=== PATIENT | male | born 1935 | race Caucasian/White ===

== ENCOUNTER → 2019-03-02 14:07 | Outpatient (BNVA) | payer MEDICARE, SELFPAY | PROVIDERS: Family Provider Nurse Practitioner Family; PCP Nurse Practitioner Family; Visit Provider Nurse Practitioner Family | DX: I12.9 Hypertensive chronic kidney disease with stage 1 through stage 4 chronic kidney disease, or unspecified chronic kidney disease (principal); N18.9 Chronic kidney disease, unspecified; E78.5 Hyperlipidemia, unspecified; R09.89 Other specified symptoms and signs involving the circulatory and respiratory systems; Z91.19 Patient's noncompliance with other medical treatment and regimen | CPT/HCPCS: 80053; 80061; 85025 ==

== ENCOUNTER 2020-04-12 13:07 | Emergency (ER) | payer MEDICARE, SELFPAY ==
--- NOTE | 2020-04-12 13:09 | ECG_ITS ---
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 [id number]
--- NOTE | 2020-04-12 13:09 | CT_ITS ---
WS: [id number] Exam: CT head wo con* [id number] Date/Time of Exam: 04/12/2020 1:09 PM Reason For Exam: Symptoms of Acute Stroke DLP: All CT scans at [facility] use at least one of these dose optimization techniques: automat ed exposure control; mA and/or kV adjustment per patient size (includes targeted exams where dose is matched to clinical indication); or iterative reconstruction. Comparison 03/29/2017. There is an area of decreased attenuation in the region of the left internal capsule suspicious for a subacute infarct. Additional old lacunar infarcts are noted in the periventricular white matter subs tance along the posterior horn left lateral ventricle. No evidence of acute bleed or space-occupying mass. Diffuse atrophy and microvascular ischemic changes noted. The ventricles are normal in size. No extra-axial fluid collections. The skull is intact. The facial sinuses and mastoids are clear. Minim al mucosal thickening in the right maxillary sinus. CT/CT head wo con* [id number] IMPRESSION: 1. Area of decreased attenuation in the left internal capsule suspicious for ventura bacute infarct. No bleed is noted. 2. Old lacunar infarcts noted in the periventricular white matter substance em ng the posterior horn of the left lateral ventricle. Also an old lacunar infarc t in left cerebellum. 3. Diffuse atrophy and microvascular ischemic changes.
--- NOTE | 2020-04-12 13:09 | XR_ITS ---
WS: [id number] Exam: XR chest 1V portable [id number] Date/Time of Exam: 04/12/2020 1:15 PM Reason For Exam: reduced breath sounds Comparison 11/15/2014. The lungs are fully expanded. No infiltrates or pleural effusions. Cardiomediastinal structures are u nremarkable for technique. Scattered calcified granulomas noted bilaterally. XR/XR chest 1V portable [id number] IMPRESSION: 1. No acute cardiopulmonary finding.
[2020-04-12 13:19] VITALS: BP 170/78; RESP 18; BMI 22.3
[2020-04-12 13:59] VITALS: BP 151/67; PULSE 55; RESP 16; O2SAT 97
[2020-04-12 14:31] VITALS: BP 151/67; PULSE 56; RESP 13; O2SAT 98
[2020-04-12 14:40] LABS: Glucose Point of Care 102 mg/dL (70-110)
[2020-04-12 14:44] LABS: Basophils # 0.1 10^3/uL (0.0-0.1); Basophils % 0.6 %; Eosinophils # 0.2 10^3/uL (0.0-0.8); Eosinophils % 1.7 %; Hematocrit 37.9 % (42.0-52.0); Hemoglobin 12.4 g/dL (11.7-16.6); Lymphocytes # 1.9 10^3/uL (0.8-4.8); Lymphocytes % 20.3 %; Mean Corpuscular HGB Conc 32.7 g/dL (30.0-36.0); Mean Corpuscular Volume 97.7 fL (80-94); Mean Platelet Volume 11.4 fL (7.4-10.4); Monocytes % 10.1 %; Neutrophils # 6.33 10^3/uL (1.8-7.7); Neutrophils % 67.1 %; Nucleated Red Blood Cells % 0 %; Platelet Count 309 10^3/cmm (130-400); Red Blood Count 3.88 10^6/uL (4.1-5.3); Red Cell Distribution Width 15.2 % (12.1-15.1); White Blood Count 9.4 10^3/uL (4.0-10.0)
[2020-04-12 15:01] LABS: INR 1.18 (0.8-1.2)
[2020-04-12 15:02] LABS: Partial Thromboplastin Time 27.8 SECONDS (23.9-36.7)
[2020-04-12 15:08] LABS: Alanine Aminotransferase 15 U/L (0-41); Albumin Level 3.8 g/dL (3.5-5.2); Alkaline Phosphatase 112 IU/L (40-130); Anion Gap 12.3 (5-19); Aspartate Amino Transferase 14 U/L (0-40); Blood Urea Nitrogen 22 mg/dL (8-23); Calcium 9.1 mg/dL (8.5-10.5); Carbon Dioxide 27 mmol/L (22-29); Chloride 103 mmol/L (98-107); Glucose 98 mg/dL (65-115); Osmolality Calculated 289 mOsm/kg (285-295); Potassium 4.3 mmol/L (3.5-5.1); Sodium 138 mmol/L (136-145); Total Bilirubin 1.2 mg/dL (0.15-1.2); Total Protein 6.8 g/dL (6.6-8.7)
--- NOTE | 2020-04-12 16:45 | W.ED.WEAKNES ---
HPI - Weakness General: Chief complaint: Weakness Stated complaint: GENERAL WEAKNESS Time Seen by Provider: 04/12/20 13:09 History of Present Illness: HPI Narrative: The patient is an 85-year-old male with past medical history of a stroke approximately a month ago. He was flown to [facility] admitted for 2 weeks and sent to a [place] health care facility and later back to his house. He lives alone. That stroke he had right-sided weakness and continues to have some difficulty getting around. This morning he complained of right-sided numbness and right facial droop. By the time he got to the ER he said his symptoms have mostly improved but he still does not feel right and was very anxious about his symptoms. Discussed with Dr. Farah who recommended no acute intervention. Discussed with Dr. Motley who would consult on the patient if admitted. MD Complaint: focal weakness, numbness, tingling and difficulty walking Duration: improved Location: RUE, RLE, face and other Migration: none Severity: moderate Quality: tingling and numbness Relieving factors: none Associated symptoms: Reports no associated symptoms; Denies chest pain, confusion or headache(s) Review of Systems General: Reports: 10 or more systems reviewed and unremarkable except in HPI and below Const: Denies: fatigue Eyes: Denies: change in vision, blurry vision or eye redness ENMT: Denies: throat pain, swelling of lips/tongue, ear or mastoid pain or nasal congestion Card: Denies: chest pain, palpitations, irregular heart rhythm, edema, dyspnea on exertion or orthopnea Resp: Denies: dyspnea, productive cough or non-productive cough GI: Denies: abdominal pain, diarrhea or GI cramping : Denies: flank pain, urinary frequency or urinary urgency Musc: Denies: neck pain, back pain, extremity pain, joint pain, joint redness, limited range of motion or muscle weakness Skin/Breast: Denies: rash, pruritus, erythema, skin pain or skin tenderness Neuro: Reports: numbness in extremities and weakness in extremities; Denies: headache(s), sensory changes, difficulty walking, dizziness, confusion or Slurred speech present Psych: Denies: anxiety or depression Endo: Denies: polyuria All/Imm: Denies: urticaria, throat swelling or tongue swelling PFSH ED PFSH: Medical History Anxiety Bilateral carotid bruits CHF (congestive heart failure), NYHA class III CKD (chronic kidney disease) Dyslipidemia GERD (gastroesophageal reflux disease) History of pancreatic cancer Hx of transient ischemic attack (TIA) Noncompliance Osteoarthritis Pulmonary emphysema Uncontrolled hypertension Surgical History Hx of spinal surgery Family History Brother Heart disease Mother Heart disease Social History Smoking and tobacco status: never smoked Second hand smoke exposure: No Smoking risk assessment/counseling performed?: No Alcohol intake: never Lives independently: Yes Marital status: Single History of recent travel: No Physical Exam Const: COMMON NORMALS: no acute distress, average body habitus, patient oriented x3, no limitations, healthy appearing, alert and well nourished GENERAL APPEARANCE: cooperative, comfortable, well kempt and well developed ORIENTATION/CONSCIOUSNESS: Yes awake, Yes oriented to person, Yes oriented to place and Yes oriented to time HENMT: COMMON NORMALS: normocephalic, external ears normal and Normal external nose present HEAD & SCALP: normal to inspection and normocephalic NOSE: Normal external nose present EXTERNAL EAR: Yes external ears normal MOUTH: Normal oral and palatal mucosa present THROAT: posterior oropharynx normal Eye: COMMON NORMALS: Equal, round and reactive pupils present and EOMs intact bilaterally GENERAL EYE: appearance normal, both eyes and all related structures PUPIL: Yes Equal, round and reactive pupils present Neck/C-Spine: COMMON NORMALS: full ROM, no lymphadenopathy, no meningeal signs and no JVD GENERAL: Yes normal visual inspection Lymph: LYMPHATIC: no lymphadenopathy noted Chest: COMMONS NORMALS: normal inspection of the chest and normal palpation of entire chest wall Resp: COMMON NORMALS: normal respiratory effort, No retractions, No use of accessory muscles, clear to auscultation bilaterally and percussion normal EFFORT & INSPECTION: Yes able to speak in complete sentences AUSCULTATION: clear to auscultation bilaterally PERCUSSION: percussion normal Cardio: COMMON NORMALS: no JVD, regular rate, regular rhythm, S1 normal heart sound present, S2 normal heart sound present and Peripheral pulses 2+ throughout RATE: regular rate RHYTHM: regular rhythm HEART SOUNDS: S1 normal heart sound present and S2 normal heart sound present PERIPHERAL PULSES: Peripheral pulses 2+ throughout GI: COMMON NORMALS: Normal to inspection, nondistended, normoactive bowel sounds present, Soft to palpation, non-tender and no masses INSPECTION: Yes normal to inspection PALPATION: Yes Soft to palpation : COMMON NORMALS: Yes no CVA tenderness BLADDER/KIDNEY EXAM: Yes no CVA tenderness Back/Pelvis: COMMON NORMALS: no CVA tenderness, thoracic and lumbar spine normal to inspection, no thoracic nor lumbar tenderness and thoraco-lumbar ROM normal Extremity: COMMON NORMALS: normal to inspection, full ROM, capillary refill normal, no joint enlargement and no pedal edema GENERAL: Yes normal exam except as noted Neuro: COMMON NORMALS: patient oriented x3, CN's II-XII intact bilaterally, moves all extremities, no focal motor deficits, no sensory deficits noted and gait normal SENSORIUM/ORIENTATION: Yes alert, Yes oriented to person, Yes oriented to place and Yes oriented to time MENINGEAL SIGNS: Yes no meningeal signs OTHER: He has full power in all extremities and sensation is intact throughout his body. He complains of tingling in the right face right upper extremity and right lower extremity. Sensation is intact in those regions. He does have a right-sided facial droop. Checked the charting to see if he had this as an outpatient after his stroke and it is unclear if it is new or chronic. Psych: COMMON NORMALS: mental status grossly normal, Normal thought process present, cooperative, normal affect and speech normal APPEARANCE: Yes well kempt ATTITUDE: Yes calm SPEECH: Yes normal speech THOUGHT PROCESS: Normal thought process present Skin: COMMON NORMALS: no rashes or lesions noted GENERAL SKIN EXAM: no rashes or lesions noted Course Vital Signs: Vital signs: Vital Signs Pulse Rate 64 04/12/20 21:20 Respiratory Rate 19 H 04/12/20 21:20 Blood Pressure 154/95 04/12/20 21:20 Pulse Oximetry 95 04/12/20 21:20 MDM - Weakness MDM Narrative: Medical decision making narrative: The patient is having TIA and strokelike symptoms with tingling on the right and right facial droop. NIH 1. He told EMS the symptoms started last night and he told me this morning at [address] he is out of the window for TPA. He says his symptoms have improved so it is more likely becoming a TIA. He preferred discharge AMA home however his family member arrived and discussed with him and they recommend transferring to another facility. Discussed with the [facility] transfer center and Dr. De La Rosa accepts to [facility]. Lab Data: Labs: Lab Results 04/12/20 04/12/20 04/12/20 Range/Units 14:26 14:26 14:26 WBC 9.4 (4.0-10.0) 10^3/ uL RBC 3.88 L (4.1-5.3) 10^6/u L Hgb 12.4 (11.7-16.6) g/dL Hct 37.9 L (42.0-52.0) % MCV 97.7 H (80-94) fL MCH 32.0 (28.0-34.0) pg MCHC 32.7 (30.0-36.0) g/dL RDW 15.2 H (12.1-15.1) % Plt Count 309 (130-400) 10^3/c mm MPV 11.4 H (7.4-10.4) fL Neut % (Auto) 67.1 % Lymph % (Auto) 20.3 % [place] % (Auto) 10.1 % Eos % (Auto) 1.7 % Baso % (Auto) 0.6 % Neut # (Auto) 6.33 (1.8-7.7) 10^3/u L Lymph # (Auto) 1.9 (0.8-4.8) 10^3/u L [place] # (Auto) 1.0 H (0.2-0.9) 10^3/u L Eos # (Auto) 0.2 (0.0-0.8) 10^3/u L Baso # (Auto) 0.1 (0.0-0.1) 10^3/u L Nucleated RBC % (a uto) 0 % Nucleated RBCs # 0.0 /100WBC PT 15.40 H (12.1-14.9) SECO NDS INR 1.18 (0.8-1.2) APTT 27.8 (23.9-36.7) SECO NDS Sodium 138 (136-145) mmol/L Potassium 4.3 (3.5-5.1) mmol/L Chloride 103 (98-107) mmol/L Carbon Dioxide 27 (22-29) mmol/L Anion Gap 12.3 (5-19) BUN 22 (8-23) mg/dL Creatinine 1.4 H (0.7-1.2) mg/dL GFR Calculation Not Reportable Glucose 98 (65-115) mg/dL POC Glucose (70-110) mg/dL Calculated Osmolal ity 289 (285-295) mOsm/k g Calcium 9.1 (8.5-10.5) mg/dL Total Bilirubin 1.2 (0.15-1.2) mg/dL AST 14 (0-40) U/L ALT 15 (0-41) U/L Alkaline Phosphata se 112 (40-130) IU/L Total Protein 6.8 (6.6-8.7) g/dL Albumin 3.8 (3.5-5.2) g/dL Globulin 3.0 (1.3-4.6) g/dL 04/12/20 Range/Units 14:36 WBC (4.0-10.0) 10^3/ uL RBC (4.1-5.3) 10^6/u L Hgb (11.7-16.6) g/dL Hct (42.0-52.0) % MCV (80-94) fL MCH (28.0-34.0) pg MCHC (30.0-36.0) g/dL RDW (12.1-15.1) % Plt Count (130-400) 10^3/c mm MPV (7.4-10.4) fL Neut % (Auto) % Lymph % (Auto) % [place] % (Auto) % Eos % (Auto) % Baso % (Auto) % Neut # (Auto) (1.8-7.7) 10^3/u L Lymph # (Auto) (0.8-4.8) 10^3/u L [place] # (Auto) (0.2-0.9) 10^3/u L Eos # (Auto) (0.0-0.8) 10^3/u L Baso # (Auto) (0.0-0.1) 10^3/u L Nucleated RBC % (a uto) % Nucleated RBCs # /100WBC PT (12.1-14.9) SECO NDS INR (0.8-1.2) APTT (23.9-36.7) SECO NDS Sodium (136-145) mmol/L Potassium (3.5-5.1) mmol/L Chloride (98-107) mmol/L Carbon Dioxide (22-29) mmol/L Anion Gap (5-19) BUN (8-23) mg/dL Creatinine (0.7-1.2) mg/dL GFR Calculation Glucose (65-115) mg/dL POC Glucose 102 (70-110) mg/dL Calculated Osmolal ity (285-295) mOsm/k g Calcium (8.5-10.5) mg/dL Total Bilirubin (0.15-1.2) mg/dL AST (0-40) U/L ALT (0-41) U/L Alkaline Phosphata se (40-130) IU/L Total Protein (6.6-8.7) g/dL Albumin (3.5-5.2) g/dL Globulin (1.3-4.6) g/dL Discharge Plan Discharge Patient Disposition: Xfer Other Clinical Impression: Stroke Condition: Stable Referrals: Davida Palomares FNP-C [Primary Care Provider] - Discharge Diet: Advance as tolerated Discharge Activity: Resume usual activity Patient Instructions: Ischemic Stroke (GEN) Coding Level of Care Code ED Cotton Program Technician for Rosetta Fwd Exam Comprehensive
[2020-04-12 17:45] VITALS: BP 189/80; PULSE 60; RESP 21; O2SAT 96
[2020-04-12 21:20] VITALS: BP 154/95; PULSE 64; RESP 19; O2SAT 95
[2020-04-12 22:04] VITALS: BP 166/87; PULSE 84; RESP 21; O2SAT 96
== END 2020-04-12 22:06 | disposition other institution (70) ==
PROVIDERS: Emergency Provider Family Medicine; PCP Nurse Practitioner Family
DX: I63.9 Cerebral infarction, unspecified (principal); I50.9 Heart failure, unspecified; E78.5 Hyperlipidemia, unspecified; Z85.07 Personal history of malignant neoplasm of pancreas; Z86.73 Personal history of transient ischemic attack (TIA), and cerebral infarction without residual deficits
CPT/HCPCS: 36416; 70450; 71045; 80053; 82962; 85025; 85610; 85730; 93005; 99285

== ENCOUNTER 2020-05-08 17:48 | Emergency (ER) | payer MEDICARE, SELFPAY ==
--- NOTE | 2020-05-08 17:59 | ECG_ITS ---
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 Measurements Intervals [place] Rate: 54 P: 61 [place]: 206 QRS: 54 QRSD: 94 T: 104 QT: 435 QTc: 413 Interpretive Statements SINUS BRADYCARDIA NONSPECIFIC ST & T-WAVE ABNORMALITY Compared to ECG 04/12/2020 13:33:54 T-wave abnormality now present Left ventricular hypertrophy no longer present ST (T wave) deviation no longer present Electronically Signed On 05-08-2020 20:06:20 CDT by Funmilayo Motley M.D. [id number]
--- NOTE | 2020-05-08 17:59 | XRR_ITS ---
PROCEDURE INFORMATION: Exam: XR Chest Exam date and time: 05/08/2020 6:02 PM Age: 85 years old Clinical indication: Other: Weakness TECHNIQUE: Imaging protocol: XR of the chest Views: 1 view. Total images: 1 COMPARISON: CR XR chest 1V portable [id number] 04/12/2020 1:32 PM FINDINGS: Lungs: No visible active interstitial or alveolar airspace disease. Evidence of antecedent granulomatous disease. Pleural spaces: No pleural effusion. No pneumothorax. Heart/Mediastinum: Cardiac structures and configuration with arteriosclerosis. Bones/joints: Mild scoliotic curvature of the spine. XR/XR chest 1V portable [id number] IMPRESSION: Nonacute.
--- NOTE | 2020-05-08 17:59 | CTR_ITS ---
PROCEDURE INFORMATION: Exam: CT Head Without Contrast Exam date and time: 05/08/2020 7:20 PM Age: 85 years old Clinical indication: Patient HX: C/O dizziness, weakness and RAMIREZ TECHNIQUE: Imaging protocol: Computed tomography of the head without contrast. Total images: 207 Radiation optimization: All CT scans at this facility use at least one of these dose optimization techniques: automated exposure control; mA and/or kV adjustment per patient size (includes targeted exams where dose is matched to clinical indication); or iterative reconstruction. COMPARISON: CT head wo con* [id number] 04/12/2020 1:28 PM RADIATION DOSE METRICS: Total DLP (mGy-cm): 915.21 FINDINGS: Brain: No evidence of active or acute intracranial pathologic process, hemorrhage, or trauma. Old bilateral basal ganglia lacunar infarctions. Old lacunar infarction periventricular white matter of the centrum semi ovale posterior left parietal lobe. Old lacunar infarction left insular cortex. No hyper dense MCA or insular ribbon sign. No mass effect. No midline shift. Cerebral and cerebellar atrophy with ventricular dilatation not inconsistent with the patient's advanced chronological age. Cerebral ventricles: No ventriculomegaly. Bones/joints: Unremarkable. No acute fracture. Paranasal sinuses: Chronic sphenoid sinusitis. No visible evidence of active paranasal sinus disease. Mastoid air cells: Visualized mastoid air cells are well aerated. Soft tissues: Unremarkable. CT/CT head wo con* [id number] IMPRESSION: No evidence of active or acute intracranial pathologic process, hemorrhage, or trauma. Radiation Dose CTDIVOL = (mGy): DLP = 915.21 (mGy-cm)
--- NOTE | 2020-05-08 18:03 | W.ED.WEAKNES ---
HPI - Weakness General: Chief complaint: Weakness Stated complaint: GEN WEAKNESS Time Seen by Provider: 05/08/20 17:52 Source: patient Mode of arrival: ambulatory Limitations: no limitations History of Present Illness: HPI Narrative: 85-year-old male states been having generalized weakness over the last 2 to 3 days. Patient states that he just feels dizzy at times and feels very weak. He denies any focal deficits. He had a TIA and was transferred to [facility] 2 weeks ago. Patient states he has been doing fine since then. He denies any vomiting or diarrhea. Denies any chest pain. MD Complaint: generalized weakness Associated symptoms: Denies chest pain, chills, dysuria, easy bruising, fever(s), headache(s), nausea or vomiting Review of Systems Const: Denies: fever(s), chills, body aches or change in appetite Eyes: Denies: blurry vision or eye discomfort ENMT: Denies: throat pain or dental pain Card: Denies: chest pain Resp: Denies: dyspnea GI: Denies: abdominal pain, nausea, vomiting or diarrhea : Denies: dysuria Musc: Denies: neck pain or back pain Skin/Breast: Denies: rash Neuro: Reports: weakness in extremities; Denies: headache(s) Psych: Denies: depression Rocky/Lymph: Denies: easy bruising All/Imm: Denies: urticaria PFSH ED PFSH: Medical History Anxiety Bilateral carotid bruits CHF (congestive heart failure), NYHA class III CKD (chronic kidney disease) Dyslipidemia GERD (gastroesophageal reflux disease) History of pancreatic cancer Hx of transient ischemic attack (TIA) Noncompliance Osteoarthritis Pulmonary emphysema Uncontrolled hypertension Surgical History Hx of spinal surgery Family History Brother Heart disease Mother Heart disease Social History Smoking and tobacco status: never smoked Second hand smoke exposure: No Smoking risk assessment/counseling performed?: No Alcohol intake: never Lives independently: Yes Marital status: Single History of recent travel: No Physical Exam Const: COMMON NORMALS: no acute distress, patient oriented x3 and healthy appearing HENMT: COMMON NORMALS: normocephalic and atraumatic HEAD & SCALP: normocephalic and atraumatic Eye: COMMON NORMALS: Equal, round and reactive pupils present and EOMs intact bilaterally PUPIL: Yes Equal, round and reactive pupils present Neck/C-Spine: COMMON NORMALS: full ROM and supple Chest: COMMONS NORMALS: normal inspection of the chest and normal palpation of entire chest wall Resp: COMMON NORMALS: normal respiratory effort, No retractions, No use of accessory muscles and clear to auscultation bilaterally AUSCULTATION: clear to auscultation bilaterally Cardio: COMMON NORMALS: regular rate, regular rhythm and No murmurs present (Cardio) RATE: regular rate RHYTHM: regular rhythm GI: COMMON NORMALS: Normal to inspection, nondistended, normoactive bowel sounds present, Soft to palpation, non-tender and no masses PALPATION: Yes Soft to palpation Extremity: COMMON NORMALS: normal to inspection and full ROM Neuro: COMMON NORMALS: patient oriented x3, moves all extremities and no focal motor deficits Psych: COMMON NORMALS: mental status grossly normal, Normal thought process present and cooperative THOUGHT PROCESS: Normal thought process present Skin: COMMON NORMALS: no rashes or lesions noted and no wounds GENERAL SKIN EXAM: no rashes or lesions noted Course Vital Signs: Vital signs: Vital Signs Temperature 98.4 F 05/08/20 18:21 Pulse Rate 62 05/08/20 20:20 Respiratory Rate 16 05/08/20 20:20 Blood Pressure 166/92 05/08/20 20:20 Pulse Oximetry 95 05/08/20 20:20 MDM - Weakness MDM Narrative: Medical decision making narrative: Patient presents here with generalized weakness likely from his previous stroke weeks ago. He states he feels improved here. I did recommend admission but he states that he has home health and has appointment this neurologist and does not want to stay. He was able ambulate with a walker without any problems. Will discharge him home with a walker. He has any worsening he is to return. He understands agrees to plan. Lab Data: Labs: Lab Results 05/08/20 05/08/20 05/08/20 Range/Units 18:44 18:44 19:00 WBC 9.9 (4.0-10.0) 10^3/ uL RBC 3.60 L (4.1-5.3) 10^6/u L Hgb 11.6 L (11.7-16.6) g/dL Hct 34.7 L (42.0-52.0) % MCV 96.4 H (80-94) fL MCH 32.2 (28.0-34.0) pg MCHC 33.4 (30.0-36.0) g/dL RDW 15.6 H (12.1-15.1) % Plt Count 411 H (130-400) 10^3/c mm MPV 10.8 H (7.4-10.4) fL Neut % (Auto) 65.6 % Lymph % (Auto) 21.4 % [place] % (Auto) 10.3 % Eos % (Auto) 1.7 % Baso % (Auto) 0.8 % Neut # (Auto) 6.51 (1.8-7.7) 10^3/u L Lymph # (Auto) 2.1 (0.8-4.8) 10^3/u L [place] # (Auto) 1.0 H (0.2-0.9) 10^3/u L Eos # (Auto) 0.2 (0.0-0.8) 10^3/u L Baso # (Auto) 0.1 (0.0-0.1) 10^3/u L Nucleated RBC % (a uto) 0 % Nucleated RBCs # 0.0 /100WBC Sodium 138 (136-145) mmol/L Potassium 4.3 (3.5-5.1) mmol/L Chloride 101 (98-107) mmol/L Carbon Dioxide 26 (22-29) mmol/L Anion Gap 15.3 (5-19) BUN 33 H (8-23) mg/dL Creatinine 1.3 H (0.7-1.2) mg/dL GFR Calculation Not Reportable Glucose 98 (65-115) mg/dL Calculated Osmolal ity 293 (285-295) mOsm/k g Calcium 9.4 (8.5-10.5) mg/dL Total Bilirubin 0.9 (0.15-1.2) mg/dL AST 10 (0-40) U/L ALT 9 (0-41) U/L Alkaline Phosphata se 107 (40-130) IU/L Total Protein 6.7 (6.6-8.7) g/dL Albumin 3.8 (3.5-5.2) g/dL Globulin 2.9 (1.3-4.6) g/dL Urine Color Colorless (Yellow) Urine Appearance Clear (CLEAR) Urine pH 8 H (5-7) Ur Specific Gravit y 1.010 (1.005-1.030) Urine Protein Neg (Negative) Urine Glucose (UA) Norm (Normal) Urine Ketones Negative (Negative) Urine Blood Neg (Negative) Urine Nitrate Negative (Negative) Urine Bilirubin Neg (Negative) Prot Sulfosalicyli c Acd Negative (Negative) Urine Urobilinogen Norm (Negative) mg/dL Ur Leukocyte Soha ase Negative (Negative) Imaging Data^: CXR: Attestation: I personally reviewed and interpreted this imaging study as follows: Radiologist's impression: [address] [address] XRay Report Signed Patient: Anita Sauer Unit #: [id number] : 1935 Age/Sex: 85 / M ADM Date: 05/08/20 Loc: ER Room/Bed: Attending Dr: Ordering Provider/Ordering MD: Gregorio Gallagher MD Date of Service: 05/08/20 Procedure(s): XR chest 1V portable [id number] Accession Number(s): [id number] Report Number: [id number] PROCEDURE INFORMATION: Exam: XR Chest Exam date and time: 05/08/2020 6:02 PM Age: 85 years old Clinical indication: Other: Weakness TECHNIQUE: Imaging protocol: XR of the chest Views: 1 view. Total images: 1 COMPARISON: CR XR chest 1V portable [id number] 04/12/2020 1:32 PM FINDINGS: Lungs: No visible active interstitial or alveolar airspace disease. Evidence of antecedent granulomatous disease. Pleural spaces: No pleural effusion. No pneumothorax. Heart/Mediastinum: Cardiac structures and configuration with arteriosclerosis. Bones/joints: Mild scoliotic curvature of the spine. XR/XR chest 1V portable [id number] IMPRESSION: Nonacute. Dictated By: Eliot Arenas Signed By: Eliot Arenas Signed Date/Time: 05/08/201833 DD/ 32 CT Head: Attestation: I personally reviewed and interpreted this imaging study as follows: Radiologist's impression: [email or web address] [place] [address] CT Scan Report Signed Patient: Anita Sauer Unit #: [id number] : 1935 Age/Sex: 85 / M ADM Date: 05/08/20 Loc: ER Room/Bed: Attending Dr: Ordering Provider/Ordering MD: Gregorio Gallagher MD Date of Service: 05/08/20 Procedure(s): CT head wo con* [id number] Accession Number(s): [id number] Report Number: [id number] PROCEDURE INFORMATION: Exam: CT Head Without Contrast Exam date and time: 05/08/2020 7:20 PM Age: 85 years old Clinical indication: Patient HX: C/O dizziness, weakness and RAMIREZ TECHNIQUE: Imaging protocol: Computed tomography of the head without contrast. Total images: 207 Radiation optimization: All CT scans at this facility use at least one of these dose optimization techniques: automated exposure control; mA and/or kV adjustment per patient size (includes targeted exams where dose is matched to clinical indication); or iterative reconstruction. COMPARISON: CT head wo con* [id number] 04/12/2020 1:28 PM RADIATION DOSE METRICS: Total DLP (mGy-cm): 915.21 FINDINGS: Brain: No evidence of active or acute intracranial pathologic process, hemorrhage, or trauma. Old bilateral basal ganglia lacunar infarctions. Old lacunar infarction periventricular white matter of the centrum semi ovale posterior left parietal lobe. Old lacunar infarction left insular cortex. No hyper dense MCA or insular ribbon sign. No mass effect. No midline shift. Cerebral and cerebellar atrophy with ventricular dilatation not inconsistent with the patient's advanced chronological age. Cerebral ventricles: No ventriculomegaly. Bones/joints: Unremarkable. No acute fracture. Paranasal sinuses: Chronic sphenoid sinusitis. No visible evidence of active paranasal sinus disease. Mastoid air cells: Visualized mastoid air cells are well aerated. Soft tissues: Unremarkable. CT/CT head wo con* [id number] IMPRESSION: No evidence of active or acute intracranial pathologic process, hemorrhage, or trauma. EKG Data^: EKG 1: Attestation: I personally reviewed and interpreted this EKG as follows: EKG interpretation date: 05/08/20 EKG interpretation time: 18:16 Interpretation: sinus tara hr [address] or t wave abnormalities qrs 94 qtc 420 Discharge Plan Discharge Patient Disposition: Home Clinical Impression: Weakness Condition: Stable Prescriptions: No Action atorvastatin 40 mg tablet 40 mg PO DAILY@0800 RF: 0 carvedilol 6.25 mg tablet 6.25 mg PO BID@0800,1999 RF: 0 cholecalciferol (vitamin D3) 25 mcg (1,000 unit) capsule 50 mcg PO DAILY@0800 RF: 0 clopidogrel 75 mg tablet 75 mg PO DAILY@0800 RF: 0 famotidine 20 mg tablet 20 mg PO DAILY@1999 RF: 0 hydralazine 100 mg tablet 100 mg PO TID@08,, RF: 0 isosorbide dinitrate 20 mg tablet See Rx Instructions .ROUTE .COMPLEX RF: 0 Adult Low Dose Aspirin 81 mg tablet,delayed release (DR/EC) 81 mg PO DAILY@0800 RF: 0 Discharge Orders: Discharge ED (Routine); Ordered 05/08/20 Ordered By: Gregorio Gallagher Other Ambulatory Orders: DME: Mauricio (Order) Location: None Selected Ordered By: Gregorio Gallagher Referrals: Davida Palomares FNP-C [Primary Care Provider] - 1-3 days Discharge Diet: Advance as tolerated Discharge Activity: Resume usual activity Patient Instructions: Weakness (ED) Coding Level of Care Code ED Pastoral Worker for Chg Fwd Exam Comprehensive
[2020-05-08 18:21] VITALS: BP 187/82; PULSE 55; RESP 14; TEMP 36.9; O2SAT 98; BMI 19.9
[2020-05-08 18:47] LABS: Basophils # 0.1 10^3/uL (0.0-0.1); Basophils % 0.8 %; Eosinophils # 0.2 10^3/uL (0.0-0.8); Eosinophils % 1.7 %; Hematocrit 34.7 % (42.0-52.0); Hemoglobin 11.6 g/dL (11.7-16.6); Lymphocytes # 2.1 10^3/uL (0.8-4.8); Lymphocytes % 21.4 %; Mean Corpuscular HGB Conc 33.4 g/dL (30.0-36.0); Mean Corpuscular Hemoglobin 32.2 pg (28.0-34.0); Mean Corpuscular Volume 96.4 fL (80-94); Mean Platelet Volume 10.8 fL (7.4-10.4); Monocytes % 10.3 %; Neutrophils # 6.51 10^3/uL (1.8-7.7); Neutrophils % 65.6 %; Nucleated Red Blood Cells % 0 %; Platelet Count 411 10^3/cmm (130-400); Red Cell Distribution Width 15.6 % (12.1-15.1); White Blood Count 9.9 10^3/uL (4.0-10.0)
[2020-05-08 19:11] LABS: Alanine Aminotransferase 9 U/L (0-41); Albumin Level 3.8 g/dL (3.5-5.2); Alkaline Phosphatase 107 IU/L (40-130); Anion Gap 15.3 (5-19); Aspartate Amino Transferase 10 U/L (0-40); Blood Urea Nitrogen 33 mg/dL (8-23); Calcium 9.4 mg/dL (8.5-10.5); Carbon Dioxide 26 mmol/L (22-29); Chloride 101 mmol/L (98-107); Globulin 2.9 g/dL (1.3-4.6); Glucose 98 mg/dL (65-115); Osmolality Calculated 293 mOsm/kg (285-295); Potassium 4.3 mmol/L (3.5-5.1); Sodium 138 mmol/L (136-145); Total Bilirubin 0.9 mg/dL (0.15-1.2); Total Protein 6.7 g/dL (6.6-8.7)
[2020-05-08 19:13] LABS: Add Urine Microscopic? NO
[2020-05-08 19:14] VITALS: BP 179/86; BP 181/77; PULSE 55; PULSE 57; RESP 16; O2SAT 98; O2SAT 99
[2020-05-08 20:08] LABS: Urine Appearance Clear (CLEAR); Urine Color Colorless (Yellow)
[2020-05-08 20:09] LABS: Bilirubin Urine Neg (Negative); Blood Urine Neg (Negative); Glucose Urine UA Norm (Normal); Ketones Urine Negative (Negative); Leukocyte Esterase Urine Negative (Negative); Nitrate Urine Negative (Negative); Protein Urine Neg (Negative); Sulfosalicylic Acid Urine Negative (Negative); Urobilinogen Urine Norm (Negative); pH Urine 8 (5-7)
[2020-05-08 20:20] VITALS: BP 166/92; PULSE 62; RESP 16; O2SAT 95
== END 2020-05-08 22:05 | disposition home or self-care (01) ==
PROVIDERS: Emergency Provider Emergency Medicine; PCP Nurse Practitioner Family
DX: R53.1 Weakness (principal); Z79.82 Long term (current) use of aspirin; Z79.02 Long term (current) use of antithrombotics/antiplatelets; I11.0 Hypertensive heart disease with heart failure; I50.9 Heart failure, unspecified; E78.5 Hyperlipidemia, unspecified; Z85.07 Personal history of malignant neoplasm of pancreas; Z86.73 Personal history of transient ischemic attack (TIA), and cerebral infarction without residual deficits; J43.9 Emphysema, unspecified
CPT/HCPCS: 70450; 71045; 80053; 81003; 85025; 93005; 99283

== ENCOUNTER 2020-05-10 11:00 | Inpatient (IN) | payer MEDICARE, SELFPAY ==
[2020-05-10] VITALS (7 sets, daily range): BP systolic 137–188; BP diastolic 59–84; PULSE 56–62; RESP 14–18; TEMP 36.6–36.9; O2SAT 95–99; BMI 24.4
--- NOTE | 2020-05-10 11:20 | XRR_ITS ---
PROCEDURE INFORMATION: Exam: XR Chest Exam date and time: 05/10/2020 11:25 AM Age: 85 years old Clinical indication: Injury or trauma; Fall; Blunt trauma (contusions or hematomas); Patient HX: PT unable to give history TECHNIQUE: Imaging protocol: XR of the chest Views: 1 view. COMPARISON: CR (CHEST, ) 05/08/2020 6:18 PM FINDINGS: Lungs: Unremarkable. No consolidation. Pleural spaces: Unremarkable. No pleural effusion. No pneumothorax. Heart/Mediastinum: Unremarkable. No cardiomegaly. Bones/joints: Unremarkable. XR/XR chest 1V portable [id number] IMPRESSION: No acute findings.
--- NOTE | 2020-05-10 11:20 | CT_ITS ---
WS: [id number] CT HEAD NONCONTRAST HISTORY: confusion TECHNIQUE: Contiguous axial imaging performed through the brain in 2.5 mm imaging. Bone and soft tiss ue windows. Sagittal and coronal reformats reviewed. All CT scans at [facility] use at ast one of these dose optimization techniques: automated exposure control; mA and/or kV adjustment pe r patient size (includes targeted exams where dose is matched to clinical indication); or iterative r econstruction. DLP: 930.58 mGy.cm COMPARISON: 05/08/2020 No acute intracranial hemorrhage, midline shift or mass effect. Prior lacunar infarcts bilateral basal ganglia. Largest involving the external capsule on the LEFT. N o acute area of sulcal effacement. There is an additional lacunar infarct in the christiansen radiata on th e LEFT. Ventricles: Normal size with no hydrocephalus. Paranasal sinuses: Small amount of debris in the RIGHT sphenoid sinus. No air-fluid levels. Mastoid air cells: Well pneumatized. Calvarium and scalp: Skull is intact with no soft tissue edema or swelling. CT/CT head wo con* [id number] IMPRESSION: 1. No acute intracranial hemorrhage. 2. Multiple bilateral lacunar infarcts as described above, greater on the LEFT . 3. No skull fracture.
--- NOTE | 2020-05-10 11:24 | ECG_ITS ---
[facility] Test Date: 2020-05-10 Pat Name: Anita Sauer Department: Room: 254 Gender: Male Vamp Presser: : 1935 Requested By: Alfred Arias Order Number: [id number] MD: Aakash Rubin M.D. Measurements Intervals [place] Rate: 56 P: 66 [place]: 200 QRS: 37 QRSD: 90 T: 111 QT: 430 QTc: 417 Interpretive Statements SINUS BRADYCARDIA NONSPECIFIC ST & T-WAVE ABNORMALITY Compared to ECG 05/08/2020 18:16:23 No significant changes Electronically Signed On 05-10-2020 20:16:53 CDT by Aakash Rubin M.D. [id number]
--- NOTE | 2020-05-10 11:25 | XRR_ITS ---
PROCEDURE INFORMATION: Exam: XR Left Wrist Exam date and time: 05/10/2020 1:12 PM Age: 85 years old Clinical indication: Injury or trauma; Fall; Blunt trauma (contusions or hematomas); Wrist; Left; Patient HX: PT unable to provide history TECHNIQUE: Imaging protocol: XR Left wrist. Views: 1 or 2 views. COMPARISON: No relevant prior studies available. FINDINGS: Bones/joints: There is no evidence for acute fracture or malalignment. Soft tissues: Normal. XR/XR wrist LT 2V [id number] IMPRESSION: No acute findings.
--- NOTE | 2020-05-10 11:25 | XRR_ITS ---
PROCEDURE INFORMATION: Exam: XR Left Elbow Exam date and time: 05/10/2020 11:26 AM Age: 85 years old Clinical indication: Injury or trauma; Fall; Blunt trauma (contusions or hematomas); Elbow; Left; Patient HX: PT unable to provide history TECHNIQUE: Imaging protocol: XR Left elbow. Views: 1 or 2 views. COMPARISON: No relevant prior studies available. FINDINGS: Bones/joints: There is no evidence for acute fracture or malalignment. Soft tissues: There is soft tissue swelling along the dorsal left elbow. XR/XR elbow LT 2V [id number] IMPRESSION: No acute findings.
--- NOTE | 2020-05-10 11:26 | W.ED.FALL ---
HPI - Fall General: Chief Complaint: Fall Stated Complaint: FALLS/SKIN TEAR Time Seen by Provider: 05/10/20 11:01 History of Present Illness: HPI Narrative: Is an 85-year-old male who comes to the ER after a fall this morning. He says he does not remember falling but remembers waking up on the floor and bleeding from his left arm. He has a small skin tear to his left elbow and a small 1 to his left wrist. He says he was able to get to his bed again where he had some blood on it. He says he thinks he fell a second time because he got up to unlock the door for EMS but is unsure of the second fall. The patient recently had a stroke March 03 this year in the left basal ganglia with right-sided weakness and aphasia. He also has CHF, CKD, hypertension, hyperlipidemia, runs of SVT, and former smoker history. On May 09 he was transferred to [facility] after an apparent TIA and had a carotid endarterectomy on the left side. He has a healing surgical scar on the left neck appropriately. He is a poor historian all history was gathered from the chart. He lives at home alone. Loss of consciousness unknown though it is possible because he does not remember the fall. He denies pain anywhere except over his left neck where the surgical scar is. MD complaint: fall Fall from: standing Fall witnessed: no Place fall occurred: home Prolonged down time: unclear Severity: moderate Associated symptoms-after fall: Denies abdominal pain, chest pain, confusion, difficulty walking, headache(s) or neck pain Review of Systems General: Reports: 10 or more systems reviewed and unremarkable except in HPI and below Const: Denies: fatigue Eyes: Denies: change in vision, blurry vision or eye redness ENMT: Denies: throat pain, swelling of lips/tongue, ear or mastoid pain or nasal congestion Card: Denies: chest pain, palpitations, irregular heart rhythm, edema, dyspnea on exertion or orthopnea Resp: Denies: dyspnea, productive cough or non-productive cough GI: Denies: abdominal pain, diarrhea or GI cramping : Denies: flank pain, urinary frequency or urinary urgency Musc: Denies: neck pain, back pain, extremity pain, joint pain, joint redness, limited range of motion or muscle weakness Skin/Breast: Denies: rash, pruritus, erythema, skin pain or skin tenderness Neuro: Denies: headache(s), numbness in extremities, weakness in extremities, sensory changes, difficulty walking, dizziness, confusion or Slurred speech present Psych: Denies: anxiety or depression Endo: Denies: polyuria All/Imm: Denies: urticaria, throat swelling or tongue swelling PFSH ED PFSH: Medical History (Updated 05/10/20 @ 14:39 by Alfred Arias MD) Anxiety Bilateral carotid bruits Carotid stenosis CHF (congestive heart failure), NYHA class III CKD (chronic kidney disease) Dyslipidemia GERD (gastroesophageal reflux disease) History of pancreatic cancer Hx of transient ischemic attack (TIA) Noncompliance Osteoarthritis Pulmonary emphysema Uncontrolled hypertension Surgical History (Updated 05/09/20 @ 19:51 by Funmilayo Motley MD) H/O carotid endarterectomy Hx of spinal surgery Family History Brother Heart disease Mother Heart disease Social History Smoking and tobacco status: never smoked Second hand smoke exposure: No Smoking risk assessment/counseling performed?: No Alcohol intake: never Lives independently: Yes Marital status: Single History of recent travel: No Physical Exam Const: COMMON NORMALS: no acute distress, average body habitus, patient oriented x3, no limitations, healthy appearing, alert and well nourished GENERAL APPEARANCE: cooperative, comfortable, well kempt and well developed ORIENTATION/CONSCIOUSNESS: Yes awake, Yes oriented to person, Yes oriented to place and Yes oriented to time OTHER: Chronic dementia. Poor historian. HENMT: COMMON NORMALS: normocephalic, external ears normal and Normal external nose present HEAD & SCALP: normal to inspection and normocephalic NOSE: Normal external nose present EXTERNAL EAR: Yes external ears normal MOUTH: Normal oral and palatal mucosa present THROAT: posterior oropharynx normal OTHER: Left neck surgical scar healing appropriately. Mild associated tenderness associated with the recent surgery. Does not appear infected Eye: COMMON NORMALS: Equal, round and reactive pupils present and EOMs intact bilaterally GENERAL EYE: appearance normal, both eyes and all related structures PUPIL: Yes Equal, round and reactive pupils present Neck/C-Spine: COMMON NORMALS: full ROM, no lymphadenopathy, no meningeal signs and no JVD GENERAL: Yes normal visual inspection Lymph: LYMPHATIC: no lymphadenopathy noted Chest: COMMONS NORMALS: normal inspection of the chest and normal palpation of entire chest wall Resp: COMMON NORMALS: normal respiratory effort, No retractions, No use of accessory muscles, clear to auscultation bilaterally and percussion normal EFFORT & INSPECTION: Yes able to speak in complete sentences AUSCULTATION: clear to auscultation bilaterally PERCUSSION: percussion normal Cardio: COMMON NORMALS: no JVD, regular rate, regular rhythm, S1 normal heart sound present, S2 normal heart sound present and Peripheral pulses 2+ throughout RATE: regular rate RHYTHM: regular rhythm HEART SOUNDS: S1 normal heart sound present and S2 normal heart sound present PERIPHERAL PULSES: Peripheral pulses 2+ throughout GI: COMMON NORMALS: Normal to inspection, nondistended, normoactive bowel sounds present, Soft to palpation, non-tender and no masses INSPECTION: Yes normal to inspection PALPATION: Yes Soft to palpation : COMMON NORMALS: Yes no CVA tenderness BLADDER/KIDNEY EXAM: Yes no CVA tenderness Back/Pelvis: COMMON NORMALS: no CVA tenderness, thoracic and lumbar spine normal to inspection, no thoracic nor lumbar tenderness and thoraco-lumbar ROM normal Extremity: COMMON NORMALS: normal to inspection, full ROM, capillary refill normal, no joint enlargement and no pedal edema GENERAL: Yes normal exam except as noted Neuro: COMMON NORMALS: patient oriented x3, CN's II-XII intact bilaterally, moves all extremities, no focal motor deficits, no sensory deficits noted and gait normal SENSORIUM/ORIENTATION: Yes alert, Yes oriented to person, Yes oriented to place and Yes oriented to time MENINGEAL SIGNS: Yes no meningeal signs OTHER: Chronic confusion from his history of dementia and recent stroke. Normal speech Psych: COMMON NORMALS: mental status grossly normal, Normal thought process present, cooperative, normal affect and speech normal APPEARANCE: Yes well kempt ATTITUDE: Yes calm SPEECH: Yes normal speech THOUGHT PROCESS: Normal thought process present Skin: COMMON NORMALS: no rashes or lesions noted NARRATIVE SKIN EXAM: Small skin tears 1 to 2 cm in length on left elbow and left wrist. No active bleeding. They are well approximated. GENERAL SKIN EXAM: no rashes or lesions noted Course Vital Signs: Vital signs: Vital Signs Temperature 97.8 F 05/10/20 16:44 Pulse Rate 61 05/10/20 16:44 Respiratory Rate 18 05/10/20 16:44 Blood Pressure 188/84 05/10/20 16:44 Pulse Oximetry 98 05/10/20 16:44 MDM - Fall MDM Narrative: Medical decision making narrative: Care of this patient is complex as he had multiple falls at home today sustaining minor injuries. He has multiple recent CVAs and an endarterectomy on the left side a month ago. He also has CHF and had scheduled an outpatient catheterization with Dr. Motley. It seems he lives alone and is now unable to care for himself and having multiple falls. He cannot recall any of the events and the CT shows a possible new stroke since his last visit although the acuity of this stroke is unknown likely it happened sometime ago. Even if this were an acute stroke time of onset would be unknown as he cannot recall the events and he would not be a TPA candidate. Unable to do a CT angiogram because of his creatinine. Discussed with the patient's family member in the room who cannot take care of him at home. Discussed with Dr. Palumbo who accepts for admission. Lab Data: Labs: Lab Results 05/10/20 05/10/20 05/10/20 Range/Units 11:55 11:55 11:55 WBC 9.6 (4.0-10.0) 10^3/ uL RBC 3.89 L (4.1-5.3) 10^6/u L Hgb 12.4 (11.7-16.6) g/dL Hct 37.3 L (42.0-52.0) % MCV 95.9 H (80-94) fL MCH 31.9 (28.0-34.0) pg MCHC 33.2 (30.0-36.0) g/dL RDW 15.8 H (12.1-15.1) % Plt Count 430 H (130-400) 10^3/c mm MPV 11.0 H (7.4-10.4) fL Neut % (Auto) 75.9 % Lymph % (Auto) 13.8 % Power % (Auto) 7.9 % Eos % (Auto) 1.5 % Baso % (Auto) 0.7 % Neut # (Auto) 7.32 (1.8-7.7) 10^3/u L Lymph # (Auto) 1.3 (0.8-4.8) 10^3/u L Power # (Auto) 0.8 (0.2-0.9) 10^3/u L Eos # (Auto) 0.1 (0.0-0.8) 10^3/u L Baso # (Auto) 0.1 (0.0-0.1) 10^3/u L Nucleated RBC % (a uto) 0 % Nucleated RBCs # 0.0 /100WBC Sodium 139 (136-145) mmol/L Potassium 4.6 (3.5-5.1) mmol/L Chloride 104 (98-107) mmol/L Carbon Dioxide 26 (22-29) mmol/L Anion Gap 13.6 (5-19) BUN 35 H (8-23) mg/dL Creatinine 1.5 H (0.7-1.2) mg/dL GFR Calculation Not Reportable Glucose 114 (65-115) mg/dL Calculated Osmolal ity 297 H (285-295) mOsm/k g Calcium 9.5 (8.5-10.5) mg/dL Total Bilirubin 1.3 H (0.15-1.2) mg/dL AST 11 (0-40) U/L ALT 11 (0-41) U/L Alkaline Phosphata se 120 (40-130) IU/L Creatine Kinase 37 L (39-308) U/L Troponin T Baselin e 46 H (0-15) ng/L Troponin T 120 Min [place] (0-15) ng/L Delta Troponin T (0-10) ABS# NT-Pro-B Natriuret Pep 1903 H (0-450) pg/mL Total Protein 6.8 (6.6-8.7) g/dL Albumin 4.0 (3.5-5.2) g/dL Globulin 2.8 (1.3-4.6) g/dL 05/10/ Range/Units 14:13 WBC (4.0-10.0) 10^3/ uL RBC (4.1-5.3) 10^6/u L Hgb (11.7-16.6) g/dL Hct (42.0-52.0) % MCV (80-94) fL MCH (28.0-34.0) pg MCHC (30.0-36.0) g/dL RDW (12.1-15.1) % Plt Count (130-400) 10^3/c mm MPV (7.4-10.4) fL Neut % (Auto) % Lymph % (Auto) % Power % (Auto) % Eos % (Auto) % Baso % (Auto) % Neut # (Auto) (1.8-7.7) 10^3/u L Lymph # (Auto) (0.8-4.8) 10^3/u L Power # (Auto) (0.2-0.9) 10^3/u L Eos # (Auto) (0.0-0.8) 10^3/u L Baso # (Auto) (0.0-0.1) 10^3/u L Nucleated RBC % (a uto) % Nucleated RBCs # /100WBC Sodium (136-145) mmol/L Potassium (3.5-5.1) mmol/L Chloride (98-107) mmol/L Carbon Dioxide (22-29) mmol/L Anion Gap (5-19) BUN (8-23) mg/dL Creatinine (0.7-1.2) mg/dL GFR Calculation Glucose (65-115) mg/dL Calculated Osmolal ity (285-295) mOsm/k g Calcium (8.5-10.5) mg/dL Total Bilirubin (0.15-1.2) mg/dL AST (0-40) U/L ALT (0-41) U/L Alkaline Phosphata se (40-130) IU/L Creatine Kinase (39-308) U/L Troponin T Baselin e (0-15) ng/L Troponin T 120 Min [place] 41.75 H (0-15) ng/L Delta Troponin T -4.25 L (0-10) ABS# NT-Pro-B Natriuret Pep (0-450) pg/mL Total Protein (6.6-8.7) g/dL Albumin (3.5-5.2) g/dL Globulin (1.3-4.6) g/dL Discharge Plan Discharge Patient Disposition: Admitted As Inpatient Admit Provider: Linda Palumbo Clinical Impression: Weakness, Multiple falls, History of stroke Condition: Stable Coding Level of Care Code ED Freezer Assistant for Chg Fwd Exam Comprehensive
--- NOTE | 2020-05-10 11:31 | CT_ITS ---
WS: [id number] CT CERVICAL SPINE HISTORY: fall TECHNIQUE: Contiguous 2.5 mm axial imaging performed through the entire cervical spine. Sagittal and coronal reformats also performed. All CT scans at [facility] use at least one of these do se optimization techniques: automated exposure control; mA and/or kV adjustment per patient size (inc ludes targeted exams where dose is matched to clinical indication); or iterative reconstruction. DLP: 658.59 mGy.cm COMPARISON: 03/29/2017 Increase in the cervical lordosis. C3 retrolisthesis by 3.5 mm. Severe disc space narrowing from C3-4 through C6-7. No acute fractures are identified. Moderate narrowing of the facet joints bilaterally. Moderate bilateral foraminal stenosis throughout the cervical spine. No fractures are identified. No acute-appearing disc herniations. Lateral masses of C1 and C2 are aligned and the odontoid is intact . Lung apices are clear. Postsurgical changes in the LEFT neck may be from a prior endarterectomy. CT/CT cervical spin wo con* [id number] IMPRESSION: 1. No acute cervical spine fracture. 2. Advanced degenerative changes with foraminal narrowing and spondylosis jim lar to the prior study from 2018.
[2020-05-10 12:06] LABS: Basophils # 0.1 10^3/uL (0.0-0.1); Basophils % 0.7 %; Eosinophils # 0.1 10^3/uL (0.0-0.8); Eosinophils % 1.5 %; Hematocrit 37.3 % (42.0-52.0); Hemoglobin 12.4 g/dL (11.7-16.6); Lymphocytes # 1.3 10^3/uL (0.8-4.8); Lymphocytes % 13.8 %; Mean Corpuscular HGB Conc 33.2 g/dL (30.0-36.0); Mean Corpuscular Hemoglobin 31.9 pg (28.0-34.0); Mean Corpuscular Volume 95.9 fL (80-94); Monocytes # 0.8 10^3/uL (0.2-0.9); Monocytes % 7.9 %; Neutrophils # 7.32 10^3/uL (1.8-7.7); Neutrophils % 75.9 %; Nucleated Red Blood Cells % 0 %; Platelet Count 430 10^3/cmm (130-400); Red Blood Count 3.89 10^6/uL (4.1-5.3); Red Cell Distribution Width 15.8 % (12.1-15.1); White Blood Count 9.6 10^3/uL (4.0-10.0)
[2020-05-10 12:31] LABS: Troponin(5th) Baseline 46 ng/L (0-15)
[2020-05-10] MEDS: tetanus-dipt-pertussis 0.5 mL SDV IM (12:35)
[2020-05-10] MEDS: sodium chloride 0.9% 500 ML IV (12:49)
[2020-05-10 12:51] LABS: Alanine Aminotransferase 11 U/L (0-41); Alkaline Phosphatase 120 IU/L (40-130); Anion Gap 13.6 (5-19); Aspartate Amino Transferase 11 U/L (0-40); Blood Urea Nitrogen 35 mg/dL (8-23); Calcium 9.5 mg/dL (8.5-10.5); Carbon Dioxide 26 mmol/L (22-29); Chloride 104 mmol/L (98-107); Creatine Phosphokinase 37 U/L (39-308); Globulin 2.8 g/dL (1.3-4.6); Glucose 114 mg/dL (65-115); NT Pro B Type Natriuretic Pept 1903 pg/mL (0-450); Osmolality Calculated 297 mOsm/kg (285-295); Potassium 4.6 mmol/L (3.5-5.1); Sodium 139 mmol/L (136-145); Total Bilirubin 1.3 mg/dL (0.15-1.2); Total Protein 6.8 g/dL (6.6-8.7)
--- NOTE | 2020-05-10 13:24 | ECG_ITS ---
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 Measurements Intervals [place] Rate: 53 P: 59 KS: 200 QRS: 40 QRSD: 90 T: 110 QT: 457 QTc: 430 Interpretive Statements SINUS BRADYCARDIA WITH OCCASIONAL SUPRAVENTRICULAR PREMATURE COMPLEXES NONSPECIFIC ST & T-WAVE ABNORMALITY Compared to ECG 05/08/2020 18:16:23 No significant changes Electronically Signed On 05-10-2020 20:23:57 CDT by Aakash Rubin M.D. [id number]
[2020-05-10 14:39] LABS: Troponin 5 2HR 41.75 ng/L (0-15)
--- NOTE | 2020-05-10 14:42 | CTR_ITS ---
PROCEDURE INFORMATION: Exam: CT Angiography Head With Contrast, Arteries Exam date and time: 05/10/2020 3:32 PM Age: 85 years old Clinical indication: Injury or trauma; Fall; Blunt trauma; Head; Additional info: H/o stroke TECHNIQUE: Imaging protocol: Computed tomography angiography of the head with intravenous contrast. 3D rendering (Not supervised by radiologist): MIP and/or 3D reconstructed images were created by the technologist. Contrast material: VISI; Contrast volume: 95 ml; Contrast route: INTRAVENOUS (IV); COMPARISON: No relevant prior studies available. RADIATION DOSE METRICS: Total DLP (mGy-cm): 2256.17 FINDINGS: ANTERIOR CIRCULATION: Right internal carotid artery: Unremarkable. Intracranial segment is patent with no significant stenosis. No aneurysm. Right middle cerebral artery: Unremarkable. No occlusion or significant stenosis. No aneurysm. Right anterior cerebral artery: Unremarkable. No occlusion or significant stenosis. No aneurysm. Left internal carotid artery: Unremarkable. Intracranial segment is patent with no significant stenosis. No aneurysm. Left middle cerebral artery: Unremarkable. No occlusion or significant stenosis. No aneurysm. Left anterior cerebral artery: Unremarkable. No occlusion or significant stenosis. No aneurysm. POSTERIOR CIRCULATION: Right vertebral artery: Unremarkable. No occlusion or significant stenosis. No aneurysm. Left vertebral artery: Unremarkable. No occlusion or significant stenosis. No aneurysm. Basilar artery: Unremarkable. No occlusion or significant stenosis. No aneurysm. Right posterior cerebral artery: Unremarkable. No occlusion or significant stenosis. No aneurysm. Left posterior cerebral artery: Unremarkable. No occlusion or significant stenosis. No aneurysm. Brain: No definite mass, mass effect, or midline shift. Cerebral ventricles: No ventriculomegaly. Bones/joints: Unremarkable. No acute fracture. Soft tissues: Unremarkable. IMPRESSION: Unremarkable CT angiogram head. No large vessel occlusion. PROCEDURE INFORMATION: Exam: CT Angiography Neck With Contrast Exam date and time: 05/10/2020 3:32 PM Age: 85 years old Clinical indication: Injury or trauma; Fall; Blunt trauma; Head; Additional info: H/o stroke TECHNIQUE: Imaging protocol: Computed tomography angiography of the neck with intravenous contrast. 3D rendering (Not supervised by radiologist): MIP and/or 3D reconstructed images were created by the technologist. Contrast material: VISI; Contrast volume: 95 ml; Contrast route: INTRAVENOUS (IV); COMPARISON: No relevant prior studies available. RADIATION DOSE METRICS: Total DLP (mGy-cm): 2256.17 FINDINGS: Right common carotid artery: No stenosis. No dissection or occlusion. Right internal carotid artery: Large calcified atherosclerotic plaque volume of the proximal right internal carotid artery. Mild stenosis less than 50%. Right external carotid artery: No occlusion or stenosis of the origin. Right vertebral artery: No stenosis. No dissection or occlusion. Left common carotid artery: No stenosis. No dissection or occlusion. Left internal carotid artery: Scattered surgical clips in the left neck. Left external carotid artery: Partially occlusive filling defect in the proximal left external carotid artery. This causes mild stenosis approaching 50%. Left vertebral artery: No stenosis. No dissection or occlusion. Other vasculature: No traumatic arterial pseudoaneurysm. Submandibular/Parotid glands: Regional area of soft tissue fat stranding in the posterior left submandibular area. Bones/joints: The cervical spine demonstrates marked degenerative changes at multiple levels. No traumatic malalignment. No acute fracture apparent. However, this is a suboptimal exam to evaluate the bones. Recommend correlation with CT cervical spine. Soft tissues: No contrast extravasation in the soft tissues of the neck. Lungs: Moderate emphysema. CT/CT angio headneck* [id number] IMPRESSION: 1. Small flap-type defect in the proximal left external carotid artery. This may represent small volume of nonocclusive thrombus or a small dissection flap. 2. No common carotid artery injury. No internal carotid artery injury. 3. Less than 50% stenosis bilateral common carotid arteries and internal carotid arteries. 4. Nonspecific soft tissue fat stranding and edema in the posterior left submandibular region superficial to the left sternocleidomastoid muscle. 5. No active bleeding in the neck. REFERENCES: NASCET CRITERIA. The degree of internal carotid artery stenosis is based on NASCET criteria. Normal is no stenosis. Mild is less than 50% stenosis. Moderate is 50-69% stenosis. Severe is 70% to 99% stenosis. Total occlusion is no detectable patent lumen. Radiation Dose CTDIVOL = (mGy): DLP = 2256.17~2256.17 (mGy-cm)
[2020-05-10 14:53] LABS: Troponin 5 2HR Delta -4.25 ABS# (0-10)
--- NOTE | 2020-05-10 15:00 | PC.PHAR ---
pt and pts family unsure what medications the pt takes-medications entered are meds from the pts medication list from the [facility]-lisinopril was not on pts med list from [facility]-last filled on 04/19/20 40mg daily
[2020-05-10] MEDS: iodixanol 320 mg/mL 100mL Btl IV (15:47)
--- NOTE | 2020-05-10 17:24 | ECG_ITS ---
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 Measurements Intervals [place] Rate: 58 P: 69 [place]: 210 QRS: 53 QRSD: 89 T: 84 QT: 430 QTc: 422 Interpretive Statements SINUS BRADYCARDIA WITH FIRST DEGREE AV BLOCK NONSPECIFIC ST & T-WAVE ABNORMALITY Compared to ECG 05/10/2020 13:33:06 First degree AV block now present T-wave abnormality still present Electronically Signed On 05-13-2020 18:22:45 CDT by Funmilayo Motley M.D. [id number]
[2020-05-10 21:20] LABS: Troponin 5 6HR 39.88 ng/L (0-15); Troponin 5 6HR Delta -6.12 ng/L (0-12)
--- NOTE | 2020-05-10 21:53 | P.HP_ITS ---
Providers/Chief Complaint Admitting Physician: Linda Palumbo MD Primary Care Provider: YELITZA Mon Chief Complaint: FALLS/SKIN TEAR History of Present Illness Anita Sauer is a 85 year old male with past medical history of hypertension, dyslipidemia, cardiomyopathy last known EF 30-35%, chronic kidney disease stage 3, recent history notable for CVAs, March 03-2020 requiring admission at [facility] for left basal ganglia infarct. He also had elevated troponin elevation at that was thought to be demand ischemia. He did not get MRI due to metal implants. Patient declined coronary angiogram at the time and opted for medical management. Discharged to [facility] rehab and then [facility]. Since then he has residual expressive aphasia and word finding difficulty. His strength and endurance improved with therapy at SNF. More recently was at the ER again on 04/12 for TIA with symptoms of right side facial numbness, transferred to [facility] where he underwent left carotid endarterectomy by Dr. Bill Nesbitt on 04/18/20. Recently followed up at [facility] ~1 week ago, had complaints of left neck swelling, was reassured that this would eventually subside. He rteurned to the ER on 05/08 c/o dizziness and generalized weakness, walker was ordered for stability. He returned to ER again today having sustained multiple falls at home. States he does not recall any details, except that he probably passed out while ambulating in the house and when he woke up he found himself in bed with bleeding on his sheets. He does have scrapes and bruising over his left elbow that is evident currently. He estimates he has fallen at least twice today and suspects may have been falling ove rth past few days at home. He lives alone,therefore corroborative history is N/A. He is able to correctly describe the events of strokes in February and TIA more recently. Also able to tell me Dr. Nesbitt's name, that he had follow up one week ago, issues with swelling and bandage post surgery which are also documented by PCP. He has some residual left facial weakness, slurred speech and aphasia which by his own history have been present since February. CT head perfromed in ER today without evidence of any bleeding or trauma. CTA head and neck show small flap-type defect in the proximal left external carotid artery. This may represent small volume of nonocclusive thrombus or a small dissection flap.Nonspecific soft tissue fat stranding and edema in the posterior left submandibular region superficial to the left sternocleidomastoid muscle. Findings were discussed with ad radiologist, possible that may be related to recent surgery especially in light of patient's described complaints of left neck swelling for which he is following with Dr. Nesbitt. No acute occlusive thrombus was noted. He denies any chest pain, dyspnea or palpitations. Denies any fever. Denies abdominal pain, nausea or vomiting. Labs with baseline kidney and liver functions, no leukocytosis, negative UA. Review of Systems General: Reports: 10 or more systems reviewed and unremarkable except in HPI and below Const: Denies: fever(s), chills or body aches Eyes: Denies: change in vision, blurry vision or photophobia ENMT: Reports: hoarseness; Denies: throat pain, enlarged tonsils, odynophagia or nasal congestion Card: Denies: chest pain, palpitations, irregular heart rhythm, edema, swelling of feet/ankles, lightheadedness, pre-syncope, dyspnea on exertion or orthopnea Resp: Denies: dyspnea, productive cough, non-productive cough, wheezing, stridor, pain on inspiration, change in phlegm color, hemoptysis or chest congestion GI: Denies: abdominal pain, nausea, vomiting, hematemesis, coffee ground emesis, dysphagia, heartburn, diarrhea, constipation, GI cramping, change in stool character, hematochezia or melena : Denies: flank pain, dysuria, urinary frequency, urinary urgency, urinary hesitancy or hematuria Musc: Denies: neck pain, back pain, extremity pain, joint swelling, joint warmth or deformity Neuro: Reports: weakness in extremities, difficulty walking, frequent falls, dizziness, vertigo and Slurred speech present; Denies: headache(s), numbness in extremities, sensory changes, behavioral changes or seizure-like activity Psych: Denies: anxiety, depression, suicidal ideation or homicidal ideation Endo: Denies: polyuria, polydipsia, tired all the time, cold intolerance or hot flashes Rocky/Lymph: Reports: easy bleeding; Denies: easy bruising Medications/Allergies Home Medications Medication Instructions Recorded Confirmed Last Taken Type atorvastatin 40 mg tablet 40 mg PO DAILY 03/29/20 05/10/20 Unknown History carvedilol 6.25 mg tablet 6.25 mg PO BID 03/29/20 05/10/20 Unknown History cholecalciferol (vitamin D3) 25 50 mcg PO DAILY 03/29/20 05/10/20 Unknown History mcg (1,000 unit) capsule clopidogrel 75 mg tablet 75 mg PO DAILY 03/29/20 05/10/20 Unknown History famotidine 20 mg tablet 20 mg PO DAILY 03/29/20 05/10/20 Unknown History hydralazine 100 mg tablet 100 mg PO TID tab 03/29/20 05/10/20 Unknown History isosorbide dinitrate 20 mg tablet See Rx Instructions .ROUTE .COMPLEX 03/29/20 05/10/20 Unknown History aspirin [Adult Low Dose Aspirin] 81 mg PO DAILY 04/12/20 05/10/20 Unknown History lisinopril 40 mg tablet See Rx Instructions .ROUTE .COMPLEX 05/09/20 05/10/20 Unknown History tamsulosin 0.4 mg capsule 0.4 mg PO DAILY 05/09/20 05/10/20 Unknown History Allergies Allergy/AdvReac Type Severity Reaction Status Date / Time Penicillins Allergy Unknown unknown Verified 05/10/20 15:00 PFSH Acute PFSH: Medical History Anxiety Bilateral carotid bruits Carotid stenosis CHF (congestive heart failure), NYHA class III CKD (chronic kidney disease) Dyslipidemia GERD (gastroesophageal reflux disease) History of pancreatic cancer Hx of transient ischemic attack (TIA) Noncompliance Osteoarthritis Pulmonary emphysema Uncontrolled hypertension Surgical History H/O carotid endarterectomy Hx of spinal surgery Family History Brother Heart disease Mother Heart disease Social History Smoking and tobacco status: never smoked Second hand smoke exposure: No Smoking risk assessment/counseling performed?: No Alcohol intake: never Lives independently: Yes Marital status: Single History of recent travel: No Vitals/I&O/Wt Last Vital Signs Temp 98.4 F 05/10/20 19:46 Pulse 60 05/10/20 19:46 Resp 18 05/10/20 19:46 BP 186/79 05/10/20 19:46 Pulse Ox 98 05/10/20 19:46 05/10/20 05/10/20 05/10/20 06:59 14:59 22:59 Intake Total 500 / 500 0 / 500 Balance 500 / 500 0 / 500 Weight last 48 hrs Weight 79.379 kg Physical Exam Narrative: EXAM NARRATIVE: General: No acute distress, AO x3, word finding difficulty HEENT: PERRLA, pupils bilaterally equal and reactive, pallors not present Chest: Normal vesicular breath sounds, no added sounds, equal good air entry bilaterally CVS: S1-S2 regular, no murmurs, no tachycardia, no gallops, no rubs Abdomen: Soft, nontender, no organomegaly, bowel sounds present Neuro: subtle left facial weakness +, speech slurred, power 5/5 in all limbs Extremities: Approx 1 cm superficial laceration over left elbow, currently with dressing in place. Full ROM + over elbow Data : 05/10/20 11:55 05/10/20 11:55 A&P Assessment and plan (1) Multiple falls: Presents today with c/o multiple falls at home, which are appearing to be syncopal events per history. Reports being dizzy and then having syncope Monitor on telemetry for any arrhythmias that may be contributing, he does have a h/o SVT Lives alone, alternate possibility may be seizures, will monitor closely for any seziure like activity while admitted Polypharmacy from multiple high doses of antihypertensives may be contributing- check orthostatic vital signs BID. Continue home doses of Carvedilol, Hydralazine, reduce Imdur to 40mg BID, hold Lisinopril given cr at 1.5 today from baseline 1.2. Will titrate medications as needed. Recent extensive stroke w/up and carotid endarterectomy on 04/18, no new changes seen on CT and CTA. Dissection flap possible in ECA may be related to post surgical changes, will discuss with his surgeon in am, unlikely to be contributing to current events. No current signs of sepsis PT/OT assessment, likely he may be experiencing gait instability from recent CVAs vs deconditioning from multiple hospital visits. Lives alone, discharge home likely not a safe option given high fall risk, will evalute for SNF placement Status: Acute (2) History of stroke: Status: Acute (3) H/O carotid endarterectomy: Status: Acute (4) CHF (congestive heart failure), NYHA class III: Last known EF 30-35% Currently compensated, euvolemic, not on diuretics Status: Acute Qualifiers: Congestive heart failure type: combined Congestive heart failure chronicity: chronic Qualified Code(s): I50.42 - Chronic combined systolic (congestive) and diastolic (congestive) heart failure (5) CKD (chronic kidney disease): cr at recent baseline Status: Chronic Qualifiers: Chronic kidney disease stage: unspecified stage Qualified Code(s): N18.9 - Chronic kidney disease, unspecified Attestations Medical Necessity Statement*: Anticipate >2 midnight admission to evaluate recurrent falls in elderly, disposition planning/safe placement Coding Level of Care Code 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
[2020-05-11] VITALS (11 sets, daily range): BP systolic 120–189; BP diastolic 60–84; PULSE 53–72; RESP 17–18; TEMP 36.4–37; O2SAT 96–97
[2020-05-11 06:22] LABS: Basophils # 0.1 10^3/uL (0.0-0.1); Eosinophils # 0.2 10^3/uL (0.0-0.8); Eosinophils % 2.4 %; Hematocrit 36.3 % (42.0-52.0); Hemoglobin 11.8 g/dL (11.7-16.6); Lymphocytes # 1.7 10^3/uL (0.8-4.8); Lymphocytes % 19.6 %; Mean Corpuscular HGB Conc 32.5 g/dL (30.0-36.0); Mean Corpuscular Volume 98.4 fL (80-94); Mean Platelet Volume 11.1 fL (7.4-10.4); Monocytes # 1.1 10^3/uL (0.2-0.9); Monocytes % 12.6 %; Neutrophils # 5.56 10^3/uL (1.8-7.7); Neutrophils % 64.2 %; Nucleated Red Blood Cells % 0 %; Platelet Count 390 10^3/cmm (130-400); Red Blood Count 3.69 10^6/uL (4.1-5.3); Red Cell Distribution Width 15.9 % (12.1-15.1); White Blood Count 8.7 10^3/uL (4.0-10.0)
[2020-05-11 07:16] LABS: Alanine Aminotransferase 9 U/L (0-41); Albumin Level 3.4 g/dL (3.5-5.2); Alkaline Phosphatase 104 IU/L (40-130); Aspartate Amino Transferase 11 U/L (0-40); Blood Urea Nitrogen 32 mg/dL (8-23); Calcium 9.3 mg/dL (8.5-10.5); Carbon Dioxide 21 mmol/L (22-29); Chloride 106 mmol/L (98-107); Glucose 94 mg/dL (65-115); Osmolality Calculated 293 mOsm/kg (285-295); Sodium 138 mmol/L (136-145); Thyroid Stimulating Hormone 0.89 uIU/mL (0.27-4.20); Total Bilirubin 1.3 mg/dL (0.15-1.2); Total Protein 6.4 g/dL (6.6-8.7)
[2020-05-11 09:17] LABS: Estmated Average Glucose 123; Hemoglobin A1C 5.9 % (4.0-6.0)
[2020-05-11] MEDS: aspirin 81 mg EC Tablet PO (10:33)
[2020-05-11] MEDS: tamsulosin 0.4 mg Capsule PO (10:34)
[2020-05-11] MEDS: famotidine 20 mg Tablet PO (10:34)
[2020-05-11] MEDS: atorvastatin 40 mg Tablet PO (10:34)
[2020-05-11] MEDS: clopidogrel 75 mg Tablet PO (10:34)
[2020-05-11] MEDS: carvedilol 6.25 mg Tablet PO (10:34)
[2020-05-11] MEDS: hyDRALAzine 50 mg Tablet 100 MG PO ×3 (10:35→21:11)
[2020-05-11] MEDS: isosorbide dinitrate 20 mg Tablet 40 MG PO ×2 (10:35→17:41)
--- NOTE | 2020-05-11 10:38 | PC.NURSE ---
other delay other pt care
--- NOTE | 2020-05-11 13:54 | PM.PN ---
Subjective Subjective: Interval history: No interim events on telemetry. No acute events overnight. Blood pressure is currently well controlled, systolic ranging around 130. Working with physical therapy today did not complain of dizziness while working with PT. Recommendation for skilled PT noted Medications: Reviewed: Yes Vitals/I&O/Wt Last Vital Signs Temp 98.5 F 05/11/20 11:03 Pulse 70 05/11/20 11:03 Resp 17 05/11/20 11:03 BP 131/65 05/11/20 11:03 Pulse Ox 96 05/11/20 11:03 05/10/20 05/11/20 05/11/20 22:59 06:59 14:59 Intake Total 0 / 500 480 / 480 Output Total 450 / 450 Balance 0 / 500 -450 / 50 480 / 480 Weight last 48 hrs Weight 79.379 kg Physical Exam Narrative: EXAM NARRATIVE: GEN: Awake, alert and oriented, no acute distress CVS: S1S2 N RS: CTA B/L Abd: Soft, nt/nd , bs+ CONCRETE RUBBER: subtle left facial weakness +, speech slurred Data : 05/11/20 04:55 05/11/20 04:55 A&P Assessment and plan (1) Multiple falls: c/o multiple falls at home, which are appearing to be syncopal events per history. No acute events noted on telemetry thus far, he does have a h/o SVT Lives alone, alternate possibility may be seizures, however none noted thus far Polypharmacy from multiple high doses of antihypertensives may be contributing, orthotatics WNL- Continue home doses of Carvedilol, Hydralazine, reduce Imdur to 40mg BID, hold Lisinopril BP currently well cotnrolled on this regimen, will assess for further titration. Recent extensive stroke w/up and carotid endarterectomy on 04/18, no new changes seen on CT and CTA. Dissection flap possible in ECA may be related to post surgical changes,call placed to Dr. Bill Nesbitt to discuss if this is likely to be an expected post op finding. Awaiting callback. No current signs of sepsis PT/OT assessment, likely he may be experiencing gait instability from recent CVAs vs deconditioning from multiple hospital visits. Lives alone, discharge home likely not a safe option given high fall risk, will likely need SNF Status: Acute (2) History of stroke: Status: Acute (3) H/O carotid endarterectomy: Status: Acute (4) CHF (congestive heart failure), NYHA class III: Last known EF 30-35% Currently compensated, euvolemic, not on diuretics Status: Acute Qualifiers: Congestive heart failure type: combined Congestive heart failure chronicity: chronic Qualified Code(s): I50.42 - Chronic combined systolic (congestive) and diastolic (congestive) heart failure (5) CKD (chronic kidney disease): cr at recent baseline Status: Chronic Qualifiers: Chronic kidney disease stage: unspecified stage Qualified Code(s): N18.9 - Chronic kidney disease, unspecified Attestations Medical Necessity Statement*: recurrent falls, cause under evalution, discharge/disposition planning Coding Level of Care Code 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
--- NOTE | 2020-05-11 16:38 | PC.NURSE ---
other delay other pt care
[2020-05-11] MEDS: carvedilol 3.125 mg Tablet PO (17:41)
[2020-05-12] VITALS (11 sets, daily range): BP systolic 118–164; BP diastolic 52–76; PULSE 54–88; RESP 16–18; TEMP 36.5–37.2; O2SAT 94–98
[2020-05-12] MEDS: tamsulosin 0.4 mg Capsule PO (09:03)
[2020-05-12] MEDS: aspirin 81 mg EC Tablet PO (09:03)
[2020-05-12] MEDS: famotidine 20 mg Tablet PO (09:03)
[2020-05-12] MEDS: isosorbide dinitrate 20 mg Tablet 40 MG PO ×2 (09:03→17:59)
[2020-05-12] MEDS: hyDRALAzine 50 mg Tablet 100 MG PO ×3 (09:03→22:11)
[2020-05-12] MEDS: carvedilol 3.125 mg Tablet PO ×2 (09:03→18:00)
[2020-05-12] MEDS: atorvastatin 40 mg Tablet PO (09:03)
[2020-05-12] MEDS: clopidogrel 75 mg Tablet PO (09:03)
--- NOTE | 2020-05-12 17:15 | P.PN_ITS ---
Subjective Subjective: Interval history: Patient was noted to have bradycardia down to 40s overnight for which carvedilol dose was reduced to 3.15 mg twice daily heart rate is improved today in the 60s. Patient's blood pressure is ranging in the 140s range, no noted dizziness. Medications: Reviewed: Yes Vitals/I&O/Wt Last Vital Signs Temp 98.4 F 05/12/20 14:57 Pulse 67 05/12/20 14:57 Resp 16 05/12/20 14:57 BP 147/70 05/12/20 14:57 Pulse Ox 97 05/12/20 14:57 05/12/20 05/12/20 05/12/20 06:59 14:59 22:59 Intake Total 600 / 600 Balance 600 / 600 Physical Exam Narrative: EXAM NARRATIVE: GEN: Awake, alert and oriented, no acute distress CVS: S1S2 N RS: CTA B/L Abd: Soft, nt/nd , bs+ TILE CLASSIFIER: no focal neuro deficits Data : 05/11/20 04:55 05/11/20 04:55 A&P Assessment and plan (1) Multiple falls: c/o multiple falls at home, which are appearing to be syncopal events per history. Telemetry did note bradycardia down to heart rate in the 40s after which carvedilol dose has been readjusted Lives alone, alternate possibility may be seizures, however none noted thus far on this current admission Polypharmacy from multiple high doses of antihypertensives may be contributing, orthotatics WNL-his medications have been readjusted during the course of admission Carvedilol dose reduced, Hydralazine continued, reduce Imdur to 40mg BID, stopped lisinopril BP currently well cotnrolled on this regimen, will assess for further titration. Recent extensive stroke w/up and carotid endarterectomy on 04/18, no new changes seen on CT and CTA. Dissection flap possible in ECA likely related to postsurgical changes. This was discussed with patient's vascular surgeon Dr. Bill Nesbitt. No specific intervention indicated currently for the flap. External carotid supply limited to the face, would not explain recurrent episodes of syncope or stroke. No current signs of sepsis likely he may be experiencing gait instability from recent CVAs vs deconditioning from multiple hospital visits. Appreciate PT recommendations, continued skilled therapy at home and walker are recommended. Patient has been using golf balls as a modification to his walker to improve mobility and avoid getting caught on things,this does not seem safe, wheeled walker with brakes has been ordered instead. Lives alone, currently already has home health with visiting nurse who sets up his pills and home PT and home health aide. However patient is having decline in his functional status in spite of maximizing services at home. Would have preferred discharge to SNF to continue skilled therapy in a monitored setting as requested by patient, however it appears patient has no medicare days left to cover his stay at SNF and he is unable to self pay. Status: Acute (2) History of stroke: Status: Acute (3) H/O carotid endarterectomy: Status: Acute (4) CHF (congestive heart failure), NYHA class III: Last known EF 30-35% Currently compensated, euvolemic, not on diuretics Status: Acute Qualifiers: Congestive heart failure type: combined Congestive heart failure chronicity: chronic Qualified Code(s): I50.42 - Chronic combined systolic (congestive) and diastolic (congestive) heart failure (5) CKD (chronic kidney disease): cr at recent baseline Status: Chronic Qualifiers: Chronic kidney disease stage: unspecified stage Qualified Code(s): N18.9 - Chronic kidney disease, unspecified Attestations Medical Necessity Statement*: titrating BP medications,disposition planningm likely discharge in the upcoming 24 hrs Coding Level of Care Code 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
[2020-05-13 03:56] VITALS: BP 149/69; PULSE 61; RESP 18; TEMP 37; O2SAT 96
[2020-05-13 07:47] VITALS: BP 167/72; PULSE 59; RESP 18; TEMP 36.4; O2SAT 95
[2020-05-13] MEDS: aspirin 81 mg EC Tablet PO (08:51)
[2020-05-13] MEDS: atorvastatin 40 mg Tablet PO (08:51)
[2020-05-13] MEDS: clopidogrel 75 mg Tablet PO (08:51)
[2020-05-13] MEDS: tamsulosin 0.4 mg Capsule PO (08:51)
[2020-05-13] MEDS: isosorbide dinitrate 20 mg Tablet 40 MG PO (08:51)
[2020-05-13] MEDS: hyDRALAzine 50 mg Tablet 100 MG PO (08:51)
[2020-05-13] MEDS: famotidine 20 mg Tablet PO (08:51)
[2020-05-13] MEDS: carvedilol 3.125 mg Tablet PO (08:51)
--- NOTE | 2020-05-13 11:58 | DCPLANNER ---
Did the best we could; explaining the IM to this pt. Will explain it to his Niece Renée when she arrives. She is bringing pt some clothes.
--- NOTE | 2020-05-13 15:54 | P.DS_ITS ---
Discharge Providers Date of Admission: 05/10/20 14:37 Date of Discharge: May 13, 2020 Attending Provider at Admission: Linda Palumbo MD Attending Provider at Discharge: Linda Palumbo MD Primary Care Provider: YELITZA Mon Diagnoses at Discharge Discharge Diagnosis (1) Multiple falls: Status: Acute (2) History of stroke: Status: Acute (3) H/O carotid endarterectomy: Status: Acute (4) CHF (congestive heart failure), NYHA class III: Status: Acute Qualifiers: Congestive heart failure type: combined Congestive heart failure chronicity: chronic Qualified Code(s): I50.42 - Chronic combined systolic (congestive) and diastolic (congestive) heart failure (5) CKD (chronic kidney disease): Status: Chronic Qualifiers: Chronic kidney disease stage: unspecified stage Qualified Code(s): N18.9 - Chronic kidney disease, unspecified Reason for Visit Reason for Visit: FALLS/SKIN TEAR Hospital Course Hospital Course Anita Sauer is a 85 year old male with past medical history of hypertension, dyslipidemia, cardiomyopathy last known EF 30-35%, chronic kidney disease stage 3, recent history notable for CVAs, March 03-2020 requiring admission at [facility] for left basal ganglia infarct. More recently was at the ER again on 04/12 for TIA with symptoms of right side facial numbness, transferred to [facility] where he underwent left carotid endarterectomy by Dr. Bill Nesbitt on 04/18/20. He returned to ER again today having sustained multiple falls at home. States he does not recall any details, except that he probably passed out while ambulating in the house and when he woke up he found himself in bed with bleeding on his sheets. Fallls are appearing to be syncopal events per history. Telemetry did note bradycardia down to heart rate in the 40s after which carvedilol dose has been readjusted to 3.125mg BID. Lives alone, alternate possibility may be seizures, however none noted on this current admission. Polypharmacy from multiple high doses of antihypertensives may be contributing, orthotatics WNL-his medications have been readjusted during the course of admission Carvedilol dose reduced, Hydralazine continued, reduced Imdur to 40mg BID, stopped lisinopril BP currently well cotnrolled on this regimen. Recent extensive stroke w/up and carotid endarterectomy on 04/18, no new changes seen on CT and CTA. Dissection flap possible in left ECA likely related to postsurgical changes. This was discussed with patient's vascular surgeon Dr. Bill Nesbitt. No specific intervention indicated currently for the flap. External carotid supply limited to the face, would not explain recurrent episodes of syncope or stroke. No current signs of sepsis likely he may be experiencing gait instability from recent CVAs vs deconditioning from multiple hospital visits. Appreciate PT recommendations, continued skilled therapy at home and walker are recommended. Patient has been using golf balls as a modification to his walker to improve mobility and avoid getting caught on things,this does not seem safe, wheeled walker with brakes has been ordered instead. Lives alone, currently already has home health with visiting nurse who sets up his pills and home PT and home health aide. However patient is having decline in his functional status in spite of maximizing services at home. Would have preferred discharge to SNF to continue skilled therapy in a monitored setting as requested by patient, however it appears patient has no medicare days left to cover his stay at SNF and he is unable to self pay. He is being discharged today with Home health. Currently asymptomatic, no further episodes of dizziness and syncope Physical Exam Narrative: EXAM NARRATIVE: GEN: Awake, alert and oriented, no acute distress CVS: S1S2 N RS: CTA B/L Abd: Soft, nt/nd , bs+ Discharge Data Data Completed and Pending: Completed Studies During Hospitalization Category Date Time Status CT angio headneck * [id number]/[id number] Stat Cat Scan 05/10/20 14:[address] cervical spin wo con* 10911 Stat Cat Scan 05/10/20 11:[address] head wo con* 7 0450 Urgent Cat Scan 05/10/20 11:20 Completed XR chest 1V chalo ble [id number] Urgent Exams 05/10/20 11:20 Completed XR elbow LT 2V 73 070 Stat Exams 05/10/20 11:25 Completed XR wrist LT 2V 73 100 Stat Exams 05/10/20 11:25 Completed Pending at discharge Category Date Time Status Urinalysis Stat Lab 05/10/20 11:20 Uncollected Vitals: Last Vital Signs Temp 97.6 F 05/13/20 07:47 Pulse 59 L 05/13/20 07:47 Resp 18 05/13/20 07:47 BP 167/72 05/13/20 07:47 Pulse Ox 95 05/13/20 07:47 Discharge Plan Discharge Patient Disposition: Home Health Service Condition: Stable Prescriptions: New carvedilol 3.125 mg Tablet 3.125 mg PO BID 30 Days Qty: 60 RF: 0 Continued cholecalciferol (vitamin D3) 25 mcg (1,000 unit) capsule 50 mcg PO DAILY RF: 0 atorvastatin 40 mg tablet 40 mg PO DAILY 7 Days Qty: 7 RF: 0 clopidogrel 75 mg tablet 75 mg PO DAILY 7 Days Qty: 7 RF: 0 Adult Low Dose Aspirin 81 mg tablet,delayed release (DR/EC) 81 mg PO DAILY 7 Days Qty: 7 RF: 0 famotidine 20 mg tablet 20 mg PO DAILY 7 Days Qty: 7 RF: 0 tamsulosin 0.4 mg capsule 0.4 mg PO DAILY 7 Days Qty: 7 RF: 0 hydralazine 100 mg tablet 100 mg PO TID 7 Days Qty: 21 RF: 0 Changed isosorbide dinitrate 20 mg tablet 40 mg PO BID 7 Days Qty: 14 RF: 0 Discontinued carvedilol 6.25 mg tablet 6.25 mg PO BID RF: 0 lisinopril 40 mg tablet See Rx Instructions .ROUTE .COMPLEX RF: 0 Discharge Orders: Discharge Order (Routine); Ordered 05/13/20 Ordered By: Linda Palumbo Other Ambulatory Orders: DME: Mauricio (Order) Location: None Selected Ordered By: Linda Palumbo Referrals: [facility] [Outside] [facility] [Outside] Davida Palomares FNP-C [Primary Care Provider] - 05/20/20 2:00 pm Discharge Diet: Usual diet Discharge Activity: As per PT/OT instructions Discharge Attestations Time Spent in Discharge Care*: greater than 30 min Quality Metrics Clinical Quality Measures During this hospital stay, did patient experience: None Coding Level of Care Code Acute [facility] note Diagnoses Multiple falls R29.6 History of stroke Z86.73 H/O carotid endarterectomy Z98.890 CHF (congestive heart failure), NYHA class III I50.42 Congestive heart failure type: combined Congestive heart failure chronicity: chronic CKD (chronic kidney disease) N18.9 Chronic kidney disease stage: unspecified stage
[2020-05-13 15:58] VITALS: BP 189/85; PULSE 61; RESP 16; TEMP 36.3; O2SAT 99
[2020-05-13 16:40] VITALS: BP 189/85; PULSE 61; RESP 16; TEMP 36.3; O2SAT 99
== END 2020-05-13 16:40 | disposition home health service (06) | DRG 312 ==
LOC: ER 14:39 → MEDSURG 15:08
PROVIDERS: Admitting Provider Student in an Organized Health Care Education/Training Program; Emergency Provider Family Medicine; PCP Nurse Practitioner Family; Visit Provider Student in an Organized Health Care Education/Training Program
DX: R55 Syncope and collapse (principal); I13.0 Hypertensive heart and chronic kidney disease with heart failure and stage 1 through stage 4 chronic kidney disease, or unspecified chronic kidney disease; I50.42 Chronic combined systolic (congestive) and diastolic (congestive) heart failure; I42.9 Cardiomyopathy, unspecified; N18.30 Chronic kidney disease, stage 3 unspecified; E78.5 Hyperlipidemia, unspecified; I69.920 Aphasia following unspecified cerebrovascular disease; I69.992 Facial weakness following unspecified cerebrovascular disease; I69.998 Other sequelae following unspecified cerebrovascular disease; R26.89 Other abnormalities of gait and mobility; R29.6 Repeated falls; F41.9 Anxiety disorder, unspecified; K21.9 Gastro-esophageal reflux disease without esophagitis; Z85.07 Personal history of malignant neoplasm of pancreas; M19.90 Unspecified osteoarthritis, unspecified site; J43.9 Emphysema, unspecified
CPT/HCPCS: 36415; 70450; 70496; 70498; 71045; 72125; 73070; 73100; 80053; 81003; 82550; 83036; 83880; 84443; 84484; 85025; 90471; 90715; 93005; 96360; 97116; 97161; 97165; 99283; 99285; J7040; Q9967

== ENCOUNTER 2020-05-28 19:00 | Inpatient (IN) | payer MEDICARE, SELFPAY ==
[2020-05-28 19:04] VITALS: BP 183/82; PULSE 79; RESP 16; TEMP 36.7; O2SAT 99; BMI 19.5
[2020-05-28 19:08] VITALS: BP 183/82; PULSE 64; RESP 22; O2SAT 99
--- NOTE | 2020-05-28 19:32 | ED_ITS ---
HPI - Arrhythmia/Palpitations General: Chief Complaint: Shortness of Breath/Dyspnea Stated Complaint: SOB Time Seen by Provider: 05/28/20 19:06 History of Present Illness: HPI narrative: 85-year-old gentleman with a history of heart failure. He presents with palpitations that started at home today. He had felt well until the point he had gotten up to walk across his kitchen to fix a sandwich. At that point he felt like my heart was running away with me . He denies any specific chest pain but was short of breath with it. It seems resolved now. It of course worried him, so he called an ambulance. complaint: heart racing and palpitations Onset (ago): minute(s) Duration: constant Severity: severe Context: occurred during rest Associated symptoms: Reports anxiety, sense of impending doom and short of breath; Deny cough, nausea, paresthesias, syncope or vomiting Treatments prior to arrival: other (None, self resolved) Review of Systems Const: Denies: fever(s) or chills Eyes: Denies: change in vision ENMT: Denies: odynophagia, epistaxis or sinus pain Card: Denies: syncope Resp: Reports: dyspnea; Denies: productive cough, non-productive cough or wheezing GI: Denies: nausea or vomiting : Denies: difficulty urinating, dysuria or urinary frequency Musc: Denies: neck pain Skin/Breast: Denies: rash or erythema Neuro: Denies: headache(s), dizziness or vertigo Psych: Reports: anxiety PFSH ED PFSH: Medical History (Updated 05/29/20 @ 01:22 by Lucas Marina DO) Anxiety Bilateral carotid bruits Carotid stenosis CHF (congestive heart failure), NYHA class III CKD (chronic kidney disease) Dyslipidemia Dyslipidemia GERD (gastroesophageal reflux disease) History of pancreatic cancer Hx of transient ischemic attack (TIA) Noncompliance Osteoarthritis Pulmonary emphysema Uncontrolled hypertension Surgical History H/O carotid endarterectomy Hx of spinal surgery Family History Brother Heart disease Mother Heart disease Social History Smoking and tobacco status: never smoked Second hand smoke exposure: No Smoking risk assessment/counseling performed?: No Alcohol intake: never Lives independently: Yes Marital status: Single History of recent travel: No Physical Exam Const: GENERAL APPEARANCE: well developed ORIENTATION/CONSCIOUSNESS: Yes oriented to person, Yes oriented to place and Yes oriented to time HENMT: COMMON NORMALS: normocephalic, external ears normal and Normal external nose present HEAD & SCALP: normocephalic FACE & SINUS: normal facial exam NOSE: Normal external nose present and No nasal discharge present EXTERNAL EAR: Yes external ears normal Eye: COMMON NORMALS: Equal, round and reactive pupils present, EOMs intact bilaterally and conjunctivae normal EYELID: eyelids normal CONJUNCTIVA: Yes conjunctivae normal PUPIL: Yes Equal, round and reactive pupils present Neck/C-Spine: GENERAL: No tracheal deviation Chest: COMMONS NORMALS: normal inspection of the chest CHEST: No tenderness Resp: COMMON NORMALS: clear to auscultation bilaterally EFFORT & INSPECTION: No tachypneic, No respiratory distress, No retractions, No uses accessory muscles and No tracheal deviation AUSCULTATION: clear to auscultation bilaterally, no rhonchi, no wheezes and lung sounds not diminished Cardio: COMMON NORMALS: regular rate and regular rhythm RATE: regular rate RHYTHM: regular rhythm HEART SOUNDS: no murmurs PERIPHERAL PULSES: radial pulses present GI: INSPECTION: No abdominal distension AUSCULTATION: No Hyperactive bowel sounds present and No Hypoactive bowel sounds present PALPATION: No Guarding due to palpation present (GI) and No Rigid due to palpation PERCUSSION: no dullness to percussion and no tympanic to percussion Neuro: SENSORIUM/ORIENTATION: Yes oriented to person, Yes oriented to place and Yes oriented to time Psych: COMMON NORMALS: mental status grossly normal Skin: COMMON NORMALS: no rashes or lesions noted GENERAL SKIN EXAM: no rashes or lesions noted Course Consultations: Consultation #1: [email or web address] Vital Signs: Vital signs: Vital Signs Temperature 98.1 F 05/28/20 19:04 Pulse Rate 80 05/29/20 02:15 Respiratory Rate 17 05/29/20 02:15 Blood Pressure 161/84 05/29/20 02:15 Pulse Oximetry 98 05/29/20 02:15 MDM - Arrhythmia/Palpitations MDM Narrative: Medical decision making narrative: 85-year-old male with chest discomfort and palpitations with some shortness of breath at home. Essentially resolved now. White blood cell count 10.5. 11 hemoglobin. Creatinine is 1.3. First troponin is mildly elevated but he has a delta of 20 on 2-hour troponin. No acute ST changes by EKG. His chest x-ray is clear. The patient lives alone, is a fall risk, especially in a presyncopal versus syncopal situation. He will be observed on the monitor overnight to trend troponin. Lab Data: Labs: Lab Results 05/28/20 05/28/20 05/28/20 Range/Units 19:34 19:34 19:34 WBC 10.5 H (4.0-10.0) 10^3/ uL RBC 3.43 L (4.1-5.3) 10^6/u L Hgb 10.9 L (11.7-16.6) g/dL Hct 33.4 L (42.0-52.0) % MCV 97.4 H (80-94) fL MCH 31.8 (28.0-34.0) pg MCHC 32.6 (30.0-36.0) g/dL RDW 15.9 H (12.1-15.1) % Plt Count 349 (130-400) 10^3/c mm MPV 11.2 H (7.4-10.4) fL Neut % (Auto) 65.5 % Lymph % (Auto) 21.2 % Benton % (Auto) 9.8 % Eos % (Auto) 2.6 % Baso % (Auto) 0.7 % Neut # (Auto) 6.85 (1.8-7.7) 10^3/u L Lymph # (Auto) 2.2 (0.8-4.8) 10^3/u L Benton # (Auto) 1.0 H (0.2-0.9) 10^3/u L Eos # (Auto) 0.3 (0.0-0.8) 10^3/u L Baso # (Auto) 0.1 (0.0-0.1) 10^3/u L Nucleated RBC % (a uto) 0 % Nucleated RBCs # 0.0 /100WBC Sodium 136 (136-145) mmol/L Potassium 3.8 (3.5-5.1) mmol/L Chloride 103 (98-107) mmol/L Carbon Dioxide 24 (22-29) mmol/L Anion Gap 12.8 (5-19) BUN 24 H (8-23) mg/dL Creatinine 1.3 H (0.7-1.2) mg/dL GFR Calculation Not Reportable Glucose 86 (65-115) mg/dL Calculated Osmolal ity 285 (285-295) mOsm/k g Calcium 8.4 L (8.5-10.5) mg/dL Total Bilirubin 0.7 (0.15-1.2) mg/dL AST 11 (0-40) U/L ALT 10 (0-41) U/L Alkaline Phosphata se 104 (40-130) IU/L Creatine Kinase 70 (39-308) U/L Troponin T Baselin e 34 H (0-15) ng/L Troponin T 120 Min [place] (0-15) ng/L Delta Troponin T (0-10) ABS# NT-Pro-B Natriuret Pep 2730 H (0-450) pg/mL Total Protein 6.4 L (6.6-8.7) g/dL Albumin 3.8 (3.5-5.2) g/dL Globulin 2.6 (1.3-4.6) g/dL Urine Color (Yellow) Urine Appearance (CLEAR) Urine pH (5-7) Ur Specific Gravit y (1.005-1.030) Urine Protein (Negative) Urine Glucose (UA) (Normal) Urine Ketones (Negative) Urine Blood (Negative) Urine Nitrate (Negative) Urine Bilirubin (Negative) Urine Urobilinogen (Negative) mg/dL Ur Leukocyte Soha ase (Negative) 05/28/20 05/28/20 Range/Units 21:30 21:42 WBC (4.0-10.0) 10^3/ uL RBC (4.1-5.3) 10^6/u L Hgb (11.7-16.6) g/dL Hct (42.0-52.0) % MCV (80-94) fL MCH (28.0-34.0) pg MCHC (30.0-36.0) g/dL RDW (12.1-15.1) % Plt Count (130-400) 10^3/c mm MPV (7.4-10.4) fL Neut % (Auto) % Lymph % (Auto) % [place] % (Auto) % Eos % (Auto) % Baso % (Auto) % Neut # (Auto) (1.8-7.7) 10^3/u L Lymph # (Auto) (0.8-4.8) 10^3/u L Benton # (Auto) (0.2-0.9) 10^3/u L Eos # (Auto) (0.0-0.8) 10^3/u L Baso # (Auto) (0.0-0.1) 10^3/u L Nucleated RBC % (a uto) % Nucleated RBCs # /100WBC Sodium (136-145) mmol/L Potassium (3.5-5.1) mmol/L Chloride (98-107) mmol/L Carbon Dioxide (22-29) mmol/L Anion Gap (5-19) BUN (8-23) mg/dL Creatinine (0.7-1.2) mg/dL GFR Calculation Glucose (65-115) mg/dL Calculated Osmolal ity (285-295) mOsm/k g Calcium (8.5-10.5) mg/dL Total Bilirubin (0.15-1.2) mg/dL AST (0-40) U/L ALT (0-41) U/L Alkaline Phosphata se (40-130) IU/L Creatine Kinase (39-308) U/L Troponin T Baselin e (0-15) ng/L Troponin T 120 Min [place] 53.68 H (0-15) ng/L Delta Troponin T 19.68 H* (0-10) ABS# NT-Pro-B Natriuret Pep (0-450) pg/mL Total Protein (6.6-8.7) g/dL Albumin (3.5-5.2) g/dL Globulin (1.3-4.6) g/dL Urine Color Yellow (Yellow) Urine Appearance Clear (CLEAR) Urine pH 6 (5-7) Ur Specific Gravit y 1.015 (1.005-1.030) Urine Protein Neg (Negative) Urine Glucose (UA) Norm (Normal) Urine Ketones Negative (Negative) Urine Blood Neg (Negative) Urine Nitrate Negative (Negative) Urine Bilirubin Neg (Negative) Urine Urobilinogen Norm (Negative) mg/dL Ur Leukocyte Soha ase Negative (Negative) Discharge Plan Discharge Patient Disposition: Placed in Observation Admit Provider: Fariba Shin Clinical Impression: Chest pain Coding Level of Care Code ED User Support Specialist for Chg Fwd Exam Comprehensive
--- NOTE | 2020-05-28 19:32 | ECG_ITS ---
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 Measurements Intervals [place] Rate: 59 P: 69 [place]: 197 QRS: 39 QRSD: 92 T: 85 QT: 422 QTc: 421 Interpretive Statements SINUS BRADYCARDIA LEFT VENTRICULAR HYPERTROPHY AND ST-T CHANGE [VOLTAGE CRITERIA PLUS ST/T ABNORMALITY] Compared to ECG 05/10/2020 17:59:44 Left ventricular hypertrophy now present ST (T wave) deviation now present First degree AV block no longer present T-wave abnormality no longer present Electronically Signed On 05-29-2020 15:33:24 CDT by Ruddy Leach M.D. [id number]
--- NOTE | 2020-05-28 19:32 | XRR_ITS ---
PROCEDURE INFORMATION: Exam: XR Chest Exam date and time: 05/28/2020 7:51 PM Age: 85 years old Clinical indication: Other: Palpitations TECHNIQUE: Imaging protocol: XR of the chest. Views: 1 view. COMPARISON: CR XR chest 1V portable [id number] 05/10/2020 11:36 AM FINDINGS: Lungs: Emphysema. Hyperinflation. No consolidation. Fine reticular interstitial lung change. Pleural spaces: Unremarkable. No pleural effusion. No pneumothorax. Heart/Mediastinum: Unremarkable. No cardiomegaly. Vasculature: Mild atherosclerosis. Bones/joints: Unremarkable. XR/XR chest 1V portable [id number] IMPRESSION: 1. No focal pneumonia. 2. Background emphysema. 3. Interstitium slightly more prominent than prior of uncertain significance. Interstitial edema or developing interstitial pneumonia not excluded.
[2020-05-28 19:44] LABS: Basophils # 0.1 10^3/uL (0.0-0.1); Basophils % 0.7 %; Eosinophils # 0.3 10^3/uL (0.0-0.8); Eosinophils % 2.6 %; Hematocrit 33.4 % (42.0-52.0); Hemoglobin 10.9 g/dL (11.7-16.6); Lymphocytes # 2.2 10^3/uL (0.8-4.8); Lymphocytes % 21.2 %; Mean Corpuscular HGB Conc 32.6 g/dL (30.0-36.0); Mean Corpuscular Hemoglobin 31.8 pg (28.0-34.0); Mean Corpuscular Volume 97.4 fL (80-94); Mean Platelet Volume 11.2 fL (7.4-10.4); Monocytes % 9.8 %; Neutrophils # 6.85 10^3/uL (1.8-7.7); Neutrophils % 65.5 %; Nucleated Red Blood Cells % 0 %; Platelet Count 349 10^3/cmm (130-400); Red Blood Count 3.43 10^6/uL (4.1-5.3); Red Cell Distribution Width 15.9 % (12.1-15.1); White Blood Count 10.5 10^3/uL (4.0-10.0)
[2020-05-28 20:03] LABS: Troponin(5th) Baseline 34 ng/L (0-15)
[2020-05-28 20:12] LABS: Alanine Aminotransferase 10 U/L (0-41); Albumin Level 3.8 g/dL (3.5-5.2); Alkaline Phosphatase 104 IU/L (40-130); Anion Gap 12.8 (5-19); Aspartate Amino Transferase 11 U/L (0-40); Blood Urea Nitrogen 24 mg/dL (8-23); Calcium 8.4 mg/dL (8.5-10.5); Carbon Dioxide 24 mmol/L (22-29); Chloride 103 mmol/L (98-107); Creatine Phosphokinase 70 U/L (39-308); Globulin 2.6 g/dL (1.3-4.6); Glucose 86 mg/dL (65-115); NT Pro B Type Natriuretic Pept 2730 pg/mL (0-450); Osmolality Calculated 285 mOsm/kg (285-295); Potassium 3.8 mmol/L (3.5-5.1); Sodium 136 mmol/L (136-145); Total Bilirubin 0.7 mg/dL (0.15-1.2); Total Protein 6.4 g/dL (6.6-8.7)
[2020-05-28] MEDS: FUROsemide 10 mg/mL SDV 10mL 60 MG IVP (21:20)
--- NOTE | 2020-05-28 21:32 | ECG_ITS ---
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 Measurements Intervals [place] Rate: 67 P: 66 [place]: 211 QRS: 54 QRSD: 92 T: 95 QT: 429 QTc: 456 Interpretive Statements SINUS RHYTHM WITH FIRST DEGREE AV BLOCK LEFT VENTRICULAR HYPERTROPHY AND ST-T CHANGE [VOLTAGE CRITERIA PLUS ST/T ABNORMALITY] Compared to ECG 05/28/2020 19:42:14 First degree AV block now present Sinus bradycardia no longer present ST (T wave) deviation still present Electronically Signed On 05-29-2020 15:36:56 CDT by Ruddy Leach M.D. [id number]
[2020-05-28 22:02] LABS: Add Urine Microscopic? NO; Charge for UA Resulting for Rev
[2020-05-28 22:09] LABS: Bilirubin Urine Neg (Negative); Blood Urine Neg (Negative); Glucose Urine UA Norm (Normal); Ketones Urine Negative (Negative); Leukocyte Esterase Urine Negative (Negative); Nitrate Urine Negative (Negative); Protein Urine Neg (Negative); Specific Gravity, Urine 1.015 (1.005-1.030); Urine Appearance Clear (CLEAR); Urine Color Yellow (Yellow); Urobilinogen Urine Norm (Negative); pH Urine 6 (5-7)
[2020-05-28 22:11] LABS: Troponin 5 2HR 53.68 ng/L (0-15)
[2020-05-28 22:16] LABS: Troponin 5 2HR Delta 19.68 ABS# (0-10)
--- NOTE | 2020-05-28 22:59 | P.HP_ITS ---
Providers/Chief Complaint Primary Care Provider: YELITZA Mon Chief Complaint: SOB History of Present Illness Anita Sauer is a 85 year old male who has history of severe reduced ejection fraction heart failure 3035%, chronic kidney disease, CVA 3 weeks ago, left CEA, multiple falls, presented to the hospital with chief complaint of palpitations and presyncopal event. Patient is stating that after his dinner he sat in his couch and when he tried to get up he immediately started experiencing shortness of breath and chest discomfort. He is describing his chest discomfort as a funny sensation he would not call the chest pain, he is endorsing palpitations but did not notice his heart rate, his shortness of breath was getting worse he went to his bedroom to get access to his phone and called his niece. His niece called 911. Patient is stating that his speech has been muffled since his stroke and his left CEA was done at [place] 3 to 4 weeks dose, at that point he was not able to walk and speech was minimal. He does believe he still feels weakness and his speech is still not optimal. He lives alone and manages his daily activities on his own. Analysis in the ER revealed sinus bradycardia with normal hemodynamics he was chest pain-free, clinically looks dehydrated however worsening BNP chest x-ray shows similar findings of mild pulmonary venous congestion as previous x-ray he was given 60 mg of IV Lasix in the ER He was recently discharged from the hospital on 05/13 Of note, his telemetry revealed bradycardia, he qualified for SNF however because of no Medicare days leftover he could not go to SNF and was unable to self pay as well he was discharged home with home health services. He does have a left ECA intimal flap evident on CTA neck however no specific intervention was indicated as per Dr. Palumbo's discussion with vascular surgeon Dr. Nesbitt at [place] Medication changes: Lisinopril discontinued, Imdur reduced, carvedilol reduced Review of Systems Const: Denies: fever(s) Eyes: Denies: change in vision ENMT: Denies: throat pain Card: Reports: chest pain, palpitations, pre-syncope and dyspnea on exertion Resp: Reports: dyspnea GI: Denies: abdominal pain : Denies: flank pain Musc: Denies: neck pain Skin/Breast: Denies: rash Neuro: Reports: frequent falls; Denies: headache(s) or confusion Psych: Denies: anxiety Endo: Denies: polyuria Rocky/Lymph: Denies: easy bruising All/Imm: Denies: urticaria Medications/Allergies Home Medications Medication Instructions Recorded Confirmed Last Taken Type cholecalciferol (vitamin D3) 25 50 mcg PO DAILY 03/29/20 05/20/20 Unknown History mcg (1,000 unit) capsule aspirin 81 mg tablet,delayed 81 mg PO DAILY 30 Days #30 tab 05/20/20 05/20/20 Unknown Rx release atorvastatin 40 mg tablet 40 mg PO DAILY 30 Days #30 tab 05/20/20 05/20/20 Unknown Rx carvedilol 3.125 mg tablet 3.125 mg PO BID 30 Days #60 tab 05/20/20 05/20/20 Unknown Rx clopidogrel 75 mg tablet 75 mg PO DAILY 30 Days #30 tab 05/20/20 05/20/20 Unknown Rx famotidine 20 mg tablet 20 mg PO DAILY 30 Days #30 tab 05/20/20 05/20/20 Unknown Rx hydralazine 100 mg tablet 100 mg PO TID 30 Days #90 tab 05/20/20 05/20/20 Unknown Rx isosorbide dinitrate 20 mg tablet 40 mg PO TID 30 Days #120 tab 05/20/20 05/20/20 Unknown Rx tamsulosin 0.4 mg capsule 0.4 mg PO DAILY 30 Days #30 cap 05/20/20 05/20/20 Unknown Rx Allergies Allergy/AdvReac Type Severity Reaction Status Date / Time Penicillins Allergy Unknown unknown Verified 05/28/20 19:08 PFSH Acute PFSH: Medical History Anxiety Bilateral carotid bruits Carotid stenosis CHF (congestive heart failure), NYHA class III CKD (chronic kidney disease) Dyslipidemia GERD (gastroesophageal reflux disease) History of pancreatic cancer Hx of transient ischemic attack (TIA) Noncompliance Osteoarthritis Pulmonary emphysema Uncontrolled hypertension Surgical History H/O carotid endarterectomy Hx of spinal surgery Family History Brother Heart disease Mother Heart disease Social History Smoking and tobacco status: never smoked Second hand smoke exposure: No Smoking risk assessment/counseling performed?: No Alcohol intake: never Lives independently: Yes Marital status: Single History of recent travel: No Vitals/I&O/Wt Last Vital Signs Temp 98.1 F 05/28/20 19:04 Pulse 64 05/28/20 19:08 Resp 22 H 05/28/20 19:08 BP 183/82 05/28/20 19:08 Pulse Ox 99 05/28/20 19:08 Weight last 48 hrs Weight 63.503 kg Physical Exam Narrative: EXAM NARRATIVE: Cooperative pleasant male currently laying supine in his bed without any active discomfort Bradycardia on telemetry, normal hemodynamics, S1, S2 no murmur appreciated Abdomen soft nontender Clinically looks euvolemic to dry No lower extremity edema EOMI, PERRLA GCS 15 Bilateral breath sounds without adventitious rhonchi or crackles No skin changes Appropriate mood and affect Soft tone, muffled speech He is awake alert oriented x3 Patient has multiple layers of blankets complaining of cold Data : 05/28/20 19:34 05/28/20 19:34 A&P Assessment and plan (1) Sinus bradycardia: Status: Acute (2) Multiple falls: Status: Acute (3) History of stroke: Status: Acute (4) H/O carotid endarterectomy: Status: Acute (5) CHF (congestive heart failure), NYHA class III: Status: Acute Qualifiers: Congestive heart failure type: combined Congestive heart failure chronicity: chronic Qualified Code(s): I50.42 - Chronic combined systolic (congestive) and diastolic (congestive) heart failure Additional A&P Information Symptomatic bradycardia Patient has had multiple falls, no cause has been identified, seizure was also in differential as per previous discharge summary, however I do believe patient has sick sinus syndrome because he is complaining of palpitation at home and currently his heart rate is below 60 however no active chest pain shortness of breath confusion or low blood pressure EKG showing first-degree AV block I would hold Coreg previously his TSH was normal I would not repeat at this point He might need 6-minute walk test to see if his heart rate fluctuates rapidly, Holter monitoring versus pacemaker evaluation by cardiology He lives alone and has home health service he will be considered high risk to live alone No ACS in room, EKG not showing ischemic or infarctive changes however there is significant delta troponin patient is not complaining of active chest pain Recent CVA status post left CEA Intimal flap evident on CTA neck no surgical intervention as per Dr. Nesbitt Continue aspirin and Plavix along atorvastatin Patient does have muffled speech no acute strokelike symptoms Congestive heart failure class III no acute exacerbation Clinically looks dry he received 60 mg of IV Lasix in the ER chest x-ray showing similar vascular congestion as last x-ray, I would hold off diuretics for now Full code I will keep him on mechanical soft diet because of his multiple speech, kindly reevaluate if he would need speech evaluation DVT prophylaxis Lovenox Attestations Medical Necessity Statement*: Anticipating discharge in less than 48 hours will need overnight monitoring to rule out tachybradycardia syndrome Time Spent in Patient Care: (>than 50% of time spent in counselling and/or d irect pt care on unit) . 40mins Coding Level of Care Code Acute Topstitcher Lockstitch for Chg Fwd Diagnoses Sinus bradycardia R00.1 Multiple falls R29.6 History of stroke Z86.73 H/O carotid endarterectomy Z98.890 CHF (congestive heart failure), NYHA class III I50.42 Congestive heart failure type: combined Congestive heart failure chronicity: chronic
[2020-05-29] VITALS (27 sets, daily range): BP systolic 94–181; BP diastolic 48–95; PULSE 56–96; RESP 10–33; TEMP 36.5–36.7; O2SAT 93–100
[2020-05-29 01:27] LABS: Magnesium 1.8 mg/dL (1.7-2.3)
[2020-05-29 01:28] LABS: Troponin 5 6HR 80.57 ng/L (0-15)
[2020-05-29 01:31] LABS: Troponin 5 6HR Delta 46.57 ng/L (0-12)
--- NOTE | 2020-05-29 01:32 | ECG_ITS ---
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 Measurements Intervals [place] Rate: 69 P: 63 [place]: 207 QRS: 45 QRSD: 94 T: 104 QT: 430 QTc: 463 Interpretive Statements SINUS RHYTHM WITH FREQUENT VENTRICULAR PREMATURE COMPLEXES MODERATE ST DEPRESSION [0.05+ mV ST DEPRESSION] Compared to ECG 05/28/2020 21:44:04 Ventricular premature complex(es) now present First degree AV block no longer present Left ventricular hypertrophy no longer present ST (T wave) deviation still present Electronically Signed On 05-29-2020 15:36:22 CDT by Ruddy Leach M.D. [id number]
--- NOTE | 2020-05-29 01:56 | USCV_ITS ---
Anita Sauer Age: 85 Gender: M : 1935 Exam Date: 05/29/2020 08:28 Ordering Phys: Fariba Shin MD Technologist: Millie Seay Exam Location: [facility] [place] Indication: Presyncope and chest pain BP: 149 / 84 HR: 75 Rhythm: Sinus Technical Quality: Adequate MEASUREMENTS (Male / Female) Normal Values 2D ECHO LV Diastolic Diameter PLAX 4.4 cm 4.2 - 5.9 / 3.9 - 5.3 cm LV Systolic Diameter PLAX 2.9 cm LV Chamber Size 4.5 cm IVS Diastolic Thickness 0.9 cm 0.6 - 1.0 / 0.6 - 0.9 cm IVS Systolic Thickness 1.7 cm LVPW Diastolic Thickness 1.2 cm 0.6 - 1.0 / 0.6 - 0.9 cm LVPW Systolic Thickness 1.1 cm RV Chamber Size 3.3 cm LVOT Diameter 2.1 cm LV Ejection Fraction 2D Teich 63.5 % LV Ejection Fraction MOD 2C 59.4 % LV Ejection Fraction 2C AL 61.6 % LA Diameter 3.5 cm LA Width 3.5 cm LA Height 6.6 cm RA Width 3.7 cm RA Height 5.4 cm Aorta at Sinotubular Diameter 2.7 cm M-MODE LV Diastolic Diameter MM 5.1 cm 4.2 - 5.9 / 3.9 - 5.3 cm LV Systolic Diameter MM 3.4 cm LV Ejection Fraction MM Teich 62.1 % IVS Diastolic Thickness MM 1.4 cm 0.6 - 1.0 / 0.6 - 0.9 cm IVS Systolic Thickness MM 1.8 cm LVPW Diastolic Thickness MM 1.2 cm 0.6 - 1.0 / 0.6 - 0.9 cm LVPW Systolic Thickness MM 1.6 cm RV Diastolic Diameter MM 2.4 cm Aortic Annulus Diameter 3.3 cm LA Ao Ratio MM 1.2 MV E Point Septal Separation 1.0 cm DOPPLER AV Peak Velocity 116.0 cm/s LVOT Peak Velocity 104.0 cm/s AV Area Cont Eq vti 3.3 cm squared AV Area Cont Eq pk 3.1 cm squared MV Area PHT 3.9 cm squared Mitral E to A Ratio 0.7 MV E' Velocity 59.6 cm/s Mitral E to MV E' Ratio 19.6 Mitral E to LV E' Lateral Ratio 15.5 Mitral E to LV E' Septal Ratio 27.4 TR Peak Velocity 217.7 cm/s TR Peak Gradient 19.0 mmHg TV Peak E Velocity 38.0 cm/s Right Atrial Pressure 3.0 mmHg Pulmonary Artery Systolic Pressu 22.0 mmHg PV Peak Velocity 98.0 cm/s RV Acceleration Time 0.1 s RV Ejection Time 0.3 s RV AcT/ET 0.4 FINDINGS Left Ventricle Normal left ventricular size. LV systolic function is normal with EF of 55-60%. No regional wall motion abnormalities. Grade 1 diastolic dysfunction Right Ventricle The right ventricle is normal in size and function. Right Atrium The right atrium is normal in size. Left Atrium The left atrium is mildly enlarged Mitral Valve Mild mitral annular calcification without significant stenosis or prolapse. There is mild mitral regurgitation. Aortic Valve Structurally normal aortic valve without significant sclerosis or stenosis. There is no aortic regurgitation. Tricuspid Valve Structurally normal tricuspid valve without significant stenosis. Mild tricuspid regurgitation. RVSP is 25-30mmHg Pulmonic Valve Structurally normal pulmonic valve without significant stenosis. There is trace pulmonic regurgitation. Pericardium Normal pericardium without effusion. Aorta Normal ascending aorta dimension. CONCLUSIONS LV systolic function is normal with EF of 55-60% Grade 1 diastolic dysfunction Mild mitral regurgitation Trace pulmonic regurgitation No comparison studies are available Ruddy Leach MD (Electronically Signed) Final Date: 29 May 2020 16:13 S
[2020-05-29] MEDS: heparin 5,000 unit/mL INJ 1 mL 5000 UNIT SUBCUT ×2 (02:52→09:16)
[2020-05-29 05:42] LABS: Anion Gap 14.4 (5-19); Blood Urea Nitrogen 25 mg/dL (8-23); Calcium 8.9 mg/dL (8.5-10.5); Carbon Dioxide 28 mmol/L (22-29); Chloride 103 mmol/L (98-107); Glucose 116 mg/dL (65-115); Osmolality Calculated 299 mOsm/kg (285-295); Potassium 3.4 mmol/L (3.5-5.1); Sodium 142 mmol/L (136-145)
[2020-05-29] MEDS: famotidine 20 mg Tablet PO (09:17)
[2020-05-29] MEDS: aspirin 81 mg EC Tablet PO (09:17)
[2020-05-29] MEDS: hyDRALAzine 50 mg Tablet 100 MG PO (09:17)
[2020-05-29] MEDS: atorvastatin 40 mg Tablet PO (09:18)
[2020-05-29] MEDS: tamsulosin 0.4 mg Capsule PO (09:18)
[2020-05-29] MEDS: clopidogrel 75 mg Tablet PO (09:18)
[2020-05-29] MEDS: isosorbide dinitrate 20 mg Tablet 40 MG PO ×2 (09:18→17:59)
--- NOTE | 2020-05-29 10:26 | PC.PHAR ---
AT THIS TIME, THE PATIENT CANNOT TELL ME WHAT HIS MEDICATION IS. HE STATES THAT HIS NIECE HELPS HIM WITH HIS MEDICATION. I TRIED TO CALL HER, BUT THERE WAS NO ANSWER. I DID LEAVE A MESSAGE FOR HER TO CALL ME BACK. I WILL CONTINUE TO CALL AND CHECK. I AM GOING AHEAD AND DOING THE MEDICATION LIST GOING BY MEDICATION HISTORY AND PHARMACY LIST.
[2020-05-29] MEDS: ondansetron 2 mg/ML SDV 2 mL 4 MG IVP ×2 (10:41→19:33)
--- NOTE | 2020-05-29 11:00 | PC.NURSE ---
Dr. Palumbo updated on a patient condition. 1 hour after medication administration, patient BP dropped to 96/54 HR 80. Patient reported dizziness and nausea. Patient was diaphoretic. Patient was resting in bed when event occurred, no changes in position. No new orders received at this time.
--- NOTE | 2020-05-29 15:18 | PC.NURSE ---
Hydralazine administration clarified with Dr. Palumbo. BP 111/59 Hr 70. Telephone order to hold medication at this time. RBTO.
--- NOTE | 2020-05-29 17:23 | P.PN_ITS ---
Subjective Subjective: Interval history: This morning patient had another episode of blood pressure dropped to 96/54 with heart rate 80 approximately 1 hour after receiving his morning medications. He reportedly was dizzy diaphoretic and nauseous at that time. Resolved with Zofran. Thereafter pressure has been ranging between 95-1 10 systolic, hydralazine has been held forward. 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: no focal neuro deficits Data : 05/28/20 19:34 05/29/20 04:22 A&P Assessment and plan (1) NSTEMI (non-ST elevated myocardial infarction): Status: Acute (2) Sinus bradycardia: Status: Acute (3) Multiple falls: Status: Acute (4) History of stroke: Status: Acute (5) H/O carotid endarterectomy: Status: Acute (6) CHF (congestive heart failure), NYHA class III: Status: Acute Qualifiers: Congestive heart failure type: combined Congestive heart failure chronicity: chronic Qualified Code(s): I50.42 - Chronic combined systolic (congestive) and diastolic (congestive) heart failure Additional A&P Information Overnight labs and H&P reviewed. Presented overnight with chief complaints of shortness of breath and chest discomfort. Noted to be bradycardic at nighttime. Episode of transient hypotension again this morning shortly after receiving antihypertensives. 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 No active chest pain since admission. Troponin delta noted to be elevated, 2-hour at 19, 4-hour delta at 40. This may be related to arrhythmia or CHF exacerbation, however given that patient was still symptomatic this morning although not with chest pain per se, I am concerned that above findings may be related to NSTEMI. Starting him on anticoagulation with full dose Lovenox 1 mg/kg every 12 hours. Cardiology consult in the morning, n.p.o. after midnight in case planned for cardiac cath. Continue ASA and plavix in the interim. hold hydralazine Coreg on hold already echo with Currently euvolemic, hold further lasix for now LV systolic function is normal with EF of 55-60% Grade 1 diastolic dysfunction Mild mitral regurgitation Trace pulmonic regurgitation Full code Attestations Medical Necessity Statement*: change to inpatient admission, needs evlaution and management for NSTEMI, cardiology consult in am Coding Level of Care Code Acute School Library Media Specialist for [facility] [place] Diagnoses NSTEMI (non-ST elevated myocardial infarction) I21.4 Sinus bradycardia R00.1 Multiple falls R29.6 History of stroke Z86.73 H/O carotid endarterectomy Z98.890 CHF (congestive heart failure), NYHA class III I50.42 Congestive heart failure type: combined Congestive heart failure chronicity: chronic
[2020-05-29] MEDS: enoxaparin 60 mg/0.6 mL Syringe SUBCUT (17:59)
[2020-05-29] MEDS: calcium carbonate 500 mg Chew Tablet PO (20:36)
--- NOTE | 2020-05-29 21:55 | PC.NURSE ---
Patient c/o nausea at beginning of shift. PRN Zofran given. Patient states that he feels better. Will monitor.
[2020-05-30] VITALS (9 sets, daily range): BP systolic 113–156; BP diastolic 56–78; PULSE 49–80; RESP 15–18; TEMP 36.5–36.8; O2SAT 97
[2020-05-30] MEDS: enoxaparin 60 mg/0.6 mL Syringe SUBCUT ×2 (04:49→18:33)
[2020-05-30] MEDS: isosorbide dinitrate 20 mg Tablet 40 MG PO ×2 (09:31→18:33)
[2020-05-30] MEDS: clopidogrel 75 mg Tablet PO (09:32)
[2020-05-30] MEDS: aspirin 81 mg EC Tablet PO (09:32)
[2020-05-30] MEDS: tamsulosin 0.4 mg Capsule PO (09:32)
[2020-05-30] MEDS: atorvastatin 40 mg Tablet PO (09:32)
[2020-05-30] MEDS: famotidine 20 mg Tablet PO (09:32)
--- NOTE | 2020-05-30 11:08 | P.PN_ITS ---
Subjective Subjective: Interval history: This morning patient had another episode of blood pressure dropped to 96/54 with heart rate 80 approximately 1 hour after receiving his morning medications. He reportedly was dizzy diaphoretic and nauseous at that time. Resolved with Zofran. Thereafter pressure has been ranging between 95-1 10 systolic, hydralazine has been held forward. Medications: Reviewed: Yes Vitals/I&O/Wt Last Vital Signs Temp 97.7 F 05/30/20 10:56 Pulse 77 05/30/20 10:56 Resp 18 05/30/20 10:56 BP 153/73 05/30/20 10:56 Pulse Ox 97 05/30/20 10:56 05/29/20 05/30/20 05/30/20 22:59 06:59 14:59 Intake Total 360 / 720 Output Total 300 / 900 Balance 360 / 120 -300 / -180 Weight last 48 hrs Weight 63.503 kg Data : 05/28/20 19:34 05/29/20 04:22 A&P Assessment and plan (1) NSTEMI (non-ST elevated myocardial infarction): NSTEMI : ASA 81 Mg po daily plavix 75 mg po daily Lovenox 60 mg q12 h daily Lipitor 40 mg po daily Imdur 40 mg po BID Hydralazine 25 mg PO TID SL Nitro PRN 2D Echo :( 05/29 ) Normal left ventricular size. LV systolic function is normal with EF of 55-60%. No regional wall motion abnormalities. Grade 1 diastolic dysfunction. Stress Test Am. Status: Acute (2) Sinus bradycardia: Coreg on Hold. Continue to monitor on Tele. Possible Event Monitor as outpatient Status: Acute (3) Multiple falls: Status: Acute (4) History of stroke: Status: Acute (5) H/O carotid endarterectomy: Status: Acute (6) CHF (congestive heart failure), NYHA class III: HFpEF currently compensated. Will continue to hold Lasix Status: Acute Qualifiers: Congestive heart failure chronicity: chronic Congestive heart failure type: combined Qualified Code(s): I50.42 - Chronic combined systolic (co ngestive) and diastolic (congestive) heart failure (7) Hypertension: Due to hypotension episodes Hydralazine 100 MG PO TID was stopped. Currently patient B/P : 153/73. Will start hydralazine 25 mg po TID. Status: Acute (8) CKD (chronic kidney disease): Baseline SCR : 1.3-1.5 Current SCR : 1.3 Monitor BMP Status: Chronic Qualifiers: Chronic kidney disease stage: unspecified stage Qualified Code(s): N18.9 - Chronic kidney disease, unspecified Additional A&P Information Overnight labs and H&P reviewed. Presented overnight with chief complaints of shortness of breath and chest discomfort. Noted to be bradycardic at nighttime. Episode of transient hypotension again this morning shortly after receiving antihypertensives. 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 No active chest pain since admission. Troponin delta noted to be elevated, 2-hour at 19, 4-hour delta at 40. This may be related to arrhythmia or CHF exacerbation, however given that patient was still symptomatic this morning although not with chest pain per se, I am concerned that above findings may be related to NSTEMI. Starting him on anticoagulation with full dose Lovenox 1 mg/kg every 12 hours. Cardiology consult in the morning, n.p.o. after midnight in case planned for cardiac cath. Continue ASA and plavix in the interim. hold hydralazine Coreg on hold already echo with Currently euvolemic, hold further lasix for now LV systolic function is normal with EF of 55-60% Grade 1 diastolic dysfunction Mild mitral regurgitation Trace pulmonic regurgitation Full code Disposition:Patient has refused SNF. Attestations Medical Necessity Statement*: Patient needs to be in hospital for the management of NSTEMI. 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
[2020-05-30] MEDS: hyDRALAzine 25 mg Tablet PO ×2 (15:55→20:28)
--- NOTE | 2020-05-30 19:36 | PC.NURSE ---
patient reports voiding twice in restroom this shift
--- NOTE | 2020-05-30 19:58 | ECG_ITS ---
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 Interpretive Statements NAME OF STUDY: LEXISCAN SESTAMIBI STRESS TEST INDICATION: Chest Pain PROCEDURE: At the baseline, the blood pressure was 150/76 mmHg, oxygen saturation 98% with a heart rate of 58 bpm. The electrocardiogram showed sinus bradycardia at 59 bpm, normal axis with possible old anteroseptal infarct with nonspecific ST depression and T wave abnormality in lateral leads. The Lexiscan was infused over a period of 20 seconds. A total of 0.4 milligrams of Lexiscan was infused. The stress phase was continued for a total of 5 minutes. Heart rate at the end of the stress phase was 96 bpm, oxygen saturation 99% with a blood pressure of 151/63 mmHg. The EKG at the peak infusion revealed sinus rhythm with half to 1 mm horizontal to downsloping ST depression in inferolateral leads. Isolated PVCs noted throughout the infusion. Sestamibi was injected 20 seconds after the Lexiscan infusion. Blood pressure at the end of the recovery phase was 148/60 mmHg, oxygen saturation 98% with a heart rate of 79 beats per minute. CONCLUSION: 1. Equivocal EKG response to LexiScan infusion. 2. No LexiScan induced chest pain or cardiac arrhythmia. 3. Normal blood pressure and heart rate response. 4. Sestamibi/sestamibi perfusion scan pending; see separate report. Electronically Signed On 05-31-2020 16:52:58 CDT by Funmilayo Motley M.D. [id number]
[2020-05-31] VITALS (10 sets, daily range): BP systolic 114–188; BP diastolic 53–117; PULSE 55–93; RESP 4–20; TEMP 36.4–36.8; O2SAT 94–98
[2020-05-31 04:45] LABS: Basophils # 0.1 10^3/uL (0.0-0.1); Basophils % 0.7 %; Eosinophils # 0.3 10^3/uL (0.0-0.8); Eosinophils % 3.4 %; Hematocrit 32.6 % (42.0-52.0); Hemoglobin 10.7 g/dL (11.7-16.6); Lymphocytes # 2.7 10^3/uL (0.8-4.8); Lymphocytes % 28.1 %; Mean Corpuscular HGB Conc 32.8 g/dL (30.0-36.0); Mean Corpuscular Volume 97.6 fL (80-94); Mean Platelet Volume 11.3 fL (7.4-10.4); Monocytes # 1.1 10^3/uL (0.2-0.9); Monocytes % 11.6 %; Neutrophils # 5.44 10^3/uL (1.8-7.7); Neutrophils % 55.9 %; Nucleated Red Blood Cells % 0 %; Platelet Count 333 10^3/cmm (130-400); Red Blood Count 3.34 10^6/uL (4.1-5.3); Red Cell Distribution Width 15.8 % (12.1-15.1); White Blood Count 9.7 10^3/uL (4.0-10.0)
[2020-05-31 05:06] LABS: Anion Gap 10.4 (5-19); Blood Urea Nitrogen 43 mg/dL (8-23); Calcium 8.2 mg/dL (8.5-10.5); Carbon Dioxide 27 mmol/L (22-29); Chloride 102 mmol/L (98-107); Glucose 103 mg/dL (65-115); Magnesium 1.9 mg/dL (1.7-2.3); Osmolality Calculated 291 mOsm/kg (285-295); Potassium 4.4 mmol/L (3.5-5.1); Sodium 135 mmol/L (136-145)
[2020-05-31] MEDS: enoxaparin 60 mg/0.6 mL Syringe SUBCUT ×2 (06:21→17:35)
[2020-05-31] MEDS: regadenoson 0.4 Mg/5 ml Syringe IVP (08:40)
--- NOTE | 2020-05-31 08:55 | PC.NURSE ---
Dr Redding on unit for rounding verbal instructions to obtain PT eval and treat
[2020-05-31] MEDS: tamsulosin 0.4 mg Capsule PO (10:33)
[2020-05-31] MEDS: hyDRALAzine 25 mg Tablet PO ×3 (10:34→20:57)
[2020-05-31] MEDS: isosorbide dinitrate 20 mg Tablet 40 MG PO ×2 (10:34→17:35)
[2020-05-31] MEDS: atorvastatin 40 mg Tablet PO (10:34)
[2020-05-31] MEDS: famotidine 20 mg Tablet PO (10:34)
[2020-05-31] MEDS: aspirin 81 mg EC Tablet PO (10:34)
[2020-05-31] MEDS: clopidogrel 75 mg Tablet PO (10:34)
--- NOTE | 2020-05-31 10:36 | PC.NURSE ---
patient back from stress test at this time
--- NOTE | 2020-05-31 11:03 | P.PN_ITS ---
Subjective Subjective: Interval history: No acute event overnight.Patient deny any chest pain, sob,b/p is well controlled, participating with physical therapy.Deny any lightheadedness or dizziness. Awaiting Stress test today. Medications: Reviewed: Yes Vitals/I&O/Wt Last Vital Signs Temp 97.5 F L 05/31/20 04:39 Pulse 81 05/31/20 08:51 Resp 4 L 05/31/20 04:39 BP 148/60 05/31/20 08:51 Pulse Ox 98 05/31/20 04:39 05/30/20 05/31/20 05/31/20 22:59 06:59 14:59 Intake Total 360 / 600 0 / 600 Output Total 0 / 0 Balance 360 / 600 0 / 600 Physical Exam Const: COMMON NORMALS: patient oriented x3 HENMT: COMMON NORMALS: normocephalic and atraumatic HEAD & SCALP: normocephalic and atraumatic Resp: COMMON NORMALS: clear to auscultation bilaterally AUSCULTATION: clear to auscultation bilaterally Cardio: COMMON NORMALS: regular rate, regular rhythm, S1 normal heart sound present, S2 normal heart sound present, No gallops present (Cardio), No murmurs present (Cardio), No rub (Cardio) and Peripheral pulses 2+ throughout RATE: regular rate RHYTHM: regular rhythm HEART SOUNDS: S1 normal heart sound present and S2 normal heart sound present PERIPHERAL PULSES: Peripheral pulses 2+ throughout GI: COMMON NORMALS: Normal to inspection, nondistended, normoactive bowel sounds present, Soft to palpation, non-tender, No hepatosplenomegaly present and no masses AUSCULTATION: Yes normoactive bowel sounds PALPATION: Yes Soft to palpation and Yes No hepatosplenomegaly present RECTAL EXAM: Yes deferred Extremity: COMMON NORMALS: no clubbing, cyanosis or edema and no pedal edema Neuro: COMMON NORMALS: patient oriented x3 Data : 05/31/20 04:10 05/31/20 04:10 A&P Assessment and plan (1) NSTEMI (non-ST elevated myocardial infarction): NSTEMI : ASA 81 Mg po daily plavix 75 mg po daily Lovenox 60 mg q12 h daily Lipitor 40 mg po daily Imdur 40 mg po BID Hydralazine 25 mg PO TID SL Nitro PRN 2D Echo :( 05/29 ) Normal left ventricular size. LV systolic function is normal with EF of 55-60%. No regional wall motion abnormalities. Grade 1 diastolic dysfunction. Stress Test: Status: Acute (2) Sinus bradycardia: Coreg on Hold. Continue to monitor on Tele. Possible Event Monitor as outpatient Status: Acute (3) Multiple falls: Status: Acute (4) History of stroke: Status: Acute (5) H/O carotid endarterectomy: Status: Acute (6) CHF (congestive heart failure), NYHA class III: HFpEF currently compensated. Will continue to hold Lasix Status: Acute Qualifiers: Congestive heart failure chronicity: chronic Congestive heart failure type: combined Qualified Code(s): I50.42 - Chronic combined systolic (congestive) and diastolic (congestive) heart failure (7) Hypertension: Due to hypotension episodes Hydralazine 100 MG PO TID was stopped. Currently patient B/P : 153/73. Will start hydralazine 25 mg po TID. Status: Acute (8) CKD (chronic kidney disease): Baseline SCR : 1.3-1.5 Current SCR : 1.3 Monitor BMP Status: Chronic Qualifiers: Chronic kidney disease stage: unspecified stage Qualified Code(s): N18.9 - Chronic kidney disease, unspecified Additional A&P Information Overnight labs and H&P reviewed. Presented overnight with chief complaints of shortness of breath and chest discomfort. Noted to be bradycardic at nighttime. Episode of transient hypotension again this morning shortly after receiving ant ihypertensives. 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 No active chest pain since admission. Troponin delta noted to be elevated, 2-hour at 19, 4-hour delta at 40. This may be related to arrhythmia or CHF exacerbation, however given that patient was still symptomatic this morning although not with chest pain per se, I am concerned that above findings may be related to NSTEMI. Starting him on anticoagulation with full dose Lovenox 1 mg/kg every 12 hours. Cardiology consult in the morning, n.p.o. after midnight in case planned for cardiac cath. Continue ASA and plavix in the interim. hold hydralazine Coreg on hold already echo with Currently euvolemic, hold further lasix for now LV systolic function is normal with EF of 55-60% Grade 1 diastolic dysfunction Mild mitral regurgitation Trace pulmonic regurgitation Full code Disposition:Patient has refused SNF. Attestations Medical Necessity Statement*: Patient needs to be in hospital for the management of NSTEMI. Coding Level of Care Code Acute Porcelain Finish Sprayer for g Fwd Exam Detailed Diagnoses NSTEMI (non-ST elevated myocardial infarction) I21.4 Sinus bradycardia R00.1 Multiple falls R29.6 History of stroke Z86.73 H/O carotid endarterectomy Z98.890 CHF (congestive heart failure), NYHA class III I50.42 Congestive heart failure chronicity: chronic Congestive heart failure type: combined Hypertension I10 CKD (chronic kidney disease) N18.9 Chronic kidney disease stage: unspecified stage
[2020-05-31] MEDS: sodium chloride 0.9% 1,000 ML 30 ML IV (18:44)
--- NOTE | 2020-05-31 19:58 | NMCV_ITS ---
NM morena perf SPECT r/s* [id number] Anita Sauer Age: 85 Gender: M : 1935 Exam Date: 05/30/2020 19:58 Ordering Phys: Jaron Redding MD Technologist: RUBÉN Oneill Exam Location: [facility] Indications: SOB STRESS TEST Please see separate stress test report in [facility] for full findings IMAGE PROTOCOL Rest/Stress 1 Lexiscan Day Radiopharmaceutical Dose (mCi) Administration Site Administered by Rest: Tc-99m 11.0 IV Thu Wesley BUILD MANAGER Sestamibi Stress:Tc-99m 32.5 IV Thu Wesley, BUILD MANAGER Sestamibi Rest: 31-May-2020 60 Discovery 630 Stress: 31-May-2020 30 Discovery 630 0.4mg Lexiscan. Images obtained in supine and prone position. SPECT RESULTS Technical Quality: Excellent Raw Data Analysis: Normal Image Corrections: No attenuation or motion correction applied Summed Stress Score: 4 Summed Rest Score: 0 Summed Difference Score: 4 PERFUSION FINDINGS Small sized perfusion abnormality of mild severity of mid anterior, mid anterolateral, apical anterior and apical lateral wall on stress images. FUNCTIONAL RESULTS (calculated via Gated SPECT) Stress Image LV EF (%): 40 Stress EDV (mL):174 TID: 1.08 Stress ESV (mL):104 FUNCTIONAL FINDINGS: The left ventricle is normal in size. Transient Ischemia Dilatation of 1.1. There is moderately reduced left ventricular systolic function. The left ventricular ejection fraction is moderately reduced with a value of 40%. There is hypokinesis of apical anterior and mid to apical lateral harmon. Increased end-diastolic and end-systolic volumes. IMPRESSIONS 1. Small sized reversible perfusion abnormality of mild severity of mid anterior, mid anterolateral, apical anterior and apical lateral wall. 2. This may represent small area of ischemia in circumflex/left anterior descending artery territory. 3. The left ventricular ejection fraction is moderately reduced with a value of 40%. 4. There is hypokinesis of apical anterior and mid to apical lateral harmon. 5. No prior similar studies to compare. Funmilayo Motley MD (Electronically Signed) Final Date: 31 May 2020 16:47 S
--- NOTE | 2020-05-31 22:42 | P.CONIM_ITS ---
Providers/Reason For Consult Consulting Physican/Specialty*: NIKO Rubin MD/cardiology Reason for Consult*: Patient atypical chest symptoms and abnormal myocardial perfusion imaging. Attending Physician: Jaron Redding MD Primary Care Provider: YELITZA Mon History of Present Illness History of Present Illness Anita Sauer is a 85 year old male with multiple medical problems including multiple CVAs, cardiomyopathy, congestive heart failure, carotid artery disease, status post recent carotid endarterectomy, chronic kidney disease, essential benign hypertension, dyslipidemia and cardiac arrhythmia, was admitted to the hospital this time on the of this month, when he presented with complaints of heart palpitations/chest discomfort/near syncope. This patient is a very poor historian. He had multiple hospital admissions and ER visits recently for various complaints. In February of this year, he was admitted to [facility] with basal ganglia infarct. After a prolonged hospital stay, he was discharged to a fdc. He was admitted to the hospital in March with TIA. Subsequently he underwent a carotid endarterectomy at the [facility]. In the beginning of April, he presented with a swelling of the neck. Few days later, he was admitted to the hospital with complaints of recurrent fall/unsteady gait. This time, he is presenting with an episode of pounding in the chest associated with dizziness/weakness. He was brought to the hospital by ambulance. His baseline troponin T was 34 with a 2-hour delta of 20 and a 6-hour delta of around 47. He underwent a myocardial perfusion imaging today and was found to have small areas of reversible defect in the distribution of the LAD/circumflex artery. Cardiology consult is requested for further cardiac evaluation recommendations. This patient has a history of SVT. He has not had any documented tachyarrhythmias on the telemetry during this hospital admission. But he gives a history of heart pounding off and on at home. He is known to have cardiomyopathy with an LV action fraction around 30 to 35%?. The most recent echocardiogram reportedly has an ejection fraction of 55 to 60% Patient denies any unusual shortness of breath. No orthopnea PND. No fever, c hills or cough. No other specific complaints. His BNP was 2730 at the time of admission. He has no previous document history for coronary disease The patient is not able to give any detailed history. He has an expressive aphasia. His memory also is very poor. He is very confused with the timing of the multiple recent hospital admissions. He denies any chest pain. Few months ago, he had some discomfort in the chest in the lower substernal region. It lasted for few minutes and then gradually subsided. Has not had a recurrence. Seems to have some baseline shortness of breath with activities. Denies any orthopnea or PND. Mr. Sauer is being followed by the heart care services by Dr. Motley Review of Systems Narrative: CONSTITUTIONAL: No fever or chills. Feeling of weakness/fatigue EYES: No blurring of vision or other visual disturbances lately. ENT: No hoarseness of voice, auditory disturbances or sore throat. CARDIOVASCULAR: As mentioned above. RESPIRATORY: Some amount of dyspnea exertion GASTROINTESTINAL: No hematemesis or melena. GENITOURINARY: No dysuria or hematuria. INTEGUMENTARY: No skin rashes or history of skin cancer. NEURO: Multiple multiple CVAs in the recent past PSYCHIATRIC: No history of psychosis or major depression. HEMATOLOGIC: No bleeding disorders or significant anemia. ENDOCRINE: No history of polyuria or polydipsia. MUSCULOSKELETAL: No recent joint pain or swelling. ALLERGY/IMMUNOLOGY: As mentioned above. Meds/Allergies Home Medications and Allergies Home Medications Medication Instructions Recorded Confirmed Last Taken Type cholecalciferol (vitamin D3) 25 50 mcg PO DAILY 03/29/20 05/29/20 05/28/20 History mcg (1,000 unit) capsule aspirin 81 mg PO DAILY 05/29/20 05/29/20 05/28/20 History atorvastatin 40 mg PO DAILY 05/29/20 05/29/20 05/28/20 History carvedilol 3.125 mg PO BID 05/29/20 05/29/20 05/28/20 History clopidogrel 75 mg PO DAILY 05/29/20 05/29/20 05/28/20 History famotidine 20 mg PO DAILY 05/29/20 05/29/20 05/28/20 History hydralazine 100 mg PO TID 05/29/20 05/29/20 05/28/20 History isosorbide dinitrate 20 mg PO TID 05/29/20 05/29/20 05/28/20 History lisinopril 40 mg PO DAILY 05/29/20 05/29/20 05/28/20 History tamsulosin 0.4 mg PO DAILY 05/29/20 05/29/20 05/28/20 History Allergies Allergy/AdvReac Type Severity Reaction Status Date / Time Penicillins Allergy Unknown unknown Verified 05/28/20 19:08 Current Medications Current Medications Generic Name Dose Route Start Last Admin Trade Name Freq PRN Reason Stop Dose Admin Aspirin 81 mg 05/29/20 09:00 05/31/20 10:34 Aspirin 81 Mg Ec Tablet PO 81 mg DAILY JESSICA Administration Atorvastatin Calcium 40 mg 05/29/20 09:00 05/31/20 10:34 Atorvastatin 40 Mg Tablet PO 40 mg DAILY JESSICA Administration Calcium Carbonate 500 mg 05/29/20 19:44 05/29/20 20:36 Calcium Carbonate 500 Mg Chew Tablet PO 500 mg Q4H PRN Administration INDIGESTION Clopidogrel Bisulfate 75 mg 05/29/20 09:00 05/31/20 10:34 Clopidogrel 75 Mg Tablet PO 75 mg DAILY JESSICA Administration Enoxaparin Sodium 60 mg 05/29/20 18:00 05/31/20 17:35 Enoxaparin 60 Mg/0.6 Ml Syringe SUBCUT 60 mg Q12H JESSICA Administration Famotidine 20 mg 05/29/20 09:00 05/31/20 10:34 Famotidine 20 Mg Tablet PO 20 mg DAILY JESSICA Administration Hydralazine HCl 25 mg 05/30/20 15:00 05/31/20 20:57 Hydralazine 25 Mg Tablet PO 25 mg TID JESSICA Administration Sodium Chloride 1,000 mls @ 30 mls/hr 05/31/20 17:45 05/31/20 18:44 Sodium Chloride 0.9% IV 30 mls/hr .Q24H JESSICA Administration Isosorbide Dinitrate 40 mg 05/29/20 09:00 05/31/20 17:35 Isosorbide Dinitrate 20 Mg Tablet PO 40 mg BID JESSICA Administration Ondansetron HCl 4 mg 05/29/20 01:56 05/29/20 19:33 Ondansetron 2 Mg/Ml Sdv 2 Ml IVP 4 mg Q6H PRN Administration NAUSEA AND VOMITING Tamsulosin HCl 0.4 mg 05/29/20 09:00 05/31/20 10:33 Tamsulosin 0.4 Mg Capsule PO 0.4 mg DAILY JESSICA Administration PFSH Acute PFSH: Medical History Anxiety Bilateral carotid bruits Carotid stenosis CHF (congestive heart failure), NYHA class III CKD (chronic kidney disease) Dyslipidemia Dyslipidemia GERD (gastroesophageal reflux disease) History of pancreatic cancer Hx of transient ischemic attack (TIA) Noncompliance Osteoarthritis Pulmonary emphysema Uncontrolled hypertension Surgical History H/O carotid endarterectomy Hx of spinal surgery Family History Brother Heart disease Mother Heart disease Social History Smoking and tobacco status: never smoked Second hand smoke exposure: No Smoking risk assessment/counseling performed?: No Alcohol intake: never Lives independently: Yes Marital status: Single History of recent travel: No Vitals/I&O/Wt Last Vital Signs Temp 98 F 05/31/20 19:28 Pulse 93 05/31/20 19:28 Resp 19 H 05/31/20 19:28 BP 147/73 05/31/20 19:28 Pulse Ox 98 05/31/20 19:28 05/31/20 05/31/20 05/31/20 06:59 14:59 22:59 Intake Total 0 / 600 360 / 360 360 / 720 Output Total 0 / 0 Balance 0 / 600 360 / 360 360 / 720 Physical Exam Narrative: EXAM NARRATIVE: GENERAL: The patient is alert and oriented times three. Not in any acute distress. Has expressive aphasia. Seems to be very forgetful HEENT: Minimal pallor,no icterus or lymphadenopathy. The pupils are reactant to light. Oral cavity: There are no mucous membrane lesions. Funduscopic examination: The disk margins appear to be sharp with no exudates or hemorrhages. [] NECK: Trachea appears to be central. No masses noted. No JVD or thyromegaly appreciated. No carotid bruit. [] RESPIRATORY: Chest is symmetrical. No intercostals muscle retraction or any accessory muscle activation. There is no chest wall tenderness. Breath sounds are heard bilaterally. No rales or rhonchi heard. No evidence of any consolidation. [] BREASTS: Deferred. [] HEART: The PMI is in the 5th left intercostals space just in the midclavicular line. No palpable precordial events. S1 and S2 are normal. No S3 or S4 heard. No pericardial rub or any click heard. Short systolic murmur in the left sternal border. No diastolic murmurs. ABDOMEN: No vessel pulsations or distention. No tenderness. No organomegaly appreciated. No abdominal bruit. Bowel sounds are normally heard. [] : Deferred. [] RECTAL: Deferred. [] LYMPHATIC: No lymphadenopathy noted in the neck . EXTREMITIES: No edema or cyanosis. No clubbing. The pulses are extremely weak bilaterally. No cyanosis. MUSCULOSKELETAL: No acute joint deformities or swelling. SKIN: There are no significant scars or skin rash noted. [] NEUROPSYCHIATRIC: The patient is alert and oriented x3. Appears to be in a good mood. Has some expressive aphasia and unsteadiness in the gait. Very confused about the timing and sequence of the recent events. Data Labs: Other Labs: Laboratory Last Values WBC 9.7 10^3/uL (4.0- 10.0) 05/31/20 04:10 RBC 3.34 10^6/uL (4.1 -5.3) L 05/31/20 04:10 Hgb 10.7 g/dL (11.7-1 6.6) L 05/31/20 04:10 Hct 32.6 % (42.0-52.0 ) L 05/31/20 04:10 MCV 97.6 fL (80-94) H 05/31/20 04:10 MCH 32.0 pg (28.0-34. 0) 05/31/20 04:10 MCHC 32.8 g/dL (30.0-3 6.0) 05/31/20 04:10 RDW 15.8 % (12.1-15.1 ) H 05/31/20 04:10 Plt Count 333 10^3/cmm (130 -400) 05/31/20 04:10 MPV 11.3 fL (7.4-10.4 ) H 05/31/20 04:10 Neut % (Auto) 55.9 % 05/31/20 04:10 Lymph % (Auto) 28.1 % 05/31/20 04:10 [place] % (Auto) 11.6 % 05/31/20 04:10 Eos % (Auto) 3.4 % 05/31/20 04:10 Baso % (Auto) 0.7 % 05/31/20 04:10 Neut # (Auto) 5.44 10^3/uL (1.8 -7.7) 05/31/20 04:10 Lymph # (Auto) 2.7 10^3/uL (0.8- 4.8) 05/31/20 04:10 [place] # (Auto) 1.1 10^3/uL (0.2- 0.9) H 05/31/20 04:10 Eos # (Auto) 0.3 10^3/uL (0.0- 0.8) 05/31/20 04:10 Baso # (Auto) 0.1 10^3/uL (0.0- 0.1) 05/31/20 04:10 Nucleated RBC % (a uto) 0 % 05/31/20 04:10 Nucleated RBCs # 0.0 /100WBC 05/31/20 04:10 Sodium 135 mmol/L (136-1 45) L 05/31/20 04:10 Potassium 4.4 mmol/L (3.5-5 .1) 05/31/20 04:10 Chloride 102 mmol/L (98-10 7) 05/31/20 04:10 Carbon Dioxide 27 mmol/L (22-29) 05/31/20 04:10 Anion Gap 10.4 (5-19) 05/31/20 04:10 BUN 43 mg/dL (8-23) H 05/31/20 04:10 Creatinine 1.5 mg/dL (0.7-1. 2) H 05/31/20 04:10 GFR Calculation Not Reportable 05/31/20 04:10 Glucose 103 mg/dL (65-115 ) 05/31/20 04:10 Calculated Osmolal ity 291 mOsm/kg (285- 295) 05/31/20 04:10 Calcium 8.2 mg/dL (8.5-10 .5) L 05/31/20 04:10 Magnesium 1.9 mg/dL (1.7-2. 3) 05/31/20 04:10 Total Bilirubin 0.7 mg/dL (0.15-1 .2) 05/28/20 19:34 AST 11 U/L (0-40) 05/28/20 19:34 ALT 10 U/L (0-41) 05/28/20 19:34 Alkaline Phosphata se 104 IU/L (40-130) 05/28/20 19:34 Creatine Kinase 70 U/L (39-308) 05/28/20 19:34 Troponin T Baselin e 34 ng/L (0-15) H 05/28/20 19:34 Troponin T 120 Min [place] 53.68 ng/L (0-15) H 05/28/20 21:42 Delta Troponin T 19.68 ABS# (0-10) H* 05/28/20 21:42 Troponin T Hi Sens 6Hr 80.57 ng/L (0-15) H 05/29/20 01:00 Troponin T Hi Sens 6Hr Delta 46.57 ng/L (0-12) H* 05/29/20 01:00 NT-Pro-B Natriuret Pep 2730 pg/mL (0-450 ) H 05/28/20 19:34 Total Protein 6.4 g/dL (6.6-8.7 ) L 05/28/20 19:34 Albumin 3.8 g/dL (3.5-5.2 ) 05/28/20 19:34 Globulin 2.6 g/dL (1.3-4.6 ) 05/28/20 19:34 Urine Color Yellow (Yellow) 05/28/20 21:30 Urine Appearance Clear (CLEAR) 05/28/20 21:30 Urine pH 6 (5-7) 05/28/20 21:30 Ur Specific Gravit y 1.015 (1.005-1.0 30) 05/28/20 21:30 Urine Protein Neg (Negative) 05/28/20 21:30 Urine Glucose (UA) Norm (Normal) 05/28/20 21:30 Urine Ketones Negative (Negati ve) 05/28/20 21:30 Urine Blood Neg (Negative) 05/28/20 21:30 Urine Nitrate Negative (Negati ve) 05/28/20 21:30 Urine Bilirubin Neg (Negative) 05/28/20 21:30 Urine Urobilinogen Norm mg/dL (Negat usman) 05/28/20 21:30 Ur Leukocyte Soha ase Negative (Negati ve) 05/28/20 21:30 Imaging^: Myocardial perfusion imaging: My impression: 05/31/2020 Moderate area of reversible defect in the basal, mid and apical anterior wall region suggestive of ischemia in the distribution of the left artery descending artery(based on the SPECT imaging). Small area of reversible defect in the mid anterolateral and apical lateral region, suggestive of ischemia in the distribution of the left circumflex artery. LV ejection fraction is estimated to be around 40% Echo: My impression: Echocardiogram revealed severe diffuse hypokinesia of the septum and anteroseptal segments. LV ejection fraction around 45%. Trace of aortic valve sclerosis. Mild aortic dilatation. Thickened mitral valve with mitral annular calcification. Mild mitral regurgitation. Mild left atrial enlargement. CXR: My impression: Borderline cardiac silhouette . Increased interstitial markings. Prominent pulmonary venous markings. No lung infiltrates EKG^: EKG 1: My Interpretation: Normal sinus rhythm with frequent premature ventricular contractions, nonspecific ST changes. First-degree AV block A&P Assessment and plan (1) Abnormal nuclear stress test: In view of the patient's abnormal myocardial perfusion imaging and the echocardiogram, most likely he may have underlying at least two-vessel coronary artery disease. He seems to have significant amount of myocardium at risk in order to further evaluate his coronary status, he requires a cardiac catheterization. Apparently the patient does not have significant chest pains at this point. In view of his multiple recent CVAs and abnormal kidney function, patient carries a high risk for invasive/interventional procedures. Patient is willing to go for the angiogram, but he likes to have his family involved in the decision making. Apparently he refused to undergo cardiac catheterization in [place]. I will be discussing this with the rest of the family. A final decision need to be made afterwards. Status: Acute (2) Ischemic cardiomyopathy: Most likely the patient has ischemic cardiomyopathy. His LV ejection fraction has improved from April. Continue to optimize his medical treatment. Status: Acute (3) Recurrent cerebrovascular accidents (CVAs): Patient may be continued on the current medications for the time being. Except for his expressive aphasia and memory problems, his neurological status is fairly stable Status: Acute (4) H/O carotid endarterectomy: May continue on the current treatment measures. Status: Acute (5) Dyslipidemia: Continue on the current medications. Status: Chronic (6) Uncontrolled hypertension: Blood pressure is a stage II. Continue to optimize the antihypertensive medications. Status: Chronic (7) CKD (chronic kidney disease): The kidney function appears to be stable Status: Chronic Qualifiers: Chronic kidney disease stage: unspecified stage Qualified Code(s): N18.9 - Chronic kidney disease, unspecified Additional A&P Information After discussing with the rest of the family and also based on the patient's clinical progress, final decision will be made. 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
[2020-06-01] VITALS (16 sets, daily range): BP systolic 118–183; BP diastolic 69–95; PULSE 57–94; RESP 11–24; TEMP 36.3–36.6; O2SAT 91–98
[2020-06-01 04:51] LABS: Basophils # 0.1 10^3/uL (0.0-0.1); Basophils % 0.9 %; Eosinophils # 0.3 10^3/uL (0.0-0.8); Eosinophils % 3.3 %; Hematocrit 31.4 % (42.0-52.0); Hemoglobin 10.4 g/dL (11.7-16.6); Lymphocytes # 2.2 10^3/uL (0.8-4.8); Mean Corpuscular HGB Conc 33.1 g/dL (30.0-36.0); Mean Corpuscular Hemoglobin 32.1 pg (28.0-34.0); Mean Corpuscular Volume 96.9 fL (80-94); Mean Platelet Volume 11.4 fL (7.4-10.4); Monocytes # 1.1 10^3/uL (0.2-0.9); Monocytes % 12.6 %; Neutrophils # 4.89 10^3/uL (1.8-7.7); Neutrophils % 57.1 %; Nucleated Red Blood Cells % 0 %; Platelet Count 353 10^3/cmm (130-400); Red Blood Count 3.24 10^6/uL (4.1-5.3); Red Cell Distribution Width 15.7 % (12.1-15.1); White Blood Count 8.6 10^3/uL (4.0-10.0)
[2020-06-01 05:16] LABS: Anion Gap 10.1 (5-19); Blood Urea Nitrogen 41 mg/dL (8-23); Carbon Dioxide 27 mmol/L (22-29); Chloride 105 mmol/L (98-107); Glucose 114 mg/dL (65-115); Osmolality Calculated 297 mOsm/kg (285-295); Potassium 4.1 mmol/L (3.5-5.1); Sodium 138 mmol/L (136-145)
[2020-06-01] MEDS: enoxaparin 60 mg/0.6 mL Syringe SUBCUT ×2 (06:10→18:54)
[2020-06-01] MEDS: diphenhydrAMINE 25 mg Capsule PO (08:26)
[2020-06-01] MEDS: sodium chloride 0.9% 1,000 ML 50 ML IV ×2 (08:28→08:38)
--- NOTE | 2020-06-01 08:35 | PM.PN ---
Subjective Subjective: Interval history: Patient did not have any chest pain or chest tightness through the night. He denies any unusual shortness of breath. Denies any fever or chills. No cough. No other specific complaints. Medications: Reviewed: Yes Medication Review Details: Current Medications Acetaminophen (Acetaminophen 325 Mg Tablet) 650 mg PO Q6H PRN PRN Reason: MILD PAIN Aspirin (Aspirin 81 Mg Ec Tablet) 81 mg PO DAILY [facility] Last Admin: 05/31/20 10:34 Dose: 81 mg Documented by: Atorvastatin Calcium (Atorvastatin 40 Mg Tablet) 40 mg PO DAILY [facility] Last Admin: 05/31/20 10:34 Dose: 40 mg Documented by: Calcium Carbonate (Calcium Carbonate 500 Mg Chew Tablet) 500 mg PO Q4H PRN PRN Reason: INDIGESTION Last Admin: 05/29/20 20:36 Dose: 500 mg Documented by: Clopidogrel Bisulfate (Clopidogrel 75 Mg Tablet) 75 mg PO DAILY [facility] Last Admin: 05/31/20 10:34 Dose: 75 mg Documented by: Diphenhydramine HCl (Diphenhydramine 50 Mg Capsule) 50 mg PO ONCE ONE Stop: 06/01/20 08:32 Enoxaparin Sodium (Enoxaparin 60 Mg/0.6 Ml Syringe) 60 mg SUBCUT Q12H [facility] Last Admin: 06/01/20 06:10 Dose: 60 mg Documented by: Famotidine (Famotidine 20 Mg Tablet) 20 mg PO DAILY [facility] Last Admin: 05/31/20 10:34 Dose: 20 mg Documented by: Hydralazine HCl (Hydralazine 25 Mg Tablet) 25 mg PO TID [facility] Last Admin: 05/31/20 20:57 Dose: 25 mg Documented by: Sodium Chloride (Sodium Chloride 0.9%) 1,000 mls @ 30 mls/hr IV .Q24H [facility] Last Admin: 05/31/20 18:44 Dose: 30 mls/hr Documented by: Sodium Chloride (Sodium Chloride 0.9%) 1,000 mls @ 50 mls/hr IV .Q20H [facility] Last Admin: 06/01/20 08:28 Dose: 50 mls/hr Documented by: Sodium Chloride (Sodium Chloride 0.9%) 1,000 mls @ 50 mls/hr IV .Q20H ONE Stop: 06/02/20 04:30 Isosorbide Dinitrate (Isosorbide Dinitrate 20 Mg Tablet) 40 mg PO BID [facility] Last Admin: 05/31/20 17:35 Dose: 40 mg Documented by: Ondansetron HCl (Ondansetron 2 Mg/Ml Sdv 2 Ml) 4 mg IVP Q6H PRN PRN Reason: NAUSEA AND VOMITING Last Admin: 05/29/20 19:33 Dose: 4 mg Documented by: Ondansetron HCl (Ondansetron 2 Mg/Ml Sdv 2 Ml) 4 mg IVP Q2M PRN PRN Reason: NAUSEA Tamsulosin HCl (Tamsulosin 0.4 Mg Capsule) 0.4 mg PO DAILY [facility] Last Admin: 05/31/20 10:33 Dose: 0.4 mg Documented by: Vitals/I&O/Wt Last Vital Signs Temp 97.4 F L 06/01/20 07:03 Pulse 61 06/01/20 07:03 Resp 20 H 06/01/20 07:03 BP 131/95 06/01/20 07:03 Pulse Ox 95 06/01/20 07:03 05/31/20 06/01/20 06/01/20 22:59 06:59 14:59 Intake Total 480 / 840 150 / 990 Output Total 400 / 400 200 / 600 Balance 80 / 440 -50 / 390 Physical Exam Narrative: EXAM NARRATIVE: GENERAL: The patient is alert and oriented times three. Not in any acute distress. Has expressive aphasia. Seems to be very forgetful HEENT: Minimal pallor,no icterus or lymphadenopathy. The pupils are reactant to light. Oral cavity: There are no mucous membrane lesions. NECK: Trachea appears to be central. No masses noted. No JVD or thyromegaly appreciated. No carotid bruit. RESPIRATORY: Chest is symmetrical. No intercostals muscle retraction or any accessory muscle activation. There is no chest wall tenderness. Breath sounds are heard bilaterally. No rales or rhonchi heard. No evidence of any consolidation. BREASTS: Deferred. HEART: The PMI is in the 5th left intercostals space just in the midclavicular line. No palpable precordial events. S1 and S2 are normal. No S3 or S4 heard. No pericardial rub or any click heard. Short systolic murmur in the left sternal border. No diastolic murmurs. ABDOMEN: No vessel pulsations or distention. No tenderness. No organomegaly appreciated. No abdominal bruit. Bowel sounds are normally heard. : Deferred. RECTAL: Deferred. LYMPHATIC: No lymphadenopathy noted in the neck . EXTREMITIES: No edema or cyanosis. No clubbing. The pulses are extremely weak bilaterally. No cyanosis. MUSCULOSKELETAL: No acute joint deformities or swelling. SKIN: There are no significant scars or skin rash noted. NEUROPSYCHIATRIC: The patient is alert and oriented x3. Appears to be in a good mood. Has some expressive aphasia and unsteadiness in the gait. Very confused about the timing and sequence of the recent events. Data : 06/01/20 04:00 06/01/20 04:00 Other Labs: Laboratory Last Values WBC 8.6 10^3/uL (4.0-10.0) 06/01/20 04:00 RBC 3.24 10^6/uL (4.1-5.3) L 06/01/20 04:00 Hgb 10.4 g/dL (11.7-16.6) L 06/01/20 04:00 Hct 31.4 % (42.0-52.0) L 06/01/20 04:00 MCV 96.9 fL (80-94) H 06/01/20 04:00 MCH 32.1 pg (28.0-34.0) 06/01/20 04:00 MCHC 33.1 g/dL (30.0-36.0) 06/01/20 04:00 RDW 15.7 % (12.1-15.1) H 06/01/20 04:00 Plt Count 353 10^3/cmm (130-400) 06/01/20 04:00 MPV 11.4 fL (7.4-10.4) H 06/01/20 04:00 Neut % (Auto) 57.1 % 06/01/20 04:00 Lymph % (Auto) 26.0 % 06/01/20 04:00 Jennings % (Auto) 12.6 % 06/01/20 04:00 Eos % (Auto) 3.3 % 06/01/20 04:00 Baso % (Auto) 0.9 % 06/01/20 04:00 Neut # (Auto) 4.89 10^3/uL (1.8-7.7) 06/01/20 04:00 Lymph # (Auto) 2.2 10^3/uL (0.8-4.8) 06/01/20 04:00 Jennings # (Auto) 1.1 10^3/uL (0.2-0.9) H 06/01/20 04:00 Eos # (Auto) 0.3 10^3/uL (0.0-0.8) 06/01/20 04:00 Baso # (Auto) 0.1 10^3/uL (0.0-0.1) 06/01/20 04:00 Nucleated RBC % (auto) 0 % 06/01/20 04:00 Nucleated RBCs # 0.0 /100WBC 06/01/20 04:00 Sodium 138 mmol/L (136-145) 06/01/20 04:00 Potassium 4.1 mmol/L (3.5-5.1) 06/01/20 04:00 Chloride 105 mmol/L (98-107) 06/01/20 04:00 Carbon Dioxide 27 mmol/L (22-29) 06/01/20 04:00 Anion Gap 10.1 (5-19) 06/01/20 04:00 BUN 41 mg/dL (8-23) H 06/01/20 04:00 Creatinine 1.5 mg/dL (0.7-1.2) H 06/01/20 04:00 GFR Calculation Not Reportable 06/01/20 04:00 Glucose 114 mg/dL (65-115) 06/01/20 04:00 Calculated Osmolality 297 mOsm/kg (285-295) H 06/01/20 04:00 Calcium 8.0 mg/dL (8.5-10.5) L 06/01/20 04:00 Magnesium 1.9 mg/dL (1.7-2.3) 05/31/20 04:10 Total Bilirubin 0.7 mg/dL (0.15-1.2) 05/28/20 19:34 AST 11 U/L (0-40) 05/28/20 19:34 ALT 10 U/L (0-41) 05/28/20 19:34 Alkaline Phosphatase 104 IU/L (40-130) 05/28/20 19:34 Creatine Kinase 70 U/L (39-308) 05/28/20 19:34 Troponin T Baseline 34 ng/L (0-15) H 05/28/20 19:34 Troponin T 120 Minute 53.68 ng/L (0-15) H 05/28/20 21:42 Delta Troponin T 19.68 ABS# (0-10) H* 05/28/20 21:42 Troponin T Hi Sens 6Hr 80.57 ng/L (0-15) H 05/29/20 01:00 Troponin T Hi Sens 6Hr Delta 46.57 ng/L (0-12) H* 05/29/20 01:00 NT-Pro-B Natriuret Pep 2730 pg/mL (0-450) H 05/28/20 19:34 Total Protein 6.4 g/dL (6.6-8.7) L 05/28/20 19:34 Albumin 3.8 g/dL (3.5-5.2) 05/28/20 19:34 Globulin 2.6 g/dL (1.3-4.6) 05/28/20 19:34 Urine Color Yellow (Yellow) 05/28/20 21:30 Urine Appearance Clear (CLEAR) 05/28/20 21:30 Urine pH 6 (5-7) 05/28/20 21:30 Ur Specific [place] 1.015 (1.005-1.030) 05/28/20 21:30 Urine Protein Neg (Negative) 05/28/20 21:30 Urine Glucose (UA) Norm (Normal) 05/28/20 21:30 Urine Ketones Negative (Negative) 05/28/20 21:30 Urine Blood Neg (Negative) 05/28/20 21:30 Urine Nitrate Negative (Negative) 05/28/20 21:30 Urine Bilirubin Neg (Negative) 05/28/20 21:30 Urine Urobilinogen Norm mg/dL (Negative) 05/28/20 21:30 Ur Leukocyte Esterase Negative (Negative) 05/28/20 21:30 A&P Assessment and plan (1) Abnormal nuclear stress test: In view of the patient's abnormal myocardial perfusion imaging and the echocardiogram, most likely he may have underlying at least two-vessel coronary artery disease. He seems to have significant amount of myocardium at risk in order to further evaluate his coronary status, he requires a cardiac catheterization. Apparently the patient does not have significant chest pains at this point. In view of his multiple recent CVAs and abnormal kidney function, patient carries a high risk for invasive/interventional procedures. Patient is willing to go for the angiogram, but he likes to have his family involved in the decision making. Apparently he refused to undergo cardiac catheterization in [place]. I discussed with the patient's sister this morning about the test findings and its implications. In view of the amount of myocardium in jeopardy, it would be appropriate to go ahead with the cardiac catheterization possible PCI. Patient understood this well and consented to proceed. The risk of bleeding, hematoma, vascular injury, myocardial infarction, CVA, renal failure and other concomitant complications were explained in detail. In the office chronic kidney disease, he has a higher chance of developing contrast-induced nephropathy. This was discussed with the patient and his family in detail, which is understood well. Status: Acute (2) Ischemic cardiomyopathy: Most likely the patient has ischemic cardiomyopathy. His LV ejection fraction has improved from April. Continue to optimize his medical treatment. Status: Acute (3) Recurrent cerebrovascular accidents (CVAs): Patient may be continued on the current medications for the time being. Except for his expressive aphasia and memory problems, his neurological status is fairly stable Status: Acute (4) H/O carotid endarterectomy: May continue on the current treatment measures. Status: Acute (5) Dyslipidemia: Continue on the current medications. Status: Chronic (6) Uncontrolled hypertension: Blood pressure is a stage II. Continue to optimize the antihypertensive medications. Status: Chronic (7) CKD (chronic kidney disease): The kidney function appears to be stable Status: Chronic Qualifiers: Chronic kidney disease stage: unspecified stage Qualified Code(s): N18.9 - Chronic kidney disease, unspecified Additional A&P Information Based on the patient's clinical progress, further my decisions will be made. Attestations Medical Necessity Statement*: Patient requires continued hospital stay for close monitoring and further management Coding Level of Care Code Acute Pattern Finisher for [facility] [place] Diagnoses Abnormal nuclear stress test R94.39 Ischemic cardiomyopathy I25.5 Recurrent cerebrovascular accidents (CVAs) I63.9 H/O carotid endarterectomy Z98.890 Dyslipidemia E78.5 Uncontrolled hypertension I10 CKD (chronic kidney disease) N18.9 Chronic kidney disease stage: unspecified stage
[2020-06-01] MEDS: isosorbide dinitrate 20 mg Tablet 40 MG PO ×2 (08:37→18:55)
[2020-06-01] MEDS: aspirin 81 mg EC Tablet PO (08:37)
[2020-06-01] MEDS: atorvastatin 40 mg Tablet PO (08:37)
--- NOTE | 2020-06-01 08:37 | XACV_ITS ---
Exam Room: [facility] Ht: 180 cm Wt: 64 kg BSA: 1.77 m2 Gender: Male : 1935 Any Known Allergies: Penicillins Exam Priority: Routine Procedure(s): Procedure Description: Diagnostic procedure Procedure Description: Coronary Angiography Diagnostic Cath Status: Elective Diagnostic Findings * No significant disease noted in the Left Main, LAD, Circumflex, or RCA coronary arteries. * The left main is extremely short vessel which bifurcates to the LAD and left circumflex artery. * The left anterior descending artery is a medium caliber vessel which appears to taper off towards the LV apex. Just before the first diagonal, there is a high-grade lesion of around 90%. The mid LAD was found to have 80 to 90% segmental lesions. The mid and distal left anterior descending artery was found to have mild to moderate diffuse disease. Moderate diffuse coronary calcification was noted in the proximal and the mid segment. The first diagonal branch was found to have a high-grade lesion proximally. It gives of multiple branches proximally. Around the LV apex, the artery was found to be of small caliber with moderate diffuse disease. * The left circumflex artery is a medium caliber vessel which was found to have mild diffuse disease in the proximal and mid segment. There was a segmental narrowing of around 50% before the first obtuse marginal branch. No other significant stenotic lesions were noted. * The right coronary artery is a medium to large caliber vessel which was found to have mild diffuse disease in the proximal and the mid segment. The PLV branch was found to have a high-grade lesion of around 80% proximally. It gives of a proximal small caliber vessel with a high-grade lesion proximally. Distally the artery bifurcates. One of the bifurcation branches was found to have a 90% lesion proximally. The second bifurcation branches was found to have 50 to 60% diffuse narrowing. PCI Status: Elective PCI Indication: NSTE - ACS Interventional Findings * After crossing * with coronary wire * into diagonal branch * , we * tr * ied * to cross mid LAD * , * despite of using different * wires and * wiring technique we were not able to cross * this * highly calcified mid LAD torturous lesion. * Since * I do not have a surgical backup and because of the fact * it * is a highly calcified tortuous vessel may require high risk intervention for which I will discuss it * more * with patient and family * regarding other options such as CABG * . Further plan will be advised * then. At this point we will stop the procedure. No complication noted. * . Conclusions 1. This is an 85-year-old white male with a history of hypertension, type 2 diabetes, dyslipidemia and recent multiple CVAs, presented with atypical chest pain and elevated troponin T. He had a myocardial perfusion imaging which revealed areas of significant ischemia in the anterior wall and anterolateral wall regions. For further evaluation of his coronary status, a cardiac catheterization was recommended. Patient underwent left heart catheterization with left and right coronary angiogram today. The findings are as follows. 2. 1. Short left main with no significant stenotic lesions. 2. High-grade lesions in the proximal and mid segments of the left anterior descending artery. The first diagonal branch was found to have high-grade lesion proximally. 3. Mild disease in the left circumflex artery. 4. High-grade lesions in the PLV branch of the right coronary artery. 3. Based on the above angiographic findings and the patient clinical presentation, PCI of the LAD, diagonal and RCA lesion was thought to be appropriate. Possibly he may require a staged intervention. Patient is not wanting to undergo open heart surgery. I reviewed and discussed the cardiac catheterization data with Dr. Blevins.Dr Blevins took over further management of this patient at this point. 4. Patient has bifurcating highly calcified LAD lesion. LAD and diagonal both are small caliber but long vessels. LAD comes at an angle which is very eccentric and tortuous. Easy wiring was noted into the diagonal however despite of using different wires including run-through BMW cougar were not able to cross the mid LAD lesion while crossing at one point patient started having chest pain as well. Patient creatinine is around 1.6. He already achieved more than 300 of contrast. His intervention will be high risk requiring surgical backup. Recommendations * Continue current medical management and risk factor modification. Further plan will be devised after discussion with the patient family and Dr. Rubin.. Diagnostic RX Recommendation: PCI w/o planned CABG LV EDP: 5 mmHg Left Ventriculography Findings: * The LV gram was not performed because of the chronic kidney disease and the concern of dye overload. The LVEDP was 5 mmHg. Pressures Phase:Rest AO : 145 / 59 ( 96 ) @ 4:15:00 AM 161 / 48 ( 91 ) @ 4:17:00 AM 124 / 46 ( 75 ) @ 4:52:00 AM 161 / 68 ( 107 ) @ 5:12:00 AM LV : 151 / -22 / @ 4:17:00 AM Clinical Evaluation EBL: 5mL-10mL Procedural Details Procedure Consent Obtained. Pre-Procedure Time Out. Identified patient by full name and date of as verbalized by the patient/guarantor. Does the consent match the physician's order: Yes. Accurate & Complete Informed Consent: Yes. Inpatient/Outpatient History & Physical on Chart: Yes. If H&P is completed, is and addenduem needed: No; If yes, is the addendum complete: N/A. Visualize and Verify Site with Patient/Guarantor: N/A. Relevant Radiology Images available: Yes. Pre-op teaching completed and patient verbalized understanding. The risks, benefits, and alternatives of sedation and/or procedure were discussed by physician. The patient agrees to continue. Procedure started. Correct patient, site and procedure confirmed by cath team. Current diagnosis: Chest Pain. PERRLA. Strong, equal hand rehab office coordinator bilaterally. Lungs clear x 5 lobes. IV Site on Arrival: 18 gauge in the right anticubital. IV Fluids: 0.9% NaCl at KVO. 0 mL infused prior to dentures lab technician. Pre Procedural Pulses: bilateral dorsalis pedis was 2+. Pre Procedural Pulses: bilateral posterior tibial was 2+. Pre Procedural Pulses: bilateral radial was 2+. Oxygen started at 2liters/min via nasal canula. bilateral groins was prepped with chloroprep then draped in the usual sterile fashion. Physician notified. Baseline sample Acquired. HR: 65 BPM. Equipment: 6F - Femoral. Cardiac Cath Pack. ACIST Manifold Kit Model BT 2000. Heparinized Saline (2 units/mL), 1000 mL bag. Kit, Micropuncture. Physician arrived. Physician scrubbed in. Immediate Pre-Procedure Time Out. Correct Patient: Yes; Correct Procedure: Yes; Correct Site: Yes; Correct Patient Position: Yes; Correct Supplies: Yes; Dried Flammable Prep: Yes; Blood Products Available: No;. Lidocaine 1% infiltrated to the right groin. Arterial access obtained with micropuncture set. A 5 bulgarian JL4 catheter in over wire. Multiple views taken of left coronary artery. Catheter out. A 5 bulgarian JR4 catheter in over wire. Multiple views taken of right coronary artery. Catheter out. A 5 bulgarian Angled Pig catheter in over wire. EDP Sample taken: LV 151/-23,5; HR: 65 BPM; SpO2: 100%. Catheter out. Dr. Blevins notified. Patient's sister given update over the phone by Dr. Rubin. Sheath flushed periodically to maintain patency. [facility] Clinical Fraility Score: 4: Vulnerable. Gasket Supervisor Indications: ACS > 24 hours. Chest Pain Symptom Assessment: Atypical Angina. Cardiovascular Instability: No. Dr. Rubin scrubbed out. Dr. Blevins arrived. Dr. Blevins spoke with sister Ellen and patient. Dr. Blevins scrubbed in to perform intervention. 5FR sheath exchanged for a 6FR sheath. 6 bulgarian XB 3.5 guide catheter was inserted over the wire. Runthrough wire inserted and parked in the diag. [place] guidewire was advanced through the guide catheter to lesion in the mid LAD. Wires out. cougar wire reinserted then removed. BMW guidewire was advanced through the guide catheter. BMW out. Runthrough inserted. Runthrough wire out. Guide catheter out. A Suture was successful obtaining hemostatsis at the Right Femoral artery insertion site. Sheath(s) sutured into position with 2-0 silk and sterile 4x4's and Op-site applied over the site. No oozing or signs and symptoms of hematoma noted. Arterial sheath flushed and connected to tranducer and pressure bag with heparinized saline. Post Procedure: Pulses reassessed and unchanged. No VTE prophylaxis required. PERRLA. Strong, equal hand rehab office coordinator bilaterally. Medication's Wasted: Lidocaine 1% = 5 mL. Medication's Wasted: Heparin = 4000 units. Medication's Wasted: Nitro = 49.6 mg. Total contrast 609ml. Contrast type used: Omnipaque 300 mgI/mL, 500 mL bottle. Contrast type used: Visipaque 320 mgI/mL, 500 mL bottle. Post-op diagnosis: Severe multivessel CAD. Complications: None. Estimated blood loss: 5mL-10mL. Medication's Wasted: Other = Versed 1mL. Medication's Wasted: Other = Fentanyl 50 mcg. Vital chart was stopped. Procedure completed. Patient transferred by bed to 1st floor. Access Site Site: Right Femoral artery Sheath Size: 5 Fr Hemostasis Method: Suture Hemostasis Success: Successful Procedure Medications Start: 9:00 AM Stop: 9:00 AM Medication: Versed Amount: 1 mg Route: I.V. Start: 9:01 AM Stop: 9:01 AM Medication: Fentanyl Amount: 50 mcg Route: I.V. Start: 9:03 AM Stop: 9:03 AM Medication: Versed Amount: 1 mg Route: I.V. Start: 9:08 AM Stop: 9:08 AM Medication: 0.9% Saline Amount: 250 ml Route: I.V. bolus Start: 9:16 AM Stop: 9:16 AM Medication: Fentanyl Amount: 25 mcg Route: I.V. Start: 9:21 AM Stop: 9:21 AM Medication: Fentanyl Amount: 25 mcg Route: I.V. Start: 9:29 AM Stop: 9:29 AM Medication: Versed Amount: 1 mg Route: I.V. Start: 10:06 AM Stop: 10:06 AM Medication: Versed Amount: 1 mg Route: I.V. Start: 10:08 AM Stop: 10:08 AM Medication: Fentanyl Amount: 25 mcg Route: I.V. Start: 10:22 AM Stop: 10:22 AM Medication: Nitrogylcerin Amount: 200 mcg Route: I.C. Start: 10:25 AM Stop: 10:25 AM Medication: Versed Amount: 1 mg Route: I.V. I, the attending physician, have reviewed and verified all procedure medications. Yes, all medications given per verbal order History/Risk Factors Hypertension: Yes Dyslipidemia: No Peripheral Arterial Disease (PAD): No Myocardial Infarction (MT): No Obesity: No Renal Disease: No Tobacco Use: Current/Recent(w/in 1 year) Prior Interventions PCI: No CABG: No Valve Surgery: No Report Signatures Interventional Workflow Finalized by Fariba Blevins MD on 06/14/2020 08:40 PM Diagnostic Workflow Finalized by Dr Aakash Rubin MD [facility] on 06/01/2020 05:17 PM
[2020-06-01] MEDS: hyDRALAzine 25 mg Tablet PO ×3 (08:38→21:01)
[2020-06-01] MEDS: diphenhydrAMINE 50 mg Capsule PO (08:38)
[2020-06-01] MEDS: tamsulosin 0.4 mg Capsule PO (08:38)
[2020-06-01] MEDS: clopidogrel 75 mg Tablet PO (08:38)
[2020-06-01] MEDS: famotidine 20 mg Tablet PO (08:38)
--- NOTE | 2020-06-01 08:57 | W.PM.OPSUD ---
Surgery/Procedure H&P Update DATE OF PROCEDURE: June 01, 2020 DATE H&P PERFORMED: 05/31/20 H&P UPDATE INFORMATION: I have reviewed H&P completed within last 30 days, I have examined patient prior to procedure and No changes to prior documentation PREOP DIAGNOSIS: ASHD/NSTEMI PRIMARY INDICATION FOR PROCEDURE: Abnormal myocardial perfusion imaging PLANNED PROCEDURE: Left heart catheterization with left and right coronary angiogram and possible PCI PATIENT REASSESSED PRIOR TO SEDATION, WITH NO CHANGE NOTED: Yes PHYSICAL EXAM: alert, oriented x 3, clear to auscultation bilaterally and regular rate & rhythm AIRWAY EVAL/ANESTHESIA PLAN: normal airway, see other exam findings, ASA III, Monitored Anesthesia, Local Anesthesia, Risks, benefits & alternatives of sedation and/or procedure discussed and Patient agrees to continue as planned
--- NOTE | 2020-06-01 13:55 | PM.PN ---
Subjective Subjective: Interval history: No acute event overnight.Patient is due for cardiac cath today.Currently NPO. Medications: Reviewed: Yes Medication Review Details: Current Medications Acetaminophen (Acetaminophen 325 Mg Tablet) 650 mg PO Q6H PRN PRN Reason: MILD PAIN Aspirin (Aspirin 81 Mg Ec Tablet) 81 mg PO DAILY [facility] Last Admin: 05/31/20 10:34 Dose: 81 mg Documented by: Atorvastatin Calcium (Atorvastatin 40 Mg Tablet) 40 mg PO DAILY [facility] Last Admin: 05/31/20 10:34 Dose: 40 mg Documented by: Calcium Carbonate (Calcium Carbonate 500 Mg Chew Tablet) 500 mg PO Q4H PRN PRN Reason: INDIGESTION Last Admin: 05/29/20 20:36 Dose: 500 mg Documented by: Clopidogrel Bisulfate (Clopidogrel 75 Mg Tablet) 75 mg PO DAILY [facility] Last Admin: 05/31/20 10:34 Dose: 75 mg Documented by: Diphenhydramine HCl (Diphenhydramine 50 Mg Capsule) 50 mg PO ONCE ONE Stop: 06/01/20 08:32 Enoxaparin Sodium (Enoxaparin 60 Mg/0.6 Ml Syringe) 60 mg SUBCUT Q12H [facility] Last Admin: 06/01/20 06:10 Dose: 60 mg Documented by: Famotidine (Famotidine 20 Mg Tablet) 20 mg PO DAILY [facility] Last Admin: 05/31/20 10:34 Dose: 20 mg Documented by: Hydralazine HCl (Hydralazine 25 Mg Tablet) 25 mg PO TID [facility] Last Admin: 05/31/20 20:57 Dose: 25 mg Documented by: Sodium Chloride (Sodium Chloride 0.9%) 1,000 mls @ 30 mls/hr IV .Q24H [facility] Last Admin: 05/31/20 18:44 Dose: 30 mls/hr Documented by: Sodium Chloride (Sodium Chloride 0.9%) 1,000 mls @ 50 mls/hr IV .Q20H [facility] Last Admin: 06/01/20 08:28 Dose: 50 mls/hr Documented by: Sodium Chloride (Sodium Chloride 0.9%) 1,000 mls @ 50 mls/hr IV .Q20H ONE Stop: 06/02/20 04:30 Isosorbide Dinitrate (Isosorbide Dinitrate 20 Mg Tablet) 40 mg PO BID [facility] Last Admin: 05/31/20 17:35 Dose: 40 mg Documented by: Ondansetron HCl (Ondansetron 2 Mg/Ml Sdv 2 Ml) 4 mg IVP Q6H PRN PRN Reason: NAUSEA AND VOMITING Last Admin: 05/29/20 19:33 Dose: 4 mg Documented by: Ondansetron HCl (Ondansetron 2 Mg/Ml Sdv 2 Ml) 4 mg IVP Q2M PRN PRN Reason: NAUSEA Tamsulosin HCl (Tamsulosin 0.4 Mg Capsule) 0.4 mg PO DAILY [facility] Last Admin: 05/31/20 10:33 Dose: 0.4 mg Documented by: Vitals/I&O/Wt Last Vital Signs Temp 97.4 F L 06/01/20 07:03 Pulse 59 L 06/01/20 12:45 Resp 16 06/01/20 12:45 BP 146/88 06/01/20 12:45 Pulse Ox 91 06/01/20 12:15 05/31/20 06/01/20 06/01/20 22:59 06:59 14:59 Intake Total 480 / 840 150 / 990 Output Total 400 / 400 200 / 600 Balance 80 / 440 -50 / 390 Physical Exam Const: COMMON NORMALS: patient oriented x3 HENMT: COMMON NORMALS: normocephalic and atraumatic HEAD & SCALP: normocephalic and atraumatic Resp: COMMON NORMALS: clear to auscultation bilaterally AUSCULTATION: clear to auscultation bilaterally Cardio: COMMON NORMALS: regular rate, regular rhythm, S1 normal heart sound present, S2 normal heart sound present, No gallops present (Cardio), No murmurs present (Cardio), No rub (Cardio) and Peripheral pulses 2+ throughout RATE: regular rate RHYTHM: regular rhythm HEART SOUNDS: S1 normal heart sound present and S2 normal heart sound present PERIPHERAL PULSES: Peripheral pulses 2+ throughout GI: COMMON NORMALS: Normal to inspection, nondistended, normoactive bowel sounds present, Soft to palpation, non-tender, No hepatosplenomegaly present and no masses AUSCULTATION: Yes normoactive bowel sounds PALPATION: Yes Soft to palpation and Yes No hepatosplenomegaly present RECTAL EXAM: Yes deferred Extremity: COMMON NORMALS: no clubbing, cyanosis or edema and no pedal edema Neuro: COMMON NORMALS: patient oriented x3 Data : 06/01/20 04:00 06/01/20 04:00 A&P Assessment and plan (1) NSTEMI (non-ST elevated myocardial infarction): NSTEMI : ASA 81 Mg po daily plavix 75 mg po daily Lovenox 60 mg q12 h daily Lipitor 40 mg po daily Imdur 40 mg po BID Hydralazine 25 mg PO TID SL Nitro PRN 2D Echo :( 05/29 ) Normal left ventricular size. LV systolic function is normal with EF of 55-60%. No regional wall motion abnormalities. Grade 1 diastolic dysfunction. Stress Test: Small sized reversible perfusion abnormality of mild severity of mid anterior, mid anterolateral, apical anterior and apical lateral wall. This may represent small area of ischemia in circumflex/left anterior descending artery territory. The left ventricular ejection fraction is moderately reduced with a value of 40%.There is hypokinesis of apical anterior and mid to apical lateral harmon. Status: Acute (2) Sinus bradycardia: Coreg on Hold. Continue to monitor on Tele. Possible Event Monitor as outpatient Status: Acute (3) Multiple falls: Status: Acute (4) History of stroke: Status: Acute (5) H/O carotid endarterectomy: Status: Acute (6) CHF (congestive heart failure), NYHA class III: HFpEF currently compensated. Will continue to hold Lasix Status: Acute Qualifiers: Congestive heart failure type: combined Congestive heart failure chronicity: chronic Qualified Code(s): I50.42 - Chronic combined systolic (congestive) and diastolic (congestive) heart failure (7) Hypertension: Due to hypotension episodes Hydralazine 100 MG PO TID was stopped. Currently patient B/P : 153/73. Will start hydralazine 25 mg po TID. Status: Acute (8) CKD (chronic kidney disease): Baseline SCR : 1.3-1.5 Current SCR : 1.3 Monitor BMP Status: Chronic Qualifiers: Chronic kidney disease stage: unspecified stage Qualified Code(s): N18.9 - Chronic kidney disease, unspecified Additional A&P Information Overnight labs and H&P reviewed. Presented overnight with chief complaints of shortness of breath and chest discomfort. Noted to be bradycardic at nighttime. Episode of transient hypotension again this morning shortly after receiving antihypertensives. 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 No active chest pain since admission. Troponin delta noted to be elevated, 2-hour at 19, 4-hour delta at 40. This may be related to arrhythmia or CHF exacerbation, however given that patient was still symptomatic this morning although not with chest pain per se, I am concerned that above findings may be related to NSTEMI. Starting him on anticoagulation with full dose Lovenox 1 mg/kg every 12 hours. Cardiology consult in the morning, n.p.o. after midnight in case planned for cardiac cath. Continue ASA and plavix in the interim. hold hydralazine Coreg on hold already echo with Currently euvolemic, hold further lasix for now LV systolic function is normal with EF of 55-60% Grade 1 diastolic dysfunction Mild mitral regurgitation Trace pulmonic regurgitation Full code Disposition:Patient has refused SNF. Attestations Medical Necessity Statement*: Patient needs to be in hospital for the management of NSTEMI and the need for CAG. 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
[2020-06-01] MEDS: fentaNYL 50 mcg/mL INJ 2mL IVP (14:04)
--- NOTE | 2020-06-01 14:45 | PC.NURSE ---
Pts sheath pulled, pressure held for 20 min, No hematoma or excessive bleeding. Drsg placed. Pt had no c/o pain or discomfort at the present time. Drsg dry and intact. Pts VS wnl. Call light in reach. Will continue to monitor.
--- NOTE | 2020-06-01 15:50 | PC.SOCIAL ---
IMM update IMM updated with patient. Pg 2 of IMM updated signed, dated, and timed. Copy provided, and patient verbalized an understanding.
--- NOTE | 2020-06-01 16:30 | PC.NURSE ---
Small hematoma 2cm formed just above sight. Manual pressure held on hematoma. Hematoma reduced. No hematoma palpable at the present time. Pt had no c/o pain or discomfort at the present time. Will cont to monitor.
--- NOTE | 2020-06-01 16:36 | PC.NURSE ---
other delay other pt care
[2020-06-01] MEDS: sodium chloride 0.9% 1,000 ML 30 ML IV (18:54)
--- NOTE | 2020-06-01 20:21 | PC.NURSE ---
Hematoma 3cm formation just below sight. Pressure was held and IV bag placed for pressure. Charge nurse and MD notified. no new orders given.
[2020-06-01 20:35] LABS: Anion Gap 13.1 (5-19); Blood Urea Nitrogen 33 mg/dL (8-23); Calcium 7.9 mg/dL (8.5-10.5); Carbon Dioxide 23 mmol/L (22-29); Chloride 102 mmol/L (98-107); Glucose 99 mg/dL (65-115); Osmolality Calculated 285 mOsm/kg (285-295); Potassium 4.1 mmol/L (3.5-5.1); Sodium 134 mmol/L (136-145)
[2020-06-02] VITALS (11 sets, daily range): BP systolic 120–162; BP diastolic 60–76; PULSE 69–110; RESP 15–21; TEMP 36.4–36.7; O2SAT 95–98
--- NOTE | 2020-06-02 00:20 | PC.NURSE ---
Patient had been up walking with no issues. Patient got up to ambulate this time and began bleeding from right groin. Manual pressure held for 20 minutes. Manual blood pressure 190s systolic. Dr. Blevins notified. Ordered to give one inch nitropaste and [address] Blevins also notified that 1800 Lovenox had been given. Ordered to put Lovenox on hold.
[2020-06-02] MEDS: hyDRALAzine 20 mg/mL INJ 1 mL 10 MG IVP (00:41)
[2020-06-02] MEDS: nitroglycerin 1 gm/inch oint Pkt 1 INCH TOPICAL (04:10)
[2020-06-02 05:43] LABS: Basophils # 0.1 10^3/uL (0.0-0.1); Basophils % 0.4 %; Eosinophils # 0.2 10^3/uL (0.0-0.8); Hematocrit 33.3 % (42.0-52.0); Hemoglobin 10.9 g/dL (11.7-16.6); Lymphocytes # 2.5 10^3/uL (0.8-4.8); Lymphocytes % 15.9 %; Mean Corpuscular HGB Conc 32.7 g/dL (30.0-36.0); Mean Corpuscular Hemoglobin 31.9 pg (28.0-34.0); Mean Corpuscular Volume 97.4 fL (80-94); Mean Platelet Volume 11.4 fL (7.4-10.4); Monocytes # 1.7 10^3/uL (0.2-0.9); Monocytes % 10.7 %; Neutrophils # 11.43 10^3/uL (1.8-7.7); Neutrophils % 71.6 %; Nucleated Red Blood Cells % 0 %; Platelet Count 371 10^3/cmm (130-400); Red Blood Count 3.42 10^6/uL (4.1-5.3); Red Cell Distribution Width 16.2 % (12.1-15.1)
[2020-06-02 06:07] LABS: Blood Urea Nitrogen 31 mg/dL (8-23); Calcium 8.6 mg/dL (8.5-10.5); Carbon Dioxide 24 mmol/L (22-29); Chloride 103 mmol/L (98-107); Glucose 93 mg/dL (65-115); Osmolality Calculated 290 mOsm/kg (285-295); Sodium 137 mmol/L (136-145)
--- NOTE | 2020-06-02 07:26 | PC.NURSE ---
Pt lying in bed resting and talking to staff. Pts resp even and non-labored no distress noted. Pt had no c/o pain or discomfort at the present time. Drsg to right groin dry and intact. Small hematoma below sight noted during bedside report. Pt now resting in bed with eyes closed. No needs voiced. Call light in reach. Will continue to monitor.
[2020-06-02] MEDS: atorvastatin 40 mg Tablet PO (09:35)
[2020-06-02] MEDS: aspirin 81 mg EC Tablet PO (09:35)
[2020-06-02] MEDS: hyDRALAzine 25 mg Tablet PO ×3 (09:35→21:06)
[2020-06-02] MEDS: famotidine 20 mg Tablet PO (09:35)
[2020-06-02] MEDS: isosorbide dinitrate 20 mg Tablet 40 MG PO ×2 (09:35→17:56)
[2020-06-02] MEDS: clopidogrel 75 mg Tablet PO (09:35)
[2020-06-02] MEDS: tamsulosin 0.4 mg Capsule PO (09:35)
--- NOTE | 2020-06-02 11:10 | P.PN_ITS ---
Subjective Subjective: Interval history: No acute event overnight. s/p CAG and Attempted LAD PCI. Medications: Reviewed: Yes Medication Review Details: Current Medications Acetaminophen (Acetaminophen 325 Mg Tablet) 650 mg PO Q6H PRN PRN Reason: MILD PAIN Aspirin (Aspirin 81 Mg Ec Tablet) 81 mg PO DAILY [facility] Last Admin: 05/31/20 10:34 Dose: 81 mg Documented by: Atorvastatin Calcium (Atorvastatin 40 Mg Tablet) 40 mg PO DAILY [facility] Last Admin: 05/31/20 10:34 Dose: 40 mg Documented by: Calcium Carbonate (Calcium Carbonate 500 Mg Chew Tablet) 500 mg PO Q4H PRN PRN Reason: INDIGESTION Last Admin: 05/29/20 20:36 Dose: 500 mg Documented by: Clopidogrel Bisulfate (Clopidogrel 75 Mg Tablet) 75 mg PO DAILY [facility] Last Admin: 05/31/20 10:34 Dose: 75 mg Documented by: Diphenhydramine HCl (Diphenhydramine 50 Mg Capsule) 50 mg PO ONCE ONE Stop: 06/01/20 08:32 Enoxaparin Sodium (Enoxaparin 60 Mg/0.6 Ml Syringe) 60 mg SUBCUT Q12H [facility] Last Admin: 06/01/20 06:10 Dose: 60 mg Documented by: Famotidine (Famotidine 20 Mg Tablet) 20 mg PO DAILY [facility] Last Admin: 05/31/20 10:34 Dose: 20 mg Documented by: Hydralazine HCl (Hydralazine 25 Mg Tablet) 25 mg PO TID [facility] Last Admin: 05/31/20 20:57 Dose: 25 mg Documented by: Sodium Chloride (Sodium Chloride 0.9%) 1,000 mls @ 30 mls/hr IV .Q24H [facility] Last Admin: 05/31/20 18:44 Dose: 30 mls/hr Documented by: Sodium Chloride (Sodium Chloride 0.9%) 1,000 mls @ 50 mls/hr IV .Q20H [facility] Last Admin: 06/01/20 08:28 Dose: 50 mls/hr Documented by: Sodium Chloride (Sodium Chloride 0.9%) 1,000 mls @ 50 mls/hr IV .Q20H ONE Stop: 06/02/20 04:30 Isosorbide Dinitrate (Isosorbide Dinitrate 20 Mg Tablet) 40 mg PO BID [facility] Last Admin: 05/31/20 17:35 Dose: 40 mg Documented by: Ondansetron HCl (Ondansetron 2 Mg/Ml Sdv 2 Ml) 4 mg IVP Q6H PRN PRN Reason: NAUSEA AND VOMITING Last Admin: 05/29/20 19:33 Dose: 4 mg Documented by: Ondansetron HCl (Ondansetron 2 Mg/Ml Sdv 2 Ml) 4 mg IVP Q2M PRN PRN Reason: NAUSEA Tamsulosin HCl (Tamsulosin 0.4 Mg Capsule) 0.4 mg PO DAILY [facility] Last Admin: 05/31/20 10:33 Dose: 0.4 mg Documented by: Vitals/I&O/Wt Last Vital Signs Temp 97.9 F 06/02/20 10:35 Pulse 81 06/02/20 10:35 Resp 18 06/02/20 10:35 BP 120/60 06/02/20 10:35 Pulse Ox 96 06/02/20 10:35 06/01/20 06/02/20 06/02/20 22:59 06:59 14:59 Intake Total 2144.167 / 2144.167 100 / 2244.167 120 / 120 Balance 2144.167 / 2144.167 100 / 2244.167 120 / 120 Physical Exam Const: COMMON NORMALS: patient oriented x3 HENMT: COMMON NORMALS: normocephalic and atraumatic HEAD & SCALP: normocep halic and atraumatic Resp: COMMON NORMALS: clear to auscultation bilaterally AUSCULTATION: clear to auscultation bilaterally Cardio: COMMON NORMALS: regular rate, regular rhythm, S1 normal heart sound present, S2 normal heart sound present, No gallops present (Cardio), No murmurs present (Cardio), No rub (Cardio) and Peripheral pulses 2+ throughout RATE: regular rate RHYTHM: regular rhythm HEART SOUNDS: S1 normal heart sound present and S2 normal heart sound present PERIPHERAL PULSES: Peripheral pulses 2+ throughout GI: COMMON NORMALS: Normal to inspection, nondistended, normoactive bowel sounds present, Soft to palpation, non-tender, No hepatosplenomegaly present and no masses AUSCULTATION: Yes normoactive bowel sounds PALPATION: Yes Soft to palpation and Yes No hepatosplenomegaly present RECTAL EXAM: Yes deferred Extremity: COMMON NORMALS: no clubbing, cyanosis or edema and no pedal edema Neuro: COMMON NORMALS: patient oriented x3 Data : 06/02/20 04:03 06/02/20 04:03 A&P Assessment and plan (1) NSTEMI (non-ST elevated myocardial infarction): NSTEMI : ASA 81 Mg po daily plavix 75 mg po daily Lovenox 60 mg q12 h daily Lipitor 40 mg po daily Imdur 40 mg po BID Hydralazine 25 mg PO TID SL Nitro PRN 2D Echo :( 05/29 ) Normal left ventricular size. LV systolic function is normal with EF of 55-60%. No regional wall motion abnormalities. Grade 1 diastolic dysfunction. Stress Test: Small sized reversible perfusion abnormality of mild severity of mid anterior, mid anterolateral, apical anterior and apical lateral wall. This may represent small area of ischemia in circumflex/left anterior descending artery territory. The left ventricular ejection fraction is moderately reduced with a value of 40%.There is hypokinesis of apical anterior and mid to apical lateral harmon. CAG and Aborted PCI to LAD result awaited: Status: Acute (2) Sinus bradycardia: Coreg on Hold. Continue to monitor on Tele. Possible Event Monitor as outpatient Status: Acute (3) Multiple falls: Status: Acute (4) History of stroke: Status: Acute (5) H/O carotid endarterectomy: Status: Acute (6) CHF (congestive heart failure), NYHA class III: HFpEF currently compensated. Will continue to hold Lasix Status: Acute Qualifiers: Congestive heart failure chronicity: chronic Congestive heart failure type: combined Qualified Code(s): I50.42 - Chronic combined systolic (congestive) and diastolic (congestive) heart failure (7) Hypertension: Due to hypotension episodes Hydralazine 100 MG PO TID was stopped. Currently patient B/P : 153/73. Will start hydralazine 25 mg po TID. Status: Acute (8) CKD (chronic kidney disease): Baseline SCR : 1.3-1.5 Current SCR : 1.3 Monitor BMP Status: Chronic Qualifiers: Chronic kidney disease stage: unspecified stage Qualified Code(s): N18.9 - Chronic kidney disease, unspecified Additional A&P Information Overnight labs and H&P reviewed. Presented overnight with chief complaints of shortness of breath and chest discomfort. Noted to be bradycardic at nighttime. Episode of transient hypotension again this morning shortly after receiving antihypertensives. 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 No active chest pain since admission. Troponin delta noted to be elevated, 2-hour at 19, 4-hour delta at 40. This may be related to arrhythmia or CHF exacerbation, however given that patient was still symptomatic this morning although not with chest pain per se, I am concerned that above findings may be related to NSTEMI. Starting him on anticoagulation with full dose Lovenox 1 mg/kg every 12 hours. Cardiology consult in the morning, n.p.o. after midnight in case planned for cardiac cath. Continue ASA and plavix in the interim. hold hydralazine Coreg on hold already echo with Currently euvolemic, hold further lasix for now LV systolic function is normal with EF of 55-60% Grade 1 diastolic dysfunction Mild mitral regurgitation Trace pulmonic regurgitation Full code Disposition:Patient has refused SNF. Attestations Medical Necessity Statement*: Patient is to be in hospital for management of coronary artery disease, status post failed PCI, continued to have bleeding from access site. Needs monitoring. 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
--- NOTE | 2020-06-02 20:43 | P.PN_ITS ---
Subjective Subjective: Interval history: PCI of the LAD was attempted by Dr. Blevins. Because of the technical difficulties, the procedure had to be aborted. Patient is currently doing okay. He had some bleeding from the femoral arterial puncture site. He has no hematoma. Currently has no specific symptoms. Medications: Reviewed: Yes Medication Review Details: Current Medications Acetaminophen (Acetaminophen 325 Mg Tablet) 650 mg PO Q6H PRN PRN Reason: MILD PAIN Al Hydrox/Mg Hydrox/Simethicone (Dget-Poh-Evownbfda-Markie 30 Ml Udc) 30 ml PO Q15M PRN PRN Reason: INDIGESTION (2ND LINE) Alprazolam (Alprazolam 0.25 Mg Tablet) 0.25 mg PO TID PRN PRN Reason: ANXIETY Aspirin (Aspirin 81 Mg Ec Tablet) 81 mg PO DAILY [facility] Last Admin: 06/02/20 09:35 Dose: 81 mg Documented by: Atorvastatin Calcium (Atorvastatin 40 Mg Tablet) 40 mg PO DAILY [facility] Last Admin: 06/02/20 09:35 Dose: 40 mg Documented by: Atropine Sulfate (Atropine 1 Mg/Ml Sdv 1 Ml) 0.5 mg IVP PRN PRN PRN Reason: Symptomatic bradycardia Calcium Carbonate (Calcium Carbonate 500 Mg Chew Tablet) 500 mg PO Q4H PRN PRN Reason: INDIGESTION Last Admin: 05/29/20 20:36 Dose: 500 mg Documented by: Clopidogrel Bisulfate (Clopidogrel 75 Mg Tablet) 75 mg PO DAILY [facility] Last Admin: 06/02/20 09:35 Dose: 75 mg Documented by: Famotidine (Famotidine 20 Mg Tablet) 20 mg PO DAILY [facility] Last Admin: 06/02/20 09:35 Dose: 20 mg Documented by: Fentanyl (Fentanyl 50 Mcg/Ml Inj 2ml) 50 mcg IVP PRN PRN PRN Reason: PAIN Last Admin: 06/01/20 14:04 Dose: 50 mcg Documented by: Hydralazine HCl (Hydralazine 25 Mg Tablet) 25 mg PO TID [facility] Last Admin: 06/02/20 14:26 Dose: 25 mg Documented by: Isosorbide Dinitrate (Isosorbide Dinitrate 20 Mg Tablet) 40 mg PO BID [facility] Last Admin: 06/02/20 17:56 Dose: 40 mg Documented by: Magnesium Hydroxide (Magnesium Hydroxide 30 Ml Udc) 30 ml PO DAILY PRN PRN Reason: CONSTIPATION Naloxone HCl (Naloxone 0.4 Mg/Ml Sdv) 0.1 mg IVP Q2M PRN PRN Reason: RESPIRATORY RATE < 8/MIN Nitroglycerin (Nitroglycerin 0.4 Mg Sublingual Tablet) 0.4 mg SUBLINGUAL Q5M PRN PRN Reason: CHEST PAIN Ondansetron HCl (Ondansetron 2 Mg/Ml Sdv 2 Ml) 4 mg IVP Q6H PRN PRN Reason: NAUSEA AND VOMITING Last Admin: 05/29/20 19:33 Dose: 4 mg Documented by: Ondansetron HCl (Ondansetron 2 Mg/Ml Sdv 2 Ml) 4 mg IVP Q2M PRN PRN Reason: NAUSEA Tamsulosin HCl (Tamsulosin 0.4 Mg Capsule) 0.4 mg PO DAILY [facility] Last Admin: 06/02/20 09:35 Dose: 0.4 mg Documented by: Temazepam (Temazepam 15 Mg Capsule) 15 mg PO BEDTIME PRN PRN Reason: INSOMNIA Vitals/I&O/Wt Last Vital Signs Temp 98.0 F 06/02/20 19:53 Pulse 77 06/02/20 19:53 Resp 21 H 06/02/20 19:53 BP 134/70 06/02/20 19:53 Pulse Ox 95 06/02/20 19:53 06/02/20 06/02/20 06/02/20 06:59 14:59 22:59 Intake Total 100 / 2244.167 360 / 360 Balance 100 / 2244.167 360 / 360 Physical Exam Narrative: EXAM NARRATIVE: GENERAL: The patient is alert and oriented times three. Not in any acute distress. Has expressive aphasia. HEENT: Minimal pallor,no icterus or lymphadenopathy. The pupils are symmetrical oral cavity: There are no mucous membrane lesions. NECK: Trachea appears to be central. No masses noted. No JVD or thyromegaly appreciated. No carotid bruit. RESPIRATORY: Chest is symmetrical. No intercostals muscle retraction or any accessory muscle activation. There is no chest wall tenderness. Breath sounds are heard bilaterally. No rales or rhonchi heard. No evidence of any consolidation. BREASTS: Deferred. HEART: The PMI is in the 5th left intercostals space just in the midclavicular line. No palpable precordial events. S1 and S2 are normal. No S3 or S4 heard. No pericardial rub or any click heard. Short systolic murmur in the left sternal border. No diastolic murmurs. ABDOMEN: No vessel pulsations or distention. No tenderness. No organomegaly appreciated. No abdominal bruit. Bowel sounds are normally heard. : Deferred. RECTAL: Deferred. LYMPHATIC: No lymphadenopathy noted in the neck . EXTREMITIES: Right groin has some tenderness. No hematoma or bleeding. MUSCULOSKELETAL: No acute joint deformities or swelling. SKIN: There are no significant scars or skin rash noted. NEUROPSYCHIATRIC: The patient is alert and oriented x3. Appears to be in a good mood. Has some expressive aphasia and unsteadiness in the gait. Very confused about the timing and sequence of the recent events. Resp: COMMON NORMALS: clear to auscultation bilaterally AUSCULTATION: clear to auscultation bilaterally Data : 06/02/20 04:03 06/02/20 04:03 A&P Assessment and plan (1) Abnormal nuclear stress test: The cardiac catheterization revealed high-grade stenosis in the proximal to mid LAD. The lesion was found out to be complex. PCI was attempted. Because of the technical difficulties, the procedure had to be aborted. Dr. Blevins contacted Dr. Martines at the [facility]. It was decided to wait for few days because of the chronic kidney disease, before proceeding with further intervention. Status: Acute (2) Ischemic cardiomyopathy: Most likely the patient has ischemic cardiomyopathy. His LV ejection fraction has improved from April. Continue to optimize his medical treatment. Status: Acute (3) Recurrent cerebrovascular accidents (CVAs): Patient may be continued on the current medications for the time being. Except for his expressive aphasia and memory problems, his neurological status i s fairly stable Status: Acute (4) H/O carotid endarterectomy: May continue on the current treatment measures. Status: Acute (5) Dyslipidemia: Continue on the current medications. Status: Chronic (6) Uncontrolled hypertension: Currently the blood pressure is under control. May continue on the current medication. Status: Chronic (7) CKD (chronic kidney disease): BUN/creatinine has significantly improved since yesterday. Status: Chronic Qualifiers: Chronic kidney disease stage: unspecified stage Qualified Code(s): N18.9 - Chronic kidney disease, unspecified Additional A&P Information The patient continues to remain stable, may be discharged home. We will continue on the current medications. We will make the arrangements for him to be seen by Dr. Martines at the [facility] for complex coronary intervention. The cardiac catheterization CD was sent to Dr. 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
[2020-06-03 00:31] VITALS: BP 152/76; PULSE 76; RESP 21; O2SAT 96
[2020-06-03 04:22] VITALS: BP 149/72; PULSE 87; RESP 21; TEMP 36.6; O2SAT 98
[2020-06-03 06:00] VITALS: PULSE 70
[2020-06-03 08:00] VITALS: BP 153/70; PULSE 100; RESP 18; TEMP 37; O2SAT 94
--- NOTE | 2020-06-03 09:29 | PC.SOCIAL ---
IMM Updated Updated pt on Pg 2 IMM. No questions voiced. Provided pt a copy. Signed, dated, & timed a copy & placed in chart.
[2020-06-03] MEDS: tamsulosin 0.4 mg Capsule PO (09:31)
[2020-06-03] MEDS: clopidogrel 75 mg Tablet PO (09:31)
[2020-06-03] MEDS: isosorbide dinitrate 20 mg Tablet 40 MG PO (09:31)
[2020-06-03] MEDS: hyDRALAzine 25 mg Tablet PO ×2 (09:31→14:56)
[2020-06-03] MEDS: aspirin 81 mg EC Tablet PO (09:31)
[2020-06-03] MEDS: atorvastatin 40 mg Tablet PO (09:31)
[2020-06-03] MEDS: famotidine 20 mg Tablet PO (09:31)
--- NOTE | 2020-06-03 10:15 | PC.NUTR ---
Recommend obtain current weight when possible due to BMI 19.5 and pt report of recent unintended weight loss.
--- NOTE | 2020-06-03 14:17 | P.PN_ITS ---
Subjective Subjective: Interval history: Patient was seen and examined this morning.deny any chest pain, sob, Medications: Reviewed: Yes Medication Review Details: Current Medications Acetaminophen (Acetaminophen 325 Mg Tablet) 650 mg PO Q6H PRN PRN Reason: MILD PAIN Al Hydrox/Mg Hydrox/Simethicone (Lmmk-Prx-Tjjhxkwbt-Markie 30 Ml Udc) 30 ml PO Q15M PRN PRN Reason: INDIGESTION (2ND LINE) Alprazolam (Alprazolam 0.25 Mg Tablet) 0.25 mg PO TID PRN PRN Reason: ANXIETY Aspirin (Aspirin 81 Mg Ec Tablet) 81 mg PO DAILY [facility] Last Admin: 06/02/20 09:35 Dose: 81 mg Documented by: Atorvastatin Calcium (Atorvastatin 40 Mg Tablet) 40 mg PO DAILY [facility] Last Admin: 06/02/20 09:35 Dose: 40 mg Documented by: Atropine Sulfate (Atropine 1 Mg/Ml Sdv 1 Ml) 0.5 mg IVP PRN PRN PRN Reason: Symptomatic bradycardia Calcium Carbonate (Calcium Carbonate 500 Mg Chew Tablet) 500 mg PO Q4H PRN PRN Reason: INDIGESTION Last Admin: 05/29/20 20:36 Dose: 500 mg Documented by: Clopidogrel Bisulfate (Clopidogrel 75 Mg Tablet) 75 mg PO DAILY [facility] Last Admin: 06/02/20 09:35 Dose: 75 mg Documented by: Famotidine (Famotidine 20 Mg Tablet) 20 mg PO DAILY [facility] Last Admin: 06/02/20 09:35 Dose: 20 mg Documented by: Fentanyl (Fentanyl 50 Mcg/Ml Inj 2ml) 50 mcg IVP PRN PRN PRN Reason: PAIN Last Admin: 06/01/20 14:04 Dose: 50 mcg Documented by: Hydralazine HCl (Hydralazine 25 Mg Tablet) 25 mg PO TID [facility] Last Admin: 06/02/20 14:26 Dose: 25 mg Documented by: Isosorbide Dinitrate (Isosorbide Dinitrate 20 Mg Tablet) 40 mg PO BID [facility] Last Admin: 06/02/20 17:56 Dose: 40 mg Documented by: Magnesium Hydroxide (Magnesium Hydroxide 30 Ml Udc) 30 ml PO DAILY PRN PRN Reason: CONSTIPATION Naloxone HCl (Naloxone 0.4 Mg/Ml Sdv) 0.1 mg IVP Q2M PRN PRN Reason: RESPIRATORY RATE < 8/MIN Nitroglycerin (Nitroglycerin 0.4 Mg Sublingual Tablet) 0.4 mg SUBLINGUAL Q5M PRN PRN Reason: CHEST PAIN Ondansetron HCl (Ondansetron 2 Mg/Ml Sdv 2 Ml) 4 mg IVP Q6H PRN PRN Reason: NAUSEA AND VOMITING Last Admin: 05/29/20 19:33 Dose: 4 mg Documented by: Ondansetron HCl (Ondansetron 2 Mg/Ml Sdv 2 Ml) 4 mg IVP Q2M PRN PRN Reason: NAUSEA Tamsulosin HCl (Tamsulosin 0.4 Mg Capsule) 0.4 mg PO DAILY [facility] Last Admin: 06/02/20 09:35 Dose: 0.4 mg Documented by: Temazepam (Temazepam 15 Mg Capsule) 15 mg PO BEDTIME PRN PRN Reason: INSOMNIA Vitals/I&O/Wt Last Vital Signs Temp 98.6 F 06/03/20 08:00 Pulse 100 06/03/20 08:00 Resp 18 06/03/20 08:00 BP 153/70 06/03/20 08:00 Pulse Ox 94 06/03/20 08:00 06/02/20 06/03/20 06/03/20 22:59 06:59 14:59 Intake Total 843 / 1203 360 / 360 Output Total 350 / 350 Balance 493 / 853 360 / 360 Physical Exam Const: COMMON NORMALS: patient oriented x3 HENMT: COMMON NORMALS: normocephalic and atraumatic HEAD & SCALP: normocephalic and atraumatic Resp: COMMON NORMALS: clear to auscultation bilaterally AUSCULTATION: clear to auscultation bilaterally Cardio: COMMON NORMALS: regular rate, regular rhythm, S1 normal heart sound present, S2 normal heart sound present, No gallops present (Cardio), No murmurs present (Cardio), No rub (Cardio) and Peripheral pulses 2+ throughout RATE: regular rate RHYTHM: regular rhythm HEART SOUNDS: S1 normal heart sound present and S2 normal heart sound present PERIPHERAL PULSES: Peripheral pulses 2+ throughout GI: COMMON NORMALS: Normal to inspection, nondistended, normoactive bowel sounds present, Soft to palpation, non-tender, No hepatosplenomegaly present and no masses AUSCULTATION: Yes normoactive bowel sounds PALPATION: Yes Soft to palpation and Yes No hepatosplenomegaly present RECTAL EXAM: Yes deferred Extremity: COMMON NORMALS: no clubbing, cyanosis or edema and no pedal edema Neuro: COMMON NORMALS: patient oriented x3 Data : 06/02/20 04:03 06/02/20 04:03 A&P Assessment and plan (1) NSTEMI (non-ST elevated myocardial infarction): NSTEMI : ASA 81 Mg po daily plavix 75 mg po daily Lovenox 60 mg q12 h daily Lipitor 40 mg po daily Imdur 40 mg po BID Hydralazine 25 mg PO TID SL Nitro PRN 2D Echo :( 05/29 ) Normal left ventricular size. LV systolic function is normal with EF of 55-60%. No regional wall motion abnormalities. Grade 1 diastolic dysfunction. Stress Test: Small sized reversible perfusion abnormality of mild severity of mid anterior, mid anterolateral, apical anterior and apical lateral wall. This may represent small area of ischemia in circumflex/left anterior descending artery territory. The left ventricular ejection fraction is moderately reduced with a value of 40%.There is hypokinesis of apical anterior and mid to apical lateral harmon. CAG and Aborted PCI to LAD result awaited: Status: Acute (2) Sinus bradycardia: Coreg on Hold. Continue to monitor on Tele. Possible Event Monitor as outpatient Status: Acute (3) Multiple falls: Status: Acute (4) History of stroke: Status: Acute (5) H/O carotid endarterectomy: Status: Acute (6) CHF (congestive heart failure), NYHA class III: HFpEF currently compensated. Will continue to hold Lasix Status: Acute Qualifiers: Congestive heart failure type: combined Congestive heart failure chronicity: chronic Qualified Code(s): I50.42 - Chronic combined systolic (congestive) and diastolic (congestive) heart failure (7) Hypertension: Due to hypotension episodes Hydralazine 100 MG PO TID was stopped. Currently patient B/P : 153/73. Will start hydralazine 25 mg po TID. Status: Acute (8) CKD (chronic kidney disease): Baseline SCR : 1.3-1.5 Current SCR : 1.3 Monitor BMP Status: Chronic Qualifiers: Chronic kidney disease stage: unspecified stage Qualified Code(s): N18.9 - Chronic kidney disease, unspecified Additional A&P Information Overnight labs and H&P reviewed. Presented overnight with chief complaints of shortness of breath and chest discomfort. Noted to be bradycardic at nighttime. Episode of transient hypotension again this morning shortly after receiving antihypertensives. 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 No active chest pain since admission. Troponin delta noted to be elevated, 2-hour at 19, 4-hour delta at 40. This may be related to arrhythmia or CHF exacerbation, however given that patient was still symptomatic this morning although not with chest pain per se, I am concerned that above findings may be related to NSTEMI. Starting him on anticoagulation with full dose Lovenox 1 mg/kg every 12 hours. Cardiology consult in the morning, n.p.o. after midnight in case planned for cardiac cath. Continue ASA and plavix in the interim. hold hydralazine Coreg on hold already echo with Currently euvolemic, hold further lasix for now LV systolic function is normal with EF of 55-60% Grade 1 diastolic dysfunction Mild mitral regurgitation Trace pulmonic regurgitation Full code Disposition:Patient has refused SNF. Coding Level of Care Code Acute Stepdown Nurse for Rosetta Cornelius Diagnoses NSTEMI (non-ST elevated myocardial infarction) I21.4 Sinus bradycardia R00.1 Multiple falls R29.6 History of stroke Z86.73 H/O carotid endarterectomy Z98.890 CHF (congestive heart failure), NYHA class III I50.42 Congestive heart failure type: combined Congestive heart failure chronicity: chronic Hypertension I10 CKD (chronic kidney disease) N18.9 Chronic kidney disease stage: unspecified stage
--- NOTE | 2020-06-03 14:29 | P.DS_ITS ---
Discharge Providers Date of Admission: 05/29/20 17:28 Date of Discharge: June 03, 2020 Attending Provider at Admission: Fariab Shin MD Attending Provider at Discharge: Jaron Redding MD Primary Care Provider: YELITZA Mon Diagnoses at Discharge Discharge Diagnosis (1) NSTEMI (non-ST elevated myocardial infarction): Status: Resolved (2) Sinus bradycardia: Status: Resolved (3) History of stroke: Status: Chronic (4) H/O carotid endarterectomy: Status: Acute (5) CHF (congestive heart failure), NYHA class III: Status: Chronic Qualifiers: Congestive heart failure chronicity: chronic Congestive heart failure type: combined Qualified Code(s): I50.42 - Chronic combined systolic (c ongestive) and diastolic (congestive) heart failure (6) Hypertension: Status: Chronic (7) CKD (chronic kidney disease): Status: Chronic Qualifiers: Chronic kidney disease stage: unspecified stage Qualified Code(s): N18.9 - Chronic kidney disease, unspecified Reason for Visit Reason for Visit: SOB Hospital Course Hospital Course 85 year old male who has history of severe reduced ejection fraction heart failure 3035%, chronic kidney disease, CVA 3 weeks ago, left CEA, multiple falls, presented to the hospital with chief complaint of palpitations and presyncopal event. Patient is stating that after his dinner he sat in his couch and when he tried to get up he immediately started experiencing shortness of breath and chest discomfort.He was admitted for the management of above mentioned complaint. During the hospital stay he was managed for NSTEMI: He was kept on ACS protocol, underwent 2D Echo :( 05/29 ) Normal left ventricular size. LV systolic function is normal with EF of 55-60%. No regional wall motion abnormalities. Grade 1 diastolic dysfunction. Stress Test: Small sized reversible perfusion abnormality of mild severity of mid anterior, mid anterolateral, apical anterior and apical lateral wall. This may represent small area of ischemia in circumflex/left anterior descending artery territory. The left ventricular ejection fraction is moderately reduced with a value of 40%.There is hypokinesis of apical anterior and mid to apical lateral harmon. CAG and Aborted PCI to LAD official result awaited: Cardiology was on board.Dr. Rubin has consulted Dr. Prescott at the [facility] for further management of tortuous LAD lesion. 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 Given the fact that he has history of recurrent fall and his systolic blood pressure being on the lower side during this hospital stay, his lisinopril dose has been reduced to 20 mg p.o. daily.Patient participated with physical therapy with well he was ambulating independently, patient do not want to go to any facility. So far he has responded fairly well to above medical management and is being discharged in stable condition. He will continue to follow cardiology as an outpatient. Physical Exam Const: COMMON NORMALS: patient oriented x3 and alert ORIENTATION/CONSCIOUSNESS: Yes oriented to time HENMT: FACE & SINUS: normal facial exam Resp: COMMON NORMALS: clear to auscultation bilaterally AUSCULTATION: clear to auscultation bilaterally Cardio: COMMON NORMALS: regular rate, regular rhythm, S1 normal heart sound present, S2 normal heart sound present, No gallops present (Cardio), No murmurs present (Cardio), No rub (Cardio) and Peripheral pulses 2+ throughout RATE: regular rate RHYTHM: regular rhythm HEART SOUNDS: S1 normal heart sound present, S2 normal heart sound present and no murmurs PERIPHERAL PULSES: Peripheral pulses 2+ throughout and radial pulses present GI: COMMON NORMALS: Normal to inspection, nondistended, normoactive bowel sounds present, Soft to palpation, non-tender, No hepatosplenomegaly present and no masses INSPECTION: No abdominal distension AUSCULTATION: Yes normoact usman bowel sounds, No Hyperactive bowel sounds present and No Hypoactive bowel sounds present PALPATION: Yes Soft to palpation, No Guarding due to palpation present (GI), No Rigid due to palpation and Yes No hepatosplenomegaly present PERCUSSION: no dullness to percussion and no tympanic to percussion RECTAL EXAM: Yes deferred Extremity: COMMON NORMALS: no clubbing, cyanosis or edema and no pedal edema Neuro: COMMON NORMALS: patient oriented x3 SENSORIUM/ORIENTATION: Yes alert and Yes oriented to time Discharge Data Data Completed and Pending: Completed Studies During Hospitalization Category Date Time Status Sestamibi Stress Test Request Routi ne Exams 05/30/20 19:58 Completed XR chest 1V chalo ble [id number] Stat Exams 05/28/20 19:32 Completed NM morena perf SPECT r/s* [id number] Routin e Nuc Med 05/31/20 19:58 Completed CV echo complete* [id number] Routine Ultrasound 05/29/20 01:56 Completed Pending at discharge Category Date Time Status ISOTOPE TECHNICIAN request for service Routin e Exams 06/01/20 08:37 Taken Basic Metabolic P jamari Routine Lab 06/03/20 14:17 Ordered Complete Blood Co unt w/Auto Routine Lab 06/03/20 14:17 Ordered Vitals: Last Vital Signs Temp 98.6 F 06/03/20 08:00 Pulse 100 06/03/20 08:00 Resp 18 06/03/20 08:00 BP 153/70 06/03/20 08:00 Pulse Ox 94 06/03/20 08:00 Discharge Plan Discharge Patient Disposition: Home Condition: Stable Prescriptions: New lisinopril 20 mg tablet 20 mg PO DAILY Qty: 30 RF: 3 Continued cholecalciferol (vitamin D3) 25 mcg (1,000 unit) capsule 50 mcg PO DAILY RF: 0 atorvastatin 40 mg tablet 40 mg PO DAILY RF: 0 clopidogrel 75 mg tablet 75 mg PO DAILY RF: 0 aspirin 81 mg tablet,delayed release (DR/EC) 81 mg PO DAILY RF: 0 famotidine 20 mg tablet 20 mg PO DAILY RF: 0 tamsulosin 0.4 mg capsule 0.4 mg PO DAILY RF: 0 isosorbide dinitrate 20 mg tablet 20 mg PO TID RF: 0 Held carvedilol 3.125 mg tablet 3.125 mg PO BID RF: 0 Hold Instructions: Resume on 06/17/20. Discontinued hydralazine 100 mg tablet 100 mg PO TID RF: 0 lisinopril 40 mg tablet 40 mg PO DAILY RF: 0 Discharge Orders: Discharge Order (Routine); Ordered 06/03/20 Ordered By: Jaron Redding Referrals: Funmilayo Motley MD [Physician] - 2 weeks Discharge Diet: Regular Discharge Activity: Resume usual activity Patient Instructions: Lisinopril (By mouth), Opioid Safety Activity Restrictions/Additional Instructions: Our Pediatric Speech Therapist Lachelle visited with you while in the hospital and asked that Case Management/ Bakery Helper provide you with nutritional resources. [facility] can provide meals on wheels to your home. Please call them at [phone] to provide the necessary information to be set up with this program. For additional resources there is a food pantry in [place] open every of the month 10a-12noon. Please call them to ensure how the process works at [phone]. Discharge Attestations Time Spent in Discharge Care*: greater than 30 min Specific Discharge Activities: educating patient, educating and/or supporting family/caregiver, discussing with pcp/other providers, discussing with geriatric case manager/social workers/dc planners, documenting/other paperwork and evaluating patient/reviewing data Status at Discharge: Cognitive status at discharge: cognitively intact , Behavioral status at discharge: cooperative , Functional status at discharge: independent ambulation Overall status at discharge: patient is back to baseline Quality Metrics Clinical Quality Measures During this hospital stay, did patient experience: None Coding Level of Care Code Acute g FW DC note Exam Detailed Diagnoses NSTEMI (non-ST elevated myocardial infarction) I21.4 Sinus bradycardia R00.1 History of stroke Z86.73 H/O carotid endarterectomy Z98.890 CHF (congestive heart failure), NYHA class III I50.42 Congestive heart failure chronicity: chronic Congestive heart failure type: combined Hypertension I10 CKD (chronic kidney disease) N18.9 Chronic kidney disease stage: unspecified stage
[2020-06-03 15:11] LABS: Basophils # 0.1 10^3/uL (0.0-0.1); Basophils % 0.7 %; Eosinophils # 0.2 10^3/uL (0.0-0.8); Eosinophils % 1.9 %; Hemoglobin 10.4 g/dL (11.7-16.6); Lymphocytes # 1.8 10^3/uL (0.8-4.8); Lymphocytes % 15.7 %; Mean Corpuscular HGB Conc 32.5 g/dL (30.0-36.0); Mean Corpuscular Hemoglobin 32.5 pg (28.0-34.0); Mean Platelet Volume 11.4 fL (7.4-10.4); Monocytes # 1.5 10^3/uL (0.2-0.9); Neutrophils # 7.67 10^3/uL (1.8-7.7); Neutrophils % 68.5 %; Nucleated Red Blood Cells % 0 %; Platelet Count 341 10^3/cmm (130-400); Red Cell Distribution Width 16.2 % (12.1-15.1); White Blood Count 11.2 10^3/uL (4.0-10.0)
[2020-06-03 15:23] LABS: Anion Gap 15.3 (5-19); Blood Urea Nitrogen 39 mg/dL (8-23); Calcium 8.5 mg/dL (8.5-10.5); Carbon Dioxide 22 mmol/L (22-29); Chloride 104 mmol/L (98-107); Glucose 114 mg/dL (65-115); Osmolality Calculated 294 mOsm/kg (285-295); Potassium 4.3 mmol/L (3.5-5.1); Sodium 137 mmol/L (136-145)
--- NOTE | 2020-06-03 15:53 | DCPLANNER ---
On Saturday06/03/20 at approximately 1430 I attempted to make the ordered appointment ( Dr. Motley in 2 weeks) for patient at [facility]. I called the nurses line and left message with no call back. I called a few more times but same result. I then called [phone], left message with no call back. I later called that extension a couple more times with same result. I was left with no alternative but to fax the info to [facility] and let patient know that they will be calling him and if they didn't call by Saturday, to please call them. I notified my supervisor sanding, Charley of this situation
[2020-06-03 16:46] VITALS: BP 153/70; PULSE 100; RESP 18; TEMP 37; O2SAT 94
--- NOTE | 2020-06-03 16:49 | PC.NURSE ---
patient d/c education and f/u appointments have been given to pt, pt has no questions or concerns. Pt VS stable, pt left via wheelchair with family member. All belongings were taken with pt and IV was removed with no issues.
--- NOTE | 2020-06-03 17:16 | DCPLANNER ---
06/03/20 discharge appointment at [facility] (Jennifer Khan in 1 week) was not able to be made. I called all the extensions to get a nurse at [facility] or contact Valeriy. Once again, all calls went un-answered. I faxed [facility] the info and asked them to call him with the appointment. If he doesn't hear from them by saturday afternoon.
== END 2020-06-03 16:50 | disposition home health service (06) | DRG 281 ==
LOC: ER 19:39 → CSU 23:55
PROVIDERS: Internal Medicine Cardiovascular Disease; Admitting Provider Internal Medicine; Emergency Provider Emergency Medicine; PCP Nurse Practitioner Family; Visit Provider Internal Medicine
PROC: B2111ZZ Fluoroscopy of Multiple Coronary Arteries using Low Osmolar Contrast (ICD-10-PCS; principal; 2020-06-01 08:00)
DX: I21.4 Non-ST elevation (NSTEMI) myocardial infarction (principal); I47.1 Supraventricular tachycardia; I13.0 Hypertensive heart and chronic kidney disease with heart failure and stage 1 through stage 4 chronic kidney disease, or unspecified chronic kidney disease; I50.42 Chronic combined systolic (congestive) and diastolic (congestive) heart failure; I25.10 Atherosclerotic heart disease of native coronary artery without angina pectoris; N18.9 Chronic kidney disease, unspecified; Z86.73 Personal history of transient ischemic attack (TIA), and cerebral infarction without residual deficits; R29.6 Repeated falls; E86.0 Dehydration; F41.9 Anxiety disorder, unspecified; E78.5 Hyperlipidemia, unspecified; K21.9 Gastro-esophageal reflux disease without esophagitis; Z85.07 Personal history of malignant neoplasm of pancreas; M19.90 Unspecified osteoarthritis, unspecified site; I34.0 Nonrheumatic mitral (valve) insufficiency; I25.5 Ischemic cardiomyopathy; Z79.82 Long term (current) use of aspirin; Z79.02 Long term (current) use of antithrombotics/antiplatelets
CPT/HCPCS: 36415; 71045; 78452; 80048; 80053; 81003; 82550; 83735; 83880; 84484; 85025; 93005; 93017; 93306; 93452; 96372; 96374; 97116; 97161; 97530; 99285; A9500; C1769; C1887; C1894; G0378; J0360; J1644; J1650; J1940; J2250; J2405; J2785; J3010; J3490; J7030; Q0163; Q9967

== ENCOUNTER 2020-06-13 19:54 | Emergency (ER) | payer MEDICARE, SELFPAY ==
--- NOTE | 2020-06-13 19:56 | CTR_ITS ---
PROCEDURE INFORMATION: Exam: CT Head Without Contrast Exam date and time: 06/13/2020 7:56 PM Age: 85 years old Clinical indication: Speech disturbance; Slurred speech; Additional info: Stroke alert TECHNIQUE: Imaging protocol: Computed tomography of the head without contrast. Radiation optimization: All CT scans at this facility use at least one of these dose optimization techniques: automated exposure control; mA and/or kV adjustment per patient size (includes targeted exams where dose is matched to clinical indication); or iterative reconstruction. Other technique: STROKE PROTOCOL was implemented. 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 There are global involutional changes of the brain which are in keeping with the patient's age. Periventricular hypodensities are nonspecific but most likely reflect chronic microvascular ischemic disease. There is no evidence of intracranial hemorrhage. No abnormal extra-axial fluid collections are identified. No mass effect or midline shift is seen. Kelley-white differentiation is preserved throughout. Cerebral ventricles: No ventriculomegaly. Bones/joints: Unremarkable. No acute fracture. Paranasal sinuses: There is minimal sinus mucosal disease, with no air-fluid level identified. Mastoid air cells: There is no mastoid effusion detected. Vasculature: Atherosclerotic vascular disease is noted at the level of the skull base. Soft tissues: Unremarkable. CT/CT head wo con* [id number] IMPRESSION: 1. 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 2. No acute hemorrhage, mass effect or midline shift. ASSESSMENT: ASPECTS ([place] Stroke Program Early CT Score) is 10. Radiation Dose CTDIVOL = (mGy): DLP = 905.31 (mGy-cm)
[2020-06-13 20:02] VITALS: BP 192/89; PULSE 78; RESP 19; BMI 25.0
[2020-06-13 20:11] VITALS: BP 178/95; PULSE 65; RESP 15; O2SAT 100
--- NOTE | 2020-06-13 20:17 | ECG_ITS ---
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: : 1935 Requested By: Katerin Anguiano I Order Number: [id number] Reading MD: NERIS HILL Measurements Intervals [place] Rate: 63 P: 73 OR: 194 QRS: 38 QRSD: 95 T: 109 QT: 409 QTc: 419 Interpretive Statements SINUS RHYTHM NONSPECIFIC ST & T-WAVE ABNORMALITY Compared to ECG 05/29/2020 04:09:07 T-wave abnormality now present Ventricular premature complex(es) no longer present ST (T wave) deviation no longer present Electronically Signed On 06-13-2020 21:23:12 CDT by NERIS HILL [email or web address]
[2020-06-13 20:31] LABS: Basophils # 0.1 10^3/uL (0.0-0.1); Basophils % 0.5 %; Eosinophils # 0.2 10^3/uL (0.0-0.8); Eosinophils % 1.3 %; Hematocrit 30.9 % (42.0-52.0); Hemoglobin 10.1 g/dL (11.7-16.6); Lymphocytes # 2.5 10^3/uL (0.8-4.8); Lymphocytes % 22.5 %; Mean Corpuscular HGB Conc 32.7 g/dL (30.0-36.0); Mean Corpuscular Hemoglobin 32.5 pg (28.0-34.0); Mean Corpuscular Volume 99.4 fL (80-94); Mean Platelet Volume 11.3 fL (7.4-10.4); Monocytes # 1.2 10^3/uL (0.2-0.9); Monocytes % 10.3 %; Nucleated Red Blood Cells % 0 %; Platelet Count 377 10^3/cmm (130-400); Red Blood Count 3.11 10^6/uL (4.1-5.3); Red Cell Distribution Width 15.8 % (12.1-15.1); White Blood Count 11.2 10^3/uL (4.0-10.0)
[2020-06-13 20:43] LABS: INR 1.08 (0.8-1.2)
[2020-06-13 20:45] LABS: Partial Thromboplastin Time 28.8 SECONDS (23.9-36.7)
[2020-06-13 20:50] LABS: Alanine Aminotransferase 10 U/L (0-41); Albumin Level 3.9 g/dL (3.5-5.2); Alkaline Phosphatase 117 IU/L (40-130); Anion Gap 14.8 (5-19); Aspartate Amino Transferase 10 U/L (0-40); Blood Urea Nitrogen 27 mg/dL (8-23); Calcium 8.7 mg/dL (8.5-10.5); Carbon Dioxide 25 mmol/L (22-29); Chloride 103 mmol/L (98-107); Globulin 2.7 g/dL (1.3-4.6); Glucose 92 mg/dL (65-115); Osmolality Calculated 293 mOsm/kg (285-295); Potassium 3.8 mmol/L (3.5-5.1); Sodium 139 mmol/L (136-145); Total Bilirubin 1.1 mg/dL (0.15-1.2); Total Protein 6.6 g/dL (6.6-8.7)
--- NOTE | 2020-06-13 22:02 | W.ED.NEUROSD ---
HPI - Neuro Symptoms/Deficit General: Chief Complaint: Neuro Symptoms/Deficit Stated Complaint: STROKE ALERT Time Seen by Provider: 06/13/20 20:07 Source: patient and EMS Mode of arrival: EMS Limitations: other (baseline dysarthria) History of Present Illness: HPI Narrative: Patient is an 85-year-old male with a history of CVA about 5 to 6 weeks ago, patient says he has had 4 prior CVAs, external carotid artery flap, hypertension who said he started to feel unwell about 3 hours prior to arrival in the emergency department he did not take any serious notes and does lay down. His friend then came to his house about 1 hour later noticed right-sided facial droop. This concerned his friend and so took him to the ambulance bay for evaluation. The EMS staff were concerned about a CVA and so brought him into the emergency department as a stroke alert. The patient states that he he did not have any pain, headaches, dizziness, nausea or vomiting. He was brought in for evaluation. Onset (ago): hour(s) (3) Time: 20:11 Last Observed Normal: 17:00 Location: right face History of same: Yes Severity: mild Quality: weak Relieving factors: none Exacerbating factors: none Context: sudden onset On Anticoagulants: No Associated symptoms: Deny chest pain, cough, diaphoresis, fevers/chills, headache(s), anorexia, malaise, nausea, seizures, short of breath, syncope, tingling, vertigo, vomiting or weakness Treatments Prior to Arrival: none Review of Systems General: Reports: 10 or more systems reviewed and unremarkable except in HPI and below Const: Denies: malaise or diaphoresis Card: Denies: chest pain or syncope GI: Denies: nausea or vomiting Neuro: Denies: headache(s) or vertigo [facility] ED PFSH: Medical History (Reviewed 06/13/20 @ 23:00 by Katerin Anguiano [place] [facility] [place] Abnormal nuclear stress test Anxiety Bilateral carotid bruits Carotid stenosis Chest pain CHF (congestive heart failure), NYHA class III CKD (chronic kidney disease) Dyslipidemia Dyslipidemia GERD (gastroesophageal reflux disease) History of pancreatic cancer History of stroke Hx of transient ischemic attack (TIA) Hypertension Ischemic cardiomyopathy Multiple falls Noncompliance NSTEMI (non-ST elevated myocardial infarction) Osteoarthritis Pulmonary emphysema Recurrent cerebrovascular accidents (CVAs) Sinus bradycardia Uncontrolled hypertension Surgical History (Reviewed 06/13/20 @ 23:00 by Katerin Anguiano MD, [facility] [place] H/O carotid endarterectomy Hx of spinal surgery Family History (Reviewed 06/13/20 @ 23:00 by Katerin Anguiano MD, [facility] [place] Brother Heart disease Mother Heart disease Social History (Reviewed 06/13/20 @ 23:00 by Katerin Anguiano MD, [facility] [place] Smoking and tobacco status: never smoked Second hand smoke exposure: No Smoking risk assessment/counseling performed?: No Alcohol intake: never Lives independently: Yes Marital status: Single History of recent travel: No NIH stroke score NIHSS: Level Of Consciousness - 1a: 0 Level Of Consciousness Questions - 1b: Both Correct Level Of Consciousness Commands - 1c: Both Correct Best Gaze - 2: Normal Visual Greene - 3: No Visual Loss Facial Palsy - 4: Minor Paralysis Motor Arm Right - 5: No Drift Motor Arm Left - 5: No Drift Motor Leg Right - 6: No Drift Motor Leg Left - 6: No Drift Limb Ataxia - 7: Absent Sensory - 8: Normal Best Language - 9: Mild/Moderate Aphasia Dysarthia - 10: Normal Extinction And Inattention - 11: 0 Score: Total Score: 2 Physical Exam Const: COMMON NORMALS: no acute distress, average body habitus, patient oriented x3, no limitations, healthy appearing, alert and well nourished HENMT: COMMON NORMALS: normocephalic, atraumatic and moist oral mucous membranes HEAD & SCALP: normocephalic and atraumatic Eye: COMMON NORMALS: Equal, round and reactive pupils present, EOMs intact bilaterally, conjunctivae normal and no scleral icterus CONJUNCTIVA: Yes conjunctivae normal PUPIL: Yes Equal, round and reactive pupils present Neck/C-Spine: COMMON NORMALS: full ROM, supple, no meningeal signs, no JVD and No carotid bruits Resp: COMMON NORMALS: normal respiratory effort, No retractions, No use of accessory muscles, clear to auscultation bilaterally and percussion normal AUSCULTATION: clear to auscultation bilaterally PERCUSSION: percussion normal Cardio: COMMON NORMALS: no JVD, regular rate, regular rhythm, S1 normal heart sound present, S2 normal heart sound present, No gallops present (Cardio), No clicks present (Cardio), No murmurs present (Cardio), No rub (Cardio) and Peripheral pulses 2+ throughout RATE: regular rate RHYTHM: regular rhythm HEART SOUNDS: S1 normal heart sound present and S2 normal heart sound present PERIPHERAL PULSES: Peripheral pulses 2+ throughout GI: COMMON NORMALS: Normal to inspection, nondistended, normoactive bowel sounds present, Soft to palpation, non-tender, No hepatosplenomegaly present, no masses and no bruits PALPATION: Yes Soft to palpation and Yes No hepatosplenomegaly present Extremity: COMMON NORMALS: normal to inspection, full ROM, capillary refill normal, no calf tenderness and no pedal edema Neuro: COMMON NORMALS: patient oriented x3 SENSORIUM/ORIENTATION: Yes alert MENINGEAL SIGNS: Yes no meningeal signs Course Reevaluation(s): Reevaluation #1: Discussed his lab and imaging findings with him as well as my conversation with the neurologist. The neurologist, Dr. Farah also did a tele consult with the patient. He refused urinary cath, states that he knows he needs a PCI due to be filled prior PCI but states that he will not go through the procedure again. He said if it is time that God wishes for him to he is okay with that, however he feels that if God wants him to live he will continue to leave so he does not want any aggressive intervention at this time. I explained to him that he is already on maximal medical therapy and that there is not much more to be added other than increasing the dose of his atorvastatin. He therefore will not benefit from hospital admission and will be discharged home. He voiced understanding and is in agreement with the plan. Time: 22:02 Consultations: Consultation #1: Discussed the patient with Dr. Farah, neurologist. She also evaluated the patient via video conference and she agreed that his NIH score was 2 and did not warrant TPA or further intervention. Time: 20:15 Vital Signs: Vital signs: Vital Signs Pulse Rate 65 06/13/20 20:11 Respiratory Rate 15 06/13/20 20:11 Blood Pressure 178/95 06/13/20 20:11 Pulse Oximetry 100 06/13/20 20:11 MDM - Neuro Symptoms/Deficit MDM Narrative: Medical decision making narrative: 85-year-old male who presents to the emergency with symptoms consistent with an acute CVA. He has had 4 other CVAs in the past. He is on maximal medical therapy and so there will be no further benefit to be obtained by keeping him in the hospital. He however has coronary artery disease and has LAD disease that requires stenting. Prior attempts at placing the stents were unsuccessful and the patient states that he is not going to allow anyone to do the procedure on him anymore. He is therefore discharged home to continue his home medications and to increase the dose of atorvastatin to 80 mg. Medical Records: Attestation: I reviewed the patient's medical records. Lab Data: Attestation: I reviewed the patient's lab results. Labs: Lab Results 06/13/20 06/13/20 06/13/20 Range/Units 20:12 20:12 20:12 WBC 11.2 H (4.0-10.0) 10^3/ uL RBC 3.11 L (4.1-5.3) 10^6/u L Hgb 10.1 L (11.7-16.6) g/dL Hct 30.9 L (42.0-52.0) % MCV 99.4 H (80-94) fL MCH 32.5 (28.0-34.0) pg MCHC 32.7 (30.0-36.0) g/dL RDW 15.8 H (12.1-15.1) % Plt Count 377 (130-400) 10^3/c mm MPV 11.3 H (7.4-10.4) fL Neut % (Auto) 65.0 % Lymph % (Auto) 22.5 % [place] % (Auto) 10.3 % Eos % (Auto) 1.3 % Baso % (Auto) 0.5 % Neut # (Auto) 7.30 (1.8-7.7) 10^3/u L Lymph # (Auto) 2.5 (0.8-4.8) 10^3/u L [place] # (Auto) 1.2 H (0.2-0.9) 10^3/u L Eos # (Auto) 0.2 (0.0-0.8) 10^3/u L Baso # (Auto) 0.1 (0.0-0.1) 10^3/u L Nucleated RBC % (a uto) 0 % Nucleated RBCs # 0.0 /100WBC PT 14.40 (12.1-14.9) SECO NDS INR 1.08 (0.8-1.2) APTT 28.8 (23.9-36.7) SECO NDS Sodium 139 (136-145) mmol/L Potassium 3.8 (3.5-5.1) mmol/L Chloride 103 (98-107) mmol/L Carbon Dioxide 25 (22-29) mmol/L Anion Gap 14.8 (5-19) BUN 27 H (8-23) mg/dL Creatinine 1.7 H (0.7-1.2) mg/dL GFR Calculation Not Reportable Glucose 92 (65-115) mg/dL Calculated Osmolal ity 293 (285-295) mOsm/k g Calcium 8.7 (8.5-10.5) mg/dL Total Bilirubin 1.1 (0.15-1.2) mg/dL AST 10 (0-40) U/L ALT 10 (0-41) U/L Alkaline Phosphata se 117 (40-130) IU/L Total Protein 6.6 (6.6-8.7) g/dL Albumin 3.9 (3.5-5.2) g/dL Globulin 2.7 (1.3-4.6) g/dL Imaging Data^: CT Head: Attestation: I personally reviewed and interpreted this imaging study as follows: Radiologist's impression: [address] [id number] Scan ReportSigned Patient: Anita Sauer #: [id number]: 1935cct#:[id number]/Sex: 85 / MADM Date: 06/13/20Loc: ERRoom/Bed:Attending Dr: Ordering Provider/Ordering MD: Gregorio Gallagher MD Date of Service: 06/13/20 Procedure(s): CT head wo con* [id number] Accession Number(s): [id number] Report Number: [id number] PROCEDURE INFORMATION: Exam: CT Head Without Contrast Exam date and time: 06/13/2020 7:56 PM Age: 85 years old Clinical indication: Speech disturbance; Slurred speech; Additional info: Stroke alert TECHNIQUE: Imaging protocol: Computed tomography of the head without contrast. Radiation optimization: All CT scans at this facility use at least one of these dose optimization techniques: automated exposure control; mA and/or kV adjustment per patient size (includes targeted exams where dose is matched to clinical indication); or iterative reconstruction. Other technique: STROKE PROTOCOL was implemented. 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 There are global involutional changes of the brain which are in keeping with the patient's age. Periventricular hypodensities are nonspecific but most likely reflect chronic microvascular ischemic disease. There is no evidence of intracranial hemorrhage. No abnormal extra-axial fluid collections are identified. No mass effect or midline shift is seen. Kelley-white differentiation is preserved throughout. Cerebral ventricles: No ventriculomegaly. Bones/joints: Unremarkable. No acute fracture. Paranasal sinuses: There is minimal sinus mucosal disease, with no air-fluid level identified. Mastoid air cells: There is no mastoid effusion detected. Vasculature: Atherosclerotic vascular disease is noted at the level of the skull base. Soft tissues: Unremarkable. CT/CT head wo con* [id number] IMPRESSION: 1. 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 2. No acute hemorrhage, mass effect or midline shift. ASSESSMENT: ASPECTS ([facility] Stroke Program Early CT Score) is 10. Radiation Dose CTDIVOL = (mGy): DLP = 905.31 (mGy-cm) Dictated By:Mallorie Wellington MDSigned By:Mallorie Wellington MDSigned Date/Time:06/13/202007DD/ 06 EKG Data^: EKG 1: Attestation: I personally reviewed and interpreted this EKG as follows: EKG interpretation date: 06/13/20 EKG interpretation time: 20:05 Prior EKG tracings: not available for review Interpretation: Sinus rhythm. Heart rate 63 bpm. Normal axis. No ST changes. Discharge Plan Discharge Patient Disposition: Home Clinical Impression: CVA (cerebrovascular accident) Qualifiers: CVA mechanism: unspecified Qualified Code(s): I63.9 - Cerebral infarction, unspecified Condition: Stable Prescriptions: Continued cholecalciferol (vitamin D3) 25 mcg (1,000 unit) capsule 50 mcg PO DAILY@0800 RF: 0 clopidogrel 75 mg tablet 75 mg PO DAILY@0800 RF: 0 aspirin 81 mg tablet,delayed release (DR/EC) 81 mg PO DAILY@0800 RF: 0 carvedilol 3.125 mg tablet 3.125 mg PO BID@0800,2000 RF: 0 Hold Instructions: Resume on 06/17/20. famotidine 20 mg tablet 20 mg PO DAILY@0800 RF: 0 tamsulosin 0.4 mg capsule 0.4 mg PO DAILY@0800 RF: 0 isosorbide dinitrate 20 mg tablet 20 mg PO TID RF: 0 lisinopril 20 mg tablet 20 mg PO DAILY Qty: 30 RF: 3 hydralazine 100 mg tablet 100 mg PO TID@08,14,20 RF: 0 Changed atorvastatin 40 mg tablet 80 mg PO DAILY@0800 Qty: 0 RF: 0 Discharge Orders: Discharge ED (Routine); Ordered 06/13/20 Ordered By: Katerin Anguiano Referrals: Davida Palomares FNP-C [Primary Care Provider] - 1-3 days Discharge Diet: Usual diet Discharge Activity: Increase activity as tolerated Patient Instructions: Ischemic Stroke (GEN) Activity Restrictions/Additional Instructions: Return for any new or worsening symptoms. Continue your medications as prescribed. Follow-up with your primary care provider within 3 days. Coding Level of Care Code ED Juice [employer] Team Member for Rosetta Fwbraulio Exam Comprehensive
[2020-06-14 01:26] LABS: Glucose Point of Care 95 mg/dL (70-110)
== END 2020-06-13 22:15 | disposition home or self-care (01) ==
PROVIDERS: Emergency Provider Family Medicine; PCP Nurse Practitioner Family
DX: I63.9 Cerebral infarction, unspecified (principal); Z79.02 Long term (current) use of antithrombotics/antiplatelets; Z79.82 Long term (current) use of aspirin; I11.0 Hypertensive heart disease with heart failure; I50.9 Heart failure, unspecified; E78.5 Hyperlipidemia, unspecified; Z85.07 Personal history of malignant neoplasm of pancreas; Z86.73 Personal history of transient ischemic attack (TIA), and cerebral infarction without residual deficits; I25.2 Old myocardial infarction
CPT/HCPCS: 36415; 36416; 70450; 80053; 82962; 85025; 85610; 85730; 93005; 99284

== ENCOUNTER → 2020-06-27 14:25 | Outpatient (BNVA) | payer MEDICARE, SELFPAY | PROVIDERS: PCP Nurse Practitioner Family; Visit Provider Internal Medicine Cardiovascular Disease | DX: E78.5 Hyperlipidemia, unspecified (principal); I63.9 Cerebral infarction, unspecified | CPT/HCPCS: 80053; 80061; 83721 ==

== ENCOUNTER 2020-07-03 09:23 | Emergency (ER) | payer MEDICARE, SELFPAY ==
[2020-07-03] VITALS (9 sets, daily range): BP systolic 108–156; BP diastolic 48–88; PULSE 51–66; RESP 16–25; TEMP 36.9–37.1; O2SAT 98–100; BMI 20.5
--- NOTE | 2020-07-03 09:31 | XRR_ITS ---
PROCEDURE INFORMATION: Exam: XR Chest Exam date and time: 07/03/2020 9:49 AM Age: 85 years old Clinical indication: Dyspnea; Additional info: Malaise TECHNIQUE: Imaging protocol: XR of the chest. Views: 1 view. COMPARISON: CR XR chest 1V portable [id number] 05/28/2020 7:40 PM FINDINGS: Lungs: The lungs are somewhat hyperinflated with increased interstitial markings, likely representing COPD. Bibasilar atelectasis. Pneumonia should be excluded clinically. Pleural spaces: Unremarkable. No pleural effusion. No pneumothorax. Heart/Mediastinum: Stable cardiomediastinal silhouette. Bones/joints: Unremarkable. XR/XR chest 1V portable [id number] IMPRESSION: 1. Bibasilar atelectasis. Pneumonia should be excluded clinically. 2. COPD changes.
--- NOTE | 2020-07-03 09:31 | ED_ITS ---
HPI - General Adult General: Chief complaint: Weakness Stated complaint: NAUSEA; DIZZY Time Seen by Provider: 07/03/20 09:26 History of Present Illness: HPI narrative: Patient presents with some just generalized malaise and not feeling good. Patient cannot really describe how he does not feel good. Patient reports that he just does not feel good. Maybe some generalized nausea, a little dizzy. Some generalized weakness. Patient has had significant decline in his health over the last couple months following a stroke. Patient has known cardiac disease which they want to do a heart cath but he refuses. Patient has no reports of fevers chills vomiting abdominal pain, urinary symptoms. Associated symptoms: Reports headache(s), malaise and nausea; Deny chest pain, confusion, dyspnea, rash, palpitations or vomiting Review of Systems Const: Reports: fatigue and malaise; Denies: fever(s) or chills Eyes: Denies: change in vision ENMT: Denies: throat pain Card: Denies: chest pain or palpitations Resp: Denies: dyspnea or productive cough GI: Reports: nausea; Denies: abdominal pain or vomiting : Denies: difficulty urinating or dysuria Skin/Breast: Denies: rash or pruritus Neuro: Reports: headache(s); Denies: numbness in extremities, weakness in extremities, confusion or Slurred speech present PFSH ED 2 PFSH: Medical History Abnormal nuclear stress test Anxiety Bilateral carotid bruits CAD (coronary artery disease) Carotid stenosis Chest pain CHF (congestive heart failure), NYHA class III CKD (chronic kidney disease) Dyslipidemia Dyslipidemia GERD (gastroesophageal reflux disease) History of pancreatic cancer History of stroke Hx of transient ischemic attack (TIA) Hypertension Ischemic cardiomyopathy Multiple falls Noncompliance NSTEMI (non-ST elevated myocardial infarction) Osteoarthritis Pulmonary emphysema Recurrent cerebrovascular accidents (CVAs) Sinus bradycardia Uncontrolled hypertension Surgical History H/O carotid endarterectomy Hx of spinal surgery Family History Brother Heart disease Mother Heart disease Social History Smoking and tobacco status: never smoked Second hand smoke exposure: No Smoking risk assessment/counseling performed?: No Alcohol intake: never Lives independently: Yes Marital status: Single History of recent travel: No Physical Exam Const: COMMON NORMALS: no acute distress, patient oriented x3 and alert GENERAL APPEARANCE: frail appearing and other (Chronic ill) Resp: COMMON NORMALS: normal respiratory effort and No retractions EFFORT & INSPECTION: Yes able to speak in complete sentences Cardio: COMMON NORMALS: regular rate RATE: regular rate and bradycardic GI: COMMON NORMALS: Soft to palpation and non-tender PALPATION: Yes Soft to palpation Extremity: COMMON NORMALS: normal to inspection and full ROM Neuro: COMMON NORMALS: patient oriented x3, moves all extremities and no focal motor deficits SENSORIUM/ORIENTATION: Yes alert Psych: COMMON NORMALS: mental status grossly normal and cooperative APPEARANCE: Yes grossly normal ATTITUDE: Yes calm Skin: COMMON NORMALS: no rashes or lesions noted GENERAL SKIN EXAM: no rashes or lesions noted Course Vital Signs: Vital signs: Vital Signs Temperature 98.7 F 07/03/20 15:57 Pulse Rate 58 L 07/03/20 15:57 Respiratory Rate 18 07/03/20 15:57 Blood Pressure 108/63 07/03/20 15:57 Pulse Oximetry 100 07/03/20 15:57 MDM - General Adult MDM Narrative: Medical decision making narrative: Patient was stable throughout his ER stay. Patient with no significant physical or laboratory findings. Patient with just generalized malaise as his complaint. Discussed with patient the need for follow-up with his primary care provider in a couple days if symptoms continue or do not improve. Patient is otherwise stable and discharged Lab Data: Attestation: I reviewed the patient's lab results. Labs: Lab Results 07/03/20 07/03/20 07/03/20 Range/Units 10:03 10:03 13:20 WBC 8.7 (4.0-10.0) 10^3/ uL RBC 3.50 L (4.1-5.3) 10^6/u L Hgb 11.4 L (11.7-16.6) g/dL Hct 34.3 L (42.0-52.0) % MCV 98.0 H (80-94) fL MCH 32.6 (28.0-34.0) pg MCHC 33.2 (30.0-36.0) g/dL RDW 15.3 H (12.1-15.1) % Plt Count 328 (130-400) 10^3/c mm MPV 11.1 H (7.4-10.4) fL Neut % (Auto) 66.4 % Lymph % (Auto) 20.3 % [place] % (Auto) 9.5 % Eos % (Auto) 2.8 % Baso % (Auto) 0.7 % Neut # (Auto) 5.76 (1.8-7.7) 10^3/u L Lymph # (Auto) 1.8 (0.8-4.8) 10^3/u L [place] # (Auto) 0.8 (0.2-0.9) 10^3/u L Eos # (Auto) 0.2 (0.0-0.8) 10^3/u L Baso # (Auto) 0.1 (0.0-0.1) 10^3/u L Nucleated RBC % (a uto) 0 % Nucleated RBCs # 0.0 /100WBC Sodium 138 (136-145) mmol/L Potassium 3.9 (3.5-5.1) mmol/L Chloride 104 (98-107) mmol/L Carbon Dioxide 23 (22-29) mmol/L Anion Gap 14.9 (5-19) BUN 28 H (8-23) mg/dL Creatinine 1.3 H (0.7-1.2) mg/dL GFR Calculation Not Reportable Glucose 105 (65-115) mg/dL Calculated Osmolal ity 292 (285-295) mOsm/k g Calcium 8.7 (8.5-10.5) mg/dL Magnesium 1.9 (1.7-2.3) mg/dL Total Bilirubin 1.0 (0.15-1.2) mg/dL AST 11 (0-40) U/L ALT 11 (0-41) U/L Alkaline Phosphata se 107 (40-130) IU/L Total Protein 6.6 (6.6-8.7) g/dL Albumin 3.6 (3.5-5.2) g/dL Globulin 3.0 (1.3-4.6) g/dL Urine Color Colorless (Yellow) Urine Appearance Clear (CLEAR) Urine pH 5 (5-7) Ur Specific Gravit y 1.005 (1.005-1.030) Urine Protein Neg (Negative) Urine Glucose (UA) Norm (Normal) Urine Ketones Negative (Negative) Urine Blood Neg (Negative) Urine Nitrate Negative (Negative) Urine Bilirubin Neg (Negative) Urine Urobilinogen Norm (Negative) mg/dL Ur Leukocyte Soha ase Negative (Negative) Imaging Data^: CXR: Attestation: I personally reviewed and interpreted this imaging study as follows: My impression: no acute findings Radiologist's impression: Bibasilar atelectasis, COPD changes EKG Data^: EKG 1: Attestation: I personally reviewed and interpreted this EKG as follows: EKG interpretation date: 07/03/20 EKG interpretation time: 10:09 Interpretation: hr 57, non specific st changes, no acute changes Computer generated interpretation: Chest X-Ray 07/03/20 09:31 IMPRESSION: 1. Bibasilar atelectasis. Pneumonia should be excluded clinically. 2. COPD changes. Discharge Plan Discharge Patient Disposition: Home Clinical Impression: Malaise and fatigue Condition: Stable Prescriptions: No Action cholecalciferol (vitamin D3) 25 mcg (1,000 unit) capsule 50 mcg PO DAILY@0800 RF: 0 atorvastatin 40 mg tablet 80 mg PO DAILY@2000 RF: 0 clopidogrel 75 mg tablet 75 mg PO DAILY@0800 RF: 0 aspirin 81 mg tablet,delayed release (DR/EC) 81 mg PO DAILY@0800 RF: 0 carvedilol 3.125 mg tablet 3.125 mg PO BID@0800,2000 RF: 0 Hold Instructions: Resume on 06/17/20. famotidine 20 mg tablet 20 mg PO DAILY@0800 RF: 0 tamsulosin 0.4 mg capsule 0.4 mg PO DAILY@0800 RF: 0 isosorbide dinitrate 20 mg tablet 20 mg PO TID RF: 0 lisinopril 20 mg tablet 20 mg PO DAILY Qty: 30 RF: 3 hydralazine 100 mg tablet 100 mg PO TID@08,14,20 RF: 0 Discharge Orders: Discharge ED (Routine); Ordered 07/03/20 Ordered By: Ortega Deluna Referrals: Davida Palomares FNP-C [Primary Care Provider] - Discharge Diet: Usual diet Discharge Activity: Resume usual activity Patient Instructions: Weakness (ED), Fatigue (ED), Opioid Safety Activity Restrictions/Additional Instructions: Follow-up with your primary care provider in 2 to 3 days if symptoms are not improving Coding Level of Care Code ED Business Administration Teacher for Chg Fwd Exam Comprehensive
--- NOTE | 2020-07-03 09:32 | ECG_ITS ---
[facility] Test Date: 2020-07-03 Pat Name: Anita Sauer Department: Room: Gender: Male Background Check Coordinator: : 1935 Requested By: Ortega Deluna Order Number: [id number] Young MD: Aakash Rubin M.D. Measurements Intervals [place] Rate: 57 P: GA: QRS: 54 QRSD: 93 T: 115 QT: 454 QTc: 442 Interpretive Statements Sinus BRADYCARDIA NONSPECIFIC ST & T-WAVE ABNORMALITY Compared to ECG 06/13/2020 20:05:18 Sinus rhythm no longer present T-wave abnormality still present Electronically Signed On 07-03-2020 20:44:59 CDT by Aakash Rubin M.D. [id number]
[2020-07-03 10:12] LABS: Basophils # 0.1 10^3/uL (0.0-0.1); Basophils % 0.7 %; Eosinophils # 0.2 10^3/uL (0.0-0.8); Eosinophils % 2.8 %; Hematocrit 34.3 % (42.0-52.0); Hemoglobin 11.4 g/dL (11.7-16.6); Lymphocytes # 1.8 10^3/uL (0.8-4.8); Lymphocytes % 20.3 %; Mean Corpuscular HGB Conc 33.2 g/dL (30.0-36.0); Mean Corpuscular Hemoglobin 32.6 pg (28.0-34.0); Mean Platelet Volume 11.1 fL (7.4-10.4); Monocytes # 0.8 10^3/uL (0.2-0.9); Monocytes % 9.5 %; Neutrophils # 5.76 10^3/uL (1.8-7.7); Neutrophils % 66.4 %; Nucleated Red Blood Cells % 0 %; Platelet Count 328 10^3/cmm (130-400); Red Cell Distribution Width 15.3 % (12.1-15.1); White Blood Count 8.7 10^3/uL (4.0-10.0)
[2020-07-03] MEDS: sodium chloride 0.9% 500 ML IV ×2 (10:17→14:06)
[2020-07-03] MEDS: ondansetron 2 mg/ML SDV 2 mL 4 MG IVP (10:17)
--- NOTE | 2020-07-03 10:46 | PC.NURSE ---
No acute distress. Fluids completed. Continue to monitor
[2020-07-03 10:56] LABS: Alanine Aminotransferase 11 U/L (0-41); Albumin Level 3.6 g/dL (3.5-5.2); Alkaline Phosphatase 107 IU/L (40-130); Anion Gap 14.9 (5-19); Aspartate Amino Transferase 11 U/L (0-40); Blood Urea Nitrogen 28 mg/dL (8-23); Calcium 8.7 mg/dL (8.5-10.5); Carbon Dioxide 23 mmol/L (22-29); Chloride 104 mmol/L (98-107); Glucose 105 mg/dL (65-115); Magnesium 1.9 mg/dL (1.7-2.3); Osmolality Calculated 292 mOsm/kg (285-295); Potassium 3.9 mmol/L (3.5-5.1); Sodium 138 mmol/L (136-145); Total Protein 6.6 g/dL (6.6-8.7)
[2020-07-03 13:40] LABS: Add Urine Microscopic? NO; Charge for UA Resulting for Rev
[2020-07-03 13:58] LABS: Bilirubin Urine Neg (Negative); Blood Urine Neg (Negative); Glucose Urine UA Norm (Normal); Ketones Urine Negative (Negative); Leukocyte Esterase Urine Negative (Negative); Nitrate Urine Negative (Negative); Protein Urine Neg (Negative); Specific Gravity, Urine 1.005 (1.005-1.030); Urine Appearance Clear (CLEAR); Urine Color Colorless (Yellow); Urobilinogen Urine Norm (Negative); pH Urine 5 (5-7)
== END 2020-07-03 16:00 | disposition home or self-care (01) ==
PROVIDERS: Emergency Provider Student in an Organized Health Care Education/Training Program; PCP Nurse Practitioner Family
DX: R53.81 Other malaise (principal); R53.83 Other fatigue; Z79.02 Long term (current) use of antithrombotics/antiplatelets; Z79.82 Long term (current) use of aspirin; I25.10 Atherosclerotic heart disease of native coronary artery without angina pectoris; I11.0 Hypertensive heart disease with heart failure; I50.9 Heart failure, unspecified; E78.5 Hyperlipidemia, unspecified; Z85.07 Personal history of malignant neoplasm of pancreas; Z86.73 Personal history of transient ischemic attack (TIA), and cerebral infarction without residual deficits; I25.2 Old myocardial infarction
CPT/HCPCS: 71045; 80053; 81003; 83735; 85025; 93005; 96361; 96374; 99284; J2405; J7040

== ENCOUNTER → 2020-07-08 09:29 | Outpatient (BNVA) | payer MEDICARE, SELFPAY | PROVIDERS: PCP Nurse Practitioner Family; Referring Provider Nurse Practitioner Family; Visit Provider Nurse Practitioner | DX: Z86.73 Personal history of transient ischemic attack (TIA), and cerebral infarction without residual deficits (principal) | CPT/HCPCS: 99204; 99214 ==

== ENCOUNTER 2020-07-11 20:16 | Emergency (ER) | payer MEDICARE, SELFPAY ==
[2020-07-11 20:25] VITALS: BP 127/67; PULSE 68; RESP 18; TEMP 36.7; O2SAT 97; BMI 20.5
--- NOTE | 2020-07-11 20:32 | ECG_ITS ---
[facility] Test Date: 2020-07-11 Pat Name: Anita Sauer Department: Room: Gender: Male Infertility Medical Assistant: : 1935 Requested By: Jacob Abreu Order Number: [id number] Young MD: Ruddy Leach M.D. Measurements Intervals [place] Rate: 66 P: 68 [place]: 199 QRS: 19 QRSD: 97 T: 113 QT: 418 QTc: 439 Interpretive Statements SINUS RHYTHM SEPTAL MYOCARDIAL INFARCTION , PROBABLY OLD [40+ ms Q WAVE IN V1/V2] ST DEVIATION AND MODERATE T-WAVE ABNORMALITY, CONSIDER LATERAL ISCHEMIA [-0.1+ mV T WAVE IN I/aVL/V5/V6] Compared to ECG 07/03/2020 10:09:21 Myocardial infarct finding now present Possible ischemia now present Sinus bradycardia no longer present T-wave abnormality still present Electronically Signed On 07-12-2020 9:25:27 CDT by Ruddy Leach M.D. [id number]
--- NOTE | 2020-07-11 20:32 | XRR_ITS ---
PROCEDURE INFORMATION: Exam: XR Chest Exam date and time: 07/11/2020 8:39 PM Age: 85 years old Clinical indication: Injury or trauma; Blunt trauma (contusions or hematomas); Injury date: 07/11/2020; Injury details: Fall against rail; Patient HX: Fall- chest pain, SOB; Additional info: Fall, rib pain TECHNIQUE: Imaging protocol: XR of the chest. Views: 1 view. Total images: 1 COMPARISON: CR (CHEST, ) 07/03/2020 9:44 AM FINDINGS: Lungs: No visible active interstitial or alveolar airspace disease. Mild senile fibrosis. No visible pulmonary contusion. Pleural spaces: Unremarkable. No pleural effusion. No pneumothorax. Heart/Mediastinum: Cardiac structures and configuration with arteriosclerosis. Bones/joints: Unremarkable for age. No visible rib fracture. XR/XR chest 1V portable [id number] IMPRESSION: Nonacute.
--- NOTE | 2020-07-11 20:32 | XRR_ITS ---
PROCEDURE INFORMATION: Exam: XR Right Elbow Exam date and time: 07/11/2020 8:39 PM Age: 85 years old Clinical indication: Injury or trauma; Blunt trauma (contusions or hematomas); Injury date: 07/11/2020; Injury details: Fell against rail; Patient HX: Fall - right elbow pain/injury; Additional info: Fall, injury TECHNIQUE: Imaging protocol: XR Right elbow. Views: 1 or 2 views. Total images: 2 COMPARISON: No relevant prior studies available. FINDINGS: Bones/joints: No visible fracture, subluxation, or dislocation. No visible radiopaque joint effusion. Soft tissues: Unremarkable. XR/XR elbow RT 2V [id number] IMPRESSION: Nonacute.
--- NOTE | 2020-07-11 20:52 | ED_ITS ---
HPI - Fall General: Chief Complaint: Fall Stated Complaint: fall with chest wall pain Time Seen by Provider: 07/11/20 20:22 History of Present Illness: HPI Narrative: Patient is a well-appearing 85-year-old male seen for fall and injury to his right side of his chest. He states that he was exiting his sister's house when he fell forward and struck his chest on a metal railing causing pain in the right anterior rib region as well as injury to his right elbow. He describes a level pain is 3 of 10, worse with motion and better with rest. He also complains of some bleeding which is well controlled at this time from his right elbow. He denies striking his head and denies antecedent chest pain, shortness of breath, lightheadedness, dizziness, and has no other acute complaints. He states he felt fine throughout the day. He rode his lawnmower to his sister's house as he does not drive anymore. Review of Systems General: Reports: 10 or more systems reviewed and unremarkable except in HPI and below PFSH ED PFSH: Medical History Abnormal nuclear stress test Anxiety Bilateral carotid bruits CAD (coronary artery disease) Carotid stenosis Chest pain CHF (congestive heart failure), NYHA class III CKD (chronic kidney disease) Dyslipidemia Dyslipidemia GERD (gastroesophageal reflux disease) History of pancreatic cancer History of stroke Hx of transient ischemic attack (TIA) Hypertension Ischemic cardiomyopathy Multiple falls Noncompliance NSTEMI (non-ST elevated myocardial infarction) Osteoarthritis Pulmonary emphysema Recurrent cerebrovascular accidents (CVAs) Sinus bradycardia Uncontrolled hypertension Surgical History H/O carotid endarterectomy Hx of spinal surgery Family History Brother Heart disease Mother Heart disease Other Stroke Social History (Updated 07/08/20 @ 10:14 by Davida Forbes LPN) Smoking and tobacco status: never smoked Second hand smoke exposure: No Smoking risk assessment/counseling performed?: No Alcohol intake: never Desire information about alcohol rehabilitation?: No Counseling given: No Desire information about substance/drug rehabilitation?: No Counseling given: No Adopted: No Caregiver/support person: Yes Lives independently: Yes Household members: none Housing: Manufactured/Mobile home Marital status: Single Number of children: 2 service: Yes branch: [employer] Current occupational status: retired History of recent travel: No Current gender identity: Male Physical Exam Const: COMMON NORMALS: no acute distress, patient oriented x3 and alert HENMT: COMMON NORMALS: normocephalic and atraumatic HEAD & SCALP: normocephalic and atraumatic Eye: COMMON NORMALS: Equal, round and reactive pupils present, EOMs intact bilaterally and no scleral icterus PUPIL: Yes Equal, round and reactive pupils present Chest: OTHER: There is no obvious bruising or deformity of the chest wall. There is no tenderness with palpation of the rib cage. He has no increased pain with inspiration or expiration. Resp: COMMON NORMALS: normal respiratory effort and No retractions Cardio: COMMON NORMALS: regular rate, regular rhythm and No murmurs present (Cardio) RATE: regular rate RHYTHM: regular rhythm GI: COMMON NORMALS: Normal to inspection, nondistended, normoactive bowel sounds present, Soft to palpation and non-tender PALPATION: Yes Soft to palpation Extremity: OTHER: Right elbow has a 1 cm skin tear which is not amenable to primary repair. There is no active bleeding. He has full range of motion of the shoulder, wrist, and elbow. I do not suspect a fracture. Neuro: COMMON NORMALS: patient oriented x3 SENSORIUM/ORIENTATION: Yes alert Skin: COMMON NORMALS: no rashes or lesions noted GENERAL SKIN EXAM: no rashes or lesions noted Course Vital Signs: Vital signs: Vital Signs Temperature 97.8 F 07/12/20 00:54 Pulse Rate 89 07/12/20 00:54 Respiratory Rate 20 H 07/12/20 00:54 Blood Pressure 134/82 07/12/20 00:54 Pulse Oximetry 97 07/12/20 00:54 MDM - Fall MDM Narrative: Medical decision making narrative: Patient remained hemodynamically stable through ED course. Laboratory evaluation, chest x-ray, and EKG showed no acute process. I suspect mechanical fall with some contusion to the ribs. He will be discharged in stable and improved condition with follow-up to primary care as needed. Tetanus was updated. Lab Data: Labs: Lab Results 07/11/20 07/11/20 Range/Units 21:00 21:00 WBC 10.4 H (4.0-10.0) 10^3/ uL RBC 3.35 L (4.1-5.3) 10^6/u L Hgb 11.0 L (11.7-16.6) g/dL Hct 33.0 L (42.0-52.0) % MCV 98.5 H (80-94) fL MCH 32.8 (28.0-34.0) pg MCHC 33.3 (30.0-36.0) g/dL RDW 15.0 (12.1-15.1) % Plt Count 314 (130-400) 10^3/c mm MPV 11.7 H (7.4-10.4) fL Neut % (Auto) 66.0 % Lymph % (Auto) 20.2 % [place] % (Auto) 9.8 % Eos % (Auto) 3.0 % Baso % (Auto) 0.8 % Neut # (Auto) 6.87 (1.8-7.7) 10^3/u L Lymph # (Auto) 2.1 (0.8-4.8) 10^3/u L [place] # (Auto) 1.0 H (0.2-0.9) 10^3/u L Eos # (Auto) 0.3 (0.0-0.8) 10^3/u L Baso # (Auto) 0.1 (0.0-0.1) 10^3/u L Nucleated RBC % (a uto) 0 % Nucleated RBCs # 0.0 /100WBC Sodium 141 (136-145) mmol/L Potassium 3.8 (3.5-5.1) mmol/L Chloride 106 (98-107) mmol/L Carbon Dioxide 23 (22-29) mmol/L Anion Gap 15.8 (5-19) BUN 25 H (8-23) mg/dL Creatinine 1.2 (0.7-1.2) mg/dL GFR Calculation Not Reportable Glucose 89 (65-115) mg/dL Calculated Osmolal ity 296 H (285-295) mOsm/k g Calcium 8.6 (8.5-10.5) mg/dL Total Bilirubin 0.9 (0.15-1.2) mg/dL AST 13 (0-40) U/L ALT 12 (0-41) U/L Alkaline Phosphata se 110 (40-130) IU/L Total Protein 6.2 L (6.6-8.7) g/dL Albumin 4.0 (3.5-5.2) g/dL Globulin 2.2 (1.3-4.6) g/dL Discharge Plan Discharge Patient Disposition: Home Clinical Impression: Fall from standing Qualifiers: Encounter type: initial encounter Qualified Code(s): W19.XXXA - Unspecified fall, initial encounter Contusion of rib on right side Qualifiers: Encounter type: initial encounter Qualified Code(s): S20.211A - Contusion of right front wall of thorax, initial encounter Condition: Stable Prescriptions: No Action cholecalciferol (vitamin D3) 25 mcg (1,000 unit) capsule 50 mcg PO DAILY RF: 0 atorvastatin 40 mg tablet 80 mg PO DAILY RF: 0 clopidogrel 75 mg tablet 75 mg PO DAILY RF: 0 aspirin 81 mg tablet,delayed release (DR/EC) 81 mg PO DAILY RF: 0 carvedilol 3.125 mg tablet 3.125 mg PO BID RF: 0 Hold Instructions: Resume on 06/17/20. famotidine 20 mg tablet 20 mg PO DAILY RF: 0 tamsulosin 0.4 mg capsule 0.4 mg PO DAILY RF: 0 isosorbide dinitrate 20 mg tablet See Rx Instructions .ROUTE .COMPLEX RF: 0 lisinopril 20 mg tablet 20 mg PO DAILY Qty: 30 RF: 3 hydralazine 100 mg tablet 100 mg PO TID RF: 0 Discharge Orders: Discharge ED (Routine); Ordered 07/11/20 Ordered By: Jacob Abreu Referrals: Davida Palomares FNP-C [Primary Care Provider] - Discharge Diet: Usual diet Discharge Activity: Resume usual activity Activity Restrictions/Additional Instructions: Take your time when walking different places as you may feel lightheaded when you stand up initially. Be mindful of this dizzy feeling can keep her from falling in the future. Coding Level of Care Code ED Dot Compliance Manager for Rosetta Fwbraulio Exam Detailed
[2020-07-11 21:07] LABS: Basophils # 0.1 10^3/uL (0.0-0.1); Basophils % 0.8 %; Eosinophils # 0.3 10^3/uL (0.0-0.8); Lymphocytes # 2.1 10^3/uL (0.8-4.8); Lymphocytes % 20.2 %; Mean Corpuscular HGB Conc 33.3 g/dL (30.0-36.0); Mean Corpuscular Hemoglobin 32.8 pg (28.0-34.0); Mean Corpuscular Volume 98.5 fL (80-94); Mean Platelet Volume 11.7 fL (7.4-10.4); Monocytes % 9.8 %; Neutrophils # 6.87 10^3/uL (1.8-7.7); Nucleated Red Blood Cells % 0 %; Platelet Count 314 10^3/cmm (130-400); Red Blood Count 3.35 10^6/uL (4.1-5.3); White Blood Count 10.4 10^3/uL (4.0-10.0)
--- NOTE | 2020-07-11 21:11 | PC.PHAR ---
pt unable to verify medications-pt states someone sets his meds up in a account planner but doesnt remember the name of the person or the place where he is from-medications entered are meds that show up on ext med history
[2020-07-11] MEDS: sodium chloride 0.9% 1,000 ML 999 ML IV (21:16)
[2020-07-11] MEDS: tetanus-dipt-pertussis 0.5 mL SDV IM (21:16)
[2020-07-11 21:25] LABS: Alanine Aminotransferase 12 U/L (0-41); Alkaline Phosphatase 110 IU/L (40-130); Anion Gap 15.8 (5-19); Aspartate Amino Transferase 13 U/L (0-40); Blood Urea Nitrogen 25 mg/dL (8-23); Calcium 8.6 mg/dL (8.5-10.5); Carbon Dioxide 23 mmol/L (22-29); Chloride 106 mmol/L (98-107); Globulin 2.2 g/dL (1.3-4.6); Glucose 89 mg/dL (65-115); Osmolality Calculated 296 mOsm/kg (285-295); Potassium 3.8 mmol/L (3.5-5.1); Sodium 141 mmol/L (136-145); Total Bilirubin 0.9 mg/dL (0.15-1.2); Total Protein 6.2 g/dL (6.6-8.7)
--- NOTE | 2020-07-11 21:25 | CTR_ITS ---
PROCEDURE INFORMATION: Exam: CT Head Without Contrast Exam date and time: 07/11/2020 9:35 PM Age: 85 years old Clinical indication: Altered mental status/memory loss; Additional info: Altered mental status, confusion TECHNIQUE: Imaging protocol: Computed tomography of the head without contrast. Total images: 214 Radiation optimization: All CT scans at this facility use at least one of these dose optimization techniques: automated exposure control; mA and/or kV adjustment per patient size (includes targeted exams where dose is matched to clinical indication); or iterative reconstruction. COMPARISON: CT head wo con* [id number] 06/13/2020 8:10 PM RADIATION DOSE METRICS: Total DLP (mGy-cm): 720.94 FINDINGS: Brain: No evidence of active or acute intracranial pathologic process, hemorrhage, or trauma. Old left christiansen radiata lacunar infarctions. Old left lentiform nucleus infarction. Mild small vessel ischemic disease with senile periventricular leukomalacia. No mass effect. No midline shift. Cerebral and cerebral atrophy with ventricular dilatation not inconsistent with the patient's advanced chronological age. Cerebral ventricles: No ventriculomegaly. Bones/joints: Unremarkable. No acute fracture. Paranasal sinuses: Visualized sinuses are unremarkable. No fluid levels. Mastoid air cells: Visualized mastoid air cells are well aerated. Soft tissues: Unremarkable. CT/CT head wo con* [id number] IMPRESSION: No evidence of active or acute intracranial pathologic process, hemorrhage, or trauma. Radiation Dose CTDIVOL = (mGy): DLP = 720.94 (mGy-cm)
--- NOTE | 2020-07-11 23:53 | PC.NURSE ---
pt ambulated in room with cane without difficulty. pt is well balanced. pt denies dizziness when walking. pt is able to turn and change direction without loss of balance. Brady HOFFMANN notified.
--- NOTE | 2020-07-12 00:10 | PC.NURSE ---
called pt sister Ellen to arrange transport home. No answer.
[2020-07-12 00:54] VITALS: BP 134/82; PULSE 89; RESP 20; TEMP 36.6; O2SAT 97
== END 2020-07-12 01:45 | disposition home or self-care (01) ==
PROVIDERS: Emergency Provider Student in an Organized Health Care Education/Training Program; PCP Nurse Practitioner Family
DX: S20.211A Contusion of right front wall of thorax, initial encounter (principal); Z79.02 Long term (current) use of antithrombotics/antiplatelets; Z79.82 Long term (current) use of aspirin; I25.10 Atherosclerotic heart disease of native coronary artery without angina pectoris; I11.0 Hypertensive heart disease with heart failure; I50.9 Heart failure, unspecified; E78.5 Hyperlipidemia, unspecified; Z85.07 Personal history of malignant neoplasm of pancreas; Z86.73 Personal history of transient ischemic attack (TIA), and cerebral infarction without residual deficits; I25.2 Old myocardial infarction; W19.XXXA Unspecified fall, initial encounter; Z23 Encounter for immunization; S51.011A Laceration without foreign body of right elbow, initial encounter
CPT/HCPCS: 70450; 71045; 73070; 80053; 85025; 90471; 90715; 93005; 96360; 99283; J7030

== ENCOUNTER → 2020-07-13 10:41 | Outpatient (BNVA) | payer MEDICARE, SELFPAY | PROVIDERS: PCP Nurse Practitioner Family; Visit Provider Nurse Practitioner Family | DX: M25.561 Pain in right knee (principal); M25.562 Pain in left knee; G89.29 Other chronic pain | CPT/HCPCS: 73562 ==

== ENCOUNTER 2020-07-14 06:20 | Emergency (ER) | payer MEDICARE, SELFPAY ==
[2020-07-14] VITALS (17 sets, daily range): BP systolic 99–145; BP diastolic 53–88; PULSE 60–88; RESP 16–24; TEMP 36.4; O2SAT 97–100; BMI 20.7
--- NOTE | 2020-07-14 06:31 | XR_ITS ---
WS: [id number] Exam: XR chest 1V portable [id number] Date/Time of Exam: 07/14/2020 6:31 AM Reason For Exam: atypical chest pain Comparison 07/11/2020. Diffuse interstitial infiltrates and pulmonary vascular engorgement have developed since prior study. This may represent congestive heart failure from volume overload. The heart is slightly enlarged. No pleural effusions or pneumothorax. The mediastinum and osseous thorax are unremarkable. XR/XR chest 1V portable [id number] IMPRESSION: 1. Increased pulmonary vascularity with the interstitial infiltrates probably r epresenting pulmonary edema. This may be due to fluid overload. Interstitial pn eumonia could have similar appearance. 2. Mild cardiac enlargement.
--- NOTE | 2020-07-14 06:31 | ECG_ITS ---
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 Measurements Intervals [place] Rate: 66 P: 28 WI: 208 QRS: 26 QRSD: 97 T: 120 QT: 417 QTc: 438 Interpretive Statements SINUS RHYTHM ANTERIOR MYOCARDIAL INFARCTION , OF INDETERMINATE AGE [40+ ms Q WAVE AND/OR ST/T ABNORMALITY IN V3/V4] ST DEVIATION AND MODERATE T-WAVE ABNORMALITY, CONSIDER LATERAL ISCHEMIA [-0.1+ mV T WAVE IN I/aVL/V5/V6] Compared to ECG 07/11/2020 20:59:04 No significant changes Electronically Signed On 07-14-2020 15:41:18 CDT by Funmilayo Motley M.D. [id number]
[2020-07-14 06:48] LABS: Basophils # 0.1 10^3/uL (0.0-0.1); Basophils % 0.4 %; Eosinophils # 0.2 10^3/uL (0.0-0.8); Eosinophils % 1.3 %; Hematocrit 31.9 % (42.0-52.0); Hemoglobin 10.5 g/dL (11.7-16.6); Lymphocytes # 1.5 10^3/uL (0.8-4.8); Mean Corpuscular HGB Conc 32.9 g/dL (30.0-36.0); Mean Corpuscular Hemoglobin 33.3 pg (28.0-34.0); Mean Corpuscular Volume 101.3 fL (80-94); Mean Platelet Volume 12.2 fL (7.4-10.4); Monocytes # 0.9 10^3/uL (0.2-0.9); Monocytes % 7.3 %; Neutrophils % 78.7 %; Nucleated Red Blood Cells % 0 %; Platelet Count 294 10^3/cmm (130-400); Red Blood Count 3.15 10^6/uL (4.1-5.3); Red Cell Distribution Width 15.2 % (12.1-15.1); White Blood Count 12.2 10^3/uL (4.0-10.0)
--- NOTE | 2020-07-14 06:53 | ED_ITS ---
HPI - Chest Pain General: Chief Complaint: Chest Pain Stated Complaint: sob Time Seen by Provider: 07/14/20 06:25 History of Present Illness: HPI narrative: 85-year-old male with a known history of coronary artery disease. He states he was mowing yesterday and had chest pain shortness of breath had to sit and rest. He called EMS this morning with complaint of chest pain.He was given aspirin and nitro in route. He still having some chest discomfort now. and May he had a positive stress test went to the [facility] had diffuse coronary disease Dr. Fry tried to bridge the L LAD lesion but had difficulty and eventually attempt was abandoned according to the notes plan most have the patient be seen by Dr. Martines at [facility] in [place] has had follow-up since then I can see that he has been referred for that.. MD complaint: chest pain Pertinent past history: coronary artery disease Onset (ago): minute(s) Timing of current episode: episodic Onset: during rest Pain location: left chest Pain radiation: left arm and left shoulder Severity: mild Quality: heaviness Relieving factors: nothing Exacerbating factors: nothing Associated symptoms: Reports diaphoresis and nausea; Deny dyspnea Treatment prior to arrival: aspirin and nitroglycerin Review of Systems Const: Reports: diaphoresis ENMT: Denies: throat pain, ear or mastoid pain, nasal discharge or nasal congestion Card: Denies: chest pain, edema, dyspnea on exertion or orthopnea Resp: Denies: dyspnea, productive cough or non-productive cough GI: Reports: nausea : Denies: flank pain, dysuria, urinary frequency or urinary urgency Skin/Breast: Denies: rash or pruritus PFS ED PFSH: Medical History Abnormal nuclear stress test Anxiety Bilateral carotid bruits CAD (coronary artery disease) Carotid stenosis Chest pain CHF (congestive heart failure), NYHA class III CKD (chronic kidney disease) Dyslipidemia Dyslipidemia GERD (gastroesophageal reflux disease) History of pancreatic cancer History of stroke Hx of transient ischemic attack (TIA) Hypertension Ischemic cardiomyopathy Multiple falls Noncompliance NSTEMI (non-ST elevated myocardial infarction) Osteoarthritis Pulmonary emphysema Recurrent cerebrovascular accidents (CVAs) Sinus bradycardia Uncontrolled hypertension Surgical History H/O carotid endarterectomy Hx of spinal surgery Family History Brother Heart disease Mother Heart disease Other Stroke Social History Smoking and tobacco status: never smoked Second hand smoke exposure: No Smoking risk assessment/counseling performed?: No Alcohol intake: never Desire information about alcohol rehabilitation?: No Counseling given: No Desire information about substance/drug rehabilitation?: No Counseling given: No Adopted: No Caregiver/support person: Yes Lives independently: Yes Household members: none Housing: Manufactured/Mobile home Marital status: Single Number of children: 2 service: Yes branch: [employer] Current occupational status: retired History of recent travel: No Current gender identity: Male Physical Exam Const: COMMON NORMALS: no acute distress GENERAL APPEARANCE: cooperative and comfortable HENMT: COMMON NORMALS: normocephalic, atraumatic and hearing grossly normal bilaterally HEAD & SCALP: normocephalic and atraumatic Eye: COMMON NORMALS: Equal, round and reactive pupils present, EOMs intact maurilio aterally, conjunctivae normal and no scleral icterus CONJUNCTIVA: Yes conjunctivae normal PUPIL: Yes Equal, round and reactive pupils present Neck/C-Spine: COMMON NORMALS: full ROM, no lymphadenopathy, supple and no JVD Lymph: LYMPHATIC: no lymphadenopathy noted and no lymphedema noted Resp: COMMON NORMALS: normal respiratory effort, No retractions, No use of accessory muscles and clear to auscultation bilaterally AUSCULTATION: clear to auscultation bilaterally Cardio: COMMON NORMALS: no JVD, regular rate, regular rhythm and No murmurs present (Cardio) RATE: regular rate RHYTHM: regular rhythm GI: COMMON NORMALS: Soft to palpation and No hepatosplenomegaly present AUSCULTATION: Yes normoactive bowel sounds PALPATION: Yes Soft to palpation, No Tenderness to palpation present (GI), No Guarding due to palpation present (GI) and Yes No hepatosplenomegaly present Extremity: COMMON NORMALS: normal to inspection, capillary refill normal, no clubbing, cyanosis or edema, no calf tenderness and no pedal edema Skin: COMMON NORMALS: no rashes or lesions noted GENERAL SKIN EXAM: no rashes or lesions noted Course Vital Signs: Vital signs: Vital Signs Temperature 97.6 F 07/14/20 06:21 Pulse Rate 68 07/14/20 13:46 Respiratory Rate 18 07/14/20 13:46 Blood Pressure 107/74 07/14/20 13:46 Pulse Oximetry 99 07/14/20 13:46 MDM - Chest Pain MDM Narrative: Medical decision making narrative: Patient pain-free at this time have long discussion about CODE STATUS difficulty getting to understand completely what you are asking yes as to have a family member be involved as we ll return to contact her. He is definitely having an NSTEMI of an subendocardial ischemia on the EKG. His first troponin is elevated 800 and is BNP is also elevated chest x-ray shows signs of congestive heart failure discussed Dr. Motley will admit to the hospitalist consult cardiology. Patient still does not want to pursue any intervention or further interventional means. Patient multiple times declined any further intervention and no family member called and now wishes to pursue intervention. I discussed Dr. Araya again Dr. Nolan already been down to see the patient. Now that he is wishes to pursue it we have made arrangements for transfer to [place] [facility] will see when he arrives have discussed the hospitalist we are waiting room assignment for transfer. Lab Data: Labs: Lab Results 07/14/20 07/14/20 07/14/20 Range/Units 06:44 06:44 06:44 WBC 12.2 H (4.0-10.0) 10^3/ uL RBC 3.15 L (4.1-5.3) 10^6/u L Hgb 10.5 L (11.7-16.6) g/dL Hct 31.9 L (42.0-52.0) % MCV 101.3 H (80-94) fL MCH 33.3 (28.0-34.0) pg MCHC 32.9 (30.0-36.0) g/dL RDW 15.2 H (12.1-15.1) % Plt Count 294 (130-400) 10^3/c mm MPV 12.2 H (7.4-10.4) fL Neut % (Auto) 78.7 % Lymph % (Auto) 12.0 % [place] % (Auto) 7.3 % Eos % (Auto) 1.3 % Baso % (Auto) 0.4 % Neut # (Auto) 9.60 H (1.8-7.7) 10^3/u L Lymph # (Auto) 1.5 (0.8-4.8) 10^3/u L [place] # (Auto) 0.9 (0.2-0.9) 10^3/u L Eos # (Auto) 0.2 (0.0-0.8) 10^3/u L Baso # (Auto) 0.1 (0.0-0.1) 10^3/u L Nucleated RBC % (a uto) 0 % Nucleated RBCs # 0.0 /100WBC Sodium 138 (136-145) mmol/L Potassium 4.4 (3.5-5.1) mmol/L Chloride 104 (98-107) mmol/L Carbon Dioxide 24 (22-29) mmol/L Anion Gap 14.4 (5-19) BUN 29 H (8-23) mg/dL Creatinine 1.4 H (0.7-1.2) mg/dL GFR Calculation Not Reportable Glucose 114 (65-115) mg/dL Calculated Osmolal ity 293 (285-295) mOsm/k g Calcium 9.0 (8.5-10.5) mg/dL Total Bilirubin 1.1 (0.15-1.2) mg/dL AST 38 (0-40) U/L ALT 21 (0-41) U/L Alkaline Phosphata se 122 (40-130) IU/L Troponin T Baselin e 807 H* (0-15) ng/L Troponin T [address] [place] (0-15) ng/L Delta Troponin T (0-10) ABS# Troponin T Hi Sens 6Hr (0-15) ng/L Troponin T Hi Sens 6Hr Delta (0-12) ng/L NT-Pro-B Natriuret Pep (0-450) pg/mL Total Protein 6.3 L (6.6-8.7) g/dL Albumin 3.5 (3.5-5.2) g/dL Globulin 2.8 (1.3-4.6) g/dL 07/14/20 07/14/20 07/14/20 Range/Units 06:44 10:03 13:07 WBC (4.0-10.0) 10^3/ uL RBC (4.1-5.3) 10^6/u L Hgb (11.7-16.6) g/dL Hct (42.0-52.0) % MCV (80-94) fL MCH (28.0-34.0) pg MCHC (30.0-36.0) g/dL RDW (12.1-15.1) % Plt Count (130-400) 10^3/c mm MPV (7.4-10.4) fL Neut % (Auto) % Lymph % (Auto) % [place] % (Auto) % Eos % (Auto) % Baso % (Auto) % Neut # (Auto) (1.8-7.7) 10^3/u L Lymph # (Auto) (0.8-4.8) 10^3/u L [place] # (Auto) (0.2-0.9) 10^3/u L Eos # (Auto) (0.0-0.8) 10^3/u L Baso # (Auto) (0.0-0.1) 10^3/u L Nucleated RBC % (a uto) % Nucleated RBCs # /100WBC Sodium (136-145) mmol/L Potassium (3.5-5.1) mmol/L Chloride (98-107) mmol/L Carbon Dioxide (22-29) mmol/L Anion Gap (5-19) BUN (8-23) mg/dL Creatinine (0.7-1.2) mg/dL GFR Calculation Glucose (65-115) mg/dL Calculated Osmolal ity (285-295) mOsm/k g Calcium (8.5-10.5) mg/dL Total Bilirubin (0.15-1.2) mg/dL AST (0-40) U/L ALT (0-41) U/L Alkaline Phosphata se (40-130) IU/L Troponin T Baselin e (0-15) ng/L Troponin T [address] [place] 806.4 H (0-15) ng/L Delta Troponin T -0.6 L (0-10) ABS# Troponin T Hi Sens 6Hr 765.1 H (0-15) ng/L Troponin T Hi Sens 6Hr Delta -41.9 L (0-12) ng/L NT-Pro-B Natriuret Pep 70389 H (0-450) pg/mL Total Protein (6.6-8.7) g/dL Albumin (3.5-5.2) g/dL Globulin (1.3-4.6) g/dL EKG Data^: EKG 1: Attestation: I personally reviewed and interpreted this EKG as follows: EKG interpretation date: 07/14/20 EKG interpretation time: 06:30 Prior EKG tracings: available for review (07/03/20, 06/13/20) Other EKG comments: Sinus rhythm rate of [address] depression in V45 and 6 that was present on 516 but not necessarily present to the extent that is today on 426. Q waves in V2 and 3 which were present previously there is no ST elevation. Discharge Plan Discharge Patient Disposition: Admitted As Inpatient Clinical Impression: Non-ST elevation PA (NSTEMI), CKD (chronic kidney disease), CHF (congestive heart failure), NYHA class III Condition: Stable Coding Level of Care Code ED Payroll And Benefits Assistant for Dayling Fwd Exam Comprehensive
[2020-07-14 07:08] LABS: Alanine Aminotransferase 21 U/L (0-41); Albumin Level 3.5 g/dL (3.5-5.2); Alkaline Phosphatase 122 IU/L (40-130); Aspartate Amino Transferase 38 U/L (0-40); Blood Urea Nitrogen 29 mg/dL (8-23); Carbon Dioxide 24 mmol/L (22-29); Chloride 104 mmol/L (98-107); Globulin 2.8 g/dL (1.3-4.6); Glucose 114 mg/dL (65-115); Osmolality Calculated 293 mOsm/kg (285-295); Sodium 138 mmol/L (136-145); Total Bilirubin 1.1 mg/dL (0.15-1.2); Total Protein 6.3 g/dL (6.6-8.7)
[2020-07-14 07:11] LABS: Anion Gap 14.4 (5-19); Potassium 4.4 mmol/L (3.5-5.1)
[2020-07-14 07:13] LABS: Troponin(5th) Baseline 807 ng/L (0-15)
[2020-07-14] MEDS: nitroglycerin 1 gm/inch oint Pkt 0.5 INCH TOPICAL (07:18)
[2020-07-14] MEDS: FUROsemide 10 mg/mL SDV 4mL 40 MG IVP (07:19)
[2020-07-14] MEDS: enoxaparin 80 mg/0.8 mL Syringe 70 MG SUBCUT (07:41)
[2020-07-14 07:49] LABS: NT Pro B Type Natriuretic Pept 15590 pg/mL (0-450)
--- NOTE | 2020-07-14 07:56 | PC.PHAR ---
pt unable to verify medications-pt states he has someone who sets up his medications but doesnt know the name or where hes from- called pts bossman lara to see if she knew the name of the home health no answer-pt states he is getting low on his meds-medications entered are meds show that have been filled on ext med history-notes are made on each rx in pharmacy comments of last date filled
--- NOTE | 2020-07-14 08:31 | ECG_ITS ---
[facility] Test Date: 2020-07-14 Pat Name: Anita Sauer Department: Room: 111 Gender: Male Telephone Sex Worker: : 1935 Requested By: Xiang Zaldivar Order Number: [id number] Young MD: Funmilayo Motley M.D. Measurements Intervals [place] Rate: 65 P: 60 AR: 200 QRS: 66 QRSD: 96 T: 118 QT: 450 QTc: 470 Interpretive Statements SINUS RHYTHM ANTERIOR MYOCARDIAL INFARCTION , OF INDETERMINATE AGE ST DEVIATION AND MODERATE T-WAVE ABNORMALITY, CONSIDER ANTEROLATERAL ISCHEMIA Compared to ECG 07/14/2020 06:30:16 T-wave abnormality still present Possible ischemia still present Electronically Signed On 07-14-2020 18:34:01 CDT by Fumnilayo Motley M.D. [id number]
[2020-07-14 10:43] LABS: Troponin 5 2HR 806.4 ng/L (0-15); Troponin 5 2HR Delta -0.6 ABS# (0-10)
--- NOTE | 2020-07-14 12:31 | ECG_ITS ---
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 Measurements Intervals [place] Rate: 64 P: 37 [place]: 189 QRS: 27 QRSD: 96 T: 125 QT: 528 QTc: 546 Interpretive Statements SINUS RHYTHM ANTERIOR MYOCARDIAL INFARCTION , OF INDETERMINATE AGE [40+ ms Q WAVE AND/OR ST/T ABNORMALITY IN V3/V4] ST DEVIATION AND MODERATE T-WAVE ABNORMALITY, CONSIDER LATERAL ISCHEMIA [-0.1+ mV T WAVE IN I/aVL/V5/V6] Compared to ECG 07/14/2020 09:26:54 Myocardial infarct finding now present T-wave abnormality still present Possible ischemia still present Electronically Signed On 07-14-2020 18:33:01 CDT by Funmilayo Motley M.D. [id number]
[2020-07-14 13:45] LABS: Troponin 5 6HR 765.1 ng/L (0-15)
--- NOTE | 2020-07-14 13:46 | PC.NURSE ---
Pt moved to room 2 as a boarder. Pt provided with BSC, warm blankets, milk and cheese stick. Pt shown how to use call light and TV turned on for pt. Pt denies other needs at this time.
--- NOTE | 2020-07-14 15:56 | PC.NURSE ---
Pt updated on wait for bed at [facility], call light in reach, no needs at this time.
--- NOTE | 2020-07-14 16:31 | PC.NURSE ---
Pt given dinner tray
--- NOTE | 2020-07-14 18:46 | PC.NURSE ---
Pt placed on hospital bed.
== END 2020-07-14 21:05 | disposition admitted as inpatient to this hospital (09) ==
LOC: ER 07:47 → CSU 08:36
PROVIDERS: Emergency Provider Family Medicine; PCP Nurse Practitioner Family
DX: I21.4 Non-ST elevation (NSTEMI) myocardial infarction (principal); I13.0 Hypertensive heart and chronic kidney disease with heart failure and stage 1 through stage 4 chronic kidney disease, or unspecified chronic kidney disease; N18.9 Chronic kidney disease, unspecified; I50.9 Heart failure, unspecified; I25.10 Atherosclerotic heart disease of native coronary artery without angina pectoris; E78.5 Hyperlipidemia, unspecified; Z85.07 Personal history of malignant neoplasm of pancreas; Z86.73 Personal history of transient ischemic attack (TIA), and cerebral infarction without residual deficits; I25.2 Old myocardial infarction; J43.9 Emphysema, unspecified
CPT/HCPCS: 71045; 80053; 83880; 84484; 85025; 93005; 96372; 96374; 99285; J1650; J1940

== ENCOUNTER 2020-08-02 06:26 | Inpatient (IN) | payer MEDICARE, SELFPAY ==
[2020-08-02] VITALS (12 sets, daily range): BP systolic 112–135; BP diastolic 63–83; PULSE 66–89; RESP 17–23; TEMP 36.3–36.9; O2SAT 91–99; BMI 19.8
--- NOTE | 2020-08-02 06:26 | XRR_ITS ---
PROCEDURE INFORMATION: Exam: XR Chest Exam date and time: 08/02/2020 6:26 AM Age: 85 years old Clinical indication: Patient HX: Chest pain; Shortness of breath earlier this a. M. ; AMS ; fast heart rate. HX of stomach cancer; Additional info: Chest pain. Ex smoker TECHNIQUE: Imaging protocol: XR of the chest. Views: 1 view. COMPARISON: CR XR chest 1V portable [id number] 07/14/2020 6:38 AM FINDINGS: Lungs: There is enlargement of the pulmonary vascularity. There is thickening of the interstitial markings. Pleural spaces: Unremarkable. No pleural effusion. No pneumothorax. Heart/Mediastinum: The heart is mildly enlarged. Bones/joints: Unremarkable. XR/XR chest 1V portable [id number] IMPRESSION: Congestive heart failure.
--- NOTE | 2020-08-02 06:27 | ECG_ITS ---
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 Measurements Intervals [place] Rate: 101 P: 91 [place]: 189 QRS: 33 QRSD: 100 T: 109 QT: 329 QTc: 427 Interpretive Statements SINUS TACHYCARDIA POSSIBLE ANTERIOR MYOCARDIAL INFARCTION [30 ms Q WAVE IN V3/V4, OR R < 0.2 mV IN V4], OF INDETERMINATE AGE ST DEPRESSION, CONSIDER SUBENDOCARDIAL INJURY [0.1+ mV ST DEPRESSION] Compared to ECG 07/14/2020 12:22:12 ST (T wave) deviation now present Sinus rhythm no longer present T-wave abnormality no longer present Possible ischemia no longer present Myocardial infarct finding still present Electronically Signed On 08-02-2020 17:32:01 CDT by Ruddy Leach M.D. [id number]
[2020-08-02 06:42] LABS: Basophils # 0.1 10^3/uL (0.0-0.1); Basophils % 0.5 %; Eosinophils % 0.1 %; Hemoglobin 10.3 g/dL (11.7-16.6); Lymphocytes # 0.5 10^3/uL (0.8-4.8); Lymphocytes % 5.6 %; Mean Corpuscular HGB Conc 32.2 g/dL (30.0-36.0); Mean Corpuscular Hemoglobin 32.6 pg (28.0-34.0); Mean Corpuscular Volume 101.3 fL (80-94); Mean Platelet Volume 11.7 fL (7.4-10.4); Monocytes # 0.9 10^3/uL (0.2-0.9); Monocytes % 9.5 %; Neutrophils # 8.08 10^3/uL (1.8-7.7); Neutrophils % 83.9 %; Nucleated Red Blood Cells % 0 %; Platelet Count 436 10^3/cmm (130-400); Red Blood Count 3.16 10^6/uL (4.1-5.3); Red Cell Distribution Width 15.8 % (12.1-15.1); White Blood Count 9.6 10^3/uL (4.0-10.0)
--- NOTE | 2020-08-02 06:50 | W.ED.CHESTPA ---
HPI - Chest Pain General: Chief Complaint: Chest Pain Stated Complaint: CP Time Seen by Provider: 08/02/20 06:26 History of Present Illness: HPI narrative: 85-year-old male comes in complaining of nausea and vomiting that he had last night as well as rapid heart rate. Is very vague and difficult to nail down part history ago. He began experiencing nausea and abdominal discomfort had a couple episodes of vomiting he talked to his niece who advised him to take a nitro he states that did not help. He began to get worse he felt well including some shortness of breath he called his niece back again and they called an ambulance. He is not usually on oxygen but he was placed on oxygen in route at 2 L/min. He tells me he has had a heart attack before but has not had stents or bypass.Patient was seen here in late June at that time he was having an NSTEMI we had made arrangements for him to be admitted that he change his mind and wanted to be transferred. Cardiology had previously seen immediate attempted angiogram they were unable to bridge of the lesion that referred him to [facility] for possible intervention versus bypass he tells me when we transferred him there in June they told him they were not able to do surgery because the case was too complicated and he would not likely survive. It appears after talking to him they have just been maximizing medical therapy since that time. 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 complaint: chest discomfort Pertinent past history: coronary artery disease Onset (ago): minute(s) Timing of current episode: episodic Onset: during rest Pain location: substernal Severity: moderate Quality: aching and heaviness Relieving factors: nitroglycerin and rest Exacerbating factors: nothing Associated symptoms: Deny abdominal pain, diaphoresis, dyspnea, fever(s), leg edema, nausea, palpitations, sense of impending doom, syncope or vomiting Treatment prior to arrival: none Review of Systems Const: Denies: fever(s) or diaphoresis ENMT: Denies: throat pain, ear or mastoid pain, nasal discharge or nasal congestion Card: Denies: palpitations or syncope Resp: Denies: dyspnea GI: Denies: abdominal pain, nausea or vomiting : Denies: flank pain, dysuria, urinary frequency or urinary urgency Skin/Breast: Denies: rash or pruritus PFSH ED PFSH: Medical History Abnormal nuclear stress test Anxiety Bilateral carotid bruits CAD (coronary artery disease) Last angiogram July 2020 demonstrated left main 90% with possible dissection, LAD with ostial mid and first diagonal 80 to 95% and RCA 80% Carotid stenosis Chest pain CHF (congestive heart failure), NYHA class III CKD (chronic kidney disease) Dyslipidemia Dyslipidemia GERD (gastroesophageal reflux disease) History of pancreatic cancer History of stroke Hx of transient ischemic attack (TIA) Hypertension Ischemic cardiomyopathy Multiple falls Noncompliance NSTEMI (non-ST elevated myocardial infarction) Osteoarthritis Pulmonary emphysema Recurrent cerebrovascular accidents (CVAs) Sinus bradycardia Uncontrolled hypertension Surgical History H/O carotid endarterectomy Hx of spinal surgery Family History Brother Heart disease Mother Heart disease Other Stroke Social History Smoking and tobacco status: never smoked Second hand smoke exposure: No Smoking risk assessment/counseling performed?: No Alcohol intake: never Desire information about alcohol rehabilitation?: No Counseling given: No Desire information about substance/drug rehabilitation?: No Counseling given: No Adopted: No Caregiver/support person: Yes Lives independently: Yes Household members: none Housing: Manufactured/Mobile home Marital status: Single Number of children: 2 service: Yes branch: [employer] Current occupational status: retired History of recent travel: No Current gender identity: Male Physical Exam Const: COMMON NORMALS: no acute distress GENERAL APPEARANCE: cooperative and comfortable ORIENTATION/CONSCIOUSNESS: Yes awake, Yes oriented to person, Yes oriented to place and Yes oriented to time HENMT: COMMON NORMALS: normocephalic, atraumatic, hearing grossly normal bilaterally and external ears normal HEAD & SCALP: normocephalic and atraumatic EXTERNAL EAR: Yes external ears normal Resp: COMMON NORMALS: normal respiratory effort, No retractions, No use of accessory muscles and clear to auscultation bilaterally AUSCULTATION: clear to auscultation bilaterally Cardio: COMMON NORMALS: regular rate, regular rhythm and No murmurs present (Cardio) RATE: regular rate RHYTHM: regular rhythm GI: COMMON NORMALS: Soft to palpation and No hepatosplenomegaly present AUSCULTATION: Yes normoactive bowel sounds PALPATION: Yes Soft to palpation, No Tenderness to palpation present (GI), No Guarding due to palpation present (GI) and Yes No hepatosplenomegaly present Extremity: COMMON NORMALS: normal to inspection, capillary refill normal, no clubbing, cyanosis or edema, no calf tenderness and no pedal edema Neuro: SENSORIUM/ORIENTATION: Yes oriented to person, Yes oriented to place and Yes oriented to time Skin: COMMON NORMALS: no rashes or lesions noted GENERAL SKIN EXAM: no rashes or lesions noted Course Vital Signs: Vital signs: Vital Signs Temperature 98.1 F 08/04/20 04:00 Pulse Rate 58 L 08/04/20 04:00 Respiratory Rate 22 H 08/04/20 04:00 Blood Pressure 101/53 08/04/20 04:00 Pulse Oximetry 97 08/04/20 04:00 MDM - Chest Pain MDM Narrative: Medical decision making narrative: No family present at the visit. Once we had evaluated him and found his troponin is going up we discussed with him admission reviewed his old records from [facility] they were unable to do the arthrectomy and did not recommend any further surgery because of his overall health he felt he was not a candidate. He was briefly on a peripheral LVAD which was titrated off Family called for an update and was advised he would be admitted. They told us that several family members were ill and were being tested for Covid they do not have a result out of. Patient was swabbed with a rapid antigen which came back positive. Will admit admit to the floor for maximum medical therapy cardiology to see. Lab Data: Labs: Lab Results 08/02/20 08/02/20 08/02/20 Range/Units 06:35 06:35 06:35 WBC 9.6 (4.0-10.0) 10^3/ uL RBC 3.16 L (4.1-5.3) 10^6/u L Hgb 10.3 L (11.7-16.6) g/dL Hct 32.0 L (42.0-52.0) % MCV 101.3 H (80-94) fL MCH 32.6 (28.0-34.0) pg MCHC 32.2 (30.0-36.0) g/dL RDW 15.8 H (12.1-15.1) % Plt Count 436 H (130-400) 10^3/c mm MPV 11.7 H (7.4-10.4) fL Neut % (Auto) 83.9 % Lymph % (Auto) 5.6 % [place] % (Auto) 9.5 % Eos % (Auto) 0.1 % Baso % (Auto) 0.5 % Neut # (Auto) 8.08 H (1.8-7.7) 10^3/u L Lymph # (Auto) 0.5 L (0.8-4.8) 10^3/u L [place] # (Auto) 0.9 (0.2-0.9) 10^3/u L Eos # (Auto) 0.0 (0.0-0.8) 10^3/u L Baso # (Auto) 0.1 (0.0-0.1) 10^3/u L Nucleated RBC % (a uto) 0 % Nucleated RBCs # 0.0 /100WBC Sodium 137 (136-145) mmol/L Potassium 4.7 (3.5-5.1) mmol/L Chloride 102 (98-107) mmol/L Carbon Dioxide 20 L (22-29) mmol/L Anion Gap 19.7 H (5-19) BUN 30 H (8-23) mg/dL Creatinine 1.8 H (0.7-1.2) mg/dL GFR Calculation Not Reportable Glucose 160 H (65-115) mg/dL Calculated Osmolal ity 294 (285-295) mOsm/k g Calcium 8.7 (8.5-10.5) mg/dL Total Bilirubin 1.1 (0.15-1.2) mg/dL AST 24 (0-40) U/L ALT 60 H (0-41) U/L Alkaline Phosphata se 226 H (40-130) IU/L Troponin T Baselin e 234 H* (0-15) ng/L Troponin T 120 Min [place] (0-15) ng/L Delta Troponin T (0-10) ABS# Total Protein 6.5 L (6.6-8.7) g/dL Albumin 3.8 (3.5-5.2) g/dL Globulin 2.7 (1.3-4.6) g/dL Lipase (13-60) U/L Procalcitonin (0-0.5) ng/mL 08/02/20 08/02/20 08/02/20 Range/Units 06:35 06:35 08:42 WBC (4.0-10.0) 10^3/ uL RBC (4.1-5.3) 10^6/u L Hgb (11.7-16.6) g/dL Hct (42.0-52.0) % MCV (80-94) fL MCH (28.0-34.0) pg MCHC (30.0-36.0) g/dL RDW (12.1-15.1) % Plt Count (130-400) 10^3/c mm MPV (7.4-10.4) fL Neut % (Auto) % Lymph % (Auto) % [place] % (Auto) % Eos % (Auto) % Baso % (Auto) % Neut # (Auto) (1.8-7.7) 10^3/u L Lymph # (Auto) (0.8-4.8) 10^3/u L [place] # (Auto) (0.2-0.9) 10^3/u L Eos # (Auto) (0.0-0.8) 10^3/u L Baso # (Auto) (0.0-0.1) 10^3/u L Nucleated RBC % (a uto) % Nucleated RBCs # /100WBC Sodium (136-145) mmol/L Potassium (3.5-5.1) mmol/L Chloride (98-107) mmol/L Carbon Dioxide (22-29) mmol/L Anion Gap (5-19) BUN (8-23) mg/dL Creatinine (0.7-1.2) mg/dL GFR Calculation Glucose (65-115) mg/dL Calculated Osmolal ity (285-295) mOsm/k g Calcium (8.5-10.5) mg/dL Total Bilirubin (0.15-1.2) mg/dL AST (0-40) U/L ALT (0-41) U/L Alkaline Phosphata se (40-130) IU/L Troponin T Baselin e (0-15) ng/L Troponin T 120 Min [place] 282.7 H (0-15) ng/L Delta Troponin T 48.7 H* (0-10) ABS# Total Protein (6.6-8.7) g/dL Albumin (3.5-5.2) g/dL Globulin (1.3-4.6) g/dL Lipase 15 (13-60) U/L Procalcitonin 0.12 (0-0.5) ng/mL Discharge Plan Discharge Patient Disposition: Home Clinical Impression: Non-ST elevation NM (NSTEMI), COVID-19, Hypertension, CHF (congestive heart failure), NYHA class III, CKD (chronic kidney disease), CAD (coronary artery disease), Anemia Condition: Stable Coding Level of Care Code 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
[2020-08-02 06:58] LABS: Alanine Aminotransferase 60 U/L (0-41); Albumin Level 3.8 g/dL (3.5-5.2); Alkaline Phosphatase 226 IU/L (40-130); Anion Gap 19.7 (5-19); Aspartate Amino Transferase 24 U/L (0-40); Blood Urea Nitrogen 30 mg/dL (8-23); Calcium 8.7 mg/dL (8.5-10.5); Carbon Dioxide 20 mmol/L (22-29); Chloride 102 mmol/L (98-107); Globulin 2.7 g/dL (1.3-4.6); Glucose 160 mg/dL (65-115); Osmolality Calculated 294 mOsm/kg (285-295); Potassium 4.7 mmol/L (3.5-5.1); Sodium 137 mmol/L (136-145); Total Bilirubin 1.1 mg/dL (0.15-1.2); Total Protein 6.5 g/dL (6.6-8.7)
[2020-08-02 07:07] LABS: Troponin(5th) Baseline 234 ng/L (0-15)
[2020-08-02] MEDS: FUROsemide 10 mg/mL SDV 10mL 80 MG IVP (07:34)
--- NOTE | 2020-08-02 08:27 | ECG_ITS ---
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 Measurements Intervals [place] Rate: 77 P: 37 [place]: 199 QRS: 48 QRSD: 90 T: 129 QT: 374 QTc: 425 Interpretive Statements SINUS RHYTHM POSSIBLE ANTERIOR MYOCARDIAL INFARCTION [30 ms Q WAVE IN V3/V4, OR R < 0.2 mV IN V4], OF INDETERMINATE AGE MODERATE T-WAVE ABNORMALITY, CONSIDER LATERAL ISCHEMIA [-0.1+ mV T WAVE IN I/aVL/V5/V6] Compared to ECG 07/14/2020 12:22:12 No significant changes Electronically Signed On 08-02-2020 17:38:37 CDT by Ruddy Leach M.D. [id number]
[2020-08-02 09:09] LABS: Troponin 5 2HR 282.7 ng/L (0-15); Troponin 5 2HR Delta 48.7 ABS# (0-10)
[2020-08-02] MEDS: nitroglycerin 1 gm/inch oint Pkt 0.5 INCH TOPICAL (10:05)
[2020-08-02] MEDS: enoxaparin 60 mg/0.6 mL Syringe SUBCUT (10:12)
--- NOTE | 2020-08-02 12:27 | ECG_ITS ---
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 Measurements Intervals [place] Rate: 93 P: OR: QRS: 18 QRSD: 93 T: 120 QT: 337 QTc: 420 Interpretive Statements Sinus rhtyhm Anterior wall myocardial infarction, probably old Compared to ECG 08/02/2020 08:31:08 T-wave abnormality no longer present Possible ischemia no longer present Myocardial infarct finding still present Electronically Signed On 08-02-2020 17:37:32 CDT by Ruddy Leach M.D. [id number] f
--- NOTE | 2020-08-02 12:35 | PC.NURSE ---
Received report from Evelyn in the ER, patient arrived to the floor via stretcher. VS stable upon arrival, no pain. Patient is nauseated, Zofran will be administered. Patient oriented to room and call schmidt.
[2020-08-02] MEDS: ondansetron 2 mg/ML SDV 2 mL 4 MG IVP (12:53)
[2020-08-02 13:30] LABS: Troponin 5 6HR 375.9 ng/L (0-15); Troponin 5 6HR Delta 141.9 ng/L (0-12)
[2020-08-02 13:51] LABS: SARS Covid-2 Antigen Positive (Negative)
--- NOTE | 2020-08-02 14:00 | PM.HP ---
Providers/Chief Complaint Admitting Physician: Navi Pugh MD Primary Care Provider: YELITZA Mon Chief Complaint: CP History of Present Illness Anita Sauer is a 85 year old male who presents to the emergency department with complaints of nausea and some vomiting. He was recently in [facility] in late June through early July with a myocardial infarction. Angiogram was performed, and he required Impella for anticipated bypass surgery. However, he was deemed too high risk and patient ultimately refused. He was offered hospice but not interested at this time. He has had some chest discomfort, which is difficult to describe. He denies any discomfort currently but does report he has some nausea. He does not think he has had a fever but is not sure. Overall history is very difficult, and patient appears to have some type of speech impediment. A Covid test was ordered by the emergency department, as many family members were being tested for Covid as they felt ill. The test has now returned positive. Review of Systems General: Reports: 10 or more systems reviewed and unremarkable except in HPI and below Const: Denies: fever(s) Eyes: Denies: change in vision ENMT: Denies: throat pain Card: Reports: chest pain and dyspnea on exertion Resp: Reports: dyspnea GI: Reports: nausea and vomiting; Denies: abdominal pain : Denies: flank pain Musc: Denies: neck pain Skin/Breast: Denies: rash or pruritus Neuro: Denies: headache(s) Psych: Denies: anxiety or depression Endo: Denies: polyuria Rocky/Lymph: Denies: easy bruising All/Imm: Denies: urticaria Medications/Allergies Home Medications Medication Instructions Recorded Confirmed Last Taken Type cholecalciferol (vitamin D3) 25 50 mcg PO DAILY 03/29/20 08/02/20 07/02/20 History mcg (1,000 unit) capsule aspirin 81 mg PO DAILY 05/29/20 08/02/20 07/02/20 History carvedilol 3.125 mg PO BID 05/29/20 08/02/20 07/02/20 History clopidogrel 75 mg PO DAILY 05/29/20 08/02/20 07/02/20 History famotidine 20 mg PO DAILY 05/29/20 08/02/20 07/02/20 History isosorbide dinitrate 20 mg PO TID 0408/02/20 07/02/20 History tamsulosin 0.4 mg PO DAILY 05/29/20 08/02/20 07/02/20 History lisinopril 20 mg PO DAILY #30 tab 06/03/20 08/02/20 07/02/20 Rx ondansetron 8 mg disintegrating 8 mg PO Q8H PRN #90 tab 07/26/20 08/02/20 Unknown Rx tablet amlodipine 2.5 mg PO DAILY 08/02/20 08/02/20 Unknown History atorvastatin 40 mg PO DAILY 08/02/20 08/02/20 Unknown History docusate sodium 100 mg PO BID 08/02/20 08/02/20 Unknown History hydralazine 25 mg PO TID 08/02/20 08/02/20 Unknown History metoprolol succinate 25 mg PO DAILY 08/02/20 08/02/20 Unknown History nitroglycerin [Nitrostat] 0.4 mg SUBLINGUAL Q5M PRN 08/02/20 08/02/20 Unknown History Allergies Allergy/AdvReac Type Severity Reaction Status Date / Time Penicillins Allergy Intermediate unknown Verified 07/11/20 21:11 PFSH Acute PFSH: Medical History (Updated 08/02/20 @ 14:20 by Navi Pugh MD) Abnormal nuclear stress test Anxiety Bilateral carotid bruits CAD (coronary artery disease) Last angiogram July 2020 demonstrated left main 90% with possible dissection, LAD with ostial mid and first diagonal 80 to 95% and RCA 80% Carotid stenosis Chest pain CHF (congestive heart failure), NYHA class III CKD (chronic kidney disease) Dyslipidemia Dyslipidemia GERD (gastroesophageal reflux disease) History of pancreatic cancer History of stroke Hx of transient ischemic attack (TIA) Hypertension Ischemic cardiomyopathy Multiple falls Noncompliance NSTEMI (non-ST elevated myocardial infarction) Osteoarthritis Pulmonary emphysema Recurrent cerebrovascular accidents (CVAs) Sinus bradycardia Uncontrolled hypertension Surgical History H/O carotid endarterectomy Hx of spinal surgery Family History Brother Heart disease Mother Heart disease Other Stroke Social History Smoking and tobacco status: never smoked Second hand smoke exposure: No Smoking risk assessment/counseling performed?: No Alcohol intake: never Desire information about alcohol rehabilitation?: No Counseling given: No Desire information about substance/drug rehabilitation?: No Counseling given: No Adopted: No Caregiver/support person: Yes Lives independently: Yes Household members: none Housing: Manufactured/Mobile home Marital status: Single Number of children: 2 service: Yes branch: [employer] Current occupational status: retired History of recent travel: No Current gender identity: Male Vitals/I&O/Wt Last Vital Signs Temp 97.4 F L 08/02/20 10:13 Pulse 89 08/02/20 11:25 Resp 22 H 08/02/20 11:25 BP 135/78 08/02/20 11:25 Pulse Ox 94 08/02/20 11:25 Weight last 48 hrs Weight 58.967 kg Physical Exam Narrative: EXAM NARRATIVE: General exam is an elderly male, in no apparent distress. He is holding an emesis bucket which indicates nausea. HEENT: Pupils equally round. Oropharynx clear. Neck is supple no lymphadenopathy or thyromegaly Cardiovascular regular rate and rhythm, heart sounds distant. 2/6 systolic murmur Lungs bibasilar crackles Abdomen is soft with positive bowel sounds. No obvious organomegaly is deferred Extremities no cyanosis clubbing or edema, cap refill brisk Skin no rash Neuro no focal deficits. Data : 08/02/20 06:35 08/02/20 06:35 Other data: Rapid Covid is positive Calcium 8.7, ALT 60, alk phos 226, troponin initial to 34, 287 and 120 minutes and 375 at 6 hours Chest x-ray bilateral infiltrates consistent with CHF. EKG demonstrates sinus tachycardia with a rate of 100, flipped T waves V5 V6 as well as laterally. A&P Assessment and plan (1) Non-ST elevation DE (NSTEMI): Anticoagulation with Lovenox Maximum medication management Discussed with patient CODE STATUS, he is allow natural . He does not want bypass. He is not a candidate for any percutaneous intervention. He has severe three-vessel disease. Has underlying chronic systolic heart failure, with acute exacerbation. He received a dose of diuretics in the emergency department, 80 mg at around 6 AM. Reevaluate tomorrow for repeat dosing. Nitroglycerin ointment Continue amlodipine Increase carvedilol Cardiology consult Check lipase and blood in lab secondary to nausea Status: Acute (2) COVID-19: Diagnosed today Initiate remdesivir, dexamethasone Prognosis guarded I suspect he has some element of COVID-19 pneumonia. He is currently requiring oxygen, and has bilateral infiltrates. Cannot rule out some of this infiltrate is secondary to acute systolic CHF Check inflammatory markers tomorrow Procalcitonin level today Status: Acute (3) Anemia: Follow closely. Protonix for GI prophylaxis Status: Acute (4) CHF (congestive heart failure), NYHA class III: Diuretics initiated in the emergency department. He received 80 mg IV Lasix x1. Status: Acute Qualifiers: Congestive heart failure type: unspecified Qualified Code(s): I50.9 - Heart failure, unspecified (5) CKD (chronic kidney disease): Follow renal function closely Hold lisinopril Status: Acute Additional A&P Information Past history of CVA Multiple other medical problems as outlined in his past medical history allow natural . Discussed in detail with the patient. Lovenox will suffice for DVT prophylaxis. Attestations Medical Necessity Statement*: Will need greater than 2 midnight stay for evaluation and treatment of acute myocardial infarction, COVID-19 pneumonia Time Spent in Patient Care: Greater than 35 minutes Coding Level of Care Code Acute Shipping & Receiving Lead for [facility] Fwd Diagnoses Non-ST elevation DE (NSTEMI) I21.4 COVID-19 U07.1 Anemia D64.9 CHF (congestive heart failure), NYHA class III I50.9 Congestive heart failure type: unspecified CKD (chronic kidney disease) N18.9
[2020-08-02] MEDS: dexamethasone 4 mg/mL INJ 6 MG IVP (14:57)
[2020-08-02] MEDS: remdesivir 200 MG in sodium chloride 0.9% (100 ml) 100 ML 100 MG IV (14:58)
[2020-08-02] MEDS: nitroglycerin 1 gm/inch oint Pkt 1 INCH TOPICAL ×2 (14:58→21:50)
[2020-08-02 15:00] LABS: Lipase 15 U/L (13-60)
[2020-08-02 15:07] LABS: Procalcitonin 0.12 ng/mL (0-0.5)
--- NOTE | 2020-08-02 17:17 | P.CONIM_ITS ---
Providers/Reason For Consult Consulting Physician/Specialty*: Ruddy Leach MD/cardiology Reason for Consult*: NSTEMI Requesting Physician: Dr Pugh Attending Physician: Navi Pugh MD Primary Care Provider: YELITZA Mon History of Present Illness History of Present Illness Anita Sauer is a 85 year old male with past medical history of hypertension, coronary artery disease presented to hospital with complaints of nausea and vomitting. Patient had a recent admission to the hospital when PCI was attempted however could not be successful. He also had recent [place] in June and was in [place] where CABG was offered however patient refused given high risk procedure. He is not a good historian. He says has some chest discomfort. His troponins did go up. At that time hospice was offered however patient did not want to undergo hospice care. He also has dyspnea on exertion. He has also tested positive for COVID.EKG shows ST depressions in the inferior leads. On coronary angiogram performed here in May, he had LAD/diagonal artery buifurcation disease. Revascularization was unsuccessful Review of Systems General: Reports: 10 or more systems reviewed and unremarkable except in HPI and below Const: Denies: fever(s) Eyes: Denies: change in vision ENMT: Denies: throat pain Card: Reports: chest pain and dyspnea on exertion Resp: Reports: dyspnea GI: Reports: nausea and vomiting; Denies: abdominal pain : Denies: flank pain Musc: Denies: neck pain Skin/Breast: Denies: rash or pruritus Neuro: Denies: headache(s) Psych: Denies: anxiety or depression Endo: Denies: polyuria Rocky/Lymph: Denies: easy bruising All/Imm: Denies: urticaria Meds/Allergies Home Medications and Allergies Home Medications Medication Instructions Recorded Confirmed Last Taken Type cholecalciferol (vitamin D3) 25 50 mcg PO DAILY 03/29/20 08/02/20 07/02/20 History mcg (1,000 unit) capsule aspirin 81 mg PO DAILY 05/29/20 08/02/20 07/02/20 History carvedilol 3.125 mg PO BID 05/29/20 08/02/20 07/02/20 History clopidogrel 75 mg PO DAILY 05/29/20 08/02/20 07/02/20 History famotidine 20 mg PO DAILY 05/29/20 08/02/2007/02/21 History isosorbide dinitrate 20 mg PO TID 05/29/20 08/02/20 07/02/20 History tamsulosin 0.4 mg PO DAILY 05/29/20 08/02/20 07/02/20 History lisinopril 20 mg PO DAILY #30 tab 06/03/20 08/02/20 07/02/20 Rx ondansetron 8 mg disintegrating 8 mg PO Q8H PRN #90 tab 07/26/20 08/02/20 Unknow n Rx tablet amlodipine 2.5 mg PO DAILY 08/02/20 08/02/20 Unknown History atorvastatin 40 mg PO DAILY 08/02/20 08/02/20 Unknown History docusate sodium 100 mg PO BID 08/02/20 08/02/20 Unknown History hydralazine 25 mg PO TID 08/02/20 08/02/20 Unknown History metoprolol succinate 25 mg PO DAILY 08/02/20 08/02/20 Unknown History nitroglycerin [Nitrostat] 0.4 mg SUBLINGUAL Q5M PRN 08/02/20 08/02/20 Unknown History Allergies Allergy/AdvReac Type Severity Reaction Status Date / Time Penicillins Allergy Intermediate unknown Verified 07/11/20 21:11 Current Medications Current Medications Generic Name Dose Route Start Last Admin Trade Name Freq PRN Reason Stop Dose Admin Dexamethasone 6 mg 08/02/20 14:30 08/02/20 14:57 Dexamethasone 4 Mg/Ml Inj IVP 6 mg Q24H JESSICA Administration Nitroglycerin 1 inch 08/02/20 12:33 08/02/20 14:58 Nitroglycerin 1 Gm/Inch Oint Pkt TOPICAL 1 inch Q6H JESSICA Administration Ondansetron HCl 4 mg 08/02/20 12:33 08/02/20 12:53 Ondansetron 2 Mg/Ml Sdv 2 Ml IVP 4 mg Q6H PRN Administration NAUSEA AND VOMITING PFSH Acute PFSH: Medical History Abnormal nuclear stress test Anxiety Bilateral carotid bruits CAD (coronary artery disease) Last angiogram July 2020 demonstrated left main 90% with possible dissection, LAD with ostial mid and first diagonal 80 to 95% and RCA 80% Carotid stenosis Chest pain CHF (congestive heart failure), NYHA class III CKD (chronic kidney disease) Dyslipidemia Dyslipidemia GERD (gastroesophageal reflux disease) History of pancreatic cancer History of stroke Hx of transient ischemic attack (TIA) Hypertension Ischemic cardiomyopathy Multiple falls Noncompliance NSTEMI (non-ST elevated myocardial infarction) Osteoarthritis Pulmonary emphysema Recurrent cerebrovascular accidents (CVAs) Sinus bradycardia Uncontrolled hypertension Surgical History H/O carotid endarterectomy Hx of spinal surgery Family History Brother Heart disease Mother Heart disease Other Stroke Social History Smoking and tobacco status: never smoked Second hand smoke exposure: No Smoking risk assessment/counseling performed?: No Alcohol intake: never Desire information about alcohol rehabilitation?: No Counseling given: No Desire information about substance/drug rehabilitation?: No Counseling given: No Adopted: No Caregiver/support person: Yes Lives independently: Yes Household members: none Housing: Manufactured/Mobile home Marital status: Single Number of children: 2 service: Yes branch: [employer] Current occupational status: retired History of recent travel: No Current gender identity: Male Vitals/I&O/Wt Last Vital Signs Temp 97.4 F L 08/02/20 10:13 Pulse 89 08/02/20 11:25 Resp 22 H 08/02/20 11:25 BP 135/78 08/02/20 11:25 Pulse Ox 94 08/02/20 11:25 Weight last 48 hrs Weight 130 lb Physical Exam Narrative: EXAM NARRATIVE: GENERAL: Patient is alert, awake and oriented x3. [] NECK: No jugular vein distension. [] HEENT: No cyanosis. No icterus. No pallor. [] HEART: Regular S1 and S2. No murmur, rub or gallop. [] LUNGS: Clear to auscultate bilaterally. [] ABDOMEN: Soft, nontender and nondistended. Positive bowel sounds. No guarding, rebound or tenderness. [] CENTRAL NERVOUS SYSTEM: Grossly nonfocal. [] EXTREMITIES: Lower extremities with 1+ edema bilaterally. Pulses palpable in the lower extremities, both dorsalis pedis and posterior tibial. [] A&P Assessment and plan (1) Non-ST elevation [place] (NSTEMI): Status: Acute (2) CAD (coronary artery disease): Status: Acute Qualifiers: Coronary Disease-Associated Artery/Lesion type: [place] artery [place] vs. transplanted heart: [place] heart Associated angina: with stable angina Qualified Code(s): I25.118 - Atherosclerotic heart disease of [place] coronary artery with other forms of angina pectoris (3) Dyslipidemia: Status: Acute (4) CHF (congestive heart failure), NYHA class III: Status: Acute Qualifiers: Congestive heart failure type: unspecified Qualified Code(s): I50.9 - Heart failure, unspecified (5) Hypertension: Status: Acute Qualifiers: Hypertension type: unspecified Qualified Code(s): I10 - Essential (primary) hypertension (6) COVID-19: Status: Acute Patient has presented with troponin elevation. He is also positive for Covid. Chest pain symptoms awake however troponin elevation was significant. Medical management was decided already in the prior admissions. He is a DNR. No plans for further invasive work up Continue aspirin and Plavix. 48 hours of anticoagulation. Patient appears euvolemic at this time. Will not aggressively diurese. Hold lasix for now Tele monitoring Uptitrate Coreg as blood pressure tolerates Continue Atorvastatin Thank you for involving us with care of this patient. We will continue to follow. Please call with questions. Coding Level of Care Code Acute Business Systems Administrator for [facility] Diagnoses Non-ST elevation [place] (NSTEMI) I21.4 CAD (coronary artery disease) I25.118 Coronary Disease-Associated Artery/Lesion type: [place] artery [place] vs. transplanted heart: [place] heart Associated angina: with stable angina Dyslipidemia E78.5 CHF (congestive heart failure), NYHA class III I50.9 Congestive heart failure type: unspecified Hypertension I10 Hypertension type: unspecified COVID-19 U07.1
[2020-08-02] MEDS: pantoprazole DR 40 mg Tablet PO (18:03)
[2020-08-02] MEDS: docusate sodium 100 mg Capsule PO (18:03)
[2020-08-02] MEDS: carvedilol 6.25 mg Tablet PO (21:50)
[2020-08-03] VITALS (12 sets, daily range): BP systolic 84–113; BP diastolic 43–62; PULSE 59–75; RESP 12–26; TEMP 36.6–37.1; O2SAT 4–99; BMI 19.8
[2020-08-03] MEDS: nitroglycerin 1 gm/inch oint Pkt 1 INCH TOPICAL (02:23)
[2020-08-03 05:24] LABS: Basophils % 0.2 %; Hematocrit 29.1 % (42.0-52.0); Hemoglobin 9.6 g/dL (11.7-16.6); Lymphocytes # 0.6 10^3/uL (0.8-4.8); Lymphocytes % 10.8 %; Mean Corpuscular Hemoglobin 32.5 pg (28.0-34.0); Mean Corpuscular Volume 98.6 fL (80-94); Mean Platelet Volume 12.3 fL (7.4-10.4); Monocytes # 0.9 10^3/uL (0.2-0.9); Monocytes % 14.6 %; Neutrophils % 74.1 %; Nucleated Red Blood Cells % 0 %; Platelet Count 408 10^3/cmm (130-400); Red Blood Count 2.95 10^6/uL (4.1-5.3); Red Cell Distribution Width 15.6 % (12.1-15.1); White Blood Count 5.9 10^3/uL (4.0-10.0)
[2020-08-03 05:36] LABS: D Dimer 1.46 ug/mIFEU (0-0.59)
[2020-08-03 05:48] LABS: Alanine Aminotransferase 41 U/L (0-41); Albumin Level 3.2 g/dL (3.5-5.2); Alkaline Phosphatase 168 IU/L (40-130); Anion Gap 15.2 (5-19); Aspartate Amino Transferase 29 U/L (0-40); Blood Urea Nitrogen 46 mg/dL (8-23); C Reactive Protein 126.1 mg/L (0.0-4.9); Calcium 8.1 mg/dL (8.5-10.5); Carbon Dioxide 25 mmol/L (22-29); Chloride 101 mmol/L (98-107); Ferritin 345 ng/mL (30-400); Globulin 2.7 g/dL (1.3-4.6); Glucose 137 mg/dL (65-115); Osmolality Calculated 298 mOsm/kg (285-295); Potassium 4.2 mmol/L (3.5-5.1); Sodium 137 mmol/L (136-145); Total Bilirubin 0.7 mg/dL (0.15-1.2); Total Protein 5.9 g/dL (6.6-8.7)
[2020-08-03] MEDS: tamsulosin 0.4 mg Capsule PO (08:20)
[2020-08-03] MEDS: aspirin 81 mg EC Tablet PO (08:20)
[2020-08-03] MEDS: atorvastatin 40 mg Tablet PO (08:20)
[2020-08-03] MEDS: docusate sodium 100 mg Capsule PO ×2 (08:20→18:23)
[2020-08-03] MEDS: pantoprazole DR 40 mg Tablet PO ×2 (08:20→18:23)
[2020-08-03] MEDS: clopidogrel 75 mg Tablet PO (08:20)
--- NOTE | 2020-08-03 08:39 | PC.NURSE ---
Received orders to d/c amlodipine, and to give one time dose of 3.125 of carvedilol due to patients blood pressure of 93/61.
[2020-08-03] MEDS: carvedilol 3.125 mg Tablet PO ×2 (08:46→21:02)
--- NOTE | 2020-08-03 09:57 | PC.CHAP ---
Pastoral Care Encounter/Spiritual Assessment Type of Contact [] Declined recreational specialist visit [] Patient/Family/Request visit [] Outpatient visit [] Follow-up visit [] Physician referral [] Code/Alert [x] Routine visit [] Staff referral [] Actively dying [] Patient sleeping [] Family support [] [] Out of room [] Palliative care [] [] Receiving care in room [] Pre-surgical visit [] Trauma [] Long length of stay [] ICU visit [x] Other: quarantine Relational/Emotional Strength [] Patient feels connected with others/family/visitors/staff [] Distress [] Loneliness/isolation [] Abandonment Spirituality of Patient [] Person of Christen [] Attends Hoahaoism of their Christen [] Believes in Prayer [] Reads Bible or Latter Day materials [] There are Spiritual issues to be addressed [place]orer [place] Interventions [x] Prayer [] Active listening [] Non-anxious presence [] Spiritual/emotional support [] Crisis/trauma care [] Spiritual counseling [] Bereavement support [] Provided bereavement packet [] Provided Bible/devotional materials [] Provided toy/stuffed animal, coloring book to patient or family member [] Provided Communion [] Anointing/[place] [] Salvation [x] Completed spiritual assessment [] Other: Impact on Illness or Injury [] Angry [] Fearful [] Anxious [] Often cries [] Exhaustion [] Unable to work [] Unable to attend hindu [] Unable to walk/stand [] Unable to read [] Unable to drive [] Unable to eat/drink [] Unable to sleep [] Unable to be with family [] Patient intubated [] Other: Summary Time spent with patient
[2020-08-03] MEDS: enoxaparin 60 mg/0.6 mL Syringe SUBCUT (10:34)
--- NOTE | 2020-08-03 10:49 | PC.NUTR ---
Nutrition assessment completed due to BMI < 23 in age >65 years, MST score of 3, dx protein-calorie malnutrition (moderate) per [facility] records. Recommend Ensure BID to provide additional kcal/protein. Recommend monitor renal labs, can consider change to Nepro supplement if K/Phos elevated. Recommend obtain Phos level due to CKD stage 3. [address] assessment for further details.
--- NOTE | 2020-08-03 12:16 | PM.PN ---
Subjective Subjective: Interval history: Anita reports he feels okay this morning. Does not feel too short of breath. Not any significant coughing currently. Medications: Reviewed: Yes Vitals/I&O/Wt Last Vital Signs Temp 98.2 F 08/03/20 11:28 Pulse 63 08/03/20 11:28 Resp 12 08/03/20 11:28 BP 84/43 08/03/20 11:28 Pulse Ox 96 08/03/20 11:28 08/02/20 08/03/20 08/03/20 22:59 06:59 14:59 Intake Total 100 / 100 0 / 100 240 / 240 Output Total 350 / 350 Balance -250 / -250 0 / -250 240 / 240 Weight last 48 hrs Weight 58.967 kg Weight 58.967 kg Physical Exam Narrative: EXAM NARRATIVE: General exam no apparent distress, denies chest discomfort Neck is supple no lymphadenopathy or thyromegaly Cardiovascular regular rate and rhythm, heart sounds distant. 2/6 systolic murmur Lungs a few faint crackles Abdomen is soft with positive bowel sounds. No obvious organomegaly Extremities no cyanosis clubbing or edema, cap refill brisk Data : 08/03/20 04:24 08/03/20 04:24 A&P Assessment and plan (1) Non-ST elevation [place] (NSTEMI): Anticoagulation with Lovenox Maximum medication management. This is being limited some by hypotension. Try to continue low-dose beta-chevy Discontinue nitroglycerin ointment, amlodipine Discussed with patient CODE STATUS, he is allow natural . He does not want bypass. He is not a candidate for any percutaneous intervention. He has severe three-vessel disease. Has underlying chronic systolic heart failure, with acute exacerbation. He received a dose of diuretics in the emergency department, 80 mg at around 6 AM. On evaluation today he appears compensated so no further diuretic Appreciate cardiology consultation Status: Acute (2) COVID-19: Continue remdesivir, dexamethasone Prognosis guarded I suspect he has some element of COVID-19 pneumonia. He is currently requiring oxygen, and has bilateral infiltrates. Cannot rule out some of this infiltrate is secondary to acute on chronic systolic CHF Check inflammatory markers elevated as expected Procalcitonin level was checked and normal Status: Acute (3) Anemia: Follow closely. Protonix for GI prophylaxis Status: Acute (4) CHF (congestive heart failure), NYHA class III: Diuretics initiated in the emergency department. He received 80 mg IV Lasix x1. Status: Acute Qualifiers: Congestive heart failure type: unspecified Qualified Code(s): I50.9 - Heart failure, unspecified (5) CKD (chronic kidney disease): Follow renal function closely Hold lisinopril Status: Acute Additional A&P Information Past history of CVA Anemia, continue to follow closely Multiple other medical problems as outlined in his past medical history allow natural . Discussed in detail with the patient. Lovenox will suffice for DVT prophylaxis. GI prophylaxis with Protonix Attestations Medical Necessity Statement*: Needs continued hospitalization for treatment of COVID-19 pneumonia. Coding Level of Care Code Acute Zyglo Inspector for [facility] Fwd Diagnoses Non-ST elevation [place] (NSTEMI) I21.4 COVID-19 U07.1 Anemia D64.9 CHF (congestive heart failure), NYHA class III I50.9 Congestive heart failure type: unspecified CKD (chronic kidney disease) N18.9
[2020-08-03] MEDS: dexamethasone 4 mg/mL INJ 6 MG IVP (13:37)
[2020-08-03] MEDS: remdesivir 100 MG in sodium chloride 0.9% (100 ml) 100 ML IV (18:23)
[2020-08-04] VITALS (10 sets, daily range): BP systolic 101–124; BP diastolic 53–68; PULSE 57–70; RESP 16–22; TEMP 36.3–36.9; O2SAT 96–100
[2020-08-04 05:22] LABS: Basophils % 0.1 %; Hematocrit 26.1 % (42.0-52.0); Hemoglobin 8.9 g/dL (11.7-16.6); Lymphocytes # 0.8 10^3/uL (0.8-4.8); Lymphocytes % 11.2 %; Mean Corpuscular HGB Conc 34.1 g/dL (30.0-36.0); Mean Corpuscular Hemoglobin 33.8 pg (28.0-34.0); Mean Corpuscular Volume 99.2 fL (80-94); Mean Platelet Volume 12.5 fL (7.4-10.4); Neutrophils # 5.69 10^3/uL (1.8-7.7); Neutrophils % 75.6 %; Nucleated Red Blood Cells % 0 %; Platelet Count 349 10^3/cmm (130-400); Red Blood Count 2.63 10^6/uL (4.1-5.3); Red Cell Distribution Width 15.5 % (12.1-15.1); White Blood Count 7.5 10^3/uL (4.0-10.0)
[2020-08-04 05:44] LABS: Alanine Aminotransferase 31 U/L (0-41); Albumin Level 2.7 g/dL (3.5-5.2); Alkaline Phosphatase 138 IU/L (40-130); Aspartate Amino Transferase 23 U/L (0-40); Blood Urea Nitrogen 62 mg/dL (8-23); Calcium 7.6 mg/dL (8.5-10.5); Carbon Dioxide 24 mmol/L (22-29); Chloride 100 mmol/L (98-107); Globulin 2.4 g/dL (1.3-4.6); Glucose 133 mg/dL (65-115); Osmolality Calculated 298 mOsm/kg (285-295); Sodium 134 mmol/L (136-145); Total Bilirubin 0.5 mg/dL (0.15-1.2); Total Protein 5.1 g/dL (6.6-8.7)
[2020-08-04 05:50] LABS: Anion Gap 14.6 (5-19); Potassium 4.6 mmol/L (3.5-5.1)
--- NOTE | 2020-08-04 08:41 | PM.PN ---
Subjective Subjective: Interval history: Anita reports he is doing okay this morning. Does not feel short of breath. No chest discomfort. We visited again about why he is here, and his Covid diagnosis. He again confirms he would like to go to the custodial secondary to his weakness and need for rehabilitation. Medications: Reviewed: Yes Vitals/I&O/Wt Last Vital Signs Temp 97.3 F L 08/04/20 07:27 Pulse 57 L 08/04/20 07:27 Resp 18 08/04/20 07:27 BP 101/53 08/04/20 07:27 Pulse Ox 98 08/04/20 07:27 08/03/20 08/04/20 08/04/20 22:59 06:59 14:59 Intake Total 340 / 940 100 / 1040 300 / 300 Output Total 400 / 400 Balance -60 / 540 100 / 640 300 / 300 Weight last 48 hrs Weight 58.967 kg Physical Exam Narrative: EXAM NARRATIVE: General exam no apparent distress, denies chest discomfort Neck is supple no lymphadenopathy or thyromegaly Cardiovascular regular rate and rhythm, heart sounds distant. 2/6 systolic murmur Lungs a few faint crackles Abdomen is soft with positive bowel sounds. No obvious organomegaly Extremities no cyanosis clubbing or edema, cap refill brisk Data : 08/04/20 04:20 08/04/20 04:20 A&P Assessment and plan (1) Non-ST elevation [place] (NSTEMI): Anticoagulation with Lovenox. This will be stopped today and he will be put on DVT prophylaxis dosing. He has been fully anticoagulated for 48 hours after his non-ST elevation myocardial infarction Maximum medication management. This is being limited some by hypotension. Currently on low-dose carvedilol, Plavix, aspirin, statin Discussed with patient CODE STATUS, he is allow natural . He does not want bypass. He is not a candidate for any percutaneous intervention. He has severe three-vessel disease. Has underlying chronic systolic heart failure, with acute exacerbation. He received a dose of diuretics in the emergency department, 80 mg on day of admission. Will start p.o. diuretics today. Appreciate cardiology consultation Status: Acute (2) COVID-19: Continue remdesivir, dexamethasone Prognosis guarded I suspect he has some element of COVID-19 pneumonia. He is currently requiring oxygen, and has bilateral infiltrates. Cannot rule out some of this infiltrate is secondary to acute on chronic systolic CHF Inflammatory markers will be rechecked tomorrow Procalcitonin level was checked and normal Status: Acute (3) Anemia: Follow closely. Protonix for GI prophylaxis Status: Acute (4) CHF (congestive heart failure), NYHA class III: Initiate oral Lasix today, close follow-up of electrolytes Status: Acute (5) CKD (chronic kidney disease): Lisinopril discontinued. Continue to follow. Status: Acute Additional A&P Information Past history of CVA Anemia, continue to follow closely Multiple other medical problems as outlined in his past medical history allow natural . Discussed in detail with the patient. Lovenox will suffice for DVT prophylaxis. GI prophylaxis with Protonix Attestations Medical Necessity Statement*: Needs continued hospital stay for adjustment of medications and treatment of Covid secondary to COVID-19 pneumonia as well as acute CHF and non-ST elevation myocardial infarction. Coding Level of Care Code Acute Printed Circuit Boards Stripper Etcher for [facility] Diagnoses Non-ST elevation [place] (NSTEMI) I21.4 COVID-19 U07.1 Anemia D64.9 CHF (congestive heart failure), NYHA class III I50.9 CKD (chronic kidney disease) N18.9
[2020-08-04] MEDS: pantoprazole DR 40 mg Tablet PO ×2 (10:17→17:36)
[2020-08-04] MEDS: docusate sodium 100 mg Capsule PO ×2 (10:18→17:36)
[2020-08-04] MEDS: atorvastatin 40 mg Tablet PO (10:18)
[2020-08-04] MEDS: FUROsemide 40 mg Tablet PO (10:18)
[2020-08-04] MEDS: aspirin 81 mg EC Tablet PO (10:18)
[2020-08-04] MEDS: clopidogrel 75 mg Tablet PO (10:18)
[2020-08-04] MEDS: tamsulosin 0.4 mg Capsule PO (10:18)
[2020-08-04] MEDS: enoxaparin 30 mg/0.3 mL Syringe SUBCUT (10:19)
[2020-08-04] MEDS: carvedilol 3.125 mg Tablet PO ×2 (10:23→21:00)
[2020-08-04] MEDS: remdesivir 100 MG in sodium chloride 0.9% (100 ml) 100 ML IV (14:39)
[2020-08-04] MEDS: dexamethasone 4 mg/mL INJ 6 MG IVP (14:41)
--- NOTE | 2020-08-04 17:17 | PC.NURSE ---
called to patient room with patient concerns my heart don't feel right feels like it is working to hard blood pressure HR and all other v/s wnl patient denies chest pain states it just don't feel right Dr Pugh notified of patient concerns no new orders at this time will continue to monitor
--- NOTE | 2020-08-04 22:43 | PM.PN ---
Subjective Subjective: Interval history: Patient is doing well. No chest pain. Completed 48 hours of anticoagulation. Vitals/I&O/Wt Last Vital Signs Temp 97.9 F 08/04/20 19:42 Pulse 70 08/04/20 19:42 Resp 16 08/04/20 19:42 BP 108/57 08/04/20 19:42 Pulse Ox 97 08/04/20 19:42 08/04/20 08/04/20 08/04/20 06:59 14:59 22:59 Intake Total 100 / 1040 800 / 800 336 / 1136 Output Total 425 / 425 1075 / 1500 Balance 100 / 640 375 / 375 -739 / -364 Weight last 48 hrs Weight 130 lb Physical Exam Narrative: EXAM NARRATIVE: GENERAL: Patient is alert, awake and oriented x3. [] NECK: No jugular vein distension. [] HEENT: No cyanosis. No icterus. No pallor. [] HEART: Regular S1 and S2. No murmur, rub or gallop. [] LUNGS: Clear to auscultate bilaterally. [] ABDOMEN: Soft, nontender and nondistended. Positive bowel sounds. No guarding, rebound or tenderness. [] CENTRAL NERVOUS SYSTEM: Grossly nonfocal. [] EXTREMITIES: Lower extremities with 1+ edema bilaterally. Pulses palpable in the lower extremities, both dorsalis pedis and posterior tibial. [] Data : 08/05/20 05:09 08/05/20 05:09 A&P Assessment and plan (1) Non-ST elevation [place] (NSTEMI): Status: Acute (2) CAD (coronary artery disease): Status: Acute (3) Dyslipidemia: Status: Acute (4) CHF (congestive heart failure), NYHA class III: Status: Acute (5) Hypertension: Status: Acute (6) COVID-19: Status: Acute Patient has presented with troponin elevation. He is also positive for Covid. Chest pain symptoms are vague however troponin elevation was significant. Medical management was decided already in the prior admissions. He is a DNR. No plans for further invasive work up Continue aspirin and Plavix. 48 hours of anticoagulation completed. Switch to oral lasix COVID management per primary team. Tele monitoring Uptitrate Coreg as blood pressure tolerates Continue Atorvastatin Thank you for involving us with care of this patient. We will continue to follow. Please call with questions. Attestations Medical Necessity Statement*: Care expected to cross 2 midnights. Coding Level of Care Code Acute Clinical Molecular Geneticist for [facility] Diagnoses Non-ST elevation [place] (NSTEMI) I21.4 CAD (coronary artery disease) I25.10 Dyslipidemia E78.5 CHF (congestive heart failure), NYHA class III I50.9 Hypertension I10 COVID-19 U07.1
[2020-08-05] VITALS (10 sets, daily range): BP systolic 102–126; BP diastolic 47–73; PULSE 53–75; RESP 16–20; TEMP 36.6–37.1; O2SAT 93–100
[2020-08-05] MEDS: acetaminophen 325 mg Tablet 650 MG PO (00:18)
[2020-08-05 05:18] LABS: Hematocrit 29.6 % (42.0-52.0); Hemoglobin 9.5 g/dL (11.7-16.6); Lymphocytes % 16.2 %; Mean Corpuscular HGB Conc 32.1 g/dL (30.0-36.0); Mean Corpuscular Hemoglobin 31.9 pg (28.0-34.0); Mean Corpuscular Volume 99.3 fL (80-94); Mean Platelet Volume 12.2 fL (7.4-10.4); Monocytes # 0.8 10^3/uL (0.2-0.9); Monocytes % 13.9 %; Neutrophils % 69.6 %; Nucleated Red Blood Cells % 0 %; Platelet Count 399 10^3/cmm (130-400); Red Blood Count 2.98 10^6/uL (4.1-5.3); Red Cell Distribution Width 15.2 % (12.1-15.1)
[2020-08-05 05:32] LABS: D Dimer 1.61 ug/mIFEU (0-0.59)
[2020-08-05 05:39] LABS: Alanine Aminotransferase 25 U/L (0-41); Alkaline Phosphatase 122 IU/L (40-130); Anion Gap 14.3 (5-19); Aspartate Amino Transferase 17 U/L (0-40); Blood Urea Nitrogen 67 mg/dL (8-23); C Reactive Protein 58.4 mg/L (0.0-4.9); Calcium 7.7 mg/dL (8.5-10.5); Carbon Dioxide 26 mmol/L (22-29); Chloride 101 mmol/L (98-107); Ferritin 592 ng/mL (30-400); Globulin 2.4 g/dL (1.3-4.6); Glucose 124 mg/dL (65-115); Osmolality Calculated 305 mOsm/kg (285-295); Potassium 4.3 mmol/L (3.5-5.1); Sodium 137 mmol/L (136-145); Total Bilirubin 0.4 mg/dL (0.15-1.2); Total Protein 5.4 g/dL (6.6-8.7)
--- NOTE | 2020-08-05 08:46 | P.PN_ITS ---
Subjective Subjective: Interval history: Mr. Sauer reports he feels as if his breathing is okay today. He is coughing some, usually a dry cough. Denies any chills. No chest discomfort. Medications: Reviewed: Yes Vitals/I&O/Wt Last Vital Signs Temp 97.9 F 08/05/20 02:54 Pulse 61 08/05/20 06:00 Resp 18 08/05/20 02:54 BP 108/59 08/05/20 02:54 Pulse Ox 98 08/05/20 02:54 08/04/20 08/05/20 08/05/20 22:59 06:59 14:59 Intake Total 336 / 1136 Output Total 1075 / 1500 300 / 1800 Balance -739 / -364 -300 / -664 Weight last 48 hrs Weight 58.967 kg Physical Exam Narrative: EXAM NARRATIVE: General exam no distress Neck is supple no lymphadenopathy or thyromegaly Cardiovascular regular rate and rhythm, heart sounds distant. 2/6 systolic murmur Lungs clear Abdomen is soft with positive bowel sounds. No obvious organomegaly Extremities no cyanosis clubbing or edema, cap refill brisk Data : 08/05/20 05:09 08/05/20 05:09 A&P Assessment and plan (1) Non-ST elevation [place] (NSTEMI): He had full dose anticoagulation for 48 hours secondary to non-ST elevation myocardial infarction. This has been changed to DVT prophylaxis. Maximum medication management. This is being limited some by hypotension. C urrently on low-dose carvedilol, Plavix, aspirin, statin. Blood pressure currently has prevented readdition of RICH inhibitor or nitrate Discussed with patient CODE STATUS, he is allow natural . He does not want bypass. He is not a candidate for any percutaneous intervention. He has severe three-vessel disease. Has underlying chronic systolic heart failure, with acute exacerbation. He rec eived a dose of diuretics in the emergency department, 80 mg on day of admission. He has been started on 40 mg of Lasix a day and tolerating this well Appreciate cardiology consultation Status: Acute (2) COVID-19: Continue remdesivir, dexamethasone. Treatment with antiviral will be complete Saturday. If the patient does not worsen could consider sending him to skilled care for rehabilitation. Prognosis guarded I suspect he has some element of COVID-19 pneumonia. He is currently requiring oxygen, and has bilateral infiltrates. Cannot rule out some of this infiltrate is secondary to acute on chronic systolic CHF Dimer and ferritin level slightly higher. CRP improved Procalcitonin level was checked and normal Status: Acute (3) Anemia: Follow closely. Protonix for GI prophylaxis Status: Acute (4) CHF (congestive heart failure), NYHA class III: Continue oral Lasix Status: Acute (5) CKD (chronic kidney disease): Lisinopril discontinued. Continue to follow. Status: Acute Additional A&P Information Past history of CVA Anemia, continue to follow closely Multiple other medical problems as outlined in his past medical history allow natural . Discussed in detail with the patient. Lovenox will suffice for DVT prophylaxis. GI prophylaxis with Protonix Attestations Medical Necessity Statement*: Needs continued hospitalization for completion of treatment for Covid with remdesivir considering the patient is still requiring oxygen. Coding Level of Care Code Acute Control Inspector for [facility] Diagnoses Non-ST elevation [place] (NSTEMI) I21.4 COVID-19 U07.1 Anemia D64.9 CHF (congestive heart failure), NYHA class III I50.9 CKD (chronic kidney disease) N18.9
[2020-08-05] MEDS: docusate sodium 100 mg Capsule PO ×2 (08:49→18:17)
[2020-08-05] MEDS: clopidogrel 75 mg Tablet PO (08:49)
[2020-08-05] MEDS: FUROsemide 40 mg Tablet PO (08:49)
[2020-08-05] MEDS: atorvastatin 40 mg Tablet PO (08:49)
[2020-08-05] MEDS: pantoprazole DR 40 mg Tablet PO ×2 (08:49→18:17)
[2020-08-05] MEDS: aspirin 81 mg EC Tablet PO (08:49)
[2020-08-05] MEDS: tamsulosin 0.4 mg Capsule PO (08:49)
[2020-08-05] MEDS: carvedilol 3.125 mg Tablet PO ×2 (08:53→20:12)
[2020-08-05] MEDS: enoxaparin 30 mg/0.3 mL Syringe SUBCUT (10:34)
[2020-08-05] MEDS: remdesivir 100 MG in sodium chloride 0.9% (100 ml) 100 ML IV (14:05)
--- NOTE | 2020-08-05 14:06 | PC.SOCIAL ---
*IMM UPDATE* Gave patient verbal IMM update. Verbalized understanding. 08/05/20 @ 0933 Initialed, dated, timed and placed in chart.
--- NOTE | 2020-08-05 16:04 | PC.NURSE ---
Addendum entered by Tianna Ma LPN 08/05/20 16:06: Correction- instead of right AC financial writer meant Left AC Original Note: Remdesivere is still currently running. Patient pulled IV out of the right AC. New IV has been placed in the Right interior forearm.
[2020-08-05] MEDS: dexamethasone 4 mg/mL INJ 6 MG IVP (16:09)
--- NOTE | 2020-08-05 21:21 | PC.NURSE ---
Patient is alert and oriented x3. Patient states that the year is 2000 or 2001. Bed alarm is set. Patient has been educated not to get up without assistance, verbalized understanding, and has call light within reach. Will continue to monitor.
[2020-08-06] VITALS (11 sets, daily range): BP systolic 98–122; BP diastolic 46–77; PULSE 48–66; RESP 16–20; TEMP 36.6–37.1; O2SAT 95–100
--- NOTE | 2020-08-06 02:40 | PC.NURSE ---
Patient's bed alarm went off. Patient tried to walk out of room. Patient was educated that he cannot leave his room due to COVID precautions. Patient stated, I need to get to my ironing board. Patient was educated that he is in the hospital. Patient was assisted back to bed and bed alarm reset. Patient was asked where he was at a few minutes later and stated, I'm at the hospital.
--- NOTE | 2020-08-06 03:47 | PC.NURSE ---
Patient became tearful when talking to nurse. Patient states, I've had a good life and a bad life and I know my time is almost up. I'm falling apart. Patient is currently alert and oriented x3. Patient gave incorrect answer to year.
[2020-08-06 05:09] LABS: Hemoglobin 10.9 g/dL (11.7-16.6); Lymphocytes # 1.2 10^3/uL (0.8-4.8); Mean Corpuscular Hemoglobin 32.4 pg (28.0-34.0); Mean Corpuscular Volume 98.2 fL (80-94); Mean Platelet Volume 12.6 fL (7.4-10.4); Monocytes # 0.6 10^3/uL (0.2-0.9); Monocytes % 9.8 %; Neutrophils # 4.13 10^3/uL (1.8-7.7); Neutrophils % 69.9 %; Nucleated Red Blood Cells % 0 %; Platelet Count 416 10^3/cmm (130-400); Red Blood Count 3.36 10^6/uL (4.1-5.3); White Blood Count 5.9 10^3/uL (4.0-10.0)
[2020-08-06 05:32] LABS: Alanine Aminotransferase 25 U/L (0-41); Albumin Level 3.2 g/dL (3.5-5.2); Alkaline Phosphatase 144 IU/L (40-130); Aspartate Amino Transferase 14 U/L (0-40); Blood Urea Nitrogen 61 mg/dL (8-23); Carbon Dioxide 27 mmol/L (22-29); Chloride 98 mmol/L (98-107); Globulin 2.8 g/dL (1.3-4.6); Glucose 166 mg/dL (65-115); Osmolality Calculated 305 mOsm/kg (285-295); Sodium 137 mmol/L (136-145); Total Bilirubin 0.5 mg/dL (0.15-1.2)
[2020-08-06] MEDS: FUROsemide 40 mg Tablet PO (07:30)
--- NOTE | 2020-08-06 08:40 | PM.PN ---
Subjective Subjective: Interval history: Hospital course, labs appreciated. No acute events overnight. Patient continues to do well. On room air currently saturating 96%. Has remained hemodynamically stable and afebrile. States appetite is okay. Using incentive spirometer 2-3 times a day. Denies any chest pain. Medications: Reviewed: Yes Vitals/I&O/Wt Last Vital Signs Temp 98.8 F 08/05/20 23:33 Pulse 50 L 08/06/20 04:07 Resp 18 08/05/20 16:00 BP 105/46 08/06/20 02:40 Pulse Ox 98 08/06/20 02:40 08/05/20 08/06/20 08/06/20 22:59 06:59 14:59 Intake Total 460 / 1180 300 / 1480 Output Total 500 / 500 Balance -40 / 680 300 / 980 Data : 08/06/20 04:34 08/06/20 04:34 A&P Assessment and plan (1) Non-ST elevation TX (NSTEMI): He had full dose anticoagulation for 48 hours secondary to non-ST elevation myocardial infarction. This has been changed to DVT prophylaxis. Maximum medication management. This is being limited some by hypotension. Currently on low-dose carvedilol, Plavix, aspirin, statin. Blood pressure currently has prevented readdition of RICH inhibitor or nitrate. Discussed with patient CODE STATUS, he is allow natural . He does not want bypass. He is not a candidate for any percutaneous intervention. He has severe three-vessel disease. Has underlying chronic systolic heart failure, with acute exacerbation. Continue Lasix 40 mg daily. Appreciate cardiology consultation Status: Acute (2) COVID-19: Continue remdesivir, dexamethasone. Last dose today. Dexamethasone to finish 10-day course. Vitamin C, zinc. Monitor inflammatory markers. Oxygen supplementation keeping saturation over 90%. Lorraine Urbina. Status: Acute (3) Anemia: Follow closely. Protonix for GI prophylaxis. Start on oral supplementation. Status: Acute (4) CHF (congestive heart failure), NYHA class III: Continue oral Lasix Status: Acute (5) CKD (chronic kidney disease): Baseline creatinine 1.5-1.7. Creatinine at baseline. Medical reconciliation done for nephrotoxic drugs. Lisinopril discontinued. Continue to follow. Status: Acute Additional A&P Information Past history of CVA Anemia, continue to follow closely Multiple other medical problems as outlined in his past medical history Allow natural . Does not want any bypass surgery. Discussed in detail with the patient. Lovenox will suffice for DVT prophylaxis. GI prophylaxis with Protonix- Discharge planning: Patient would benefit from further rehabitation. Has been advised the patient and he is agreeable. Patient has been accepted at [facility]. Attestations Medical Necessity Statement*: Requires further hospitalization for management of hypoxia because of COVID-19 pneumonia in setting of non-ST elevation TX Time Spent in Patient Care: Greater than 35 minutes (>than 50% of time spent in counselling and/or direct pt care on unit). Coding Level of Care Code Acute Captain Airline Pilot for Rosetta Cornelius Diagnoses Non-ST elevation TX (NSTEMI) I21.4 COVID-19 U07.1 Anemia D64.9 CHF (congestive heart failure), NYHA class III I50.9 CKD (chronic kidney disease) N18.9
[2020-08-06] MEDS: zinc gluconate 50 mg Tablet PO (08:57)
[2020-08-06] MEDS: docusate sodium 100 mg Capsule PO ×2 (08:57→17:14)
[2020-08-06] MEDS: tamsulosin 0.4 mg Capsule PO (08:57)
[2020-08-06] MEDS: carvedilol 3.125 mg Tablet PO ×2 (08:57→19:50)
[2020-08-06] MEDS: enoxaparin 30 mg/0.3 mL Syringe SUBCUT (08:57)
[2020-08-06] MEDS: aspirin 81 mg EC Tablet PO (08:57)
[2020-08-06] MEDS: pantoprazole DR 40 mg Tablet PO ×2 (08:57→17:14)
[2020-08-06] MEDS: clopidogrel 75 mg Tablet PO (08:57)
[2020-08-06] MEDS: benzonatate 100 mg Capsule PO ×3 (08:57→19:51)
[2020-08-06] MEDS: atorvastatin 40 mg Tablet PO (09:52)
[2020-08-06 10:01] LABS: Procalcitonin 0.31 ng/mL (0-0.5)
[2020-08-06 10:23] LABS: Iron 20 ug/dL (59-158); Percent Saturation 9.6 % (20-50); Total Iron Binding Capacity 207 mcg/dl; Unsaturated Iron Binding 187 ug/dL (112-347)
[2020-08-06 10:34] LABS: NT Pro B Type Natriuretic Pept 27112 pg/mL (0-450)
--- NOTE | 2020-08-06 12:23 | PC.NURSE ---
Patients clothes taken to laundry via [employer] bag. Handed clothes to Ricardo from [employer]. They will wash them and return them to the floor
[2020-08-06] MEDS: dexamethasone 4 mg/mL INJ 6 MG IVP (14:27)
[2020-08-06] MEDS: remdesivir 100 MG in sodium chloride 0.9% (100 ml) 100 ML IV (15:44)
[2020-08-06] MEDS: ferrous gluconate 324 mg Tablet PO (17:14)
[2020-08-06] MEDS: ascorbic acid 500 mg Tablet 1000 MG PO (17:14)
[2020-08-07] VITALS (13 sets, daily range): BP systolic 112–137; BP diastolic 55–68; PULSE 57–86; RESP 16–28; TEMP 36.3–36.9; O2SAT 94–100
[2020-08-07 05:15] LABS: Hematocrit 31.3 % (42.0-52.0); Hemoglobin 10.5 g/dL (11.7-16.6); Lymphocytes # 1.5 10^3/uL (0.8-4.8); Lymphocytes % 26.8 %; Mean Corpuscular HGB Conc 33.5 g/dL (30.0-36.0); Mean Corpuscular Hemoglobin 32.1 pg (28.0-34.0); Mean Corpuscular Volume 95.7 fL (80-94); Mean Platelet Volume 12.4 fL (7.4-10.4); Monocytes # 0.8 10^3/uL (0.2-0.9); Monocytes % 14.4 %; Neutrophils # 3.27 10^3/uL (1.8-7.7); Neutrophils % 58.6 %; Nucleated Red Blood Cells % 0 %; Platelet Count 390 10^3/cmm (130-400); Red Blood Count 3.27 10^6/uL (4.1-5.3); Red Cell Distribution Width 14.6 % (12.1-15.1); White Blood Count 5.6 10^3/uL (4.0-10.0)
[2020-08-07 05:35] LABS: Fibrinogen 411 mg/dL (174-498)
[2020-08-07 05:40] LABS: D Dimer 1.68 ug/mIFEU (0-0.59)
[2020-08-07 05:42] LABS: Alanine Aminotransferase 19 U/L (0-41); Alkaline Phosphatase 122 IU/L (40-130); Aspartate Amino Transferase 12 U/L (0-40); Blood Urea Nitrogen 60 mg/dL (8-23); C Reactive Protein 37.1 mg/L (0.0-4.9); Calcium 7.8 mg/dL (8.5-10.5); Carbon Dioxide 29 mmol/L (22-29); Chloride 101 mmol/L (98-107); Creatine Phosphokinase 30 U/L (39-308); Ferritin 598 ng/mL (30-400); Globulin 2.7 g/dL (1.3-4.6); Glucose 131 mg/dL (65-115); Osmolality Calculated 305 mOsm/kg (285-295); Sodium 138 mmol/L (136-145); Total Bilirubin 0.5 mg/dL (0.15-1.2); Total Protein 5.7 g/dL (6.6-8.7)
[2020-08-07] MEDS: docusate sodium 100 mg Capsule PO ×2 (08:01→17:06)
[2020-08-07] MEDS: tamsulosin 0.4 mg Capsule PO (08:01)
[2020-08-07] MEDS: pantoprazole DR 40 mg Tablet PO ×2 (08:01→17:06)
[2020-08-07] MEDS: zinc gluconate 50 mg Tablet PO (08:02)
[2020-08-07] MEDS: ferrous gluconate 324 mg Tablet PO ×2 (08:02→17:06)
[2020-08-07] MEDS: aspirin 81 mg EC Tablet PO (08:02)
[2020-08-07] MEDS: FUROsemide 40 mg Tablet PO (08:02)
[2020-08-07] MEDS: clopidogrel 75 mg Tablet PO (08:02)
[2020-08-07] MEDS: atorvastatin 40 mg Tablet PO (08:02)
[2020-08-07] MEDS: ascorbic acid 500 mg Tablet 1000 MG PO (08:03)
[2020-08-07] MEDS: benzonatate 100 mg Capsule PO ×2 (08:03→19:37)
[2020-08-07] MEDS: carvedilol 3.125 mg Tablet PO (08:04)
[2020-08-07] MEDS: enoxaparin 30 mg/0.3 mL Syringe SUBCUT (10:13)
--- NOTE | 2020-08-07 11:44 | PC.SOCIAL ---
IMM Updated Updated pt on Pg 2 IMM. No questions voiced. Provided pt a copy. Signed, dated, & timed copy in chart.
--- NOTE | 2020-08-07 12:50 | PM.PN ---
Subjective Subjective: Interval history: No acute events overnight. Currently chest pain-free. Currently on room air. Eating well. Working well with physical therapy, incentive spirometry and flutter valve. States he was trying to put up his clothes today morning and got worn out. Remains hemodynamically stable. Worried about his clothes on discharge. Medications: Reviewed: Yes Vitals/I&O/Wt Last Vital Signs Temp 98 F 08/07/20 08:50 Pulse 86 08/07/20 08:59 Resp 20 H 08/07/20 08:59 BP 137/68 08/07/20 08:50 Pulse Ox 98 08/07/20 08:59 08/06/20 08/07/20 08/07/20 22:59 06:59 14:59 Intake Total 336 / 572 318 / 318 Output Total 250 / 1150 400 / 1550 300 / 300 Balance 86 / -578 -400 / -978 Physical Exam Narrative: EXAM NARRATIVE: General exam no distress Neck is supple no lymphadenopathy or thyromegaly Cardiovascular regular rate and rhythm, heart sounds distant. 2/6 systolic murmur Lungs clear Abdomen is soft with positive bowel sounds. No obvious organomegaly Extremities no cyanosis clubbing or edema, cap refill brisk Data : 08/07/20 05:01 08/07/20 05:01 A&P Assessment and plan (1) Non-ST elevation ID (NSTEMI): He had full dose anticoagulation for 48 hours secondary to non-ST elevation myocardial infarction. This has been changed to DVT prophylaxis. Maximum medication management. This is being limited some by hypotension. Currently on low-dose carvedilol, Plavix, aspirin, statin. Blood pressure currently has prevented readdition of RICH inhibitor or nitrate. Discussed with patient CODE STATUS, he is allow natural . He does not want bypass. He is not a candidate for any percutaneous intervention. He has severe three-vessel disease. Has underlying chronic systolic heart failure, with acute exacerbation. Continue Lasix 40 mg daily. Appreciate cardiology consultation Status: Acute (2) COVID-19: Initial course of remdesivir on August 06. Continue with dexamethasone to finish 10-day course. Vitamin C, zinc. Monitor inflammatory markers. Oxygen supplementation keeping saturation over 90%. Lorraine Urbina. Status: Acute (3) Anemia: Follow closely. Protonix for GI prophylaxis. Start on oral supplementation. Status: Acute (4) CHF (congestive heart failure), NYHA class III: Continue oral Lasix Status: Acute (5) CKD (chronic kidney disease): Baseline creatinine 1.5-1.7. Creatinine at baseline. Medical reconciliation done for nephrotoxic drugs. Lisinopril discontinued. Continue to follow. Status: Acute Additional A&P Information Past history of CVA Anemia, continue to follow closely Multiple other medical problems as outlined in his past medical history Allow natural . Does not want any bypass surgery. Discussed in detail with the patient. Lovenox will suffice for DVT prophylaxis. GI prophylaxis with Protonix- Discharge planning: Patient would benefit from further rehabitation. Has been advised the patient and he is agreeable. Patient has been accepted at [facility]. Attestations Medical Necessity Statement*: Requires further hospitalization for management of hypoxia because of COVID-19 pneumonia, non-ST elevation ID in setting of severe CAD, congestive heart failure, CKD Time Spent in Patient Care: Greater than 35 minutes (>than 50% of time spent in counselling and/or direct pt care on unit). Coding Level of Care Code Acute Telegraph Office Route Aide for g Fwd Diagnoses Non-ST elevation ID (NSTEMI) I21.4 COVID-19 U07.1 Anemia D64.9 CHF (congestive heart failure), NYHA class III I50.9 CKD (chronic kidney disease) N18.9
[2020-08-07] MEDS: dexamethasone 4 mg/mL INJ 6 MG IVP (14:01)
[2020-08-07] MEDS: ascorbic acid 500 mg Tablet PO (17:06)
[2020-08-07] MEDS: carvedilol 6.25 mg Tablet PO (19:37)
[2020-08-08] VITALS (7 sets, daily range): BP systolic 112–141; BP diastolic 55–65; PULSE 0–67; RESP 14–18; TEMP 36.5–36.9; O2SAT 97–99
--- NOTE | 2020-08-08 03:33 | PC.NURSE ---
NURSING NOTE: CHIP BIN CONVEYOR TENDER IN TO DO VS AT THIS TIME. PT HAD REMOVED IV AND TAKEN OFF ALL OF TELEMETRY LEADS AND REFUSED TO LET ANY OF IT BE REPLACED. NOTIFIED DR. CHERY AT THIS TIME AND RECEIVED OK TO LEAVE IV OUT AND TELEMETRY OFF PATIENT IS SUPPOSED TO DISCHARGE TO [facility] TODAY.
--- NOTE | 2020-08-08 03:34 | PC.NURSE ---
Patient refusing vital signs, refuses to wear flower arranger. Patient also pulled out his iv. RN notified.
[2020-08-08] MEDS: docusate sodium 100 mg Capsule PO (08:39)
[2020-08-08] MEDS: ferrous gluconate 324 mg Tablet PO (08:39)
[2020-08-08] MEDS: FUROsemide 40 mg Tablet PO (08:40)
[2020-08-08] MEDS: tamsulosin 0.4 mg Capsule PO (08:40)
[2020-08-08] MEDS: aspirin 81 mg EC Tablet PO (08:40)
[2020-08-08] MEDS: pantoprazole DR 40 mg Tablet PO (08:40)
[2020-08-08] MEDS: zinc gluconate 50 mg Tablet PO (08:40)
[2020-08-08] MEDS: benzonatate 100 mg Capsule PO ×2 (08:41→14:13)
[2020-08-08] MEDS: clopidogrel 75 mg Tablet PO (08:41)
[2020-08-08] MEDS: ascorbic acid 500 mg Tablet PO (08:41)
[2020-08-08] MEDS: atorvastatin 40 mg Tablet PO (08:41)
[2020-08-08] MEDS: enoxaparin 30 mg/0.3 mL Syringe SUBCUT (10:16)
--- NOTE | 2020-08-08 12:12 | PM.DCS ---
Discharge Providers Date of Admission: 08/02/20 11:01 Date of Discharge: August 08, 2020 Attending Provider at Admission: Navi Pugh MD Attending Provider at Discharge: Jaron Redding MD Primary Care Provider: YELITZA Mon Diagnoses at Discharge Discharge Diagnosis (1) Non-ST elevation IL (NSTEMI): Status: Resolved (2) COVID-19: Status: Resolved (3) Anemia: Status: Chronic (4) CHF (congestive heart failure), NYHA class III: Status: Acute (5) CKD (chronic kidney disease): Status: Acute Reason for Visit Reason for Visit: CP Hospital Course Hospital Course 85 year old male who has history of HFrEF 30-35%, chronic kidney disease, CVA 3 weeks ago, left CEA, CAD ( CAG and Aborted PCI to LAD at [facility] ) thereafter he was sent to [facility] in late June through early July with a myocardial infarction. Angiogram was performed, and he required Impella for anticipated bypass surgery. However, he was deemed too high risk and patient ultimately refused. This time he was admitted with chief complaint of nausea and some vomiting. Further work-up during this admission revealed he has NSTEMI as well as Covid pneumonia. He was medically managed for his NSTEMI as per the ACS protocol, he was continued on aspirin Plavix, statin beta-blockers, full dose anticoagulation. He is not a candidate for any intervention.He was Discharged on DAPT, along with statin beta-chevy. For his Covid pneumonia, he completed the course of remdesivir, as well as he was on steroids. At the time of discharge he was saturating well on room air. Patient was also managed for mildly decompensated congestive heart failure, and responded well to diuresis. Patient responded well to the above medical management, and was discharged in stable condition to [facility]. Physical Exam Const: COMMON NORMALS: patient oriented x3 HENMT: COMMON NORMALS: normocephalic and atraumatic HEAD & SCALP: normocephalic and atraumatic Chest: CHEST: Yes Symmetrical chest wall rise Resp: COMMON NORMALS: normal respiratory effort and clear to auscultation bilaterally EFFORT & INSPECTION: Yes symmetric chest movement AUSCULTATION: clear to auscultation bilaterally Cardio: COMMON NORMALS: regular rate, regular rhythm, S1 normal heart sound present, S2 normal heart sound present, No gallops present (Cardio), No murmurs present (Cardio), No rub (Cardio) and Peripheral pulses 2+ throughout RATE: regular rate RHYTHM: regular rhythm HEART SOUNDS: S1 normal heart sound present and S2 normal heart sound present PERIPHERAL PULSES: Peripheral pulses 2+ throughout GI: COMMON NORMALS: Normal to inspection, nondistended, normoactive bowel sounds present, Soft to palpation, non-tender, No hepatosplenomegaly present and no masses AUSCULTATION: Yes normoactive bowel sounds PALPATION: Yes Soft to palpation and Yes No hepatosplenomegaly present RECTAL EXAM: Yes deferred Extremity: COMMON NORMALS: no clubbing, cyanosis or edema and no pedal edema Neuro: COMMON NORMALS: patient oriented x3 Discharge Data Data Completed and Pending: Completed Studies During Hospitalization Category Date Time Status XR chest 1V chalo ble [id number] Stat Exams 08/02/20 06:26 Completed Pending at discharge Category Date Time Status C Reactive Protei n AM LABS Lab 08/09/20 04:00 Ordered C Reactive Protei n Timed Lab 08/08/20 04:00 Ordered Complete Blood Co unt w/Auto AM LABS Lab 08/08/20 04:00 Ordered Comprehensive Met abolic Panel AM LA BS Lab 08/08/20 04:00 Ordered Creatine Phosphok inase AM LABS Lab 08/09/20 04:00 Ordered Creatine Phosphok inase Timed Lab 08/08/20 04:00 Ordered D Dimer AM LABS Lab 08/08/20 04:00 Ordered D Dimer AM LABS Lab 08/09/20 04:00 Ordered Ferritin AM LABS Lab 08/09/20 04:00 Ordered Ferritin Timed Lab 08/08/20 04:00 Ordered Fibrinogen AM LAB S Lab 08/08/20 04:00 Ordered Fibrinogen AM LAB S Lab 08/09/20 04:00 Ordered Vitals: Last Vital Signs Temp 97.8 F 08/08/20 08:00 Pulse 60 08/08/20 08:59 Resp 18 08/08/20 08:54 BP 112/55 08/08/20 08:00 Pulse Ox 97 08/08/20 08:54 Discharge Plan Discharge Patient Disposition: Home Condition: Stable Prescriptions: New budesonide 90 mcg/actuation aerosol powdr breath activated 1 inh inhalation BID Qty: 1 RF: 0 Vitamin C 500 mg Tablet 500 mg PO BID 7 Days Qty: 14 RF: 0 zinc gluconate 50 mg Tablet 50 mg PO DAILY 7 Days RF: 0 Continued cholecalciferol (vitamin D3) 25 mcg (1,000 unit) capsule 50 mcg PO DAILY RF: 0 ondansetron 8 mg tablet,disintegrating 8 mg PO Q8H PRN (Reason: nausea and vomiting) Qty: 90 RF: 0 atorvastatin 40 mg tablet 40 mg PO DAILY RF: 0 hydralazine 25 mg Tablet 25 mg PO TID RF: 0 amlodipine 2.5 mg Tablet 2.5 mg PO DAILY RF: 0 Nitrostat 0.4 mg Tablet, Sublingual 0.4 mg SUBLINGUAL Q5M PRN (Reason: Chest Pain) RF: 0 docusate sodium 100 mg Capsule 100 mg PO BID RF: 0 clopidogrel 75 mg tablet 75 mg PO DAILY RF: 0 aspirin 81 mg tablet,delayed release (DR/EC) 81 mg PO DAILY RF: 0 famotidine 20 mg tablet 20 mg PO DAILY RF: 0 tamsulosin 0.4 mg capsule 0.4 mg PO DAILY RF: 0 isosorbide dinitrate 20 mg tablet 20 mg PO TID RF: 0 Changed carvedilol 3.125 mg tablet 6.25 mg PO BID Qty: 60 RF: 3 Held lisinopril 20 mg tablet 20 mg PO DAILY Qty: 30 RF: 3 Hold Instructions: Resume on 08/25/20. Discontinued metoprolol succinate 25 mg tablet extended release 24 hr 25 mg PO DAILY RF: 0 Discharge Orders: Discharge Order (Routine); Ordered 08/08/20 Ordered By: Jaron Redding Referrals: [facility] [Outside] Funmilayo Motley MD [Physician] - 1 month Discharge Diet: Cardiac Discharge Activity: Resume usual activity Patient Instructions: Myocardial Infarction (DC), Opioid Safety Discharge Attestations Time Spent in Discharge Care*: less than 30 min Specific Discharge Activities: educating patient, educating and/or supporting family/caregiver, discussing with pcp/other providers, discussing with caseworker intake/social workers/dc planners, documenting/other paperwork and evaluating patient/reviewing data Status at Discharge: Cognitive status at discharge: cognitively intact, Behavioral status at discharge: cooperative, Quality Metrics Clinical Quality Measures During this hospital stay, did patient experience: None Coding Level of Care Code Acute Chg FW DC note Diagnoses Non-ST elevation IL (NSTEMI) I21.4 COVID-19 U07.1 Anemia D64.9 CHF (congestive heart failure), NYHA class III I50.9 CKD (chronic kidney disease) N18.9
--- NOTE | 2020-08-08 13:58 | PC.NURSE ---
Report called to NIKKO Mendosa at [facility]. Nurse verbalized understanding of information and did not have any further questions. Case management contacted for transportation.
== END 2020-08-08 15:45 | disposition skilled nursing facility (03) | DRG 177 ==
LOC: ER 07:42 → CSU 11:34
PROVIDERS: Student in an Organized Health Care Education/Training Program; Admitting Provider Internal Medicine; Emergency Provider Family Medicine; PCP Nurse Practitioner Family; Visit Provider Internal Medicine
DX: U07.1 COVID-19 (principal); J12.82 Pneumonia due to coronavirus disease 2019; I21.4 Non-ST elevation (NSTEMI) myocardial infarction; I50.23 Acute on chronic systolic (congestive) heart failure; I13.0 Hypertensive heart and chronic kidney disease with heart failure and stage 1 through stage 4 chronic kidney disease, or unspecified chronic kidney disease; I25.2 Old myocardial infarction; R47.9 Unspecified speech disturbances; F41.9 Anxiety disorder, unspecified; I25.119 Atherosclerotic heart disease of native coronary artery with unspecified angina pectoris; N18.9 Chronic kidney disease, unspecified; E78.5 Hyperlipidemia, unspecified; K21.9 Gastro-esophageal reflux disease without esophagitis; Z85.07 Personal history of malignant neoplasm of pancreas; Z86.73 Personal history of transient ischemic attack (TIA), and cerebral infarction without residual deficits; I25.5 Ischemic cardiomyopathy; Z91.81 History of falling; M19.90 Unspecified osteoarthritis, unspecified site; J43.9 Emphysema, unspecified; Z66 Do not resuscitate; D63.1 Anemia in chronic kidney disease; Z79.02 Long term (current) use of antithrombotics/antiplatelets; Z79.82 Long term (current) use of aspirin
CPT/HCPCS: 36415; 71045; 80053; 82550; 82728; 83540; 83550; 83690; 83880; 84145; 84484; 85025; 85378; 85384; 86140; 87426; 93005; 94640; 96372; 96374; 97110; 97116; 97162; 99285; J1100; J1650; J1940; J2405; Q3014

== ENCOUNTER 2020-09-10 01:37 | Emergency (ER) | payer OTHER, MEDICARE, SELFPAY ==
--- NOTE | 2020-09-10 01:39 | XRR_ITS ---
PROCEDURE INFORMATION: Exam: XR Chest Exam date and time: 09/10/2020 1:39 AM Age: 85 years old Clinical indication: Chest pressure; Patient HX: Chest pain. History of nstemi and chf. ; Additional info: Cp TECHNIQUE: Imaging protocol: XR of the chest. Views: 1 view. COMPARISON: CR XR chest 1V portable [id number] 08/02/2020 6:30 AM FINDINGS: Lungs: There is enlargement of the pulmonary vascularity. There is thickening of the interstitial markings. Pleural spaces: Small bilateral pleural effusions. Heart/Mediastinum: The heart is mildly enlarged. Bones/joints: Unremarkable. XR/XR chest 1V portable [id number] IMPRESSION: 1. Congestive heart failure. 2. Small bilateral pleural effusions.
--- NOTE | 2020-09-10 01:40 | ECG_ITS ---
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 Measurements Intervals [place] Rate: 68 P: 60 ME: 194 QRS: 56 QRSD: 95 T: 111 QT: 437 QTc: 468 Interpretive Statements SINUS RHYTHM WITH FREQUENT VENTRICULAR PREMATURE COMPLEXES SEPTAL MYOCARDIAL INFARCTION [40+ ms Q WAVE IN V1/V2], OF INDETERMINATE AGE Compared to ECG 08/02/2020 15:34:07 Ventricular premature complex(es) now present Myocardial infarct finding still present Electronically Signed On 09-11-2020 18:31:55 CDT by Funmilayo Motley M.D. [id number]
[2020-09-10 01:41] VITALS: BP 158/95; PULSE 80; RESP 22; TEMP 36.7; O2SAT 92; BMI 17.2
--- NOTE | 2020-09-10 01:50 | ED_ITS ---
HPI - Chest Pain General: Chief Complaint: Chest Pain Stated Complaint: jaw pain Time Seen by Provider: 09/10/20 01:39 Source: patient and EMS Mode of arrival: EMS Limitations: no limitations History of Present Illness: HPI narrative: 85-year-old male has a history of coronary artery disease. Patient has refused bypass surgery in the past. He had a cath last month then after the cath cardiology recommended medical management. He states that tonight he started having chest pain when he woke up and has since been resolved with nitro by EMS. He states is currently pain-benjamín e. States pain is a sharp pain in his upper abdomen and chest and at its worst was a 4 out of 10. Denies any shortness of breath. Denies any worsening improving factors. Denies any cough or fever. Associated symptoms: Deny abdominal pain, dyspnea, fever(s), nausea or vomiting Review of Systems Const: Denies: fever(s), chills, body aches or change in appetite Eyes: Denies: blurry vision or eye discomfort ENMT: Denies: throat pain or dental pain Card: Reports: chest pain Resp: Denies: dyspnea GI: Denies: abdominal pain, nausea, vomiting or diarrhea : Denies: dysuria Musc: Denies: neck pain or back pain Skin/Breast: Denies: rash Neuro: Denies: headache(s) Psych: Denies: depression Rocky/Lymph: Denies: easy bruising All/Imm: Denies: urticaria PFSH ED PFSH: Medical History Abnormal nuclear stress test Anemia Anxiety Bilateral carotid bruits CAD (coronary artery disease) Carotid stenosis Chest pain CHF (congestive heart failure), NYHA class III CKD (chronic kidney disease) COVID-19 COVID-19 Dyslipidemia Dyslipidemia GERD (gastroesophageal reflux disease) History of pancreatic cancer History of stroke Hx of transient ischemic attack (TIA) Hypertension Ischemic cardiomyopathy Multiple falls Non-ST elevation [place] (NSTEMI) Noncompliance NSTEMI (non-ST elevated myocardial infarction) Osteoarthritis Pulmonary emphysema Recurrent cerebrovascular accidents (CVAs) Sinus bradycardia Uncontrolled hypertension Surgical History H/O carotid endarterectomy Hx of spinal surgery Family History Brother Heart disease Mother Heart disease Other Stroke Social History Smoking and tobacco status: never smoked Second hand smoke exposure: No Smoking risk assessment/counseling performed?: No Alcohol intake: never Desire information about alcohol rehabilitation?: No Counseling given: No Desire information about substance/drug rehabilitation?: No Counseling given: No Adopted: No Caregiver/support person: Yes Lives independently: Yes Household members: none Housing: Manufactured/Mobile home Marital status: Single Number of children: 2 service: Yes branch: [employer] Current occupational status: retired History of recent travel: No Current gender identity: Male Physical Exam Const: COMMON NORMALS: no acute distress, patient oriented x3 and healthy appearing HENMT: COMMON NORMALS: normocephalic and atraumatic HEAD & SCALP: normocephalic and atraumatic Eye: COMMON NORMALS: Equal, round and reactive pupils present and EOMs intact bilaterally PUPIL: Yes Equal, round and reactive pupils present Neck/C-Spine: COMMON NORMALS: full ROM and supple Chest: COMMONS NORMALS: normal inspection of the chest and normal palpation of entire chest wall Resp: COMMON NORMALS: normal respiratory effort, No retractions, No use of accessory muscles and clear to auscultation bilaterally AUSCULTATION: clear to auscultation bilaterally Cardio: COMMON NORMALS: regular rate, regular rhythm and No murmurs present (Cardio) RATE: regular rate RHYTHM: regular rhythm GI: COMMON NORMALS: Normal to inspection, nondistended, normoactive bowel sounds present, Soft to palpation, non-tender and no masses PALPATION: Yes Soft to palpation Extremity: COMMON NORMALS: normal to inspection and full ROM Neuro: COMMON NORMALS: patient oriented x3, moves all extremities and no focal motor deficits Psych: COMMON NORMALS: mental status grossly normal, Normal thought process present and cooperative THOUGHT PROCESS: Normal thought process present Skin: COMMON NORMALS: no rashes or lesions noted and no wounds GENERAL SKIN EXAM: no rashes or lesions noted Course Vital Signs: Vital signs: Vital Signs Temperature 98.0 F 09/10/20 01:41 Pulse Rate 61 09/10/20 04:28 Respiratory Rate 23 H 09/10/20 04:28 Blood Pressure 146/72 09/10/20 04:28 Pulse Oximetry 97 09/10/20 04:28 MDM - Chest Pain MDM Narrative: Medical decision making narrative: Patient presents here with chest pain is been chronic in nature. He also has chronic congestive heart failure. Patient's pulse ox here has been in the mid 90s even with ambulating. X-ray does show findings of congestive heart failure that is chronic and comparable to previous x-rays. Patient was given IV Lasix here. His BNP is at his typical baseline as long as his troponins. He just had a recent cath a month ago. 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 He is to return to ER if worsening. He understands agrees to plan. Lab Data: Labs: Lab Results 09/10/20 09/10/20 09/10/20 Range/Units 01:40 01:40 01:40 WBC 10.5 H (4.0-10.0) 10^3/ uL RBC 3.27 L (4.1-5.3) 10^6/u L Hgb 10.6 L (11.7-16.6) g/dL Hct 33.0 L (42.0-52.0) % MCV 100.9 H (80-94) fL MCH 32.4 (28.0-34.0) pg MCHC 32.1 (30.0-36.0) g/dL RDW 17.0 H (12.1-15.1) % Plt Count 356 (130-400) 10^3/c mm MPV 12.5 H (7.4-10.4) fL Neut % (Auto) 72.6 % Lymph % (Auto) 17.9 % [place] % (Auto) 7.4 % Eos % (Auto) 1.3 % Baso % (Auto) 0.5 % Neut # (Auto) 7.60 (1.8-7.7) 10^3/u L Lymph # (Auto) 1.9 (0.8-4.8) 10^3/u L [place] # (Auto) 0.8 (0.2-0.9) 10^3/u L Eos # (Auto) 0.1 (0.0-0.8) 10^3/u L Baso # (Auto) 0.1 (0.0-0.1) 10^3/u L Nucleated RBC % (a uto) 0 % Nucleated RBCs # 0.0 /100WBC Sodium 141 (136-145) mmol/L Potassium 3.8 (3.5-5.1) mmol/L Chloride 106 (98-107) mmol/L Carbon Dioxide 23 (22-29) mmol/L Anion Gap 15.8 (5-19) BUN 23 (8-23) mg/dL Creatinine 1.3 H (0.7-1.2) mg/dL GFR Calculation Not Reportable Glucose 103 (65-115) mg/dL Calculated Osmolal ity 296 H (285-295) mOsm/k g Calcium 8.9 (8.5-10.5) mg/dL Total Bilirubin 0.9 (0.15-1.2) mg/dL AST 36 (0-40) U/L ALT 37 (0-41) U/L Alkaline Phosphata se 221 H (40-130) IU/L Troponin T Baselin e 89 H (0-15) ng/L Troponin T 120 Min mary jane (0-15) ng/L Delta Troponin T (0-10) ABS# NT-Pro-B Natriuret Pep (0-450) pg/mL Total Protein 5.7 L (6.6-8.7) g/dL Albumin 3.7 (3.5-5.2) g/dL Globulin 2.0 (1.3-4.6) g/dL Lipase 25 (13-60) U/L 09/10/20 09/10/20 Range/Units 01:40 03:47 WBC (4.0-10.0) 10^3/ uL RBC (4.1-5.3) 10^6/u L Hgb (11.7-16.6) g/dL Hct (42.0-52.0) % MCV (80-94) fL MCH (28.0-34.0) pg MCHC (30.0-36.0) g/dL RDW (12.1-15.1) % Plt Count (130-400) 10^3/c mm MPV (7.4-10.4) fL Neut % (Auto) % Lymph % (Auto) % [place] % (Auto) % Eos % (Auto) % Baso % (Auto) % Neut # (Auto) (1.8-7.7) 10^3/u L Lymph # (Auto) (0.8-4.8) 10^3/u L [place] # (Auto) (0.2-0.9) 10^3/u L Eos # (Auto) (0.0-0.8) 10^3/u L Baso # (Auto) (0.0-0.1) 10^3/u L Nucleated RBC % (a uto) % Nucleated RBCs # /100WBC Sodium (136-145) mmol/L Potassium (3.5-5.1) mmol/L Chloride (98-107) mmol/L Carbon Dioxide (22-29) mmol/L Anion Gap (5-19) BUN (8-23) mg/dL Creatinine (0.7-1.2) mg/dL GFR Calculation Glucose (65-115) mg/dL Calculated Osmolal ity (285-295) mOsm/k g Calcium (8.5-10.5) mg/dL Total Bilirubin (0.15-1.2) mg/dL AST (0-40) U/L ALT (0-41) U/L Alkaline Phosphata se (40-130) IU/L Troponin T Baselin e (0-15) ng/L Troponin T 120 Min mary jane 85.97 H (0-15) ng/L Delta Troponin T -3.03 L (0-10) ABS# NT-Pro-B Natriuret Pep 62901 H (0-450) pg/mL Total Protein (6.6-8.7) g/dL Albumin (3.5-5.2) g/dL Globulin (1.3-4.6) g/dL Lipase (13-60) U/L EKG Data^: EKG 1: Attestation: I personally reviewed and interpreted this EKG as follows: EKG interpretation date: 09/10/20 EKG interpretation time: 01:57 Interpretation: nsr hr [address] or t wave abnormalities qrs 95 qtc 455 Discharge Plan Discharge Patient Disposition: Home Clinical Impression: Chest pain Qualifiers: Chest pain type: unspecified Qualified Code(s): R07.9 - Chest pain, unspecified CHF (congestive heart failure) Qualifiers: Heart failure type: unspecified Heart failure chronicity: chronic Qualified Code(s): I50.9 - Heart failure, unspecified Condition: Stable Prescriptions: No Action cholecalciferol (vitamin D3) 25 mcg (1,000 unit) capsule 50 mcg PO DAILY RF: 0 ondansetron 8 mg tablet,disintegrating 8 mg PO Q8H PRN (Reason: nausea and vomiting) Qty: 90 RF: 0 Nitrostat 0.4 mg tablet, sublingual 0.4 mg SUBLINGUAL Q5M PRN (Reason: Chest Pain) 30 Days Qty: 30 RF: 5 atorvastatin 40 mg tablet 40 mg PO DAILY RF: 0 hydralazine 25 mg Tablet 25 mg PO TID RF: 0 amlodipine 2.5 mg Tablet 2.5 mg PO DAILY RF: 0 docusate sodium 100 mg Capsule 100 mg PO BID RF: 0 budesonide 90 mcg/actuation aerosol powdr breath activated 1 inh inhalation BID Qty: 1 RF: 0 carvedilol 3.125 mg tablet 6.25 mg PO BID Qty: 60 RF: 3 clopidogrel 75 mg tablet 75 mg PO DAILY RF: 0 aspirin 81 mg tablet,delayed release (DR/EC) 81 mg PO DAILY RF: 0 famotidine 20 mg tablet 20 mg PO DAILY RF: 0 tamsulosin 0.4 mg capsule 0.4 mg PO DAILY RF: 0 isosorbide dinitrate 20 mg tablet 20 mg PO TID RF: 0 lisinopril 20 mg tablet 20 mg PO DAILY Qty: 30 RF: 3 Hold Instructions: Resume on 08/25/20. Discharge Orders: Discharge ED (Routine); Ordered 09/10/20 Ordered By: Gregorio Gallagher Referrals: Davida Palomares FNP-C [Primary Care Provider] - Discharge Diet: Advance as tolerated Discharge Activity: Resume usual activity Patient Instructions: Chest Pain (ED) Coding Level of Care Code ED Recovery Manager for Dayling Fwd Exam Comprehensive
[2020-09-10 02:05] LABS: Basophils # 0.1 10^3/uL (0.0-0.1); Basophils % 0.5 %; Eosinophils # 0.1 10^3/uL (0.0-0.8); Eosinophils % 1.3 %; Hemoglobin 10.6 g/dL (11.7-16.6); Lymphocytes # 1.9 10^3/uL (0.8-4.8); Lymphocytes % 17.9 %; Mean Corpuscular HGB Conc 32.1 g/dL (30.0-36.0); Mean Corpuscular Hemoglobin 32.4 pg (28.0-34.0); Mean Corpuscular Volume 100.9 fL (80-94); Mean Platelet Volume 12.5 fL (7.4-10.4); Monocytes # 0.8 10^3/uL (0.2-0.9); Monocytes % 7.4 %; Neutrophils % 72.6 %; Nucleated Red Blood Cells % 0 %; Platelet Count 356 10^3/cmm (130-400); Red Blood Count 3.27 10^6/uL (4.1-5.3); White Blood Count 10.5 10^3/uL (4.0-10.0)
[2020-09-10 02:26] LABS: Alanine Aminotransferase 37 U/L (0-41); Albumin Level 3.7 g/dL (3.5-5.2); Alkaline Phosphatase 221 IU/L (40-130); Anion Gap 15.8 (5-19); Aspartate Amino Transferase 36 U/L (0-40); Blood Urea Nitrogen 23 mg/dL (8-23); Calcium 8.9 mg/dL (8.5-10.5); Carbon Dioxide 23 mmol/L (22-29); Chloride 106 mmol/L (98-107); Glucose 103 mg/dL (65-115); Lipase 25 U/L (13-60); Osmolality Calculated 296 mOsm/kg (285-295); Potassium 3.8 mmol/L (3.5-5.1); Sodium 141 mmol/L (136-145); Total Bilirubin 0.9 mg/dL (0.15-1.2); Total Protein 5.7 g/dL (6.6-8.7)
[2020-09-10 02:27] LABS: Troponin(5th) Baseline 89 ng/L (0-15)
[2020-09-10] MEDS: ondansetron 2 mg/ML SDV 2 mL 4 MG IVP (02:45)
[2020-09-10 02:46] VITALS: BP 150/107; PULSE 67; RESP 22; O2SAT 97
--- NOTE | 2020-09-10 03:40 | ECG_ITS ---
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 Measurements Intervals [place] Rate: 67 P: ID: QRS: 73 QRSD: 97 T: 123 QT: 442 QTc: 470 Interpretive Statements SINUS RHYTHM WITH FREQUENT VENTRICULAR PREMATURE COMPLEXES ANTEROSEPTAL MYOCARDIAL INFARCTION [40+ ms Q WAVE IN V1-V4], OF INDETERMINATE AGE MODERATE T-WAVE ABNORMALITY, CONSIDER LATERAL ISCHEMIA [-0.1+ mV T WAVE IN I/aVL/V5/V6] Compared to ECG 09/10/2020 01:57:02 Aberrant conduction of supraventricular beat(s) now present T-wave abnormality now present Possible ischemia now present Sinus rhythm no longer present Myocardial infarct finding still present Electronically Signed On 09-12-2020 22:36:09 CDT by Funmilayo Motley M.D. [id number]
[2020-09-10 03:49] VITALS: BP 145/74; PULSE 67; RESP 16; O2SAT 97
[2020-09-10 03:54] LABS: NT Pro B Type Natriuretic Pept 28995 pg/mL (0-450)
[2020-09-10] MEDS: FUROsemide 10 mg/mL SDV 10mL 60 MG IVP (04:26)
[2020-09-10 04:28] VITALS: BP 146/72; PULSE 61; RESP 23; O2SAT 97
[2020-09-10 04:35] LABS: Troponin 5 2HR 85.97 ng/L (0-15)
[2020-09-10 04:48] LABS: Troponin 5 2HR Delta -3.03 ABS# (0-10)
[2020-09-10 05:43] VITALS: PULSE 67; RESP 18; O2SAT 97
--- NOTE | 2020-09-10 06:53 | PC.NURSE ---
Pt is discharged , waiting for a ride pt has [employer]. [phone]. Available around 7am.
--- NOTE | 2020-09-10 07:25 | PC.NURSE ---
Attempt to contact [employer], no answer. There is also another number in the back of the card, which says its a non working number.
== END 2020-09-10 07:56 | disposition home or self-care (01) ==
PROVIDERS: Emergency Provider Emergency Medicine; PCP Nurse Practitioner Family
DX: I13.0 Hypertensive heart and chronic kidney disease with heart failure and stage 1 through stage 4 chronic kidney disease, or unspecified chronic kidney disease (principal); I50.9 Heart failure, unspecified; N18.9 Chronic kidney disease, unspecified; I25.10 Atherosclerotic heart disease of native coronary artery without angina pectoris; E78.5 Hyperlipidemia, unspecified; Z79.82 Long term (current) use of aspirin; Z86.16 Personal history of COVID-19; Z86.73 Personal history of transient ischemic attack (TIA), and cerebral infarction without residual deficits; Z86.13 Personal history of malaria
CPT/HCPCS: 71045; 80053; 83690; 83880; 84484; 85025; 93005; 96374; 96375; 99283; J1940; J2405

== ENCOUNTER 2020-09-23 11:44 | Observation (INO) | payer OTHER, MEDICARE, SELFPAY ==
[2020-09-23] VITALS (13 sets, daily range): BP systolic 126–153; BP diastolic 74–112; PULSE 59–101; RESP 16–26; TEMP 36.5; O2SAT 90–99; BMI 17.2
--- NOTE | 2020-09-23 12:16 | ED_ITS ---
HPI - Chest Pain General: Chief Complaint: ER Hold Stated Complaint: CP/ SOB Time Seen by Provider: 09/23/20 11:51 History of Present Illness: HPI narrative: Mr. Sauer is an 85-year-old gentleman with significant past medical history emphysema, CVA, and carotid stenosis who presents to the emergency department due to chest pain and shortness of breath. He reports being at his baseline health and woke up this morning feeling shortness of breath. He does have mild associated nonproductive cough. Though he does have a history of emphysema document in the chart he denies history of inhaler use. Additionally had midsternal nonradiating moderate intensity chest pain which was relieved by nitroglycerin. There was no positional component to this. He is currently pain-free. He presented to outside clinic and was given aspirin via EMS and presented here for further evaluation. He denies frequent history of chest pain in the past. He reports compliance with his medications though this is somewhat unclear. The patient is currently requiring 2 L of oxygen via nasal cannula and does not have a history of nasal cannula home requirement. There are no other specific changes in health, exacerbating, provoking, or alleviating factors that the patient identifies. History is somewhat limited by the patient's overall knowledge of medical history. Associated symptoms: Reports dyspnea; Deny abdominal pain, fever(s), nausea or vomiting Review of Systems General: Reports: 10 or more systems reviewed and unremarkable except in HPI and below Const: Reports: fatigue; Denies: fever(s), chills, body aches or malaise Eyes: Denies: change in vision ENMT: Denies: throat pain, nasal discharge or nasal congestion Card: Reports: chest pain Resp: Reports: dyspnea and non-productive cough; Denies: hemoptysis GI: Denies: abdominal pain, nausea or vomiting : Denies: difficulty urinating Musc: Denies: neck pain Skin/Breast: Denies: rash Neuro: Reports: difficulty communicating thoughts (Patient has reported history of CVA and has difficulty with expression); Denies: headache(s), numbness in extremities or weakness in extremities Endo: Denies: polyuria or polydipsia Rocyk/Lymph: Reports: easy bruising [facility] ED PFSH: Medical History (Updated 09/24/20 @ 05:44 by José Antonio Delgado MD) Abnormal nuclear stress test Anemia Anxiety Bilateral carotid bruits CAD (coronary artery disease) Carotid stenosis Chest pain CHF (congestive heart failure), NYHA class III CKD (chronic kidney disease) COVID-19 COVID-19 Dyslipidemia Dyslipidemia GERD (gastroesophageal reflux disease) History of pancreatic cancer History of stroke Hx of transient ischemic attack (TIA) Hypertension Ischemic cardiomyopathy Multiple falls Non-ST elevation [place] (NSTEMI) Noncompliance NSTEMI (non-ST elevated myocardial infarction) Osteoarthritis Pulmonary emphysema Recurrent cerebrovascular accidents (CVAs) Sinus bradycardia Uncontrolled hypertension Surgical History H/O carotid endarterectomy Hx of spinal surgery Family History Brother Heart disease Mother Heart disease Other Stroke Social History Smoking and tobacco status: never smoked Second hand smoke exposure: No Smoking risk assessment/counseling performed?: No Alcohol intake: never Desire information about alcohol rehabilitation?: No Counseling given: No Desire information about substance/drug rehabilitation?: No Counseling given: No Adopted: No Caregiver/support person: Yes Lives independently: Yes Household members: none Housing: Manufactured/Mobile home Marital status: Single Number of children: 2 service: Yes branch: [employer] Current occupational status: retired History of recent travel: No Current gender identity: Male Physical Exam Const: COMMON NORMALS: no acute distress and patient oriented x3 EXAM LIMITATIONS: no altered mental status GENERAL APPEARANCE: cooperative and in distress (Mild distress with increased work of breathing) HENMT: COMMON NORMALS: normocephalic and atraumatic HEAD & SCALP: normocephalic and atraumatic Eye: COMMON NORMALS: Equal, round and reactive pupils present, conjunctivae normal and no scleral icterus CONJUNCTIVA: Yes conjunctivae normal PUPIL: Yes Equal, round and reactive pupils present Neck/C-Spine: COMMON NORMALS: no JVD Resp: COMMON NORMALS: No retractions, No use of accessory muscles and clear to auscultation bilaterally; negative for normal respiratory effort (Mild increased respiratory effort) EFFORT & INSPECTION: Yes able to speak in complete sentences AUSCULTATION: clear to auscultation bilaterally Cardio: COMMON NORMALS: no JVD, regular rate and regular rhythm RATE: regular rate RHYTHM: regular rhythm GI: COMMON NORMALS: Soft to palpation and non-tender PALPATION: Yes Soft to palpation Extremity: COMMON NORMALS: normal to inspection and capillary refill normal Neuro: COMMON NORMALS: patient oriented x3 SPEECH: abnormal speech (As noted in HPI) Skin: COMMON NORMALS: no rashes or lesions noted GENERAL SKIN EXAM: no rashes or lesions noted Course ED course: - Patient seen and evaluated at bedside - cafeteria monitor attached and supplemental oxygen continued. - Initial examination notable for no acute distress, there is mild increased respiratory effort without charlette abnormal lung sounds appreciated. No charlette res piratory distress. - Laboratory and imaging studies reviewed after obtaining - Laboratory studies notable for no leukocytosis baseline high-sensitivity troponin elevated however this actually appears improved from prior visit and the initial 2-hour change was within normal limits. BNP elevated - Imaging notable for increased pulmonary vascular congestion. 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 He essentially has known intervene of the lesions and multiple failed PCI attempts. He was previously recommended for CABG however the high risk of mortality led him to declined procedure at that time. Cardiology service recommended repeat troponin and close follow-up. - Initially this plan was discussed with the patient however upon standing and and exertion the patient became increasingly short of breath. His oxygen saturation dropped to low 80s and he did have mild resumption of his chest discomfort which relieved with rest. - Based on the high medical complexity including multiple significant comorbidities associated with infectious etiology, likely acute on chronic heart failure, and possibility of instability in his angina patient will be admitted - Patient was discussed with Dr. Delgado of the internal medicine hospitalist team and patient will be admitted for observation and continued antibiotic therapy. Vital Signs: Vital signs: Vital Signs Temperature 97.7 F 09/23/20 12:10 Pulse Rate 83 09/24/20 05:41 Respiratory Rate 20 H 09/24/20 05:41 Blood Pressure 147/80 09/24/20 05:41 Pulse Oximetry 92 09/24/20 05:41 MDM - Chest Pain Medical Records: Attestation: I reviewed the patient's medical records. Lab Data: Attestation: I reviewed the patient's lab results. Labs: Lab Results 09/23/20 09/23/20 09/23/20 Range/Units 14:48 14:48 14:48 WBC 7.6 (4.0-10.0) 10^3/ uL RBC 3.52 L (4.1-5.3) 10^6/u L Hgb 11.4 L (11.7-16.6) g/dL Hct 35.6 L (42.0-52.0) % MCV 101.1 H (80-94) fL MCH 32.4 (28.0-34.0) pg MCHC 32.0 (30.0-36.0) g/dL RDW 17.9 H (12.1-15.1) % Plt Count 336 (130-400) 10^3/c mm MPV 12.6 H (7.4-10.4) fL Neut % (Auto) 72.5 % Lymph % (Auto) 19.7 % [place] % (Auto) 5.6 % Eos % (Auto) 1.4 % Baso % (Auto) 0.5 % Neut # (Auto) 5.52 (1.8-7.7) 10^3/u L Lymph # (Auto) 1.5 (0.8-4.8) 10^3/u L [place] # (Auto) 0.4 (0.2-0.9) 10^3/u L Eos # (Auto) 0.1 (0.0-0.8) 10^3/u L Baso # (Auto) 0.0 (0.0-0.1) 10^3/u L Nucleated RBC % (a uto) 0 % Nucleated RBCs # 0.0 /100WBC Sodium 140 (136-145) mmol/L Potassium 4.4 (3.5-5.1) mmol/L Chloride 106 (98-107) mmol/L Carbon Dioxide 21 L (22-29) mmol/L Anion Gap 17.4 (5-19) BUN 25 H (8-23) mg/dL Creatinine 1.2 (0.7-1.2) mg/dL GFR Calculation Not Reportable Glucose 90 (65-115) mg/dL Calculated Osmolal ity 294 (285-295) mOsm/k g Calcium 8.2 L (8.5-10.5) mg/dL Troponin T Baselin e 49 H (0-15) ng/L Troponin T [address] [place] (0-15) ng/L Delta Troponin T (0-10) ABS# Troponin T Hi Sens 6Hr (0-15) ng/L Troponin T Hi Sens 6Hr Delta (0-12) ng/L NT-Pro-B Natriuret Pep (0-450) pg/mL 09/23/20 09/23/20 09/23/20 Range/Units 14:48 17:29 20:48 WBC (4.0-10.0) 10^3/ uL RBC (4.1-5.3) 10^6/u L Hgb (11.7-16.6) g/dL Hct (42.0-52.0) % MCV (80-94) fL MCH (28.0-34.0) pg MCHC (30.0-36.0) g/dL RDW (12.1-15.1) % Plt Count (130-400) 10^3/c mm MPV (7.4-10.4) fL Neut % (Auto) % Lymph % (Auto) % [place] % (Auto) % Eos % (Auto) % Baso % (Auto) % Neut # (Auto) (1.8-7.7) 10^3/u L Lymph # (Auto) (0.8-4.8) 10^3/u L [place] # (Auto) (0.2-0.9) 10^3/u L Eos # (Auto) (0.0-0.8) 10^3/u L Baso # (Auto) (0.0-0.1) 10^3/u L Nucleated RBC % (a uto) % Nucleated RBCs # /100WBC Sodium (136-145) mmol/L Potassium (3.5-5.1) mmol/L Chloride (98-107) mmol/L Carbon Dioxide (22-29) mmol/L Anion Gap (5-19) BUN (8-23) mg/dL Creatinine (0.7-1.2) mg/dL GFR Calculation Glucose (65-115) mg/dL Calculated Osmolal ity (285-295) mOsm/k g Calcium (8.5-10.5) mg/dL Troponin T Baselin e (0-15) ng/L Troponin T [address] [place] 49.13 H (0-15) ng/L Delta Troponin T 0.13 (0-10) ABS# Troponin T Hi Sens 6Hr 55.34 H (0-15) ng/L Troponin T Hi Sens 6Hr Delta 6.34 (0-12) ng/L NT-Pro-B Natriuret Pep 47339 H (0-450) pg/mL Imaging Data^: CXR: Attestation: I personally reviewed and interpreted this imaging study as follows: My impression: Increased pulmonary vascular congestion Radiologist's impression: 1. Bilateral interstitial thickening and lower lung field opacifications. Probably pneumonia with superimposed edema. Mild progression since the prior study. 2. Mild cardiomegaly CT Head: Attestation: I personally reviewed and interpreted this imaging study as follows: My impression: No acute intracranial hemorrhage appreciated. Radiologist's impression: 1. No acute intracranial hemorrhage or edema. 2. Remote infarcts in the LEFT basal ganglia and christiansen radiata. No acute infarct is identified. EKG Data^: EKG 1: Attestation: I personally reviewed and interpreted this EKG as follows: EKG interpretation date: 09/23/20 Prior EKG tracings: available for review Ischemic changes: non-specific ST-T wave changes Interpretation: Twelve-lead EKG shows a regular sinus rhythm with frequent PVCs Rate 59. [place] interval 210. QRS duration 93. QTc 417. Nonspecific ST segment abnormalities not meeting STEMI criteria. Interpretation. Sinus bradycardia with frequent PVCs. First-degree AV block. Discharge Plan Discharge Patient Disposition: Placed in Observation Admit Provider: José Antonio Delgado Clinical Impression: Chest pain Discharge Diet: Cardiac Discharge Activity: Resume usual activity Coding Level of Care Code ED Fairground Operator for Chg Fwd Exam Comprehensive
--- NOTE | 2020-09-23 12:25 | ECG_ITS ---
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 Measurements Intervals [place] Rate: 59 P: 71 DC: 210 QRS: 42 QRSD: 93 T: 109 QT: 418 QTc: 417 Interpretive Statements SINUS RHYTHM WITH FREQUENT VENTRICULAR PREMATURE COMPLEXES ANTEROSEPTAL MYOCARDIAL INFARCTION, OF INDETERMINATE AGE NONSPECIFIC ST & T-WAVE ABNORMALITY Compared to ECG 09/10/2020 03:44:59 Possible ischemia no longer present T-wave abnormality still present Electronically Signed On 09-23-2020 16:39:54 CDT by Funmilayo Motley M.D. [id number]
--- NOTE | 2020-09-23 12:25 | XR_ITS ---
WS: [id number] PORTABLE CHEST HISTORY: Chest pain and short of breath. COMPARISON: 09/10/2020 Dense areas of consolidation in the mid and lower lung barth. Additional interstitial thickening in the upper lung barth. Mild progression since the prior examination. Suspect small LEFT pleural effus ion. Cardiac size: Mildly enlarged cardiac silhouette. Mediastinum/Aorta: Normal mediastinum. Bones are osteopenic. Mild narrowing of the glenohumeral joints. XR/XR chest 1V portable [id number] IMPRESSION: 1. Bilateral interstitial thickening and lower lung field opacifications. Prob ably pneumonia with superimposed edema. Mild progression since the prior study. 2. Mild cardiomegaly.
--- NOTE | 2020-09-23 12:36 | CT_ITS ---
WS: [id number] CT HEAD NONCONTRAST HISTORY: prior CVA? Dysarthric speech TECHNIQUE: Contiguous axial imaging performed through the brain in 2.5 mm imaging. Bone and soft tiss ue windows. Sagittal and coronal reformats reviewed. All CT scans at [facility] [place] use at le ast one of these dose optimization techniques: automated exposure control; mA and/or kV adjustment pe r patient size (includes targeted exams where dose is matched to clinical indication); or iterative r econstruction. DLP: 970.89 mGy.cm COMPARISON: 07/11/2020 No acute intracranial hemorrhage, midline shift or mass effect. Moderate atrophy is symmetric bilaterally and involves the cerebellum and cerebrum. 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 No progression o f these infarcts since the prior study. Ventricles: Normal size with no hydrocephalus. Paranasal sinuses: As visualized are clear. Mastoid air cells: Well pneumatized. Calvarium and scalp: Skull is intact with no soft tissue edema or swelling. CT/CT head wo con* [id number] IMPRESSION: 1. No acute intracranial hemorrhage or edema. 2. Remote infarcts in the LEFT basal ganglia and christiansen radiata. No acute infa rct is identified.
--- NOTE | 2020-09-23 14:25 | ECG_ITS ---
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 Measurements Intervals [place] Rate: 59 P: 60 VT: 197 QRS: 18 QRSD: 85 T: 84 QT: 429 QTc: 427 Interpretive Statements SINUS BRADYCARDIA WITH FREQUENT VENTRICULAR PREMATURE COMPLEXES NONSPECIFIC ST & T-WAVE ABNORMALITY ABNORMAL RHYTHM ECG Compared to ECG 09/23/2020 12:00:29 Ventricular premature complex(es) now present T-wave abnormality still present Electronically Signed On 09-29-2020 10:07:28 CDT by Funmilayo Motley M.D. [email or web address] Communitiespearl river county hospitalNational Technical Systemsuniversity hospitals [facility].[employer]/store/[id number]
[2020-09-23 15:07] LABS: Basophils % 0.5 %; Eosinophils # 0.1 10^3/uL (0.0-0.8); Eosinophils % 1.4 %; Hematocrit 35.6 % (42.0-52.0); Hemoglobin 11.4 g/dL (11.7-16.6); Lymphocytes # 1.5 10^3/uL (0.8-4.8); Lymphocytes % 19.7 %; Mean Corpuscular Hemoglobin 32.4 pg (28.0-34.0); Mean Corpuscular Volume 101.1 fL (80-94); Mean Platelet Volume 12.6 fL (7.4-10.4); Monocytes # 0.4 10^3/uL (0.2-0.9); Monocytes % 5.6 %; Neutrophils # 5.52 10^3/uL (1.8-7.7); Neutrophils % 72.5 %; Nucleated Red Blood Cells % 0 %; Platelet Count 336 10^3/cmm (130-400); Red Blood Count 3.52 10^6/uL (4.1-5.3); Red Cell Distribution Width 17.9 % (12.1-15.1); White Blood Count 7.6 10^3/uL (4.0-10.0)
[2020-09-23 15:35] LABS: Troponin(5th) Baseline 49 ng/L (0-15)
[2020-09-23 15:40] LABS: Blood Urea Nitrogen 25 mg/dL (8-23); Calcium 8.2 mg/dL (8.5-10.5); Carbon Dioxide 21 mmol/L (22-29); Chloride 106 mmol/L (98-107); Glucose 90 mg/dL (65-115); Osmolality Calculated 294 mOsm/kg (285-295); Sodium 140 mmol/L (136-145)
[2020-09-23 15:52] LABS: Anion Gap 17.4 (5-19); Potassium 4.4 mmol/L (3.5-5.1)
--- NOTE | 2020-09-23 17:10 | PC.NURSE ---
multiple episodes non sustained vtach reported to Dr. Melendez. see strips recorded on chart
[2020-09-23 17:28] LABS: NT Pro B Type Natriuretic Pept 23601 pg/mL (0-450)
--- NOTE | 2020-09-23 18:25 | ECG_ITS ---
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 Measurements Intervals [place] Rate: 95 P: 63 WI: 207 QRS: 54 QRSD: 92 T: 103 QT: 360 QTc: 454 Interpretive Statements SINUS RHYTHM WITH FREQUENT VENTRICULAR PREMATURE COMPLEXES NONSPECIFIC ST & T-WAVE ABNORMALITY Compared to ECG 09/23/2020 14:43:46 Sinus bradycardia no longer present T-wave abnormality still present Electronically Signed On 09-25-2020 12:26:36 CDT by Ruddy Leach M.D. [email or web address].[employer]/[id number]
[2020-09-23 18:59] LABS: Troponin 5 2HR 49.13 ng/L (0-15); Troponin 5 2HR Delta 0.13 ABS# (0-10)
[2020-09-23] MEDS: FUROsemide 10 mg/mL SDV 2mL 20 MG IVP (19:23)
[2020-09-23] MEDS: doxycycline 100 MG in sodium chloride 0.9% (plus) 100 ML IV (20:56)
[2020-09-23 21:28] LABS: Troponin 5 6HR 55.34 ng/L (0-15); Troponin 5 6HR Delta 6.34 ng/L (0-12)
--- NOTE | 2020-09-23 22:37 | PC.NURSE ---
patient has refused to have further blood pressure measurement
--- NOTE | 2020-09-24 00:10 | PC.NURSE ---
I assumed care of this patient at 09/24/20 0005
[2020-09-24 00:52] VITALS: BP 158/91; PULSE 100; RESP 24; O2SAT 92
[2020-09-24 02:16] VITALS: BP 148/74; PULSE 85; RESP 22; O2SAT 93
[2020-09-24] MEDS: ondansetron 2 mg/ML SDV 2 mL 4 MG IVP (03:20)
--- NOTE | 2020-09-24 04:36 | P.HP_ITS ---
Providers/Chief Complaint Admitting Physician: José Antonio Delgado Primary Care Provider: YELITZA Mon Chief Complaint: CP/ SOB History of Present Illness 85-year-old with a past medical history significant hypertension, dyslipidemia, COVID-19 infection in July of 2020 and coronary artery disease who has refused bypass in the past. Now presented to the hospital with again chest pain. Patient was seen for similar complaints on 09/10/2020. During this time patient was given Lasix and discharged home. He apparently is on hospice level of care. Upon arrival his laboratory workup showed a WBC of 7.6, hemoglobin 11.4, hematocrit 35.6 and a platelet count of 336. Troponin T baseline 49, 120 minutes repeat of 49.13, 6 hour of 55.34. ProBNP was elevated 23,601. this was a decrease from the prior 28,995. Patient was given Lasix 20mg IV x 1 and doxycycline 100 mg IV x 1. Review of Systems General: Reports: ROS unobtainable due to mental status Medications/Allergies Home Medications Medication Instructions Recorded Confirmed Last Taken Type cholecalciferol (vitamin D3) 25 50 mcg PO DAILY 03/29/20 09/23/20 07/02/20 History mcg (1,000 unit) capsule aspirin 81 mg PO DAILY 05/29/20 09/23/20 07/02/20 History clopidogrel 75 mg PO DAILY 05/29/20 09/23/20 07/02/20 History famotidine 20 mg PO DAILY 05/29/20 09/23/20 07/02/20 History isosorbide dinitrate 20 mg PO TID 05/29/20 09/23/20 07/02/20 History tamsulosin 0.4 mg PO DAILY 05/29/20 09/23/20 07/02/20 History lisinopril 20 mg PO DAILY #30 tab 06/03/20 09/23/20 07/02/20 Rx ondansetron 8 mg disintegrating 8 mg PO Q8H PRN #90 tab 07/26/20 09/23/20 Unknown Rx tablet amlodipine 2.5 mg PO DAILY 08/02/20 09/23/20 Unknown History atorvastatin 40 mg PO DAILY 08/02/20 09/23/20 Unknown History docusate sodium 100 mg PO BID 08/02/20 09/23/20 Unknown History hydralazine 25 mg PO TID 08/02/20 09/23/20 Unknown History budesonide 1 inh INHALATION BID #1 ea 08/08/20 09/23/20 Unknown Rx carvedilol 6.25 mg PO BID #60 tab 08/08/20 09/23/20 Unknown Rx nitroglycerin 0.4 mg sublingual 0.4 mg SUBLINGUAL Q5M PRN 30 Days 09/01/20 09/23/20 Unknown Rx tablet #30 tab metoprolol succinate 25 mg PO DAILY 09/23/20 09/23/20 Unknown History Allergies Allergy/AdvReac Type Severity Reaction Status Date / Time Penicillins Allergy Intermediate unknown Verified 09/23/20 11:53 PFSH Acute PFSH: Medical History (Updated 09/24/20 @ 05:44 by José Antonio Delgado MD) Abnormal nuclear stress test Anemia Anxiety Bilateral carotid bruits CAD (coronary artery disease) Carotid stenosis Chest pain CHF (congestive heart failure), NYHA class III CKD (chronic kidney disease) COVID-19 COVID-19 Dyslipidemia Dyslipidemia GERD (gastroesophageal reflux disease) History of pancreatic cancer History of stroke Hx of transient ischemic attack (TIA) Hypertension Ischemic cardiomyopathy Multiple falls Non-ST elevation [place] (NSTEMI) Noncompliance NSTEMI (non-ST elevated myocardial infarction) Osteoarthritis Pulmonary emphysema Recurrent cerebrovascular accidents (CVAs) Sinus bradycardia Uncontrolled hypertension Surgical History H/O carotid endarterectomy Hx of spinal surgery Family History Brother Heart disease Mother Heart disease Other Stroke Social History Smoking and tobacco status: never smoked Second hand smoke exposure: No Smoking risk assessment/counseling performed?: No Alcohol intake: never Desire information about alcohol rehabilitation?: No Counseling given: No Desire information about substance/drug rehabilitation?: No Counseling given: No Adopted: No Caregiver/support person: Yes Lives independently: Yes Household members: none Housing: Manufactured/Mobile home Marital status: Single Number of children: 2 service: Yes branch: [employer] Current occupational status: retired History of recent travel: No Current gender identity: Male Vitals/I&O/Wt Last Vital Signs Temp 97.7 F 09/23/20 12:10 Pulse 85 09/24/20 02:16 Resp 22 H 09/24/20 02:16 BP 148/74 09/24/20 02:16 Pulse Ox 93 09/24/20 02:16 09/23/20 09/23/20 09/24/20 14:59 22:59 06:59 Intake Total 100 / 100 Balance 100 / 100 Weight last 48 hrs Weight 51.256 kg Physical Exam Narrative: EXAM NARRATIVE: general : alert, awake, oriented x 2, NAD HEENT : EOMI CVS : RRR Chest ; Non-labored respiration Ext : no edema Data : 09/23/20 14:48 09/23/20 14:48 A&P Assessment and plan (1) Pulmonary emphysema: Status: Acute Qualifiers: Emphysema type: unspecified Qualified Code(s): J43.9 - Emphysema, unspecified (2) CHF (congestive heart failure), NYHA class III: Status: Acute Additional A&P Information Patient remained stable overnight. Oxygen was arranged. No further episodes of chest discomfort. Discharge was arranged. Attestations Medical Necessity Statement*: Discharge Coding Level of Care Code Acute Software Tools Build Engineer for [facility] Fwd Diagnoses Pulmonary emphysema J43.9 Emphysema type: unspecified CHF (congestive heart failure), NYHA class III I50.9
[2020-09-24 05:30] VITALS: O2SAT 85; O2SAT 89; O2SAT 94
[2020-09-24 05:41] VITALS: BP 147/80; PULSE 83; RESP 20; O2SAT 92
--- NOTE | 2020-09-24 21:04 | P.DS_ITS ---
Discharge Providers Date of Admission: 09/24/20 03:21 Date of Discharge: September 24, 2020 Attending Provider at Admission: José Antonio Delgado Attending Provider at Discharge: José Antonio Delgado Primary Care Provider: YELITZA Mon Diagnoses at Discharge Discharge Diagnosis (1) Pulmonary emphysema: Status: Acute Qualifiers: Emphysema type: unspecified Qualified Code(s): J43.9 - Emphysema, unspecified (2) CHF (congestive heart failure), NYHA class III: Status: Acute Reason for Visit Reason for Visit: CP/ SOB Hospital Course Hospital Course 85-year-old with a past medical history significant hypertension, dyslipidemia, COVID-19 infection in July of 2020 and coronary artery disease who has refused bypass in the past. Now presented to the hospital with again chest pain. Patient was seen for similar complaints on 09/10/2020. During this time patient was given Lasix and discharged home. He apparently is on hospice level of care. Upon arrival his laboratory workup showed a WBC of 7.6, hemoglobin 11.4, hematocrit 35.6 and a platelet count of 336. Troponin T baseline 49, 120 minutes repeat of 49.13, 6 hour of 55.34. ProBNP was elevated 23,601. this was a decrease from the prior 28,995. Patient was given Lasix 20mg IV x 1 and doxycycline 100 mg IV x 1. Patient remains stable as well in emergency room. Home oxygen was arranged for patient at the time of discharge. Advised to follow-up with primary care physician Physical Exam Narrative: EXAM NARRATIVE: as noted in H&P Discharge Data Data Completed and Pending: Completed Studies During Hospitalization Category Date Time Status CT head wo con* 7 0450 Urgent Cat Scan 09/23/20 12:36 Completed XR chest 1V chalo ble [id number] Stat Exams 09/23/20 12:25 Completed Vitals: Last Vital Signs Temp 97.7 F 09/23/20 12:10 Pulse 83 09/24/20 05:41 Resp 20 H 09/24/20 05:41 BP 147/80 09/24/20 05:41 Pulse Ox 92 09/24/20 05:41 Discharge Plan Discharge Patient Disposition: Home Condition: Stable Prescriptions: No Action cholecalciferol (vitamin D3) 25 mcg (1,000 unit) capsule 50 mcg PO DAILY RF: 0 ondansetron 8 mg tablet,disintegrating 8 mg PO Q8H PRN (Reason: nausea and vomiting) Qty: 90 RF: 0 Nitrostat 0.4 mg tablet, sublingual 0.4 mg SUBLINGUAL Q5M PRN (Reason: Chest Pain) 30 Days Qty: 30 RF: 5 atorvastatin 40 mg tablet 40 mg PO DAILY RF: 0 hydralazine 25 mg Tablet 25 mg PO TID RF: 0 amlodipine 2.5 mg Tablet 2.5 mg PO DAILY RF: 0 docusate sodium 100 mg Capsule 100 mg PO BID RF: 0 budesonide 90 mcg/actuation aerosol powdr breath activated 1 inh inhalation BID Qty: 1 RF: 0 carvedilol 3.125 mg tablet 6.25 mg PO BID Qty: 60 RF: 3 metoprolol succinate 25 mg tablet extended release 24 hr 25 mg PO DAILY RF: 0 clopidogrel 75 mg tablet 75 mg PO DAILY RF: 0 aspirin 81 mg tablet,delayed release (DR/EC) 81 mg PO DAILY RF: 0 famotidine 20 mg tablet 20 mg PO DAILY RF: 0 tamsulosin 0.4 mg capsule 0.4 mg PO DAILY RF: 0 isosorbide dinitrate 20 mg tablet 20 mg PO TID RF: 0 lisinopril 20 mg tablet 20 mg PO DAILY Qty: 30 RF: 3 Hold Instructions: Resume on 08/25/20. Discharge Orders: Discharge Order (Routine); Ordered 09/24/20 Ordered By: José Antonio Delgado Other Ambulatory Orders: DME: Oxygen (Order) Location: None Selected Ordered By: José Antonio Delgado Referrals: Davida Palomares FNP-Corazon [Primary Care Provider] - Discharge Diet: Cardiac Discharge Activity: Resume usual activity Patient Instructions: Chest Pain (ED), Opioid Safety Activity Restrictions/Additional Instructions: Thank you for visiting the emergency department. You were seen and evaluated. You have numerous complex medical conditions that require full follow-up. Please follow-up with cardiology and your primary care provider. Your BNP was elevated which can be associated with heart failure exacerbation. Please return to the emergency department for chest pain, shortness of breath, confusion, weakness of any part of your body, or anything else that you are concerned about and feel needs emergency department evaluation. Discharge Attestations Time Spent in Discharge Care*: greater than 30 min Status at Discharge: Cognitive status at discharge: cognitively intact , Behavioral status at discharge: cooperative , Quality Metrics Clinical Quality Measures During this hospital stay, did patient experience: None Coding Level of Care Code Acute Chg FW DC note Diagnoses Pulmonary emphysema J43.9 Emphysema type: unspecified CHF (congestive heart failure), NYHA class III I50.9
[2020-09-25 22:48] LABS: Quest SARS-CoV-2 RNA NOT DETECTED (NOT DETECTED)
--- NOTE | 2020-09-27 10:37 | DCPLANNER ---
city manager had message to schedule a follow [facility] appointment for [facility] with [facility]. city manager called [facility], spoke Nanci, gave clinic patients information. A follow up appointment was scheduled for , September 29, 2020 at 1:15 with STORE OPERATIONS MANAGER, Jennifer Khan. city manager called patient, spoke with family member, gave them the appointment information.
--- NOTE | 2020-10-07 14:54 | DCPLANNER ---
Patient had a follow up appointment scheduled for 09.29.20 with [facility] - patient did not attend appointment.
== END 2020-09-24 11:10 | disposition home or self-care (01) ==
LOC: ER 19:20 → ER IP 09-24 03:21
PROVIDERS: Admitting Provider Hospitalist; Emergency Provider Emergency Medicine; PCP Nurse Practitioner Family; Visit Provider Hospitalist
DX: J43.9 Emphysema, unspecified (principal); I50.9 Heart failure, unspecified; E78.5 Hyperlipidemia, unspecified; Z82.49 Family history of ischemic heart disease and other diseases of the circulatory system; I25.10 Atherosclerotic heart disease of native coronary artery without angina pectoris; Z79.82 Long term (current) use of aspirin; F41.9 Anxiety disorder, unspecified; I25.2 Old myocardial infarction; Z91.19 Patient's noncompliance with other medical treatment and regimen; I13.0 Hypertensive heart and chronic kidney disease with heart failure and stage 1 through stage 4 chronic kidney disease, or unspecified chronic kidney disease; N18.9 Chronic kidney disease, unspecified
CPT/HCPCS: 70450; 71045; 80048; 83880; 84484; 85025; 87635; 93005; 96365; 96375; 99285; G0378; J1940; J2405; J3490

== ENCOUNTER 2020-10-01 08:56 | Inpatient (IN) | payer MEDICARE, SELFPAY ==
[2020-10-01] VITALS (14 sets, daily range): BP systolic 101–151; BP diastolic 64–105; PULSE 71–102; RESP 13–32; TEMP 36.4–36.7; O2SAT 85–98; BMI 19.8
--- NOTE | 2020-10-01 09:06 | ED_ITS ---
HPI - Chest Pain General: Chief Complaint: Chest Pain Stated Complaint: CHEST PAIN Time Seen by Provider: 10/01/20 09:06 History of Present Illness: HPI narrative: Mr. Sauer is a 85-year-old gentleman with a significant past medical history of COPD with chronic hypoxic respiratory failure, hypertension, hyperlipidemia, CAD who presents to the emergency department with a chief complaint of shortness of breath. He frequently suffers from shortness of breath however sounds like this morning symptoms were subacutely worse. He describes chest pain and a syncopal episode. The exact circumstances are somewhat unclear. Overall the intensity of symptoms is mo derate to severe. The course has persisted. It is unclear whether there is an exertional component. Chest pain is sharp and aching in the middle of his chest without significant radiation. He has had similar episodes in the past. No other specific identified exacerbating or alleviating factors. EMS gave the patient 324 of aspirin and 2 nitro without significant relief. Review of Systems General: Reports: 10 or more systems reviewed and unremarkable except in HPI and below Narrative: CONSTITUTIONAL: denies fever, baseline fatigue EYES - denies pain, denies loss of vision EARS - denies ear issues. NOSE - denies congestion or rhinorrhea. THROAT - denies sore throat or difficulty swallowing. CARDIOVASCULAR -chest pain present as noted in HPI RESPIRATORY -shortness of breath and cough present GASTROINTESTINAL - denies abdominal pain, no nausea vomiting, no changes in bowel habits GENITOURINARY - denies dysuria or urinary frequency MUSCULOSKELETAL- denies deformity or pain SKIN - denies rashes or new changed skin lesions NEUROLOGIC - denies focal weakness or sensory changes HEMATOLOGIC/LYMPHATIC - denies easy bruising or lymphadenopathy. [facility] ED PFSH: Medical History Abnormal nuclear stress test Anemia Anxiety Bilateral carotid bruits CAD (coronary artery disease) Carotid stenosis Chest pain CHF (congestive heart failure), NYHA class III CKD (chronic kidney disease) COVID-19 COVID-19 Dyslipidemia Dyslipidemia GERD (gastroesophageal reflux disease) History of pancreatic cancer History of stroke Hx of transient ischemic attack (TIA) Hypertension Ischemic cardiomyopathy Multiple falls Non-ST elevation [place] (NSTEMI) Noncompliance NSTEMI (non-ST elevated myocardial infarction) Osteoarthritis Pulmonary emphysema Recurrent cerebrovascular accidents (CVAs) Sinus bradycardia Uncontrolled hypertension Surgical History H/O carotid endarterectomy Hx of spinal surgery Family History Brother Heart disease Mother Heart disease Other Stroke Social History Smoking and tobacco status: never smoked Second hand smoke exposure: No Smoking risk assessment/counseling performed?: No Alcohol intake: never Desire information about alcohol rehabilitation?: No Counseling given: No Desire information about substance/drug rehabilitation?: No Counseling given: No Adopted: No Caregiver/support person: Yes Lives independently: Yes Household members: none Housing: Manufactured/Mobile home Marital status: Single Number of children: 2 service: Yes branch: [employer] Current occupational status: retired History of recent travel: No Current gender identity: Male Physical Exam Narrative: EXAM NARRATIVE: GENERAL/CONSTITUTIONAL -ill-appearing. Mild respiratory distress. Eyes - PERRL, no conjunctival injection ENMT - Atraumatic external nose and ears. Moist mucous membranes NECK - supple. trachea midline CARDIOVASCULAR - regular rate and rhythm. RESPIRATORY -rhonchi and Rales present throughout all lung barth. Accessory muscle use and mild to moderate respiratory distress. ABDOMEN/GI - Nontender/Nondistended. No tenderness to percussion or evidence of peritonitis MSK - Extremities without obvious deformity or tenderness to palpation SKIN - Warm, Dry, pale NEURO - alert and appropriately oriented. strength and sensation intact. Moves all extremities equally. PSYCH - Appropriate mood and affect Course ED course: - Patient was seen and evaluated by me at bedside - Patient placed on cardiac monitors, IV access obtained - Initial evaluation notable for ill appearance, distress due to pain, patient has moderate respiratory distress with retractions. Treatments initiated. - Labs notable for No leukocytosis, near baseline normocytic anemia. BNP elevated. - Imaging notable for increased pulmonary vascular congestion. Given report of sudden onset of symptoms and syncope including fall CT imaging ordered. Included in differential is aortic pathology given clinical history. Imaging was negative for acute traumatic injury. - Patient placed on BiPAP with improvement in respiratory status including effort and oxygen saturation. - Upon serial reexamination after treatment the patient was improved with BiPAP though continued to have symptoms - Based on patient history, evaluation, labs, and imaging as interpreted the most likely cause of the patient's condition is COPD exacerbation as well as acute on chronic heart failure. Bedside echocardiogram did reveal reduced EF grossly compared to prior - The results of ED evaluation were discussed with the patient including plan for admission due to requirement for level of care not available if discharged to prevent significant worsening/deterioration. - Hospitalist service contacted and agreed to meet the patient. - Patient was admitted without further deterioration or significant events. Vital Signs: Vital signs: Vital Signs Temperature 98.2 F 10/02/20 03:17 Pulse Rate 73 10/02/20 03:17 Respiratory Rate 18 10/02/20 03:17 Blood Pressure 97/62 10/02/20 03:17 Pulse Oximetry 97 10/02/20 03:17 MDM - Chest Pain Medical Records: Attestation: I reviewed the patient's medical records. Lab Data: Attestation: I reviewed the patient's lab results. Labs: Lab Results 10/01/20 10/01/20 10/01/20 Range/Units 09:05 09:05 09:05 WBC 9.7 (4.0-10.0) 10^3/ uL RBC 3.31 L (4.1-5.3) 10^6/u L Hgb 10.7 L (11.7-16.6) g/dL Hct 31.7 L (42.0-52.0) % MCV 95.8 H (80-94) fl MCH 32.3 (28.0-34.0) pg MCHC 33.8 (30.0-36.0) g/dL RDW 17.2 H (12.1-15.1) % Plt Count 331 (130-400) 10^3/c mm MPV 12.9 H (7.4-10.4) fL Neut % (Auto) 77.5 % Lymph % (Auto) 13.2 % Traverse % (Auto) 6.4 % Eos % (Auto) 2.0 % Baso % (Auto) 0.5 % Neut # (Auto) 7.51 (1.8-7.7) 10^3/u L Lymph # (Auto) 1.3 (0.8-4.8) 10^3/u L Traverse # (Auto) 0.6 (0.2-0.9) 10^3/u L Eos # (Auto) 0.2 (0.0-0.8) 10^3/u L Baso # (Auto) 0.1 (0.0-0.1) 10^3/u L Nucleated RBC % (a uto) 0 % Nucleated RBCs # 0.0 /100WBC PT 14.20 (12.1-14.9) SECO NDS INR 1.07 (0.8-1.2) APTT 26.7 (23.9-36.7) SECO NDS Specimen Type Sample Site ABG pH (7.35-7.45) ABG pCO2 (35-45) mmHg ABG pO2 (80.0-100.0) mmH g ABG HCO3 (22-26) mmol/L ABG O2 Saturation ABG Base Excess (-2.0-2.0) mmol/ L Mejia Test A-a O2 Gradient (5-10) mmHg Hematocrit (42-52) % Hgb O2 Saturation (95-100) % Carboxyhemoglobin (0.4-20.1) %THgb Methemoglobin (0.4-1.5) % Total Hemoglobin (14-18) g/dL Ionized Calcium (1.1-1.4) mmol/L O2 Delivery Device O2 Liters/Min % FiO2 % Public Service Officer ID Sodium 141 (136-145) mmol/L Potassium 4.0 (3.5-5.1) mmol/L Chloride 107 (98-107) mmol/L Carbon Dioxide 21 L (22-29) mmol/L Anion Gap 17.0 (5-19) BUN 25 H (8-23) mg/dL Creatinine 1.1 (0.7-1.2) mg/dL GFR Calculation Not Reportable Glucose 122 H (65-115) mg/dL Calculated Osmolal ity 298 H (285-295) mOsm/k g Lactate (0.5-2.2) mmol/L Calcium 8.5 (8.5-10.5) mg/dL Magnesium 2.0 (1.7-2.3) mg/dL Total Bilirubin 1.0 (0.15-1.2) mg/dL AST 28 (0-40) U/L ALT 40 (0-41) U/L Alkaline Phosphata se 204 H (40-130) IU/L NT-Pro-B Natriuret Pep 55321 H (0-450) pg/mL Total Protein 5.8 L (6.6-8.7) g/dL Albumin 3.6 (3.5-5.2) g/dL Globulin 2.2 (1.3-4.6) g/dL Procalcitonin 0.08 (0-0.5) ng/mL 10/01/20 10/01/20 Range/Units 09:05 09:34 WBC (4.0-10.0) 10^3/ uL RBC (4.1-5.3) 10^6/u L Hgb (11.7-16.6) g/dL Hct (42.0-52.0) % MCV (80-94) fl MCH (28.0-34.0) pg MCHC (30.0-36.0) g/dL RDW (12.1-15.1) % Plt Count (130-400) 10^3/c mm MPV (7.4-10.4) fL Neut % (Auto) % Lymph % (Auto) % Traverse % (Auto) % Eos % (Auto) % Baso % (Auto) % Neut # (Auto) (1.8-7.7) 10^3/u L Lymph # (Auto) (0.8-4.8) 10^3/u L Traverse # (Auto) (0.2-0.9) 10^3/u L Eos # (Auto) (0.0-0.8) 10^3/u L Baso # (Auto) (0.0-0.1) 10^3/u L Nucleated RBC % (a uto) % Nucleated RBCs # /100WBC PT (12.1-14.9) SECO NDS INR (0.8-1.2) APTT (23.9-36.7) SECO NDS Specimen Type Arterial Sample Site Radial, left ABG pH 7.38 (7.35-7.45) ABG pCO2 37.9 (35-45) mmHg ABG pO2 76.8 L (80.0-100.0) mmH g ABG HCO3 22.3 (22-26) mmol/L ABG O2 Saturation 95.4 ABG Base Excess -2.5 L (-2.0-2.0) mmol/ L Mejia Test Pos A-a O2 Gradient 77.1 H (5-10) mmHg Hematocrit 33.1 L (42-52) % Hgb O2 Saturation 93.9 L (95-100) % Carboxyhemoglobin 0.9 (0.4-20.1) %THgb Methemoglobin 0.6 (0.4-1.5) % Total Hemoglobin 10.8 L (14-18) g/dL Ionized Calcium 1.2 (1.1-1.4) mmol/L O2 Delivery Device Nrb O2 Liters/Min 15.0 % FiO2 100.0 % Public Service Officer ID Ed Sodium 143.0 (136-145) mmol/L Potassium 3.8 (3.5-5.1) mmol/L Chloride (98-107) mmol/L Carbon Dioxide (22-29) mmol/L Anion Gap (5-19) BUN (8-23) mg/dL Creatinine (0.7-1.2) mg/dL GFR Calculation Glucose 137.0 H (65-115) mg/dL Calculated Osmolal ity (285-295) mOsm/k g Lactate 1.7 (0.5-2.2) mmol/L Calcium (8.5-10.5) mg/dL Magnesium (1.7-2.3) mg/dL Total Bilirubin (0.15-1.2) mg/dL AST (0-40) U/L ALT (0-41) U/L Alkaline Phosphata se (40-130) IU/L NT-Pro-B Natriuret Pep (0-450) pg/mL Total Protein (6.6-8.7) g/dL Albumin (3.5-5.2) g/dL Globulin (1.3-4.6) g/dL Procalcitonin (0-0.5) ng/mL EKG Data^: EKG 1: Attestation: I personally reviewed and interpreted this EKG as follows: EKG interpretation date: 10/01/20 EKG interpretation time: 09:06 Prior EKG tracings: available for review Ischemic changes: non-specific ST-T wave changes Interpretation: Twelve-lead EKG shows a regular sinus rhythm at a rate of 99. NM interval 207, QRS 86, QTc 391. Right axis deviation. Interpretation: Sinus rhythm. PVCs. Limited interpretation with baseline. Critical Care Time Critical Care Time: Critical Care Time: Yes Total Critical Care Time: 35 Attestation: This case had a high probability of a clinically significant, sudden, or life threatening deterioration of this patient's condition which required my full and direct attention, intervention and personal management. Discharge Plan Discharge Patient Disposition: Admitted As Inpatient Admit Provider: Fariba Shin Coding Level of Care Code ED Mash Tub Cooker for Rosetta Cornelius
--- NOTE | 2020-10-01 09:07 | XRR_ITS ---
PROCEDURE INFORMATION: Exam: XR Chest Exam date and time: 10/01/2020 9:07 AM Age: 85 years old Clinical indication: Shortness of breath TECHNIQUE: Imaging protocol: XR of the chest. Views: 1 view. Total images: 1 COMPARISON: CR XR chest 1V portable [id number] 09/23/2020 12:38 PM FINDINGS: Lungs: Pulmonary vascular congestion. Stable bilateral pleuroparenchymal disease. Pleural spaces: No pneumothorax. Heart/Mediastinum: Cardiomegaly. Vasculature: Atherosclerosis is evident. Bones/joints: Osseous structures are unchanged from the prior exam. XR/XR chest 1V portable [id number] IMPRESSION: 1. Cardiomegaly with pulmonary vascular congestion. 2. Stable bilateral pleuroparenchymal disease.
[2020-10-01] MEDS: ondansetron 2 mg/ML SDV 2 mL 4 MG IVP ×2 (09:13→12:32)
[2020-10-01] MEDS: fentaNYL 50 mcg/mL INJ 2mL 25 MCG IVP ×2 (09:14→11:48)
--- NOTE | 2020-10-01 09:16 | CTR_ITS ---
PROCEDURE INFORMATION: Exam: CT Head Without Contrast Exam date and time: 10/01/2020 9:16 AM Age: 85 years old Clinical indication: Injury or trauma; Fall; Blunt trauma (contusions or hematomas); With loss of consciousness; Not specified; Injury date: 10-01-20; Injury details: Fell at home; Patient HX: Pancreatic cancer, syncope, chest pain, hypoxemia, resp distress; Additional info: Fall, syncope TECHNIQUE: Imaging protocol: Computed tomography of the head without contrast. Total images: 209 Radiation optimization: All CT scans at this facility use at least one of these dose optimization techniques: automated exposure control; mA and/or kV adjustment per patient size (includes targeted exams where dose is matched to clinical indication); or iterative reconstruction. COMPARISON: CT head wo con* [id number] 09/23/2020 1:31 PM RADIATION DOSE METRICS: Total DLP (mGy-cm): 696.2 FINDINGS: Brain: Global brain atrophy and chronic white matter ischemic changes are present. Chronic lacunar infarction in the left christiansen radiata. Chronic lacunar infarction in the left basal ganglia. Cerebral ventricles: Ventricles are appropriate in size for degree of atrophy. Paranasal sinuses: Visualized sinuses are unremarkable. No fluid levels. Mastoid air cells: Visualized mastoid air cells are well aerated. Bones/joints: Unremarkable. No acute fracture. Soft tissues: Unremarkable. CT/CT head wo con* [id number] IMPRESSION: No acute intracranial abnormality. Radiation Dose CTDIVOL = (mGy): DLP = 696.2 (mGy-cm)
--- NOTE | 2020-10-01 09:16 | CTR_ITS ---
PROCEDURE INFORMATION: Exam: CT Cervical Spine Without Contrast Exam date and time: 10/01/2020 9:16 AM Age: 85 years old Clinical indication: Injury or trauma; Fall; Blunt trauma; Injury date: 10-01-20; Injury details: Fell at home, chest pains; Patient HX: Fell at home, history of pancreatic cancer, syncopal episode; Additional info: Fall, syncope TECHNIQUE: Imaging protocol: Computed tomography images of the cervical spine without contrast. Total images: 310 Radiation optimization: All CT scans at this facility use at least one of these dose optimization techniques: automated exposure control; mA and/or kV adjustment per patient size (includes targeted exams where dose is matched to clinical indication); or iterative reconstruction. COMPARISON: CT cervical spin wo con* [id number] 05/10/2020 12:30 PM RADIATION DOSE METRICS: Total DLP (mGy-cm): 548.94 FINDINGS: Bones/joints: Facet joint degenerative changes are present. Discs/Spinal canal/Neural foramina: C3-7 Degenerative disc disease with disc space narrowing and osteophyte formation. Lungs: Apical opacities with septal thickening suggest pulmonary edema. Pleural spaces: Bilateral large pleural effusions. Soft tissues: Postsurgical changes are noted within the left neck. CT/CT cervical spin wo con* [id number] IMPRESSION: 1. Degenerative changes as described above but no acute spinal pathology detected. 2. Bilateral large pleural effusions. 3. Apical opacities with septal thickening suggest pulmonary edema. Radiation Dose CTDIVOL = (mGy): DLP = 548.94 (mGy-cm)
--- NOTE | 2020-10-01 09:16 | CTR_ITS ---
PROCEDURE INFORMATION: Exam: CTA Chest With Contrast Exam date and time: 10/01/2020 9:16 AM Age: 85 years old Clinical indication: Injury or trauma; Fall; Blunt trauma (contusions or hematomas); Injury date: 10.01.20; Injury details: Fell at home, syncopal episode, pancreatic cancer; Additional info: Syncope, chest pain, hypoxemia, resp distress TECHNIQUE: Imaging protocol: Computed tomographic angiography of the chest with contrast. 3D rendering (Not supervised by radiologist): MIP and/or 3D reconstructed images were created by the technologist. Total images: 881 Radiation optimization: All CT scans at this facility use at least one of these dose optimization techniques: automated exposure control; mA and/or kV adjustment per patient size (includes targeted exams where dose is matched to clinical indication); or iterative reconstruction. Contrast material: VISIPAQUE; Contrast volume: 90 ml; Contrast route: INTRAVENOUS (IV); COMPARISON: CT chest wo con [id number] 03/29/2017 8:17 PM RADIATION DOSE METRICS: Total DLP (mGy-cm): 594.66 FINDINGS: Pulmonary arteries: Pulmonary artery evaluation of good technical quality with no pulmonary artery embolism identified. Aorta: Moderate atherosclerotic disease is evident. Veins: Reflux of injected contrast material into hepatic veins suggests decreased cardiac output. Lungs: Predominantly central lung opacities with interstitial thickening suggest pulmonary edema. Benign granulomatous disease of the lung is noted. Pleural spaces: Large bilateral pleural effusions. Heart: Cardiomegaly. Lymph nodes: Unremarkable. No enlarged lymph nodes. Bones/joints: Mild degenerative changes of the right shoulder are noted. Mild degenerative changes of the left shoulder are noted. Spinal degenerative changes are evident. Soft tissues: Unremarkable. Other findings: Pulmonary vascular congestion. CT/CT angio chest PE protcl [id number] IMPRESSION: 1. Cardiomegaly with pulmonary vascular congestion. 2. Large bilateral pleural effusions. 3. Predominantly central lung opacities with interstitial thickening suggest pulmonary edema. 4. No pulmonary artery embolism identified. 5. Reflux of injected contrast material into hepatic veins suggests decreased cardiac output. Radiation Dose CTDIVOL = (mGy): DLP = 594.66 (mGy-cm)
[2020-10-01 09:21] LABS: Basophils # 0.1 10^3/uL (0.0-0.1); Basophils % 0.5 %; Eosinophils # 0.2 10^3/uL (0.0-0.8); Hematocrit 31.7 % (42.0-52.0); Hemoglobin 10.7 g/dL (11.7-16.6); Lymphocytes # 1.3 10^3/uL (0.8-4.8); Lymphocytes % 13.2 %; Mean Corpuscular HGB Conc 33.8 g/dL (30.0-36.0); Mean Corpuscular Hemoglobin 32.3 pg (28.0-34.0); Mean Corpuscular Volume 95.8 fl (80-94); Mean Platelet Volume 12.9 fL (7.4-10.4); Monocytes # 0.6 10^3/uL (0.2-0.9); Monocytes % 6.4 %; Neutrophils # 7.51 10^3/uL (1.8-7.7); Neutrophils % 77.5 %; Nucleated Red Blood Cells % 0 %; Platelet Count 331 10^3/cmm (130-400); Red Blood Count 3.31 10^6/uL (4.1-5.3); Red Cell Distribution Width 17.2 % (12.1-15.1); White Blood Count 9.7 10^3/uL (4.0-10.0)
[2020-10-01 09:32] LABS: INR 1.07 (0.8-1.2); Partial Thromboplastin Time 26.7 SECONDS (23.9-36.7)
[2020-10-01 09:39] LABS: Lactate (Lactic Acid level) 1.7 mmol/L (0.5-2.2)
[2020-10-01 09:43] LABS: ABG PCO2 37.9 mmHg (35-45); ABG PH Result 7.38 (7.35-7.45); Arterial Blood Gas Hematocrit 33.1 % (42-52); Base Excess ABG -2.5 mmol/L (-2.0-2.0); Blood Gas Allen Test Pos; Blood Gas Sample Type Arterial; Carboxyhemoglobin 0.9 %THgb (0.4-20.1); HCO3 ABG 22.3 mmol/L (22-26); HGB O2 Sat 93.9 % (95-100); Ionized Calcium Level - ABG 1.2 mmol/L (1.1-1.4); Methemoglobin 0.6 % (0.4-1.5); Oxygen Saturation ABG 95.4; PO2 ABG 76.8 mmHg (80.0-100.0); Potassium Level - ABG 3.8 mmol/L (3.5-5.0); Total Hemoglobin 10.8 g/dL (14-18)
[2020-10-01 09:45] LABS: Alveolar-Arterial Oxygen Gradi 77.1 mmHg (5-10); Blood Gas Operator Identificat ED; Blood Gas Sample Site Radial, left; Oxygen Device NRB
[2020-10-01 09:54] LABS: NT Pro B Type Natriuretic Pept 22467 pg/mL (0-450); Procalcitonin 0.08 ng/mL (0-0.5)
[2020-10-01 10:05] LABS: Alanine Aminotransferase 40 U/L (0-41); Albumin Level 3.6 g/dL (3.5-5.2); Alkaline Phosphatase 204 IU/L (40-130); Aspartate Amino Transferase 28 U/L (0-40); Blood Urea Nitrogen 25 mg/dL (8-23); Calcium 8.5 mg/dL (8.5-10.5); Carbon Dioxide 21 mmol/L (22-29); Chloride 107 mmol/L (98-107); Globulin 2.2 g/dL (1.3-4.6); Glucose 122 mg/dL (65-115); Osmolality Calculated 298 mOsm/kg (285-295); Sodium 141 mmol/L (136-145); Total Protein 5.8 g/dL (6.6-8.7)
[2020-10-01] MEDS: ipratropium-albuterol 3 mL Neb INHALATION (10:05)
[2020-10-01] MEDS: doxycycline 100 MG in sodium chloride 0.9% (plus) 100 ML IV (10:25)
[2020-10-01] MEDS: iodixanol 320 mg/mL 100mL Btl IV (11:41)
--- NOTE | 2020-10-01 11:45 | ECG_ITS ---
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 Measurements Intervals [place] Rate: 84 P: 70 CT: 201 QRS: 59 QRSD: 94 T: 81 QT: 374 QTc: 443 Interpretive Statements SINUS RHYTHM WITH FREQUENT VENTRICULAR PREMATURE COMPLEXES ST DEVIATION AND MODERATE T-WAVE ABNORMALITY, CONSIDER LATERAL ISCHEMIA [-0.1+ mV T-WAVE IN I/aVL/V5/V6] Compared to ECG 09/23/2020 22:16:21 Possible ischemia now present T-wave abnormality still present Electronically Signed On 10-02-2020 16:24:37 CDT by Aakash Rubin M.D. [email or web address]
[2020-10-01] MEDS: morphine 4 mg/mL SDV 1 mL 2 MG IVP (12:21)
[2020-10-01] MEDS: lidocaine 2% viscous 15 ML, aluminum-mag hydrox-simethicon 30 ML, sucralfate oral liq 1 GM PO ×2 (12:49→13:49)
[2020-10-01] MEDS: LORazepam 2 mg/mL INJ 1 mL 0.5 MG IVP ×2 (13:49→21:23)
[2020-10-01] MEDS: FUROsemide 10 mg/mL SDV 4mL 40 MG IVP (13:49)
[2020-10-01 14:47] LABS: SARS Covid-2 Antigen Negative (Negative)
--- NOTE | 2020-10-01 15:11 | PM.HP ---
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 Patient is not able to provide any history he was on BiPA and BiPAP was removed he was not able to tell me exactly why he is in the hospital. He is able to move his extremities and understand my questions. He was given a cup of water in anticipation he might be able to speak. I called his sister Ellen who is telling me that he does not have any official DPOA but Renée her daughter is mostly making decisions for him. I tried to reach out to Renée she has no voicemail set up. Review of records revealed that he was offered hospice level of care but at some point he refused and when I try to clarify hospice level of care with his sister she stated that Mr. Sauer does see a nurse once a week which is not enough for him he is living alone in 2-week and no one else is there to help him at all. He was admitted on 09/24 for management of congestive heart failure and chest pain. He was discharged from the emergency department after getting Lasix 20 mg, doxycycline and he was put on home oxygen. Diagnostic work-up in the ER today consistent with CHF exacerbation, CTA rule out PE however consistent with primary edema and pleural effusions. Patient was put on BiPAP secondary to increased work of breathing. ABG shows hypoxia, as per the ER report when EMS arrived patient was diaphoretic and tachypneic he was desaturating in low 80s, he was put on nonrebreather mask. In the ER he received Lasix 40 mg IV push along with doxycycline 1 dose of 100 mg, Ativan 0.5 mg, steroids methylprednisolone 125 mg along morphine 2 mg At the time of my evaluation I removed his BiPAP, he wanted to get up and void urine, urinal was given and he was put back on BiPAP he seems to have dysarthria however did not complain of active chest pain clinically looks dry Nurse Antony was present in the room Review of Systems General: Reports: ROS unobtainable due to medical condition (Dysarthria, on BiPAP, conversational dyspnea) Medications/Allergies Home Medications Medication Instructions Recorded Confirmed Last Taken Type cholecalciferol (vitamin D3) 25 50 mcg PO DAILY 03/29/20 10/01/20 07/02/20 History mcg (1,000 unit) capsule aspirin 81 mg PO DAILY 05/29/20 10/01/20 07/02/20 History clopidogrel 75 mg PO DAILY 05/29/20 10/01/20 07/02/20 History famotidine 20 mg PO DAILY 05/29/20 10/01/20 07/02/20 History isosorbide dinitrate 20 mg PO TID 05/29/20 10/01/20 07/02/20 History tamsulosin 0.4 mg PO DAILY 05/29/20 10/01/20 07/02/20 History lisinopril 20 mg PO DAILY #30 tab 06/03/20 10/01/20 07/02/20 Rx ondansetron 8 mg disintegrating 8 mg PO Q8H PRN #90 tab 07/26/20 10/01/20 Unknown Rx tablet amlodipine 2.5 mg PO DAILY 08/02/20 10/01/20 Unknown History atorvastatin 40 mg PO DAILY 08/02/20 10/01/20 Unknown History docusate sodium 100 mg PO BID 08/02/20 10/01/20 Unknown History hydralazine 25 mg PO TID 08/02/20 10/01/20 Unknown History budesonide 1 inh INHALATION BID #1 ea 08/08/20 10/01/20 Unknown Rx carvedilol 6.25 mg PO BID #60 tab 08/08/20 10/01/20 Unknown Rx nitroglycerin 0.4 mg sublingual 0.4 mg SUBLINGUAL Q5M PRN 30 Days 09/01/20 10/01/20 Unknown Rx tablet #30 tab metoprolol succinate 25 mg PO DAILY 09/23/20 10/01/20 Unknown History Allergies Allergy/AdvReac Type Severity Reaction Status Date / Time Penicillins Allergy Intermediate unknown Verified 09/23/20 11:53 PFSH Acute PFSH: Medical History Abnormal nuclear stress test Anemia Anxiety Bilateral carotid bruits CAD (coronary artery disease) Carotid stenosis Chest pain CHF (congestive heart failure), NYHA class III CKD (chronic kidney disease) COVID-19 COVID-19 Dyslipidemia Dyslipidemia GERD (gastroesophageal reflux disease) History of pancreatic cancer History of stroke Hx of transient ischemic attack (TIA) Hypertension Ischemic cardiomyopathy Multiple falls Non-ST elevation LA (NSTEMI) Noncompliance NSTEMI (non-ST elevated myocardial infarction) Osteoarthritis Pulmonary emphysema Recurrent cerebrovascular accidents (CVAs) Sinus bradycardia Uncontrolled hypertension Surgical History H/O carotid endarterectomy Hx of spinal surgery Family History Brother Heart disease Mother Heart disease Other Stroke Social History Smoking and tobacco status: never smoked Second hand smoke exposure: No Smoking risk assessment/counseling performed?: No Alcohol intake: never Desire information about alcohol rehabilitation?: No Counseling given: No Desire information about substance/drug rehabilitation?: No Counseling given: No Adopted: No Caregiver/support person: Yes Lives independently: Yes Household members: none Housing: Manufactured/Mobile home Marital status: Single Number of children: 2 service: Yes branch: [employer] Current occupational status: retired History of recent travel: No Current gender identity: Male Vitals/I&O/Wt Last Vital Signs Temp 97.6 F 10/01/20 08:56 Pulse 102 H 10/01/20 13:55 Resp 24 H 10/01/20 13:55 BP 132/81 10/01/20 13:55 Pulse Ox 90 10/01/20 13:55 10/01/20 10/01/20 10/01/20 06:59 14:59 22:59 Intake Total 100 / 100 Balance 100 / 100 Weight last 48 hrs Weight 58.967 kg Physical Exam Narrative: EXAM NARRATIVE: elderly male who appears more than stated age Cachectic, malnourished Significant muscle mass loss Currently on BiPAP Saturating well Diminished bilateral breath sounds with rhonchi at the bases S1, S2 distant heart sounds hard to appreciate murmur with BiPAP noise Abdomen soft Lower extremity no edema He is able to move all of his extremities, did not notice any facial droop, has dysarthria, able to follow commands, No joint swelling No cellulitis Data : 10/01/20 09:05 10/01/20 09:05 A&P Assessment and plan (1) CHF (congestive heart failure), NYHA class III: Status: Acute (2) Pulmonary emphysema: Status: Acute Qualifiers: Emphysema type: unspecified Qualified Code(s): J43.9 - Emphysema, unspecified (3) GERD (gastroesophageal reflux disease): Status: Acute Qualifiers: Esophagitis presence: without esophagitis Qualified Code(s): K21.9 - Gastro-esophageal reflux disease without esophagitis (4) Carotid stenosis: Status: Acute Qualifiers: Laterality: bilateral Qualified Code(s): I65.23 - Occlusion and stenosis of bilateral carotid arteries (5) Weakness: Status: Acute (6) Noncompliance: Status: Chronic (7) Bilateral carotid bruits: Status: Chronic (8) Acute exacerbation of CHF (congestive heart failure): Status: Acute Additional A&P Information Acute systolic congestive heart failure exacerbation Ischemic cardiomyopathy Advancing from [place] class III to class IV Malnourished and cachectic Hemoglobin 10 Reportedly was on hospice care not a candidate of surgical dimension because of his high risk of mortality Is being managed medically Lives alone and can take care of himself Clinically does not look fluid overloaded however high BNP with signs of primary edema on chest x-ray Not complaining of active chest pain, compliance questionable Continue medical management and diuresis with IV Lasix for now BiPAP to decrease work of breathing He does carry a guarded prognosis, goals of care: DNR/DNI 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 Carotid bruit Recurrent CVAs Currently on aspirin and statin Is speech impediment seems chronic on review of records I did confirm it with his sister as well who confirmed his dysarthria I do not see any acute strokelike findings Failure to thrive/weakness Lives alone Will involve case management, will need long-term [place] [facility] facility placement, will verify hospice status with Renée once unable to get in touch with her however previous review of records including PCP note did mention hospice care Previously he was discharged to [facility] As per the sister there is a nurse would visit him once a week Acute on chronic hypoxic respiratory failure Secondary to CHF exacerbation No signs of pneumonia or PE Continue IV diuresis and BiPAP FiO2 25% DNR/DNI Cardiac diet DVT prophylaxis Lovenox Attestations Medical Necessity Statement*: Anticipating stay in the hospital cross more than 2 midnights for his worsening ischemic cardiomyopathy finding Time Spent in Patient Care: Greater than 35 minutes Coding Level of Care Code Acute Correctional Agency Director for Chg Fwd Diagnoses CHF (congestive heart failure), NYHA class III I50.9 Pulmonary emphysema J43.9 Emphysema type: unspecified GERD (gastroesophageal reflux disease) K21.9 Esophagitis presence: without esophagitis Carotid stenosis I65.23 Laterality: bilateral Weakness R53.1 Noncompliance Z91.19 Bilateral carotid bruits R09.89 Acute exacerbation of CHF (congestive heart failure) I50.9
[2020-10-01] MEDS: FUROsemide 10 mg/mL SDV 10mL 60 MG IVP (20:40)
[2020-10-01] MEDS: carvedilol 6.25 mg Tablet PO (20:40)
[2020-10-01] MEDS: isosorbide dinitrate 20 mg Tablet PO (20:41)
[2020-10-02] VITALS (9 sets, daily range): BP systolic 93–111; BP diastolic 44–87; PULSE 64–79; RESP 17–25; TEMP 36.5–36.8; O2SAT 93–99
[2020-10-02 05:00] LABS: Basophils % 0.1 %; Hematocrit 35.3 % (42.0-52.0); Hemoglobin 11.7 g/dL (11.7-16.6); Lymphocytes # 0.7 10^3/uL (0.8-4.8); Lymphocytes % 4.1 %; Mean Corpuscular HGB Conc 33.1 g/dL (30.0-36.0); Mean Corpuscular Hemoglobin 31.8 pg (28.0-34.0); Mean Corpuscular Volume 95.9 fl (80-94); Mean Platelet Volume 13.3 fL (7.4-10.4); Monocytes # 0.7 10^3/uL (0.2-0.9); Monocytes % 4.4 %; Neutrophils # 15.06 10^3/uL (1.8-7.7); Neutrophils % 90.9 %; Nucleated Red Blood Cells % 0 %; Platelet Count 353 10^3/cmm (130-400); Red Blood Count 3.68 10^6/uL (4.1-5.3); Red Cell Distribution Width 17.4 % (12.1-15.1); White Blood Count 16.6 10^3/uL (4.0-10.0)
[2020-10-02 06:58] LABS: Anion Gap 14.5 (5-19); Blood Urea Nitrogen 30 mg/dL (8-23); Calcium 8.8 mg/dL (8.5-10.5); Carbon Dioxide 24 mmol/L (22-29); Chloride 102 mmol/L (98-107); Glucose 166 mg/dL (65-115); Osmolality Calculated 292 mOsm/kg (285-295); Potassium 4.5 mmol/L (3.5-5.1); Sodium 136 mmol/L (136-145)
--- NOTE | 2020-10-02 08:31 | PC.NURSE ---
Belongings Patient wallet placed in left shoe and placed in closet of room. 2 nurse verification with lyric writer and NIKKO Zapien
[2020-10-02] MEDS: atorvastatin 40 mg Tablet PO (08:37)
[2020-10-02] MEDS: famotidine 20 mg Tablet PO (08:37)
[2020-10-02] MEDS: clopidogrel 75 mg Tablet PO (08:37)
[2020-10-02] MEDS: carvedilol 6.25 mg Tablet PO ×2 (08:37→22:41)
[2020-10-02] MEDS: tamsulosin 0.4 mg Capsule PO (08:37)
[2020-10-02] MEDS: docusate sodium 100 mg Capsule PO ×2 (08:38→17:39)
[2020-10-02] MEDS: lisinopril 10 mg Tablet PO (08:38)
[2020-10-02] MEDS: isosorbide dinitrate 20 mg Tablet PO (08:38)
[2020-10-02] MEDS: aspirin 81 mg EC Tablet PO (08:38)
--- NOTE | 2020-10-02 11:47 | PM.PN ---
Subjective Subjective: Interval history: Patient is a -2 L balance, clinically does look dehydrated and dry chest x-ray consistent with pulmonary vascular congestion and still requiring 3 L nasal cannula Talked with Renée who stated that he was on hospice for quite some time however because of his noncompliance there was some issue with continuation of hospice services At home he is struggling to carry out daily activities he is weak and not able to take care of himself at all, he cancels most of his appointments and calls ambulance when he experienced any medical issues Creatinine today 1.4 white count 16,000 hemoconcentration hemoglobin 11 however 10 yesterday noted Vitals/I&O/Wt Last Vital Signs Temp 97.7 F 10/02/20 08:32 Pulse 76 10/02/20 08:32 Resp 25 H 10/02/20 08:32 BP 111/87 10/02/20 08:32 Pulse Ox 96 10/02/20 08:32 10/01/20 10/02/20 10/02/20 22:59 06:59 14:59 Intake Total 150 / 250 300 / 550 Output Total 1750 / 1750 1000 / 2750 Balance -1600 / -1500 -700 / -2200 Weight last 48 hrs Weight 58.967 kg Physical Exam Narrative: EXAM NARRATIVE: Patient was on 3 L nasal cannula He was worried about his billfold which were given to him, they were found in his belongings, he started counting his gross as soon as we gave him his wallet He is awake and alert oriented Dysarthria Able to move his extremities Looks extremely dry Bilateral rhonchi with crackles S1, S2, systolic murmur appreciated No lower extremity edema No neurological deficits In terms of his mentation, he is more alert as compared to yesterday at the time of admission Urinary Catheter Management^: Brandt: Cath Placed During This Visit: yes Reason for Continuing Indwelling Catheter: Acute Urinary Retention or Obstruction Urinary Catheter Date of Insertion: 10/01/20 Urinary Catheter Time of Insertion: 21:00 Data : 10/02/20 04:32 10/02/20 06:22 Micro: Microbiology 10/01/20 09:07 Blood Culture - Preliminary Blood SPECIMEN COLLECTED 10/01/20 09:05 Blood Culture - Preliminary Blood SPECIMEN COLLECTED A&P Assessment and plan (1) Acute exacerbation of CHF (congestive heart failure): Status: Acute (2) Pulmonary emphysema: Status: Acute Qualifiers: Emphysema type: unspecified Qualified Code(s): J43.9 - Emphysema, unspecified (3) PAU (acute kidney injury): Status: Acute (4) Weakness: Status: Acute (5) Carotid stenosis: Status: Acute Qualifiers: Laterality: bilateral Qualified Code(s): I65.23 - Occlusion and stenosis of bilateral carotid arteries (6) Noncompliance: Status: Chronic (7) Acute respiratory failure with hypoxia: Status: Acute (8) Sepsis: Status: Acute Additional A&P Information Sepsis criteria met today It was not present on the time of admission Leukocytosis with tachypnea noted However I do suspect he is hemoconcentrated which has caused this abnormal lab work which is also consistent on his hemoglobin and platelet count He is afebrile CTA chest did not reveal any consolidation consistent with pneumonia Bradnt catheter draining clear urine I would request another chest x-ray, urine analysis, culture, blood cultures were taken in the ER Would start ceftriaxone with azithromycin for now PAU secondary to CHF exacerbation I would like to increase his Lasix to 80 mg daily clinically does look extremely dry, he did put out 2 L, monitor closely will adjust diuretic regimen Brandt catheter draining clear urine Acute hypoxic restaurant failure due to CHF exacerbation History of recurrent CVAs with dysarthria Worsening lethargy, failure to thrive Will need long-term long-term placement Talked with his family today DNR/DNI DVT prophylaxis Lovenox for now Pur?ed thickened diet Guarded prognosis Covid PCR negative Attestations Medical Necessity Statement*: Will need long-term long-term placement, shoe caser updated Time Spent in Patient Care: 16 - 35 minutes Coding Level of Care Code Acute Extrusion Line Operator for Rosetta Fwd Diagnoses Acute exacerbation of CHF (congestive heart failure) I50.9 Pulmonary emphysema J43.9 Emphysema type: unspecified PAU (acute kidney injury) N17.9 Weakness R53.1 Carotid stenosis I65.23 Laterality: bilateral Noncompliance Z91.19 Acute respiratory failure with hypoxia J96.01 Sepsis A41.9
--- NOTE | 2020-10-02 12:08 | XRR_ITS ---
PROCEDURE INFORMATION: Exam: XR Chest Exam date and time: 10/02/2020 12:08 PM Age: 85 years old Clinical indication: Shortness of breath; Additional info: Sepsis TECHNIQUE: Imaging protocol: XR of the chest. Views: 1 view. COMPARISON: CR (CHEST, ) 10/01/2020 9:59 AM FINDINGS: Lungs: There is multifocal bilateral lung consolidation which has mildly worsened in the interval. Pleural spaces: There are bilateral pleural effusions. No pneumothorax. Heart/Mediastinum: Cardiomegaly is identified. Bones/joints: Unremarkable. XR/XR chest 1V portable [id number] IMPRESSION: There is multifocal bilateral lung consolidation which has mildly worsened when compared with 10/01/2020.
--- NOTE | 2020-10-02 12:52 | PC.NURSE ---
Dr. Shin notified of patient BP. Physician gave telephone order to hold lasix dose at this time. RBTO. Urine culture collected.
[2020-10-02 13:06] LABS: Add Urine Microscopic? YES; Bacteria Urine 1+ /hpf; Bilirubin Urine Neg (Negative); Blood Urine 3+ (Negative); Glucose Urine UA Norm (Normal); Ketones Urine Negative (Negative); Leukocyte Esterase Urine 2+ (Negative); Nitrate Urine Negative (Negative); Protein Urine Neg (Negative); RBC Urine 15-25 /hpf (0-2); Specific Gravity, Urine 1.015 (1.005-1.030); Urine Appearance Hazy (CLEAR); Urine Color Straw (Yellow); Urobilinogen Urine Norm (Negative); WBC Urine 25-40 /hpf (0-5); pH Urine 5 (5-7)
[2020-10-02 13:07] LABS: Add Urine Culture? No
[2020-10-02] MEDS: heparin 5,000 unit/mL INJ 1 mL 5000 UNIT SUBCUT ×2 (13:37→22:04)
[2020-10-02] MEDS: cefTRIAXone 1,000 MG in sodium chloride 0.9% (plus) 50 ML 100 MG IV (13:38)
--- NOTE | 2020-10-02 15:37 | PC.NURSE ---
Dr. Shin notified of BP. Telephone order to hold dose of Isordil. RBTO.
--- NOTE | 2020-10-02 19:09 | PC.NURSE ---
Shift Note Frequent safety and comfort rounds continue. Orders and/or nursing care completed as indicated. Patient monitored for response to intervention and treatment(s). Education provided includes teaching regarding medications, plan of care, and active diagnosis. Patient and/or associate sales representative verbalized some questions that were answered by RN and verbalized understanding of teaching. Will continue to monitor.
[2020-10-03] VITALS (10 sets, daily range): BP systolic 93–118; BP diastolic 47–68; PULSE 60–78; RESP 14–18; TEMP 36.6–37.1; O2SAT 92–100
[2020-10-03 05:33] LABS: Basophils % 0.1 %; Eosinophils % 0.1 %; Hematocrit 30.4 % (42.0-52.0); Hemoglobin 10.4 g/dL (11.7-16.6); Lymphocytes # 1.5 10^3/uL (0.8-4.8); Lymphocytes % 10.9 %; Mean Corpuscular HGB Conc 34.2 g/dL (30.0-36.0); Mean Corpuscular Hemoglobin 32.1 pg (28.0-34.0); Mean Corpuscular Volume 93.8 fl (80-94); Mean Platelet Volume 12.6 fL (7.4-10.4); Monocytes # 1.1 10^3/uL (0.2-0.9); Monocytes % 8.3 %; Neutrophils # 10.78 10^3/uL (1.8-7.7); Neutrophils % 80.2 %; Nucleated Red Blood Cells % 0 %; Platelet Count 286 10^3/cmm (130-400); Red Blood Count 3.24 10^6/uL (4.1-5.3); White Blood Count 13.5 10^3/uL (4.0-10.0)
[2020-10-03] MEDS: heparin 5,000 unit/mL INJ 1 mL 5000 UNIT SUBCUT ×3 (05:33→21:01)
[2020-10-03 05:49] LABS: Blood Urea Nitrogen 45 mg/dL (8-23); Calcium 8.2 mg/dL (8.5-10.5); Carbon Dioxide 24 mmol/L (22-29); Chloride 101 mmol/L (98-107); Glucose 100 mg/dL (65-115); Osmolality Calculated 294 mOsm/kg (285-295); Sodium 136 mmol/L (136-145)
[2020-10-03 05:51] LABS: Anion Gap 15.8 (5-19); Potassium 4.8 mmol/L (3.5-5.1)
[2020-10-03] MEDS: azithromycin 250 mg Tablet 500 MG PO (09:54)
[2020-10-03] MEDS: isosorbide dinitrate 20 mg Tablet PO ×3 (09:54→21:09)
[2020-10-03] MEDS: atorvastatin 40 mg Tablet PO (09:55)
[2020-10-03] MEDS: tamsulosin 0.4 mg Capsule PO (09:55)
[2020-10-03] MEDS: FUROsemide 10 mg/mL SDV 4mL 40 MG IVP (09:55)
[2020-10-03] MEDS: aspirin 81 mg EC Tablet PO (09:55)
[2020-10-03] MEDS: clopidogrel 75 mg Tablet PO (09:55)
[2020-10-03] MEDS: famotidine 20 mg Tablet PO (09:55)
[2020-10-03] MEDS: docusate sodium 100 mg Capsule PO ×2 (09:55→17:29)
[2020-10-03] MEDS: carvedilol 6.25 mg Tablet PO ×2 (09:57→21:02)
--- NOTE | 2020-10-03 10:01 | PC.CHAP ---
Pastoral Care Encounter/Spiritual Assessment Type of Contact [] Declined supervisor cook room visit [] Patient/Family/Request visit [] Outpatient visit [] Follow-up visit [] Physician referral [] Code/Alert [x] Routine visit [] Staff referral [] Actively dying [x] Patient sleeping [] Family support [] [] Out of room [] Palliative care [] [] Receiving care in room [] Pre-surgical visit [] Trauma [] Long length of stay [] ICU visit [] Other: Relational/Emotional Strength [] Patient feels connected with others/family/visitors/staff [] Distress [] Loneliness/isolation [] Abandonment Spirituality of Patient [] Person of Christen [] Attends Sabianism of their Christen [] Believes in Prayer [] Reads Bible or Gnosticism materials [] There are Spiritual issues to be addressed Staff Attorney Interventions [] Prayer [] Active listening [] Non-anxious presence [] Spiritual/emotional support [] Crisis/trauma care [] Spiritual counseling [] Bereavement support [] Provided bereavement packet [] Provided Bible/devotional materials [] Provided toy/stuffed animal, coloring book to patient or family member [] Provided Communion [] Anointing/[place] [] Salvation [] Completed spiritual assessment [] Other: Impact on Illness or Injury [] Angry [] Fearful [] Anxious [] Often cries [] Exhaustion [] Unable to work [] Unable to attend muslim [] Unable to walk/stand [] Unable to read [] Unable to drive [] Unable to eat/drink [] Unable to sleep [] Unable to be with family [] Patient intubated [] Other: Summary Time spent with patient
[2020-10-03] MEDS: cefTRIAXone 1,000 MG in sodium chloride 0.9% (plus) 50 ML 100 MG IV (13:26)
--- NOTE | 2020-10-03 13:52 | PM.PN ---
Subjective Subjective: Interval history: Abnormal UA, chest x-ray consistent with pneumonia Recent Covid PCR negative Start ceftriaxone and azithromycin Requested urine antigens, sputum culture Will need to go to shelter account relationship manager updated Creatinine stabilized at 1.2 Leukocytosis improving to 13,000 Vitals/I&O/Wt Last Vital Signs Temp 98.0 F 10/03/20 12:00 Pulse 64 10/03/20 12:00 Resp 14 10/03/20 12:00 BP 93/50 10/03/20 12:00 Pulse Ox 92 10/03/20 12:00 10/02/20 10/03/20 10/03/20 22:59 06:59 14:59 Intake Total 610 / 1380 240 / 240 Output Total 875 / 875 300 / 1175 Balance -265 / 505 -300 / 205 240 / 240 Physical Exam Narrative: EXAM NARRATIVE: Patient was sleeping when I entered the room however when he woke up, he wanted to eat his breakfast Breakfast tray was provided No overnight events Agreeable to go to shelter EOMI, PERRLA no new neurological deficit Dysarthria S1, S2 No signs of heart failure Mild rhonchi on lung auscultation Lower extremity no edema Clinically looks dry Emaciated muscle mass loss Urinary Catheter Management^: Brandt: Cath Placed During This Visit: yes Reason for Continuing Indwelling Catheter: Accurate Measurement of Urinary Output in Critically Ill Patients Urinary Catheter Date of Insertion: 10/01/20 Urinary Catheter Time of Insertion: 21:00 Data : 10/03/20 05:18 10/03/20 05:18 Micro: Microbiology 10/02/20 12:36 Urine Culture - Preliminary Urine Catheterized 10/01/20 09:07 Blood Culture - Preliminary Blood NEGATIVE TO DATE 10/01/20 09:05 Blood Culture - Preliminary Blood NEGATIVE TO DATE A&P Assessment and plan (1) Sepsis: Status: Acute (2) Acute respiratory failure with hypoxia: Status: Acute (3) PAU (acute kidney injury): Status: Acute (4) Acute exacerbation of CHF (congestive heart failure): Status: Acute (5) Pneumonia: Status: Acute Additional A&P Information Sepsis Secondary to pneumonia Criteria met yesterday Currently on ceftriaxone azithromycin We will follow with urine antigens, sputum culture, abnormal UA noted as well ceftriaxone would suffice, will follow with urine culture Covid PCR negative on 09/23 No active cough or chest pain No encephalopathy or signs of shock Follow-up with procalcitonin Acute CHF exacerbation We will keep him on Lasix 20 mg p.o. daily No active chest pain or shortness of breath He does not use oxygen at home Chest x-ray consistent with pneumonia with vascular congestion Failure to thrive Currently on pur?ed thick diet Edentulous Protein calorie malnourishment, muscle mass loss PAU secondary to cardiorenal etiology Continue Lasix, No new neurological deficits has history of dysarthria from previous CVAs Lives alone and can take care of himself at home Awaiting placement to a shelter DNR/DNI, patient wishes to pursue comfort care in case of decline in his functional status Family, Renée updated Guarded prognosis DVT prophylaxis: Lovenox PT evaluation Attestations Medical Necessity Statement*: Awaiting placement to shelter Time Spent in Patient Care: less than 15 minutes Coding Level of Care Code Acute Linesperson for Rosetta Fwd Diagnoses Sepsis A41.9 Acute respiratory failure with hypoxia J96.01 PAU (acute kidney injury) N17.9 Acute exacerbation of CHF (congestive heart failure) I50.9 Pneumonia J18.9
[2020-10-03 14:54] LABS: Procalcitonin 0.46 ng/mL (0-0.5)
[2020-10-03] MEDS: LORazepam 2 mg/mL INJ 1 mL 0.5 MG IVP (21:09)
--- NOTE | 2020-10-03 23:44 | PC.NURSE ---
PT C/O PAIN TO BILAT HEELS AT THIS TIME. HEELS BLANCHABLE TO TOUCH. PLACED HEEL PROTECTORS BILATERAL AND ELEVATED ON PILLOW. PT TOLERATED WELL.
[2020-10-04] VITALS (9 sets, daily range): BP systolic 102–119; BP diastolic 50–65; PULSE 58–71; RESP 16–18; TEMP 36.6–36.8; O2SAT 90–98
[2020-10-04 03:05] LABS: Basophils % 0.4 %; Eosinophils # 0.1 10^3/uL (0.0-0.8); Eosinophils % 0.8 %; Hematocrit 27.2 % (42.0-52.0); Hemoglobin 9.1 g/dL (11.7-16.6); Lymphocytes % 18.5 %; Mean Corpuscular HGB Conc 33.5 g/dL (30.0-36.0); Mean Corpuscular Hemoglobin 31.8 pg (28.0-34.0); Mean Corpuscular Volume 95.1 fl (80-94); Mean Platelet Volume 13.2 fL (7.4-10.4); Monocytes # 1.2 10^3/uL (0.2-0.9); Monocytes % 11.4 %; Neutrophils # 7.28 10^3/uL (1.8-7.7); Neutrophils % 68.4 %; Nucleated Red Blood Cells % 0 %; Platelet Count 293 10^3/cmm (130-400); Red Blood Count 2.86 10^6/uL (4.1-5.3); White Blood Count 10.6 10^3/uL (4.0-10.0)
[2020-10-04 03:22] LABS: Anion Gap 10.6 (5-19); Blood Urea Nitrogen 45 mg/dL (8-23); Calcium 7.7 mg/dL (8.5-10.5); Carbon Dioxide 29 mmol/L (22-29); Chloride 100 mmol/L (98-107); Glucose 107 mg/dL (65-115); Osmolality Calculated 294 mOsm/kg (285-295); Potassium 3.6 mmol/L (3.5-5.1); Sodium 136 mmol/L (136-145)
[2020-10-04] MEDS: heparin 5,000 unit/mL INJ 1 mL 5000 UNIT SUBCUT ×3 (05:38→21:32)
[2020-10-04] MEDS: isosorbide dinitrate 20 mg Tablet PO ×3 (08:13→21:32)
[2020-10-04] MEDS: FUROsemide 20 mg Tablet PO (08:13)
[2020-10-04] MEDS: tamsulosin 0.4 mg Capsule PO (08:13)
[2020-10-04] MEDS: atorvastatin 40 mg Tablet PO (08:13)
[2020-10-04] MEDS: clopidogrel 75 mg Tablet PO (08:13)
[2020-10-04] MEDS: carvedilol 6.25 mg Tablet PO ×2 (08:13→21:32)
[2020-10-04] MEDS: azithromycin 250 mg Tablet 500 MG PO (08:13)
[2020-10-04] MEDS: famotidine 20 mg Tablet PO (08:13)
[2020-10-04] MEDS: docusate sodium 100 mg Capsule PO ×2 (08:13→17:20)
[2020-10-04] MEDS: aspirin 81 mg EC Tablet PO (08:13)
--- NOTE | 2020-10-04 09:28 | PC.SOCIAL ---
IM follow up reviewed with patient and copy provided he verbalized understanding.
[2020-10-04] MEDS: potassium chloride oral liq 20 mEq/15 mL UDC 40 MEQ PO (10:30)
[2020-10-04] MEDS: calcium gluconate 0.1 gm/mL 10% SDV 10mL 1 GM IVP (10:31)
--- NOTE | 2020-10-04 14:41 | P.PN_ITS ---
Subjective Subjective: Interval history: Patient was seen and examined he was much more awake and alert today willing to go to senior care, urine antigens negative, Urine culture unremarkable Blood cultures negative to date Covid antigen on 10/01 -[facility]man Vitals/I&O/Wt Last Vital Signs Temp 98.0 F 10/04/20 12:00 Pulse 70 10/04/20 12:00 Resp 17 10/04/20 12:00 BP 119/64 10/04/20 12:00 Pulse Ox 90 10/04/20 12:00 10/03/20 10/04/20 10/04/20 22:59 06:59 14:59 Intake Total 100 / 390 360 / 360 Output Total 900 / 900 900 / 1800 300 / 300 Balance -800 / -510 -900 / -1410 60 / 60 Physical Exam Narrative: EXAM NARRATIVE: Patient was laying in his bed without any active discomfort Breakfast tray at the bedside S1, S2 clinically still looks dehydrated Bibasilar crackles noted Saturating well on 2 L nasal cannula No active worsening of neurological underlying deficits Speech is more understandable today No acute worsening of shortness of breath EOMI, PERRLA Abdomen soft Urinary Catheter Management^: Brandt: Cath Placed During This Visit: yes Reason for Continuing Indwelling Catheter: Acute Urinary Retention or Obstruction Urinary Catheter Date of Insertion: 10/01/20 Urinary Catheter Time of Insertion: 21:00 Data : 10/04/20 02:27 10/04/20 02:27 Micro: Microbiology 10/04/20 06:51 Legionella Urinary Antigen - Final Urine Catheterized 10/02/20 12:36 Urine Culture - Final Urine Catheterized A&P Assessment and plan (1) Pneumonia: Status: Acute (2) Sepsis: Status: Acute (3) Acute respiratory failure with hypoxia: Status: Acute (4) PAU (acute kidney injury): Status: Acute (5) Acute exacerbation of CHF (congestive heart failure): Status: Acute (6) Carotid stenosis: Status: Acute Qualifiers: Laterality: bilateral Qualified Code(s): I65.23 - Occlusion and stenosis of bilateral carotid arteries (7) Recurrent cerebrovascular accidents (CVAs): Status: Acute Additional A&P Information Sepsis Secondary to pneumonia Urine antigens negative, blood cultures urine cultures sterile Leukocytosis improving, he has stayed afebrile, Continue ceftriaxone and azithromycin 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 Need of heart failure transition to class IV I would keep him on low-dose of diuretics for now His creatinine fluctuates between 1.2-1.4 -1.6 L balance 2 L output Good urine output post renal obstructive uropathy unlikely Chronic hypoxic respiratory failure Saturating well on 2 L nasal cannula no acute worsening 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 No acute worsening Failure to thrive Protein calorie malnourishment He is edentulous for now I have kept him on pur?ed thickened diet DNR/DNI Guarded prognosis DVT prophylaxis Lovenox Awaiting placement to senior care, lives alone and cannot take care of himself Brandt catheter to be removed today Attestations Medical Necessity Statement*: Anticipating discharge to senior care Time Spent in Patient Care: less than 15 minutes Coding Level of Care Code Acute Dishwasher Preparer for Dayling Fwd Diagnoses Pneumonia J18.9 Sepsis A41.9 Acute respiratory failure with hypoxia J96.01 PAU (acute kidney injury) N17.9 Acute exacerbation of CHF (congestive heart failure) I50.9 Carotid stenosis I65.23 Laterality: bilateral Recurrent cerebrovascular accidents (CVAs) I63.9
[2020-10-04] MEDS: levoFLOXacin 750 mg Tablet PO (15:49)
[2020-10-05] VITALS (8 sets, daily range): BP systolic 103–117; BP diastolic 60–70; PULSE 59–81; RESP 17–22; TEMP 36.4–36.7; O2SAT 88–98
[2020-10-05 06:16] LABS: Anion Gap 15.2 (5-19); Blood Urea Nitrogen 43 mg/dL (8-23); Calcium 8.6 mg/dL (8.5-10.5); Carbon Dioxide 25 mmol/L (22-29); Chloride 99 mmol/L (98-107); Glucose 97 mg/dL (65-115); Osmolality Calculated 291 mOsm/kg (285-295); Potassium 4.2 mmol/L (3.5-5.1); Sodium 135 mmol/L (136-145)
[2020-10-05] MEDS: heparin 5,000 unit/mL INJ 1 mL 5000 UNIT SUBCUT (06:32)
[2020-10-05] MEDS: docusate sodium 100 mg Capsule PO (08:03)
[2020-10-05] MEDS: aspirin 81 mg EC Tablet PO (08:03)
[2020-10-05] MEDS: tamsulosin 0.4 mg Capsule PO (08:03)
[2020-10-05] MEDS: famotidine 20 mg Tablet PO (08:03)
[2020-10-05] MEDS: carvedilol 6.25 mg Tablet PO (08:03)
[2020-10-05] MEDS: clopidogrel 75 mg Tablet PO (08:03)
[2020-10-05] MEDS: isosorbide dinitrate 20 mg Tablet PO (08:03)
[2020-10-05] MEDS: atorvastatin 40 mg Tablet PO (08:03)
--- NOTE | 2020-10-05 09:40 | PC.CHAP ---
Pastoral Care Encounter/Spiritual Assessment Type of Contact [] Declined bench tool maker visit [] Patient/Family/Request visit [] Outpatient visit [] Follow-up visit [] Physician referral [] Code/Alert [x] Routine visit [] Staff referral [] Actively dying [] Patient sleeping [] Family support [] [] Out of room [] Palliative care [] [] Receiving care in room [] Pre-surgical visit [] Trauma [] Long length of stay [] ICU visit [] Other: Relational/Emotional Strength [x] Patient feels connected with others/family/visitors/staff [] Distress [] Loneliness/isolation [] Abandonment Spirituality of Patient [] Person of Christen [] Attends Restorationist of their Christen [] Believes in Prayer [] Reads Bible or Zoroastrianism materials [] There are Spiritual issues to be addressed Filament Coil Winder Interventions [] Prayer [x] Active listening [x] Non-anxious presence [] Spiritual/emotional support [] Crisis/trauma care [] Spiritual counseling [] Bereavement support [] Provided bereavement packet [] Provided Bible/devotional materials [] Provided toy/stuffed animal, coloring book to patient or family member [] Provided Communion [] Anointing/[place] [] Salvation [] Completed spiritual assessment [] Other: Impact on Illness or Injury [] Angry [] Fearful [] Anxious [] Often cries [] Exhaustion [] Unable to work [] Unable to attend lutheran [] Unable to walk/stand [] Unable to read [] Unable to drive [] Unable to eat/drink [] Unable to sleep [] Unable to be with family [] Patient intubated [] Other: Summary Met briefly with Pt but visit cut short due to doctor coming into room Time spent with patient 5 m
[2020-10-05] MEDS: lidocaine 2% viscous 15 ML, aluminum-mag hydrox-simethicon 30 ML, sucralfate oral liq 1 GM PO (11:25)
--- NOTE | 2020-10-05 11:36 | PM.DCS ---
Discharge Providers Date of Admission: 10/01/20 13:35 Date of Discharge: October 05, 2020 Attending Provider at Admission: Fariba Shin MD Attending Provider at Discharge: Fariba Shin MD Primary Care Provider: YELITZA Mon Diagnoses at Discharge Discharge Diagnosis (1) Pneumonia: Status: Acute (2) Sepsis: Status: Acute (3) Acute respiratory failure with hypoxia: Status: Acute (4) PAU (acute kidney injury): Status: Acute (5) Acute exacerbation of CHF (congestive heart failure): Status: Acute (6) Carotid stenosis: Status: Acute Qualifiers: Laterality: bilateral Qualified Code(s): I65.23 - Occlusion and stenosis of bilateral carotid arteries (7) Recurrent cerebrovascular accidents (CVAs): Status: Acute Reason for Visit Reason for Visit: CHEST PAIN Hospital Course Hospital Course Anita Sauer is a 85 year old male who carries multiple comorbid conditions such as 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 Patient is not able to provide any history he was on BiPA and BiPAP was removed he was not able to tell me exactly why he is in the hospital. He is able to move his extremities and understand my questions. He was given a cup of water in anticipation he might be able to speak. I called his sister Ellen who is telling me that he does not have any official DPOA but Renée her daughter is mostly making decisions for him. I tried to reach out to Renée she has no voicemail set up. Review of records revealed that he was offered hospice level of care but at some point he refused and when I try to clarify hospice level of care with his sister she stated that Mr. Sauer does see a nurse once a week which is not enough for him he is living alone in 2-week and no one else is there to help him at all. He was admitted on 09/24 for management of congestive heart failure and chest pain. He was discharged from the emergency department after getting Lasix 20 mg, doxycycline and he was put on home oxygen. Diagnostic work-up in the ER today consistent with CHF exacerbation, CTA rule out PE however consistent with primary edema and pleural effusions. Patient was put on BiPAP secondary to increased work of breathing. ABG shows hypoxia, as per the ER report when EMS arrived patient was diaphoretic and tachypneic he was desaturating in low 80s, he was put on nonrebreather mask. In the ER he received Lasix 40 mg IV push along with doxycycline 1 dose of 100 mg, Ativan 0.5 mg, steroids methylprednisolone 125 mg along morphine 2 mg At the time of my evaluation I removed his BiPAP, he wanted to get up and void urine, urinal was given and he was put back on BiPAP he seems to have dysarthria however did not complain of active chest pain clinically looks dry Hospital course Patient was admitted for management of congestive heart failure exacerbation, he was diuresed with IV diuretics, -4 L balance, clinically he looks dry however with adequate urine output his shortness of breath orthopnea and PND improved he remains on 2 L nasal cannula which is his baseline home requirement. On subsequent day he met sepsis criteria, chest x-ray consistent with pneumonia he was started on ceftriaxone and azithromycin, urine antigens, blood culture, urine cultures unremarkable, he was deescalated to Levaquin. He never spiked any fever. He is being discharged on Levaquin 7-day regimen. He does have chronic dysarthria from previous stroke, he is edentulous he has been tolerating his pur?ed thickened diet. No active neurological deficits were noted. I did talk with the family Ellen sister and Renée niece. They cannot take care of him at home and agreeable with assisted living however patient is not able to afford financially living at the assisted living as a permanent resident. For now Renée, Sister Ellen and Mr. Arroyo is in agreement to go to assisted living and decide later whether he can stay with one of them or stay at the facility long-term. He lives alone and not able to take care of himself. In the past he was put on hospice secondary to worsening of his symptoms however he is not showing any signs of impending . He remains DNR/DNI. Medications on discharge with modifications Decrease Lasix dose to 20 mg daily Decrease lisinopril dose to 10 mg from 20 mg Discontinued hydralazine secondary to hypotension Metoprolol succinate dose reduced to 12.5 mg daily Continue aspirin, Plavix, atorvastatin Levaquin 750 mg 7-day regimen Physical Exam Narrative: EXAM NARRATIVE: Patient was laying in his bed without any active discomfort Breakfast tray at the bedside S1, S2 clinically still looks dehydrated Bibasilar crackles noted Saturating well on 2 L nasal cannula No active worsening of neurological underlying deficits Speech is more understandable today No acute worsening of shortness of breath EOMI, PERRLA Abdomen soft Urinary Catheter Management^: Brandt: Cath Placed During This Visit: yes Reason for Continuing Indwelling Catheter: Acute Urinary Retention or Obstruction Urinary Catheter Date of Insertion: 10/01/20 Urinary Catheter Time of Insertion: 21:00 Discharge Data Data Completed and Pending: Completed Studies During Hospitalization Category Date Time Status CT angio chest PE protcl [id number] Urge nt Cat Scan 10/01/20 09:[address] cervical spin wo con* [id number] Urge nt Cat Scan 10/01/20 09:[address] head wo con* 7 0450 Urgent Cat Scan 10/01/20 09:16 Completed XR chest 1V chalo ble [id number] Routine Exams 10/02/20 12:08 Completed XR chest 1V chalo ble [id number] Urgent Exams 10/01/20 09:07 Completed Pending at discharge Category Date Time Status Blood Culture Sta t Lab 10/01/20 09:07 Results Sputum Culture an d Gram Stain Stat Lab 10/03/20 07:41 Uncollected Labs from last 24 hours 10/05/20 05:05 Sodium 135 L Potassium 4.2 Chloride 99 Carbon Dioxide 25 Anion Gap 15.2 BUN 43 H Creatinine 1.2 GFR Calculation Not Reportable Glucose 97 Calculated Osmolal ity 291 Calcium 8.6 Vitals: Last Vital Signs Temp 97.6 F 10/05/20 07:27 Pulse 74 10/05/20 08:28 Resp 18 10/05/20 08:28 BP 113/70 10/05/20 07:27 Pulse Ox 95 10/05/20 08:28 Discharge Plan Discharge Patient Disposition: Xfer Other Condition: Stable Prescriptions: New furosemide 20 mg Tablet 20 mg PO DAILY@0800 30 Days Qty: 30 RF: 0 levofloxacin 750 mg Tablet 750 mg PO DAILY 7 Days Qty: 7 RF: 0 ondansetron HCl [Zofran] 4 mg tablet 4 mg PO DAILY PRN (Reason: nausea and vomiting) Qty: 10 RF: 0 Continued cholecalciferol (vitamin D3) 25 mcg (1,000 unit) capsule 50 mcg PO DAILY RF: 0 ondansetron 8 mg tablet,disintegrating 8 mg PO Q8H PRN (Reason: nausea and vomiting) Qty: 90 RF: 0 Nitrostat 0.4 mg tablet, sublingual 0.4 mg SUBLINGUAL Q5M PRN (Reason: Chest Pain) 30 Days Qty: 30 RF: 5 atorvastatin 40 mg tablet 40 mg PO DAILY RF: 0 docusate sodium 100 mg Capsule 100 mg PO BID RF: 0 budesonide 90 mcg/actuation aerosol powdr breath activated 1 inh inhalation BID Qty: 1 RF: 0 carvedilol 3.125 mg tablet 6.25 mg PO BID Qty: 60 RF: 3 clopidogrel 75 mg tablet 75 mg PO DAILY RF: 0 aspirin 81 mg tablet,delayed release (DR/EC) 81 mg PO DAILY RF: 0 famotidine 20 mg tablet 20 mg PO DAILY RF: 0 tamsulosin 0.4 mg capsule 0.4 mg PO DAILY RF: 0 isosorbide dinitrate 20 mg tablet 20 mg PO TID RF: 0 Changed metoprolol succinate 25 mg tablet extended release 24 hr 12.5 mg PO DAILY Qty: 0 RF: 0 lisinopril 20 mg tablet 10 mg PO DAILY Qty: 30 RF: 3 Discontinued hydralazine 25 mg Tablet 25 mg PO TID RF: 0 amlodipine 2.5 mg Tablet 2.5 mg PO DAILY RF: 0 Discharge Orders: Discharge Order (Routine); Ordered 10/05/20 Ordered By: Fariba Shin Discharge Diet: Cardiac and Soft Mechanical Discharge Activity: Increase activity as tolerated, Use walker/crutches as instructed and As per PT/OT instructions Patient Instructions: Heart Failure (DC), Malnutrition (DC) Discharge Attestations Time Spent in Discharge Care*: less than 30 min Status at Discharge: Cognitive status at discharge: cognitively intact, Behavioral status at discharge: cooperative, Quality Metrics Clinical Quality Measures During this hospital stay, did patient experience: None Coding Level of Care Code Acute Chg FW DC note Diagnoses Pneumonia J18.9 Sepsis A41.9 Acute respiratory failure with hypoxia J96.01 PAU (acute kidney injury) N17.9 Acute exacerbation of CHF (congestive heart failure) I50.9 Carotid stenosis I65.23 Laterality: bilateral Recurrent cerebrovascular accidents (CVAs) I63.9
--- NOTE | 2020-10-05 13:54 | PC.NURSE ---
Home o2 evaluation completed. order placed. report called to [facility]. [facility] notified that patient is on their way to [facility].
--- NOTE | 2020-10-11 12:36 | PC.SOCIAL ---
discharge call made, unable to reach patient. message left.
== END 2020-10-05 13:57 | disposition hospice, home (50) | DRG 291 ==
LOC: ER 14:05 → CSU 14:21 → MEDSURG 10-03 02:44
PROVIDERS: Admitting Provider Internal Medicine; Emergency Provider Emergency Medicine; PCP Nurse Practitioner Family; Visit Provider Internal Medicine
DX: I13.0 Hypertensive heart and chronic kidney disease with heart failure and stage 1 through stage 4 chronic kidney disease, or unspecified chronic kidney disease (principal); A41.9 Sepsis, unspecified organism; I50.21 Acute systolic (congestive) heart failure; J96.21 Acute and chronic respiratory failure with hypoxia; J18.9 Pneumonia, unspecified organism; Z68.1 Body mass index [BMI] 19.9 or less, adult; N17.9 Acute kidney failure, unspecified; E44.0 Moderate protein-calorie malnutrition; Z66 Do not resuscitate; E78.5 Hyperlipidemia, unspecified; I25.10 Atherosclerotic heart disease of native coronary artery without angina pectoris; K21.9 Gastro-esophageal reflux disease without esophagitis; N18.30 Chronic kidney disease, stage 3 unspecified; I25.5 Ischemic cardiomyopathy; F17.200 Nicotine dependence, unspecified, uncomplicated; J43.9 Emphysema, unspecified; I65.23 Occlusion and stenosis of bilateral carotid arteries; R62.7 Adult failure to thrive; Z91.19 Patient's noncompliance with other medical treatment and regimen; Z79.82 Long term (current) use of aspirin; Z86.73 Personal history of transient ischemic attack (TIA), and cerebral infarction without residual deficits; Z86.19 Personal history of other infectious and parasitic diseases; Z82.49 Family history of ischemic heart disease and other diseases of the circulatory system; Z82.3 Family history of stroke; Z75.1 Person awaiting admission to adequate facility elsewhere
CPT/HCPCS: 36415; 36600; 51702; 70450; 71045; 71275; 72125; 80048; 80051; 80053; 81001; 82330; 82805; 83605; 83735; 83880; 84145; 85025; 85610; 85730; 86403; 87040; 87086; 87426; 87449; 93005; 94640; 94660; 96365; 96372; 96375; 97116; 97161; 99285; J0610; J0696; J1644; J1940; J2060; J2270; J2405; J2930; J3010; J3490; Q0144; Q9967